=== PATIENT | female | born 1980 | race Caucasian/White ===

== ENCOUNTER 2019-05-26 21:59 | Emergency (ER) | payer MEDICAID, SELFPAY | END 2019-05-27 04:05 | disposition admitted as inpatient to this hospital (09) | LOC: ER 07-05 09:59 | PROVIDERS: Emergency Provider Family Medicine; Family Provider Nurse Practitioner Family; PCP Family Medicine | DX: F10.129 Alcohol abuse with intoxication, unspecified (principal); Y90.8 Blood alcohol level of 240 mg/100 ml or more; R11.2 Nausea with vomiting, unspecified; T68.XXXA Hypothermia, initial encounter; X31.XXXA Exposure to excessive natural cold, initial encounter | CPT/HCPCS: 71045; 80053; 80307; 81025; 84443; 85025; 93005; 96365; 96366; 96372; 96374; 96375; 99283; 99291; A4570; J2704; J3010; J3490; J7030 ==

== ENCOUNTER 2019-05-26 21:59 | Inpatient (IN) | payer MEDICAID, SELFPAY ==
[2019-05-26 22:13] VITALS: BMI 37.8
--- NOTE | 2019-05-26 22:18 | ED_ITS ---
Entered by Liza Eddy, acting as scribe for Documented by User: Matt Plasencia DO 05/26/19 22:50 HPI - Alcohol General: Chief Complaint: Alcohol Stated Complaint: ETOH Time Seen by Provider: 05/26/19 22:16 Source: patient Mode of arrival: EMS Limitations: altered mental status History of Present Illness: HPI narrative: 38 yo Female presents to ED with complaint of alcohol intoxication and altered mental status. Per EMS, patient was found in the back of a bean picker truck, intoxicated. Pt has altered mental status and has a rectal temperature of 89 degrees. MD complaint: alcohol intoxication Last drink: Unknown Associated symptoms: Reports nausea and vomiting Review of Systems General: Reports: ROS unobtainable due to medical condition and ROS unobtainable due to mental status GI: Reports: nausea and vomiting PFSH ED PFSH: Statuses (acute, chronic, etc) shown below reflect problem list status as previously entered and may not be historically accurate Social History Smoking and tobacco status: unknown if ever smoked Physical Exam Const: COMMON NORMALS: no apparent distress, average body habitus, oriented x3, no limitations, healthy appearing, alert and well nourished HENMT: COMMON NORMALS: normocephalic, head/scalp atraumatic, hearing grossly normal bilaterally, external ears normal, EAC's normal, TM's normal bilaterally, external nose normal, nasal mucous membranes and turbinates normal, moist oral mucous membranes, oropharynx normal, dentition normal and gingiva normal HEAD & SCALP: normocephalic and atraumatic NOSE: external nose normal and nasal mucous membranes and turbinates normal EXTERNAL EAR: Yes external ears normal EXTERNAL AUDITORY CANAL: EAC's normal TYMPANIC MEMBRANE: TM's normal radha aterally Eye: COMMON NORMALS: PERRL, EOMs intact bilaterally, conjunctivae normal, no scleral icterus, no papilledema, normal visual will by confrontation and fundi normal bilaterally CONJUNCTIVA: Yes conjunctivae normal PUPIL: Yes PERRL DIRECT OPHTHALMOSCOPY: Yes no papilledema and Yes fundi normal bilaterally Neck/C-Spine: COMMON NORMALS: full ROM, no lymphadenopathy, supple, no meningeal signs, no JVD, thyroid normal and no carotid bruits THYROID: thyroid normal Chest: COMMONS NORMALS: inspection of chest normal and palpation of chest normal Resp: COMMON NORMALS: normal respiratory effort, no retractions, no use of accessory muscles, clear to auscultation bilaterally and percussion normal AUSCULTATION: clear to auscultation bilaterally PERCUSSION: percussion normal Cardio: COMMON NORMALS: no JVD, regular rate, regular rhythm, S1 normal heart sound, S2 normal heart sound, no gallops, no clicks, no murmurs, no rub and peripheral pulses 2+ throughout RATE: regular rate RHYTHM: regular rhythm HEART SOUNDS: S1 normal and S2 normal PERIPHERAL PULSES: pulses 2+ throughout GI: COMMON NORMALS: normal to inspection, nondistended, normoactive bowel sounds, soft to palpation, non-tender, no hepatosplenomegaly, no masses and no bruits PALPATION: Yes soft and Yes no hepatosplenomegaly : COMMON NORMALS: Yes no CVA tenderness and Yes external appearance normal BLADDER/KIDNEY EXAM: Yes no CVA tenderness Back/Pelvis: COMMON NORMALS: no CVA tenderness, thoracic and lumbar spine normal to inspection, no thoracic nor lumbar tenderness, thoraco-lumbar ROM normal and straight leg raise negative bilaterally Extremity: COMMON NORMALS: normal to inspection, full ROM, normal capillary refill, no joint enlargement, no clubbing, cyanosis or edema, no calf tenderness and no pedal edema Neuro: COMMON NORMALS: oriented x3 SENSORIUM/ORIENTATION: Yes alert MENINGEAL SIGNS: Yes no meningeal signs Skin: COMMON NORMALS: no rashes or lesions noted, no wounds, skin turgor normal, no jaundice, no petechiae and no mottling GENERAL SKIN EXAM: no rashes or lesions noted and turgor normal Course Vital Signs: Vital signs: Vital Signs Temperature 93.8 F L 05/27/19 00:02 Pulse Rate 50 L 05/27/19 00:02 Respiratory Rate 16 05/27/19 00:02 Blood Pressure 112/61 05/27/19 00:02 Pulse Oximetry 98 05/27/19 00:02 MDM - Alcohol Lab Data: Labs: Lab Results 05/26/19 05/26/19 05/26/19 Range/Units 22:50 22:50 22:50 WBC (4.0-10.0) 10^3/ uL RBC (4.1-5.3) 10^6/u L Hgb (11.5-15.3) g/dL Hct (37.0-47.0) % MCV (81-99) fL MCH (28.0-34.0) pg MCHC (30.0-36.0) g/dL RDW (12.1-15.1) % Plt Count (130-400) 10^3/c mm MPV (7.4-10.4) fL Neut % (Auto) % Lymph % (Auto) % Kershaw % (Auto) % Eos % (Auto) % Baso % (Auto) % Neut # (Auto) (1.8-7.7) 10^3/u L Lymph # (Auto) (0.8-4.8) 10^3/u L Kershaw # (Auto) (0.2-0.9) 10^3/u L Eos # (Auto) (0.0-0.8) 10^3/u L Baso # (Auto) (0.0-0.1) 10^3/u L Nucleated RBC % (a uto) % Nucleated RBCs # /100WBC Sodium (136-145) mmol/L Potassium (3.5-5.1) mmol/L Chloride (98-107) mmol/L Carbon Dioxide (22-29) mmol/L Anion Gap (5-19) BUN (6-20) mg/dL Creatinine (0.5-0.9) mg/dL GFR Calculation (90-130) mL/min Glucose (74-109) mg/dL Calcium (8.6-10.0) mg/Dl Total Bilirubin (0.15-1.2) mg/dL AST (0-32) U/L ALT (0-33) U/L Alkaline Phosphata se (35-105) IU/L Total Protein (6.6-8.7) g/dL Albumin (3.5-5.2) g/dL Globulin (1.3-4.6) g/dL TSH (0.27-4.20) uIU/ mL HCG, Qual Negative (Negative) Urine Color Straw (Yellow) Urine Appearance Clear (CLEAR) Urine pH 6.5 (5-7) Ur Specific Gravit y 1.000 L (1.005-1.030) Urine Protein Neg (Negative) Urine Glucose (UA) Norm (Normal) Urine Ketones Negative (Negative) Urine Occult Blood Neg (Negative) Urine Nitrate Positive H (Negative) Urine Bilirubin Neg (NEGATIVE) Urine Urobilinogen Norm (Negative) mg/dL Ur Leukocyte Stephanie ase Negative (Negative) Urine RBC Rare (0-2) /hpf Urine WBC Rare (0-5) /hpf Ur Squamous Epith Cells Rare (0-5) Urine Bacteria 1+ H (NONE) Salicylates (3-10) mg/dL Urine Opiates Scre en Negative (Negative) ng/mL Acetaminophen (10-30) ug/mL Ur Barbiturates Sc reen Negative (Negative) ng/mL Ur Phencyclidine S crn Negative (Negative) ng/mL Ur Amphetamines Sc reen Negative (Negative) ng/mL U Benzodiazepines Scrn Negative (Negative) ng/mL Urine Cocaine Scre en Negative (Negative) ng/mL U Marijuana (THC) Screen Negative (Negative) ng/mL Ethyl Alcohol (0-10) mg/dL 05/26/19 05/26/19 Range/Units 22:58 22:58 WBC 16.4 H (4.0-10.0) 10^3/ uL RBC 5.24 (4.1-5.3) 10^6/u L Hgb 16.4 H (11.5-15.3) g/dL Hct 51.3 H (37.0-47.0) % MCV 97.9 (81-99) fL MCH 31.3 (28.0-34.0) pg MCHC 32.0 (30.0-36.0) g/dL RDW 13.6 (12.1-15.1) % Plt Count 334 (130-400) 10^3/c mm MPV 9.9 (7.4-10.4) fL Neut % (Auto) 43.6 % Lymph % (Auto) 48.2 % Kershaw % (Auto) 4.2 % Eos % (Auto) 3.1 % Baso % (Auto) 0.3 % Neut # (Auto) 7.1 (1.8-7.7) 10^3/u L Lymph # (Auto) 7.9 H (0.8-4.8) 10^3/u L Kershaw # (Auto) 0.7 (0.2-0.9) 10^3/u L Eos # (Auto) 0.5 (0.0-0.8) 10^3/u L Baso # (Auto) 0.1 (0.0-0.1) 10^3/u L Nucleated RBC % (a uto) 0 % Nucleated RBCs # 0.0 /100WBC Sodium 137 (136-145) mmol/L Potassium 4.6 (3.5-5.1) mmol/L Chloride 104 (98-107) mmol/L Carbon Dioxide 21 L (22-29) mmol/L Anion Gap 16.6 (5-19) BUN 10 (6-20) mg/dL Creatinine 1.0 H (0.5-0.9) mg/dL GFR Calculation 61.4 L (90-130) mL/min Glucose 104 (74-109) mg/dL Calcium 10.1 H (8.6-10.0) mg/Dl Total Bilirubin 0.2 (0.15-1.2) mg/dL AST 58 H (0-32) U/L ALT 52 H (0-33) U/L Alkaline Phosphata se 118 H (35-105) IU/L Total Protein 7.8 (6.6-8.7) g/dL Albumin 5.4 H (3.5-5.2) g/dL Globulin 2.4 (1.3-4.6) g/dL TSH 0.41 (0.27-4.20) uIU/ mL HCG, Qual (Negative) Urine Color (Yellow) Urine Appearance (CLEAR) Urine pH (5-7) Ur Specific Gravit y (1.005-1.030) Urine Protein (Negative) Urine Glucose (UA) (Normal) Urine Ketones (Negative) Urine Occult Blood (Negative) Urine Nitrate (Negative) Urine Bilirubin (NEGATIVE) Urine Urobilinogen (Negative) mg/dL Ur Leukocyte Stephanie ase (Negative) Urine RBC (0-2) /hpf Urine WBC (0-5) /hpf Ur Squamous Epith Cells (0-5) Urine Bacteria (NONE) Salicylates < 0.3 L (3-10) mg/dL Urine Opiates Scre en (Negative) ng/mL Acetaminophen < 5.0 L (10-30) ug/mL Ur Barbiturates Sc reen (Negative) ng/mL Ur Phencyclidine S crn (Negative) ng/mL Ur Amphetamines Sc reen (Negative) ng/mL U Benzodiazepines Scrn (Negative) ng/mL Urine Cocaine Scre en (Negative) ng/mL U Marijuana (THC) Screen (Negative) ng/mL Ethyl Alcohol 455 H* (0-10) mg/dL Coding Level of Care Code ED Material Handling Equipment Stevedore for Chg Fwd Exam Problem Focused Documented by User: Carl Mars DO 05/27/19 01:06 HPI - Alcohol General: Chief Complaint: Alcohol Stated Complaint: ETOH Time Seen by Provider: 05/26/19 22:16 PFS ED PFSH: Statuses (acute, chronic, etc) shown below reflect problem list status as previously entered and may not be historically accurate Social History Smoking and tobacco status: unknown if ever smoked Course ED course: 38-year-old female checked out to me by Dr. Landaverde. She presents intoxicated, had thrown up, and was quite hypothermic. Her rectal temp was 87.1. She was combative. She was unable to maintain her airway, and was intubated by Dr. Landaverde. This was done without complication. She was placed on propofol for sedation. Blood pressure currently 135/77, heart rate 55, oxygen saturations are 99%. CT of the head is been ordered for mental status change. Her alcohol level is 455 which is obviously critical. She does not, however, have a gap acidosis. She will be fluid resuscitated. She will be placed in the ICU. Consultations: Consultation #1: [place] Vital Signs: Vital signs: Vital Signs Temperature 93.8 F L 05/27/19 00:02 Pulse Rate 50 L 05/27/19 00:02 Respiratory Rate 16 05/27/19 00:02 Blood Pressure 112/61 05/27/19 00:02 Pulse Oximetry 98 05/27/19 00:02 MDM - Alcohol Lab Data: Labs: Lab Results 05/26/19 05/26/19 05/26/19 Range/Units 22:50 22:50 22:50 WBC (4.0-10.0) 10^3/ uL RBC (4.1-5.3) 10^6/u L Hgb (11.5-15.3) g/dL Hct (37.0-47.0) % MCV (81-99) fL MCH (28.0-34.0) pg MCHC (30.0-36.0) g/dL RDW (12.1-15.1) % Plt Count (130-400) 10^3/c mm MPV (7.4-10.4) fL Neut % (Auto) % Lymph % (Auto) % Kershaw % (Auto) % Eos % (Auto) % Baso % (Auto) % Neut # (Auto) (1.8-7.7) 10^3/u L Lymph # (Auto) (0.8-4.8) 10^3/u L Kershaw # (Auto) (0.2-0.9) 10^3/u L Eos # (Auto) (0.0-0.8) 10^3/u L Baso # (Auto) (0.0-0.1) 10^3/u L Nucleated RBC % (a uto) % Nucleated RBCs # /100WBC Sodium (136-145) mmol/L Potassium (3.5-5.1) mmol/L Chloride (98-107) mmol/L Carbon Dioxide (22-29) mmol/L Anion Gap (5-19) BUN (6-20) mg/dL Creatinine (0.5-0.9) mg/dL GFR Calculation (90-130) mL/min Glucose (74-109) mg/dL Calcium (8.6-10.0) mg/Dl Total Bilirubin (0.15-1.2) mg/dL AST (0-32) U/L ALT (0-33) U/L Alkaline Phosphata se (35-105) IU/L Total Protein (6.6-8.7) g/dL Albumin (3.5-5.2) g/dL Globulin (1.3-4.6) g/dL TSH (0.27-4.20) uIU/ mL HCG, Qual Negative (Negative) Urine Color Straw (Yellow) Urine Appearance Clear (CLEAR) Urine pH 6.5 (5-7) Ur Specific Gravit y 1.000 L (1.005-1.030) Urine Protein Neg (Negative) Urine Glucose (UA) Norm (Normal) Urine Ketones Negative (Negative) Urine Occult Blood Neg (Negative) Urine Nitrate Positive H (Negative) Urine Bilirubin Neg (NEGATIVE) Urine Urobilinogen Norm (Negative) mg/dL Ur Leukocyte Stephanie ase Negative (Negative) Urine RBC Rare (0-2) /hpf Urine WBC Rare (0-5) /hpf Ur Squamous Epith Cells Rare (0-5) Urine Bacteria 1+ H (NONE) Salicylates (3-10) mg/dL Urine Opiates Scre en Negative (Negative) ng/mL Acetaminophen (10-30) ug/mL Ur Barbiturates Sc reen Negative (Negative) ng/mL Ur Phencyclidine S crn Negative (Negative) ng/mL Ur Amphetamines Sc reen Negative (Negative) ng/mL U Benzodiazepines Scrn Negative (Negative) ng/mL Urine Cocaine Scre en Negative (Negative) ng/mL U Marijuana (THC) Screen Negative (Negative) ng/mL Ethyl Alcohol (0-10) mg/dL 05/26/19 05/26/19 Range/Units 22:58 22:58 WBC 16.4 H (4.0-10.0) 10^3/ uL RBC 5.24 (4.1-5.3) 10^6/u L Hgb 16.4 H (11.5-15.3) g/dL Hct 51.3 H (37.0-47.0) % MCV 97.9 (81-99) fL MCH 31.3 (28.0-34.0) pg MCHC 32.0 (30.0-36.0) g/dL RDW 13.6 (12.1-15.1) % Plt Count 334 (130-400) 10^3/c mm MPV 9.9 (7.4-10.4) fL Neut % (Auto) 43.6 % Lymph % (Auto) 48.2 % Kershaw % (Auto) 4.2 % Eos % (Auto) 3.1 % Baso % (Auto) 0.3 % Neut # (Auto) 7.1 (1.8-7.7) 10^3/u L Lymph # (Auto) 7.9 H (0.8-4.8) 10^3/u L Kershaw # (Auto) 0.7 (0.2-0.9) 10^3/u L Eos # (Auto) 0.5 (0.0-0.8) 10^3/u L Baso # (Auto) 0.1 (0.0-0.1) 10^3/u L Nucleated RBC % (a uto) 0 % Nucleated RBCs # 0.0 /100WBC Sodium 137 (136-145) mmol/L Potassium 4.6 (3.5-5.1) mmol/L Chloride 104 (98-107) mmol/L Carbon Dioxide 21 L (22-29) mmol/L Anion Gap 16.6 (5-19) BUN 10 (6-20) mg/dL Creatinine 1.0 H (0.5-0.9) mg/dL GFR Calculation 61.4 L (90-130) mL/min Glucose 104 (74-109) mg/dL Calcium 10.1 H (8.6-10.0) mg/Dl Total Bilirubin 0.2 (0.15-1.2) mg/dL AST 58 H (0-32) U/L ALT 52 H (0-33) U/L Alkaline Phosphata se 118 H (35-105) IU/L Total Protein 7.8 (6.6-8.7) g/dL Albumin 5.4 H (3.5-5.2) g/dL Globulin 2.4 (1.3-4.6) g/dL TSH 0.41 (0.27-4.20) uIU/ mL HCG, Qual (Negative) Urine Color (Yellow) Urine Appearance (CLEAR) Urine pH (5-7) Ur Specific Gravit y (1.005-1.030) Urine Protein (Negative) Urine Glucose (UA) (Normal) Urine Ketones (Negative) Urine Occult Blood (Negative) Urine Nitrate (Negative) Urine Bilirubin (NEGATIVE) Urine Urobilinogen (Negative) mg/dL Ur Leukocyte Stephanie ase (Negative) Urine RBC (0-2) /hpf Urine WBC (0-5) /hpf Ur Squamous Epith Cells (0-5) Urine Bacteria (NONE) Salicylates < 0.3 L (3-10) mg/dL Urine Opiates Scre en (Negative) ng/mL Acetaminophen < 5.0 L (10-30) ug/mL Ur Barbiturates Sc reen (Negative) ng/mL Ur Phencyclidine S crn (Negative) ng/mL Ur Amphetamines Sc reen (Negative) ng/mL U Benzodiazepines Scrn (Negative) ng/mL Urine Cocaine Scre en (Negative) ng/mL U Marijuana (THC) Screen (Negative) ng/mL Ethyl Alcohol 455 H* (0-10) mg/dL Coding Level of Care Code ED Material Handling Equipment Stevedore for Chg Fwd Exam Problem Focused The documentation recorded by the Nunu moreno Carmen, accurately reflects the service I personally performed and the decisions made by , Mtat Plasencia, DO May 26, 2019 21:59
[2019-05-26] MEDS: sodium chloride 0.9% 1,000 ML 999 ML IV (22:43)
--- NOTE | 2019-05-26 22:43 | XRR_ITS ---
PROCEDURE INFORMATION: Exam: XR Chest, 1 View Exam date and time: 05/27/2019 1:10 AM Age: 38 years old Clinical indication: Device placement; Other: Post intubation TECHNIQUE: Imaging protocol: XR of the chest Views: 1 view. COMPARISON: CR Chest 1 [place] [id number] 04/02/2015 7:21 PM FINDINGS: Tubes, catheters and devices: Endotracheal tube tip resides 3.8 CM above the alex. Enteric tube extends to the lateral left upper quadrant. Lungs: Unremarkable. No consolidation. Pleural space: Unremarkable. No pleural effusion. No pneumothorax. Heart/Mediastinum: Unremarkable. No cardiomegaly. Bones/joints: Unremarkable. XR/XR chest 1V portable [id number] IMPRESSION: 1. No acute cardiopulmonary process.
--- NOTE | 2019-05-26 22:43 | ECG_ITS ---
Measurements Intervals [place] Rate: 64 P: 68 MA: 155 QRS: 61 QRSD: 87 T: 62 QT: 459 QTc: 474 SINUS RHYTHM WITH SINUS ARRHYTHMIA PROLONGED QT INTERVAL Compared to ECG 02/17/2016 14:05:14 Prolonged QT interval now present Sinus bradycardia no longer present Electronically Signed On 05-27-2019 5:55:23 SALES OPERATIONS DIRECTOR by Ana Hickey M.D. [id number]
[2019-05-26 22:49] VITALS: RESP 14
[2019-05-26 23:03] LABS: Basophils # 0.1 10^3/uL (0.0-0.1); Basophils % 0.3 %; Eosinophils # 0.5 10^3/uL (0.0-0.8); Eosinophils % 3.1 %; Hematocrit 51.3 % (37.0-47.0); Hemoglobin 16.4 g/dL (11.5-15.3); Lymphocytes # 7.9 10^3/uL (0.8-4.8); Lymphocytes % 48.2 %; Mean Corpuscular Hemoglobin 31.3 pg (28.0-34.0); Mean Corpuscular Volume 97.9 fL (81-99); Mean Platelet Volume 9.9 fL (7.4-10.4); Monocytes # 0.7 10^3/uL (0.2-0.9); Monocytes % 4.2 %; Neutrophils # 7.1 10^3/uL (1.8-7.7); Neutrophils % 43.6 %; Nucleated Red Blood Cells % 0 %; Platelet Count 334 10^3/cmm (130-400); Red Blood Count 5.24 10^6/uL (4.1-5.3); Red Cell Distribution Width 13.6 % (12.1-15.1); White Blood Count 16.4 10^3/uL (4.0-10.0)
[2019-05-26 23:14] LABS: HCG Qualitative Urine. Negative (Negative)
[2019-05-26] MEDS: propofol 1,000 MG/100 ML INJ 3 MG IV (23:30)
[2019-05-26 23:31] LABS: Alanine Aminotransferase 52 U/L (0-33); Albumin Level 5.4 g/dL (3.5-5.2); Alkaline Phosphatase 118 IU/L (35-105); Anion Gap 16.6 (5-19); Blood Urea Nitrogen 10 mg/dL (6-20); Calcium 10.1 mg/Dl (8.6-10.0); Carbon Dioxide 21 mmol/L (22-29); Chloride 104 mmol/L (98-107); Globulin 2.4 g/dL (1.3-4.6); Glomerular Filtration Rate 61.4 mL/min (90-130); Glucose 104 mg/dL (74-109); Potassium 4.6 mmol/L (3.5-5.1); Sodium 137 mmol/L (136-145); Thyroid Stimulating Hormone 0.41 uIU/mL (0.27-4.20); Total Bilirubin 0.2 mg/dL (0.15-1.2); Total Protein 7.8 g/dL (6.6-8.7)
[2019-05-26 23:32] LABS: Salicylate < 0.3 mg/dL (3-10)
[2019-05-26 23:33] LABS: Acetaminophen < 5.0 ug/mL (10-30); Alcohol Level 455 mg/dL (0-10); Aspartate Amino Transferase 58 U/L (0-32)
[2019-05-27] VITALS (16 sets, daily range): BP systolic 112–153; BP diastolic 61–97; PULSE 50–82; RESP 14–19; TEMP 34.3–36.8; O2SAT 91–100
[2019-05-27] MEDS: fentaNYL 50 mcg/mL INJ 2mL 100 MCG (00:09)
--- NOTE | 2019-05-27 00:09 | CTR_ITS ---
PROCEDURE INFORMATION: Exam: CT Head Without Contrast Exam date and time: 05/27/2019 12:26 AM Age: 38 years old Clinical indication: Altered mental status/memory loss; Additional info: AMS TECHNIQUE: Imaging protocol: Computed tomography of the head without contrast. Total DLP: 1493.4 mGy-cm Radiation optimization: All CT scans at this facility use at least one of these dose optimization techniques: automated exposure control; mA and/or kV adjustment per patient size (includes targeted exams where dose is matched to clinical indication); or iterative reconstruction. COMPARISON: No relevant prior studies available. FINDINGS: Limitations: Motion artifact does moderately limit the sensitivity of this examination. Brain: Normal. No hemorrhage. Unremarkable white matter. No mass effect. Ventricles: Normal. No ventriculomegaly. Bones/joints: Unremarkable. No acute fracture. Sinuses: Visualized sinuses are unremarkable. No fluid levels. Mastoid air cells: Visualized mastoid air cells are well aerated. Soft tissues: Unremarkable. CT/CT head wo con* [id number] IMPRESSION: No acute intracranial abnormality. Radiation Dose CTDIVOL = (mGy): DLP = 1493.4 (mGy-cm)
[2019-05-27] MEDS: fentaNYL 50 mcg/mL INJ 2mL 200 MCG IVP (00:12)
[2019-05-27] MEDS: vecuronium 10 mg SDV IV (00:12)
[2019-05-27 00:44] LABS: Add Urine Culture? No; Bacteria Urine 1+; Bilirubin Urine Neg (NEGATIVE); Blood Urine Neg (Negative); Glucose Urine UA Norm (Normal); Ketones Urine Negative (Negative); Leukocyte Esterase Urine Negative (Negative); Nitrate Urine Positive (Negative); Protein Urine Neg (Negative); RBC Urine RARE /hpf (0-2); Squamous Epithelial Cell Urine RARE (0-5); Urine Appearance Clear (CLEAR); Urine Color Straw (Yellow); Urobilinogen Urine Norm (Negative); WBC Urine RARE /hpf (0-5); pH Urine 6.5 (5-7)
[2019-05-27 00:53] LABS: Amphetamines Screen Urine Negative (Negative); Barbiturates Screen Urine Negative (Negative); Benzodiazepines Screen Urine Negative (Negative); Cocaine Screen Urine Negative (Negative); Opiate Screen Urine Negative (Negative); PCP Screen Urine Negative (Negative); THC Screen Urine Negative (Negative)
--- NOTE | 2019-05-27 01:33 | PM.HP ---
Providers/Chief Complaint Admitting Physician: Khadar Haynes MD Primary Care Provider: Otto Gooden Chief Complaint: ETOH History of Present Illness August Moo is a 38 year old female who was brought in by EMS when she was found in the back of the truck exposed to cold intoxicated with alcohol. She was intubated in ER by Dr. Landaverde for inability to protect airways, she had very high alcohol level, her speech and mentation was very incoherent before intubation. Most of the information has been gleaned from previous records she has a history of suicidal ideation, psychiatric history. On previous visit she was positive for THC, benzodiazepine, had plan to kill herself. She was found in the back of the truck, her body temperature was 85 Fahrenheit, when she came in her heart rate was 50, blood pressure 112/60, By the time I evaluated her heart heart rate was fluctuating between 60-70, her body temperature was normal, she had normal hemodynamics, Review of Systems General: Reports: ROS unobtainable due to endotracheal tube Medications/Allergies Allergies Allergy/AdvReac Type Severity Reaction Status Date / Time No Known Allergies Allergy Verified 05/26/19 23:11 PFSH Acute PFSH: Statuses (acute, chronic, etc) shown below reflect problem list status as previously entered and may not be historically accurate Medical History (Updated 05/27/19 @ 01:43 by Khadar Haynes MD) Bipolar disorder (Acute) Polysubstance abuse (Acute) Suicidal ideation (Acute) Surgical History (Updated 05/27/19 @ 01:36 by Khadar Haynes MD) H/O shoulder surgery (Acute) Hx of neck surgery (Acute) Family History (Updated 05/27/19 @ 01:36 by Khadar Haynes MD) Denies family history of Psychiatric illness Social History (Updated 05/27/19 @ 01:37 by Khadar Haynes MD) Smoking and tobacco status: current some day smoker Alcohol intake: current Substance/Drug Use: current Vitals/I&O/Wt Last Vital Signs Temp 93.8 F L 05/27/19 00:02 Pulse 50 L 05/27/19 00:02 Resp 16 05/27/19 00:02 BP 112/61 05/27/19 00:02 Pulse Ox 98 05/27/19 00:02 05/26/19 05/26/19 05/27/19 14:59 22:59 06:59 Intake Total 1000 / 1000 Balance 1000 / 1000 Weight last 48 hrs Weight 90.718 kg Physical Exam Narrative: EXAM NARRATIVE: Patient is intubated and sedated Propofol at the bedside, CMV ventilator setting FiO2 45%, PEEP 5, tidal volume 450, She only has 1 left-sided IV access, She has unkept appearance, No skin bruises S1-S2 no murmur no JVD no signs of heart failure Abdomen has positive bowel sounds, it is not bloated or distended Neurological exam not able to assess Breath sounds are assisted bilaterally without any adventitious sounds Currently her body temperature is normal, heart rate is 65, blood pressure 120 Ewing catheter draining dilute slight yellow urine Good dorsalis pedis pulses 2+ bilateral A&P Assessment and plan (1) Alcohol intoxication: Status: Acute Code(s): F10.929 - Alcohol use, unspecified with intoxication, unspecified (2) Respiratory failure: Status: Acute Code(s): J96.90 - Respiratory failure, unspecified, unspecified whether with hypoxia or hypercapnia Additional A&P Information Additional A&P Information: Respiratory failure inability to protect her airways Intubated and sedated in the ER I am waiting on blood gas, chest x-ray to evaluate ET tube and NG Sedated with propofol CMV 45%, PEEP 5, tidal volume 450 Alcohol intoxication Very high alcohol level Would use thiamine and folic acid High risk for delirium tremens She has previous history of suicidal ideation Not sure at this point whether she had plan to harm herself with alcohol intoxication She might need psychiatric evaluation once she is extubated Full code DVT prophylaxis Lovenox GI prophylaxis Protonix Attestations Medical Necessity Statement*: Anticipating her stay to cross more than 2 midnights most likely she will need 96-hour hold and psychiatric evaluation, currently has alcohol intoxication, previously had suicidal ideation Time Spent in Patient Care: Greater than 35 minutes 45 Coding Level of Care Code Acute Senior Network Security Engineer for Ana Mariag Fwd Diagnoses Alcohol intoxication F10.929 Respiratory failure J96.90
[2019-05-27] MEDS: enoxaparin 40 mg/0.4 mL Syringe SUBCUT (04:32)
[2019-05-27] MEDS: sodium chloride 0.9% 1,000 ML 150 ML IV (04:32)
[2019-05-27 06:12] LABS: Free T4 Free Thyroxine 1.96 ng/dL (0.82-1.77); Lipase 57 U/L (13-60)
--- NOTE | 2019-05-27 08:53 | P.PN_ITS ---
Subjective Subjective: Interval history: Overnight H&P and labs reviewed. Patient admitted with acute alcohol intoxication overnight. Blood alcohol level greater than 455. Self extubated overnight.. This morning she is awake alert and oriented. Currently, Labs pending this morning. Medications: Reviewed: Yes Vitals/I&O/Wt Last Vital Signs Temp 96.7 F L 05/27/19 04:30 Pulse 81 05/27/19 06:00 Resp 16 05/27/19 06:00 BP 113/77 05/27/19 06:00 Pulse Ox 92 05/27/19 06:00 05/26/19 05/27/19 05/27/19 22:59 06:59 14:59 Intake Total 1257.5 / 1257.5 Output Total 575 / 575 Balance 682.5 / 682.5 Weight last 48 hrs Weight 95.39 kg Weight 90.718 kg Physical Exam Const: COMMON NORMALS: no apparent distress, average body habitus, oriented x3, no limitations, healthy appearing, alert and well nourished Neck/C-Spine: COMMON NORMALS: no JVD Resp: COMMON NORMALS: normal respiratory effort, no retractions, no use of accessory muscles and clear to auscultation bilaterally AUSCULTATION: clear to auscultation bilaterally Cardio: COMMON NORMALS: no JVD, regular rate, regular rhythm, S1 normal heart sound, S2 normal heart sound, no gallops, no clicks, no murmurs, no rub and peripheral pulses 2+ throughout RATE: regular rate RHYTHM: regular rhythm HEART SOUNDS: S1 normal and S2 normal PERIPHERAL PULSES: pulses 2+ throughout GI: COMMON NORMALS: normal to inspection, nondistended, normoactive bowel sounds, soft to palpation, non-tender, no hepatosplenomegaly, no masses and no bruits PALPATION: Yes soft and Yes no hepatosplenomegaly Neuro: COMMON NORMALS: oriented x3 SENSORIUM/ORIENTATION: Yes alert Psych: COMMON NORMALS: mental status grossly normal, thought process normal and cooperative THOUGHT PROCESS: normal thought process A&P Assessment and plan (1) Alcohol intoxication: Status: Acute Code(s): F10.929 - Alcohol use, unspecified with intoxication, unspecified (2) Respiratory failure: Status: Acute Code(s): J96.90 - Respiratory failure, unspecified, unspecified whether with hypoxia or hypercapnia Additional A&P Information Additional A&P Information: Respiratory failure inability to protect her airways Intubated and sedated in the ER subsequently self extubated. At the time of exam this morning she is alert awake and oriented. Alcohol intoxication Very high alcohol level Continue thiamine and folic acid High risk for delirium tremens Highly likely to going to withdrawal. Started on Librium and will use Precedex drip if agitation not able to be controlled with Librium and as needed Ativan. She has previous history of suicidal ideation Not sure at this point whether she had plan to harm herself with alcohol intoxication Full code DVT prophylaxis Lovenox GI prophylaxis Protonix Attestations Medical Necessity Statement*: Admitted for the management of acute alcohol intoxication now high risk of going into alcohol withdrawal. Coding Level of Care Code Acute Radiographer Technologist for Samreen Lubin Diagnoses Alcohol intoxication F10.929 Respiratory failure J96.90
[2019-05-27] MEDS: thiamine 100 mg Tablet PO (09:47)
[2019-05-27] MEDS: TRAMadol 50 mg Tablet PO ×2 (09:47→16:28)
[2019-05-27] MEDS: multivitamin therapeutic Tablet 1 TAB PO (09:47)
[2019-05-27] MEDS: folic acid 1 mg Tablet PO (09:47)
[2019-05-27 09:48] LABS: Basophils % 0.3 %; Eosinophils # 0.4 10^3/uL (0.0-0.8); Eosinophils % 3.1 %; Hematocrit 44.3 % (37.0-47.0); Hemoglobin 14.4 g/dL (11.5-15.3); Mean Corpuscular HGB Conc 32.5 g/dL (30.0-36.0); Mean Corpuscular Hemoglobin 31.5 pg (28.0-34.0); Mean Corpuscular Volume 96.9 fL (81-99); Mean Platelet Volume 9.9 fL (7.4-10.4); Monocytes # 0.5 10^3/uL (0.2-0.9); Monocytes % 4.5 %; Neutrophils # 5.7 10^3/uL (1.8-7.7); Neutrophils % 48.8 %; Nucleated Red Blood Cells % 0 %; Platelet Count 308 10^3/cmm (130-400); Red Blood Count 4.57 10^6/uL (4.1-5.3); White Blood Count 11.7 10^3/uL (4.0-10.0)
[2019-05-27 09:58] LABS: Alanine Aminotransferase 46 U/L (0-33); Albumin Level 3.7 g/dL (3.5-5.2); Alkaline Phosphatase 100 IU/L (35-105); Anion Gap 16.6 (5-19); Aspartate Amino Transferase 53 U/L (0-32); Blood Urea Nitrogen 12 mg/dL (6-20); Calcium 9.1 mg/Dl (8.6-10.0); Carbon Dioxide 23 mmol/L (22-29); Chloride 108 mmol/L (98-107); Globulin 3.3 g/dL (1.3-4.6); Glomerular Filtration Rate 69.3 mL/min (90-130); Glucose 115 mg/dL (74-109); Potassium 3.6 mmol/L (3.5-5.1); Sodium 144 mmol/L (136-145); Total Bilirubin 0.2 mg/dL (0.15-1.2)
[2019-05-27 11:08] LABS: Lactic Acid 3.1 mmol/L (0.5-2.2)
--- NOTE | 2019-05-27 15:40 | ECG_ITS ---
Measurements Intervals [place] Rate: 69 P: 59 AK: 143 QRS: 56 QRSD: 90 T: 53 QT: 392 QTc: 423 SINUS RHYTHM Compared to ECG 05/27/2019 01:42:01 Sinus arrhythmia no longer present Prolonged QT interval no longer present Electronically Signed On 05-27-2019 17:49:36 BARREL MAKER by Ana Hickey M.D. [id number]
[2019-05-27 16:16] LABS: Troponin T (5th) Once 11 ng/mL (0-10)
[2019-05-27 17:00] LABS: Troponin T (5th) Once 10 ng/mL (0-10)
[2019-05-27] MEDS: sodium chloride 0.9% 1,000 ML 75 ML IV (19:08)
[2019-05-27] MEDS: morphine 4 mg/mL SDV 1 mL 2 MG IVP (19:48)
[2019-05-28] VITALS (19 sets, daily range): BP systolic 109–145; BP diastolic 71–97; PULSE 53–91; RESP 13–24; TEMP 36.6–36.9; O2SAT 91–97
[2019-05-28] MEDS: morphine 4 mg/mL SDV 1 mL 2 MG IVP ×5 (00:52→23:29)
[2019-05-28] MEDS: enoxaparin 40 mg/0.4 mL Syringe SUBCUT (05:05)
--- NOTE | 2019-05-28 07:02 | PC.NURSE ---
SHIFT SUMMARY PT HAS BEEN ALERT AND ORIENTATED. PT HAS COMPLAINED OF CEHST PAIN, PASSED ON IN REPORT FROM DAYSHIFT THAT PT HAS COMPLAINED OF THAT, EKG WAS WNL, STATED TO GIVE MORPHINE WHEN CHEST HURTS. PT COUGHS FORCEFULLY PERIODICALLY. PT ABLE TO USE BEDSIDE COMMODE, PT URINE HAS A VERY FOUL SMELL. PT LUNGS ARE CLEAR, DIMINISHED AT TIMES. PRECEDEX RUNNING AT 0.3. NO AIVAN NEEDED PER CIWA.
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
[2019-05-28] MEDS: pantoprazole DR 40 mg Tablet PO (08:58)
[2019-05-28] MEDS: thiamine 100 mg Tablet PO (08:58)
[2019-05-28] MEDS: folic acid 1 mg Tablet PO (08:59)
[2019-05-28] MEDS: sodium chloride 0.9% 1,000 ML 75 ML IV ×2 (08:59→21:05)
[2019-05-28] MEDS: TRAMadol 50 mg Tablet PO (08:59)
[2019-05-28] MEDS: multivitamin therapeutic Tablet 1 TAB PO (08:59)
[2019-05-28] MEDS: chlordiazePOXIDE 25 mg Capsule PO ×3 (08:59→21:05)
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
--- NOTE | 2019-05-28 16:52 | PC.CHAP ---
Pastoral Care Encounter/Spiritual Assessment Type of Contact [] Declined wire weaver visit [x] Patient/Family/Request visit [] Outpatient visit [] Follow-up visit [] Physician referral [] Code/Alert [] Routine visit [] Staff referral [] Actively dying [x] Patient sleeping [] Family support [] [] Out of room [] Palliative care [] [] Receiving care in room [] Pre-surgical visit [] Trauma [] Long length of stay [x] ICU visit [] Other: Relational/Emotional Strength [] Patient feels connected with others/family/visitors/staff [] Distress [] Loneliness/isolation [] Abandonment Spirituality of Patient [] Person of Mikaela [] Attends Jain of their Mikaela [] Believes in Prayer [] Reads Bible or Yarsanism materials [] There are Spiritual issues to be addressed Mold Sheet Cleaner Interventions [x] Prayer [x] Active listening [x] Non-anxious presence [x] Spiritual/emotional support [] Crisis/trauma care [] Spiritual counseling [] Bereavement support [] Provided bereavement packet [] Provided Bible/devotional materials [] Provided toy/stuffed animal, coloring book to patient or family member [] Completed spiritual assessment [] Provided Communion [] Anointing/[place] [] Salvation [] Other: Impact on Illness or Injury [] Angry [] Fearful [] Anxious [] Often cries [] Exhaustion [] Unable to work [] Unable to attend judaism [] Unable to walk/stand [] Unable to read [] Unable to drive [] Unable to eat/drink [] Unable to sleep [] Unable to be with family [] Other: Summary Prayer for her and nurse Time spent with patient 2 min.
[2019-05-28] MEDS: LORazepam 2 mg/mL INJ 1 mL IVP ×2 (17:03→21:15)
--- NOTE | 2019-05-28 22:21 | PC.NURSE ---
PT IS BECOMING VERY CONFRONTATIONAL WHEN ASKING FOR HER PAIN MEDS. DEMANDING IT IS TIME AND SHE NEEDS THEM. PT WAS EDUCATED WHEN THEY ARE AVAILABLE AND ONLY WHEN SHE ASKS BECAUSE THEY ARE PRN AND NOT SCHEDULED. PT IS WANTING TO EAT AND EAT AND GETTING UPSET TALKING ABOUT HOW THE HOSPITAL ISNT GIVING HER ENOUGH FOOD. PT WAS GIVEN SANDWICH AND SNACKS. PT BECOMES EMOTIONAL AND AGITATED. PT WAS SCORED ON CIWA AND GIVEN ATIVAN TO HELP CALM HER DOWN.
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
[2019-05-29] VITALS (13 sets, daily range): BP systolic 127–166; BP diastolic 87–114; PULSE 79–96; RESP 15–23; TEMP 36.6–36.8; O2SAT 90–98
[2019-05-29] MEDS: LORazepam 2 mg/mL INJ 1 mL IVP ×3 (01:40→10:52)
[2019-05-29] MEDS: morphine 4 mg/mL SDV 1 mL 2 MG IVP ×3 (03:33→11:47)
[2019-05-29] MEDS: enoxaparin 40 mg/0.4 mL Syringe SUBCUT (03:33)
[2019-05-29] MEDS: chlordiazePOXIDE 25 mg Capsule PO ×2 (03:33→07:46)
--- NOTE | 2019-05-29 06:01 | PC.NURSE ---
SHIFT SUMMARY PT HAS BEEN ALERT AND ORIENTATED. PT HAS SCORED ON CIWA TWICE AND GIVEN MEDS. PT HAS BEEN RESTING WITH EYES CLOSED, EACH TIME SHE WAKES SHE INSISTS SHE NEEDS PAIN MEDS. SHE HAS GOTTEN PAIN MEDS THEY WERE AVAILABLE. PT REFUSES TO TAKE TRAMADOL. PT LUNGS REMAIN CLEAR. PT IS ABLE TO GET UP TO BEDSIDE COMMODE WITH MINIMAL ASSIST. PT BECOMES VERY ANXIOUS AT TIMES, STILL COMPLAINING ABOUT CHEST HURTING. PT IS BARKING COUGH, NO SPUTUM NOTED THIS FAR. PT HAS HAD ADEQUATE URINE OUTPUT.
--- NOTE | 2019-05-29 07:22 | PC.NURSE ---
Report received from nurse MILKA Haddad. Patient resting in bed wit eyes closed at this time.
--- NOTE | 2019-05-29 08:10 | PC.NURSE ---
Patient states pain is 12/10 . Refuses to give number between 0 and 10. PRN medication administered in response to pain. Patient requests additional breakfast tray. Call placed to dietary to request additional portions. Taking additional tray in now.
--- NOTE | 2019-05-29 08:43 | CT_ITS ---
WS: [id number] CTA OF THE CHEST WITH PULMONARY EMBOLISM PROTOCOL TECHNIQUE: High-resolution contrast enhanced CTA of the chest with coronal and sagittal reformatted i mages with pulmonary embolism protocol. MIP images are also reviewed. CLINICAL INFORMATION: r/o PE COMPARISON: None. DLP: 1907.[address] scans at [facility] use at least one of these dose optimization techniques: automat ed exposure control; mA and/or kV adjustment per patient size (includes targeted exams where dose is matched to clinical indication); or iterative reconstruction. FINDINGS: Proximal main pulmonary arteries are normal. Segmental and subsegmental pulmonary arteries appear nor mal. No evidence of pulmonary embolus. Mild chronic emphysematous changes. Tiny pleural effusions. Bi basilar atelectasis. Subsegmental atelectasis right lower lobe. Normal caliber thoracic aorta. No med iastinal or hilar lymphadenopathy. No axillary lymphadenopathy. Cholecystectomy clips. Adrenal glands are normal. Normal visualized thoracic spine. CT/CT angio chest PE protcl [id number] IMPRESSION: 1. No evidence of pulmonary embolus. 2. Bibasilar atelectasis. Subsegmental atelectasis right lower lobe. 3. Mild chronic emphysematous changes. 4. No mediastinal or hilar lymphadenopathy.
--- NOTE | 2019-05-29 08:55 | PC.NURSE ---
Instructions from Dr. Chu to d/c fluids at this time.
[2019-05-29] MEDS: multivitamin therapeutic Tablet 1 TAB PO (08:58)
[2019-05-29] MEDS: pantoprazole DR 40 mg Tablet PO (08:58)
[2019-05-29] MEDS: folic acid 1 mg Tablet PO (08:58)
[2019-05-29] MEDS: thiamine 100 mg Tablet PO (08:58)
--- NOTE | 2019-05-29 09:00 | PC.NURSE ---
Lab at bedside now to draw blood. Patient initially refuses but is now being somewhat cooperative. Lab is attempting blood draw now. Calling down for 3rd breakfast tray per patient's request.
[2019-05-29 09:27] LABS: Troponin(5th) Baseline 6 ng/mL (0-10)
[2019-05-29] MEDS: iohexol 350 mg/mL 100 mL Btl IV (11:32)
--- NOTE | 2019-05-29 11:50 | PC.NURSE ---
Patient taken to CT via wheelchair. Tolerated well. Back into ICU now and c/o 02/28 pain. PRN medication administered in response to this finding.
--- NOTE | 2019-05-29 12:19 | PC.SOCIAL ---
Patient needing transportation home from hospital. Per nursing staff, patient is ambulatory and does not require oxygen for trip. She is ready now. Called [facility], trip ID: [id number]. Arrival will be between now and 3:00 PM. Phone number to [facility]: [phone]
--- NOTE | 2019-05-29 13:43 | PC.NURSE ---
Patient refuses temp and BP measurement at this time.
--- NOTE | 2019-05-29 14:44 | ECG_ITS ---
Measurements Intervals [place] Rate: 95 P: 46 TX: 121 QRS: 46 QRSD: 86 T: 51 QT: 319 QTc: 403 SINUS RHYTHM WITH SINUS ARRHYTHMIA POSSIBLE LEFT ATRIAL ENLARGEMENT [-0.1mV P WAVE IN V1/V2] Compared to ECG 05/27/2019 16:17:51 No significant changes Electronically Signed On 05-29-2019 15:41:02 LINE FIXER by Jimbo Lynn M.D. [email or web address]
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
--- NOTE | 2019-05-29 15:42 | PC.NURSE ---
Patient belongings given to patient. Patient ambulated out of facility at 1405. Ready transport for ride.
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
== END 2019-05-29 14:05 | disposition home or self-care (01) | DRG 208 ==
LOC: ER 22:38 → ICU 05-27 01:23
PROVIDERS: Admitting Provider Internal Medicine; Emergency Provider Family Medicine; Family Provider Nurse Practitioner Family; PCP Family Medicine; Visit Provider Student in an Organized Health Care Education/Training Program
DX: J96.90 Respiratory failure, unspecified, unspecified whether with hypoxia or hypercapnia (principal); F10.929 Alcohol use, unspecified with intoxication, unspecified; Y90.8 Blood alcohol level of 240 mg/100 ml or more
CPT/HCPCS: 12345; 36415; 70450; 71045; 71250; 71275; 74176; 80053; 80307; 81001; 81025; 83605; 83690; 84439; 84443; 84484; 85025; 87070; 87205; 93005; 96372; 96374; 96375; 99283; A4570; J0330; J1650; J2060; J2270; J2704; J3010; J3411; J3490; J7030; Q9967

== ENCOUNTER 2019-09-18 16:53 | Inpatient (IN) | payer MEDICAID, SELFPAY ==
[2019-09-18 17:01] VITALS: BP 175/113; PULSE 106; RESP 17; TEMP 36.6; O2SAT 97; BMI 39.1
--- NOTE | 2019-09-18 17:08 | W.ED.GENADLT ---
Documented by User: Lamont Whitley DO 09/19/19 08:03 HPI - General Adult General: Chief complaint: General Medical Stated complaint: ETOH Time Seen by Provider: 09/18/19 17:07 History of Present Illness: HPI narrative: 38-year-old female acutely intoxicated and belligerent.in by EMS. Patient is obnoxiously intoxicated very vulgar. Including disrobing to display her self there was a nurse present in the room at the time. She denies suicidal or homicidal ideation. She cannot recall the last time she was sober she denies use of any other drugs. Review of Systems General: Reports: ROS unobtainable due to medical condition and ROS unobtainable due to mental status PFSH ED PFSH: Medical History Alcohol abuse Bipolar disorder delivery delivered Peptic ulcer disease Polysubstance abuse Prolapse of bladder Suicidal ideation Uterine prolapse Surgical History H/O shoulder surgery Hx laparoscopic cholecystectomy Hx of neck surgery Hx of tonsillectomy Family History Denies family history of Psychiatric illness Social History Smoking and tobacco status: current every day smoker cigarettes Packs smoked per day: 3 Years cigarettes smoked: 31 Quit status (tobacco): not considering quitting Smoking risk assessment/counseling performed?: Yes (Patient reports that she rolls 70-80 cigs a day to smoke) Alcohol intake: current Alcohol use comment: Drinks 1 gallon of vodka every day Physical Exam Const: EXAM LIMITATIONS: altered mental status (Intoxicated) GENERAL APPEARANCE: disheveled and odor of alcohol detected NUTRITIONAL APPEARANCE: obese ORIENTATION/CONSCIOUSNESS: Yes awake; not oriented to person, not oriented to place and not oriented to time HENMT: COMMON NORMALS: normocephalic, head/scalp atraumatic, hearing grossly normal bilaterally, external ears normal, nasal mucous membranes and turbinates normal, moist oral mucous membranes and oropharynx normal HEAD & SCALP: normocephalic and atraumatic NOSE: nasal mucous membranes and turbinates normal EXTERNAL EAR: Yes external ears normal Eye: COMMON NORMALS: PERRL, EOMs intact bilaterally, conjunctivae normal and no scleral icterus CONJUNCTIVA: Yes conjunctivae normal PUPIL: Yes PERRL Neck/C-Spine: COMMON NORMALS: full ROM, no lymphadenopathy, supple and no JVD Resp: COMMON NORMALS: normal respiratory effort, no retractions, no use of accessory muscles and clear to auscultation bilaterally AUSCULTATION: clear to auscultation bilaterally Cardio: COMMON NORMALS: no JVD, regular rate, regular rhythm and no murmurs RATE: regular rate RHYTHM: regular rhythm GI: COMMON NORMALS: soft to palpation and no hepatosplenomegaly AUSCULTATION: Yes normoactive bowel sounds PALPATION: Yes soft, No tender, No guarding and Yes no hepatosplenomegaly Extremity: COMMON NORMALS: normal to inspection, normal capillary refill, no clubbing, cyanosis or edema, no calf tenderness and no pedal edema Neuro: SENSORIUM/ORIENTATION: No oriented to person, No oriented to place and No oriented to time Skin: COMMON NORMALS: no rashes or lesions noted GENERAL SKIN EXAM: no rashes or lesions noted Course Vital Signs: Vital signs: Vital Signs Temperature 99.3 F 09/19/19 03:07 Pulse Rate 133 H 09/19/19 05:00 Respiratory Rate 20 H 09/19/19 05:00 Blood Pressure 139/97 09/19/19 05:00 Pulse Oximetry 92 09/19/19 05:00 MDM - General Adult MDM Narrative: Medical decision making narrative: Care turned over to Dr. Cook at change of shift. All labs are pending Lab Data: Labs: Lab Results 09/18/19 09/18/19 09/18/19 Range/Units 00:30 17:52 18:36 WBC 19.0 H (4.0-10.0) 10^3/ uL RBC 5.37 H (4.1-5.3) 10^6/u L Hgb 16.3 H (11.5-15.3) g/dL Hct 49.3 H (37.0-47.0) % MCV 91.8 (81-99) fL MCH 30.4 (28.0-34.0) pg MCHC 33.1 (30.0-36.0) g/dL RDW 14.6 (12.1-15.1) % Plt Count 393 (130-400) 10^3/c mm MPV 9.9 (7.4-10.4) fL Neut % (Auto) 69.5 % Lymph % (Auto) 21.5 % [place] % (Auto) 8.2 % Eos % (Auto) 0.1 % Baso % (Auto) 0.2 % Neut # (Auto) 13.2 H (1.8-7.7) 10^3/u L Lymph # (Auto) 4.1 (0.8-4.8) 10^3/u L [place] # (Auto) 1.6 H (0.2-0.9) 10^3/u L Eos # (Auto) 0.0 (0.0-0.8) 10^3/u L Baso # (Auto) 0.0 (0.0-0.1) 10^3/u L Nucleated RBC % (a uto) 0 % Nucleated RBCs # 0.0 /100WBC PT (10.5-13.3) SECO NDS INR (0.8-1.2) APTT (23.9-36.7) SECO NDS Specimen Type Sample Site ABG pH (7.35-7.45) ABG pCO2 (35-45) mmHg ABG pO2 (80.0-100.0) mmH g ABG HCO3 (22-26) mmol/L ABG Base Excess (-2.0-2.0) mmol/ L Evans Test Hematocrit (37-47) % O2 Delivery Device Loss Control Technician ID Sodium (136-145) mmol/L Potassium (3.5-5.1) mmol/L Chloride (98-107) mmol/L Carbon Dioxide (22-29) mmol/L Anion Gap (5-19) BUN (6-20) mg/dL Creatinine (0.5-0.9) mg/dL GFR Calculation (90-130) mL/min Glucose (65-115) mg/dL Calculated Osmolal ity (285-295) mOsm/k g Lactic Acid 6.0 H* (0.5-2.2) mmol/L Lactic Acid (Sepsi s) 6.0 H* (0.5-2.2) mmol/L Calcium (8.5-10.5) mg/dL Total Bilirubin (0.15-1.2) mg/dL AST (0-32) U/L ALT (0-33) U/L Alkaline Phosphata se (35-105) IU/L Ammonia (11-51) umol/L Total Protein (6.6-8.7) g/dL Albumin (3.5-5.2) g/dL Globulin (1.3-4.6) g/dL Urine Color (Yellow) Urine Appearance (CLEAR) Urine pH (5-7) Ur Specific Gravit y (1.005-1.030) Urine Protein (Negative) Urine Glucose (UA) (Normal) Urine Ketones (Negative) Urine Blood (Negative) Urine Nitrate (Negative) Urine Bilirubin (NEGATIVE) Urine Urobilinogen (Negative) mg/dL Ur Leukocyte Stephanie ase (Negative) Urine RBC (0-2) /hpf Urine WBC (0-5) /hpf Ur Squamous Epith Cells (0-5) Urine Bacteria (NONE) Gastric Occult Blo od Positive H (Negative) Salicylates (3-10) mg/dL Urine Opiates Scre en (Negative) ng/mL Acetaminophen (10-30) ug/mL Ur Barbiturates Sc reen (Negative) ng/mL Phenytoin (10-20) ug/mL Valproic Acid (50-100) mcg/mL Carbamazepine (4.0-12.0) ug/mL Ur Phencyclidine S crn (Negative) ng/mL Ur Amphetamines Sc reen (Negative) ng/mL U Benzodiazepines Scrn (Negative) ng/mL [place] (0.6-1.2) mmol/L Urine Cocaine Scre en (Negative) ng/mL U Marijuana (THC) Screen (Negative) ng/mL Ethyl Alcohol (0-10) mg/dL 09/18/19 09/18/19 09/18/19 Range/Units 18:36 18:36 18:36 WBC (4.0-10.0) 10^3/ uL RBC (4.1-5.3) 10^6/u L Hgb (11.5-15.3) g/dL Hct (37.0-47.0) % MCV (81-99) fL MCH (28.0-34.0) pg MCHC (30.0-36.0) g/dL RDW (12.1-15.1) % Plt Count (130-400) 10^3/c mm MPV (7.4-10.4) fL Neut % (Auto) % Lymph % (Auto) % [place] % (Auto) % Eos % (Auto) % Baso % (Auto) % Neut # (Auto) (1.8-7.7) 10^3/u L Lymph # (Auto) (0.8-4.8) 10^3/u L [place] # (Auto) (0.2-0.9) 10^3/u L Eos # (Auto) (0.0-0.8) 10^3/u L Baso # (Auto) (0.0-0.1) 10^3/u L Nucleated RBC % (a uto) % Nucleated RBCs # /100WBC PT 13.60 H (10.5-13.3) SECO NDS INR 1.01 (0.8-1.2) APTT 28.0 (23.9-36.7) SECO NDS Specimen Type Sample Site ABG pH (7.35-7.45) ABG pCO2 (35-45) mmHg ABG pO2 (80.0-100.0) mmH g ABG HCO3 (22-26) mmol/L ABG Base Excess (-2.0-2.0) mmol/ L Evans Test Hematocrit (37-47) % O2 Delivery Device Loss Control Technician ID Sodium 142 (136-145) mmol/L Potassium 4.3 (3.5-5.1) mmol/L Chloride 99 (98-107) mmol/L Carbon Dioxide 11 L (22-29) mmol/L Anion Gap 36.3 H (5-19) BUN 21 H (6-20) mg/dL Creatinine 0.9 (0.5-0.9) mg/dL GFR Calculation 69.3 L (90-130) mL/min Glucose 114 (65-115) mg/dL Calculated Osmolal ity 291 (285-295) mOsm/k g Lactic Acid (0.5-2.2) mmol/L Lactic Acid (Sepsi s) (0.5-2.2) mmol/L Calcium 9.0 (8.5-10.5) mg/dL Total Bilirubin 0.2 (0.15-1.2) mg/dL AST 117 H (0-32) U/L ALT 96 H (0-33) U/L Alkaline Phosphata se 106 H (35-105) IU/L Ammonia 41 (11-51) umol/L Total Protein 7.6 (6.6-8.7) g/dL Albumin 4.0 (3.5-5.2) g/dL Globulin 3.6 (1.3-4.6) g/dL Urine Color (Yellow) Urine Appearance (CLEAR) Urine pH (5-7) Ur Specific Gravit y (1.005-1.030) Urine Protein (Negative) Urine Glucose (UA) (Normal) Urine Ketones (Negative) Urine Blood (Negative) Urine Nitrate (Negative) Urine Bilirubin (NEGATIVE) Urine Urobilinogen (Negative) mg/dL Ur Leukocyte Stephanie ase (Negative) Urine RBC (0-2) /hpf Urine WBC (0-5) /hpf Ur Squamous Epith Cells (0-5) Urine Bacteria (NONE) Gastric Occult Blo od (Negative) Salicylates < 10.0 (3-10) mg/dL Urine Opiates Scre en (Negative) ng/mL Acetaminophen < 10.0 L (10-30) ug/mL Ur Barbiturates Sc reen (Negative) ng/mL Phenytoin (10-20) ug/mL Valproic Acid (50-100) mcg/mL Carbamazepine (4.0-12.0) ug/mL Ur Phencyclidine S crn (Negative) ng/mL Ur Amphetamines Sc reen (Negative) ng/mL U Benzodiazepines Scrn (Negative) ng/mL [place] (0.6-1.2) mmol/L Urine Cocaine Scre en (Negative) ng/mL U Marijuana (THC) Screen (Negative) ng/mL Ethyl Alcohol 362 H* (0-10) mg/dL 09/18/19 09/18/19 09/18/19 Range/Units 19:45 20:32 20:32 WBC (4.0-10.0) 10^3/ uL RBC (4.1-5.3) 10^6/u L Hgb (11.5-15.3) g/dL Hct (37.0-47.0) % MCV (81-99) fL MCH (28.0-34.0) pg MCHC (30.0-36.0) g/dL RDW (12.1-15.1) % Plt Count (130-400) 10^3/c mm MPV (7.4-10.4) fL Neut % (Auto) % Lymph % (Auto) % [place] % (Auto) % Eos % (Auto) % Baso % (Auto) % Neut # (Auto) (1.8-7.7) 10^3/u L Lymph # (Auto) (0.8-4.8) 10^3/u L [place] # (Auto) (0.2-0.9) 10^3/u L Eos # (Auto) (0.0-0.8) 10^3/u L Baso # (Auto) (0.0-0.1) 10^3/u L Nucleated RBC % (a uto) % Nucleated RBCs # /100WBC PT (10.5-13.3) SECO NDS INR (0.8-1.2) APTT (23.9-36.7) SECO NDS Specimen Type Arterial Sample Site Brachial, right ABG pH 7.39 (7.35-7.45) ABG pCO2 31.8 L (35-45) mmHg ABG pO2 81.1 (80.0-100.0) mmH g ABG HCO3 19.3 L (22-26) mmol/L ABG Base Excess -4.4 L (-2.0-2.0) mmol/ L Evans Test N/a Hematocrit 50.4 H (37-47) % O2 Delivery Device Room air Loss Control Technician ID [email or web address] Sodium (136-145) mmol/L Potassium (3.5-5.1) mmol/L Chloride (98-107) mmol/L Carbon Dioxide (22-29) mmol/L Anion Gap (5-19) BUN (6-20) mg/dL Creatinine (0.5-0.9) mg/dL GFR Calculation (90-130) mL/min Glucose (65-115) mg/dL Calculated Osmolal ity (285-295) mOsm/k g Lactic Acid (0.5-2.2) mmol/L Lactic Acid (Sepsi s) (0.5-2.2) mmol/L Calcium (8.5-10.5) mg/dL Total Bilirubin (0.15-1.2) mg/dL AST (0-32) U/L ALT (0-33) U/L Alkaline Phosphata se (35-105) IU/L Ammonia (11-51) umol/L Total Protein (6.6-8.7) g/dL Albumin (3.5-5.2) g/dL Globulin (1.3-4.6) g/dL Urine Color (Yellow) Urine Appearance (CLEAR) Urine pH (5-7) Ur Specific Gravit y (1.005-1.030) Urine Protein (Negative) Urine Glucose (UA) (Normal) Urine Ketones (Negative) Urine Blood (Negative) Urine Nitrate (Negative) Urine Bilirubin (NEGATIVE) Urine Urobilinogen (Negative) mg/dL Ur Leukocyte Stephanie ase (Negative) Urine RBC (0-2) /hpf Urine WBC (0-5) /hpf Ur Squamous Epith Cells (0-5) Urine Bacteria (NONE) Gastric Occult Blo od (Negative) Salicylates (3-10) mg/dL Urine Opiates Scre en (Negative) ng/mL Acetaminophen (10-30) ug/mL Ur Barbiturates Sc reen (Negative) ng/mL Phenytoin 0.8 L (10-20) ug/mL Valproic Acid 2.8 L (50-100) mcg/mL Carbamazepine 2.0 L (4.0-12.0) ug/mL Ur Phencyclidine S crn (Negative) ng/mL Ur Amphetamines Sc reen (Negative) ng/mL U Benzodiazepines Scrn (Negative) ng/mL [place] 0.1 L (0.6-1.2) mmol/L Urine Cocaine Scre en (Negative) ng/mL U Marijuana (THC) Screen (Negative) ng/mL Ethyl Alcohol (0-10) mg/dL 09/18/19 09/18/19 09/18/19 Range/Units 20:35 20:35 20:47 WBC (4.0-10.0) 10^3/ uL RBC (4.1-5.3) 10^6/u L Hgb (11.5-15.3) g/dL Hct (37.0-47.0) % MCV (81-99) fL MCH (28.0-34.0) pg MCHC (30.0-36.0) g/dL RDW (12.1-15.1) % Plt Count (130-400) 10^3/c mm MPV (7.4-10.4) fL Neut % (Auto) % Lymph % (Auto) % [place] % (Auto) % Eos % (Auto) % Baso % (Auto) % Neut # (Auto) (1.8-7.7) 10^3/u L Lymph # (Auto) (0.8-4.8) 10^3/u L [place] # (Auto) (0.2-0.9) 10^3/u L Eos # (Auto) (0.0-0.8) 10^3/u L Baso # (Auto) (0.0-0.1) 10^3/u L Nucleated RBC % (a uto) % Nucleated RBCs # /100WBC PT (10.5-13.3) SECO NDS INR (0.8-1.2) APTT (23.9-36.7) SECO NDS Specimen Type Sample Site ABG pH (7.35-7.45) ABG pCO2 (35-45) mmHg ABG pO2 (80.0-100.0) mmH g ABG HCO3 (22-26) mmol/L ABG Base Excess (-2.0-2.0) mmol/ L Evans Test Hematocrit (37-47) % O2 Delivery Device Loss Control Technician ID Sodium (136-145) mmol/L Potassium (3.5-5.1) mmol/L Chloride (98-107) mmol/L Carbon Dioxide (22-29) mmol/L Anion Gap (5-19) BUN (6-20) mg/dL Creatinine (0.5-0.9) mg/dL GFR Calculation (90-130) mL/min Glucose (65-115) mg/dL Calculated Osmolal ity (285-295) mOsm/k g Lactic Acid 6.0 H* (0.5-2.2) mmol/L Lactic Acid (Sepsi s) (0.5-2.2) mmol/L Calcium (8.5-10.5) mg/dL Total Bilirubin (0.15-1.2) mg/dL AST (0-32) U/L ALT (0-33) U/L Alkaline Phosphata se (35-105) IU/L Ammonia (11-51) umol/L Total Protein (6.6-8.7) g/dL Albumin (3.5-5.2) g/dL Globulin (1.3-4.6) g/dL Urine Color Yellow (Yellow) Urine Appearance Cloudy A (CLEAR) Urine pH 5 (5-7) Ur Specific Gravit y 1.030 (1.005-1.030) Urine Protein 3+ H (Negative) Urine Glucose (UA) Norm (Normal) Urine Ketones 1+ H (Negative) Urine Blood 3+ H (Negative) Urine Nitrate Negative (Negative) Urine Bilirubin Neg (NEGATIVE) Urine Urobilinogen Norm (Negative) mg/dL Ur Leukocyte Stephanie ase 1+ H (Negative) Urine RBC 15-25 H (0-2) /hpf Urine WBC 15-25 H (0-5) /hpf Ur Squamous Epith Cells 0-4 H (0-5) Urine Bacteria 4+ H (NONE) Gastric Occult Blo od (Negative) Salicylates (3-10) mg/dL Urine Opiates Scre en Negative (Negative) ng/mL Acetaminophen (10-30) ug/mL Ur Barbiturates Sc reen Negative (Negative) ng/mL Phenytoin (10-20) ug/mL Valproic Acid (50-100) mcg/mL Carbamazepine (4.0-12.0) ug/mL Ur Phencyclidine S crn Negative (Negative) ng/mL Ur Amphetamines Sc reen Negative (Negative) ng/mL U Benzodiazepines Scrn Negative (Negative) ng/mL [place] (0.6-1.2) mmol/L Urine Cocaine Scre en Negative (Negative) ng/mL U Marijuana (THC) Screen Positive H (Negative) ng/mL Ethyl Alcohol (0-10) mg/dL EKG Data^: EKG 1: Computer generated interpretation: Head CT 09/18/19 18:24 IMPRESSION: No acute intracranial abnormality. Radiation Dose CTDIVOL = (mGy): DLP = 1076.89 (mGy-cm) Abdomen/Pelvis CT 09/18/19 18:55 IMPRESSION: 1. Uterine prolapse. Correlation with clinical findings is suggested. 2. Cystocele 3. Severe bilateral hydronephrosis. 4. Severe fatty liver Radiation Dose CTDIVOL = (mGy): DLP = 1076.89 (mGy-cm) Discharge Plan Discharge Patient Disposition: Admitted As Inpatient Admit Provider: Khadar Haynes Clinical Impression: Acute GI bleeding Alcohol intoxication Qualifiers: Complication of substance-induced condition: with unspecified complication Qualified Code(s): F10.929 - Alcohol use, unspecified with intoxication, unspecified Condition: Stable Referrals: Tiffanie Salinas FNP-C [Family Provider] - Otto Gooden [Primary Care Provider] - Discharge Date/Time: 09/18/19 23:59 Coding Level of Care Code ED Fine Patcher for Chg Fwd Exam Comprehensive Documented by User: Charlee Tang 09/18/19 21:37 HPI - General Adult General: Chief complaint: General Medical Stated complaint: ETOH Time Seen by Provider: 09/18/19 17:07 PFSH ED PFSH: Medical History Alcohol abuse Bipolar disorder delivery delivered Peptic ulcer disease Polysubstance abuse Prolapse of bladder Suicidal ideation Uterine prolapse Surgical History H/O shoulder surgery Hx laparoscopic cholecystectomy Hx of neck surgery Hx of tonsillectomy Family History Denies family history of Psychiatric illness Social History Smoking and tobacco status: current every day smoker cigarettes Packs smoked per day: 3 Years cigarettes smoked: 31 Quit status (tobacco): not considering quitting Smoking risk assessment/counseling performed?: Yes (Patient reports that she rolls 70-80 cigs a day to smoke) Alcohol intake: current Alcohol use comment: Drinks 1 gallon of vodka every day Course Vital Signs: Vital signs: Vital Signs Temperature 99.3 F 09/19/19 03:07 Pulse Rate 133 H 09/19/19 05:00 Respiratory Rate 20 H 09/19/19 05:00 Blood Pressure 139/97 09/19/19 05:00 Pulse Oximetry 92 09/19/19 05:00 MDM - General Adult MDM Narrative: Medical decision making narrative: The case was reviewed with Dr. Haynes. 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 She does have a large anion gap on her chemistry but she is not acidotic. We are sending out a measured serum osmolality and trying to send out an ethylene glycol, methanol and isopropyl alcohol level. The case was reviewed with poison control and they do not recommend starting him empiric fomepizole. Dr. Haynes is aware that these labs will be sent out and they will likely come back later tonight. The patient has had to be medicated with Haldol twice that she is intoxicated and noncompliant at times. Further management of her agitation will be by Dr. Haynes in the ICU. Lab Data: Attestation: I reviewed the patient's lab results. Labs: Lab Results 09/18/19 09/18/19 09/18/19 Range/Units 00:30 17:52 18:36 WBC 19.0 H (4.0-10.0) 10^3/ uL RBC 5.37 H (4.1-5.3) 10^6/u L Hgb 16.3 H (11.5-15.3) g/dL Hct 49.3 H (37.0-47.0) % MCV 91.8 (81-99) fL MCH 30.4 (28.0-34.0) pg MCHC 33.1 (30.0-36.0) g/dL RDW 14.6 (12.1-15.1) % Plt Count 393 (130-400) 10^3/c mm MPV 9.9 (7.4-10.4) fL Neut % (Auto) 69.5 % Lymph % (Auto) 21.5 % [place] % (Auto) 8.2 % Eos % (Auto) 0.1 % Baso % (Auto) 0.2 % Neut # (Auto) 13.2 H (1.8-7.7) 10^3/u L Lymph # (Auto) 4.1 (0.8-4.8) 10^3/u L [place] # (Auto) 1.6 H (0.2-0.9) 10^3/u L Eos # (Auto) 0.0 (0.0-0.8) 10^3/u L Baso # (Auto) 0.0 (0.0-0.1) 10^3/u L Nucleated RBC % (a uto) 0 % Nucleated RBCs # 0.0 /100WBC PT (10.5-13.3) SECO NDS INR (0.8-1.2) APTT (23.9-36.7) SECO NDS Specimen Type Sample Site ABG pH (7.35-7.45) ABG pCO2 (35-45) mmHg ABG pO2 (80.0-100.0) mmH g ABG HCO3 (22-26) mmol/L ABG Base Excess (-2.0-2.0) mmol/ L Evans Test Hematocrit (37-47) % O2 Delivery Device Loss Control Technician ID Sodium (136-145) mmol/L Potassium (3.5-5.1) mmol/L Chloride (98-107) mmol/L Carbon Dioxide (22-29) mmol/L Anion Gap (5-19) BUN (6-20) mg/dL Creatinine (0.5-0.9) mg/dL GFR Calculation (90-130) mL/min Glucose (65-115) mg/dL Calculated Osmolal ity (285-295) mOsm/k g Lactic Acid 6.0 H* (0.5-2.2) mmol/L Lactic Acid (Sepsi s) 6.0 H* (0.5-2.2) mmol/L Calcium (8.5-10.5) mg/dL Total Bilirubin (0.15-1.2) mg/dL AST (0-32) U/L ALT (0-33) U/L Alkaline Phosphata se (35-105) IU/L Ammonia (11-51) umol/L Total Protein (6.6-8.7) g/dL Albumin (3.5-5.2) g/dL Globulin (1.3-4.6) g/dL Urine Color (Yellow) Urine Appearance (CLEAR) Urine pH (5-7) Ur Specific Gravit y (1.005-1.030) Urine Protein (Negative) Urine Glucose (UA) (Normal) Urine Ketones (Negative) Urine Blood (Negative) Urine Nitrate (Negative) Urine Bilirubin (NEGATIVE) Urine Urobilinogen (Negative) mg/dL Ur Leukocyte Stephanie ase (Negative) Urine RBC (0-2) /hpf Urine WBC (0-5) /hpf Ur Squamous Epith Cells (0-5) Urine Bacteria (NONE) Gastric Occult Blo od Positive H (Negative) Salicylates (3-10) mg/dL Urine Opiates Scre en (Negative) ng/mL Acetaminophen (10-30) ug/mL Ur Barbiturates Sc reen (Negative) ng/mL Phenytoin (10-20) ug/mL Valproic Acid (50-100) mcg/mL Carbamazepine (4.0-12.0) ug/mL Ur Phencyclidine S crn (Negative) ng/mL Ur Amphetamines Sc reen (Negative) ng/mL U Benzodiazepines Scrn (Negative) ng/mL [place] (0.6-1.2) mmol/L Urine Cocaine Scre en (Negative) ng/mL U Marijuana (THC) Screen (Negative) ng/mL Ethyl Alcohol (0-10) mg/dL 09/18/19 09/18/19 09/18/19 Range/Units 18:36 18:36 18:36 WBC (4.0-10.0) 10^3/ uL RBC (4.1-5.3) 10^6/u L Hgb (11.5-15.3) g/dL Hct (37.0-47.0) % MCV (81-99) fL MCH (28.0-34.0) pg MCHC (30.0-36.0) g/dL RDW (12.1-15.1) % Plt Count (130-400) 10^3/c mm MPV (7.4-10.4) fL Neut % (Auto) % Lymph % (Auto) % [place] % (Auto) % Eos % (Auto) % Baso % (Auto) % Neut # (Auto) (1.8-7.7) 10^3/u L Lymph # (Auto) (0.8-4.8) 10^3/u L [place] # (Auto) (0.2-0.9) 10^3/u L Eos # (Auto) (0.0-0.8) 10^3/u L Baso # (Auto) (0.0-0.1) 10^3/u L Nucleated RBC % (a uto) % Nucleated RBCs # /100WBC PT 13.60 H (10.5-13.3) SECO NDS INR 1.01 (0.8-1.2) APTT 28.0 (23.9-36.7) SECO NDS Specimen Type Sample Site ABG pH (7.35-7.45) ABG pCO2 (35-45) mmHg ABG pO2 (80.0-100.0) mmH g ABG HCO3 (22-26) mmol/L ABG Base Excess (-2.0-2.0) mmol/ L Evans Test Hematocrit (37-47) % O2 Delivery Device Loss Control Technician ID Sodium 142 (136-145) mmol/L Potassium 4.3 (3.5-5.1) mmol/L Chloride 99 (98-107) mmol/L Carbon Dioxide 11 L (22-29) mmol/L Anion Gap 36.3 H (5-19) BUN 21 H (6-20) mg/dL Creatinine 0.9 (0.5-0.9) mg/dL GFR Calculation 69.3 L (90-130) mL/min Glucose 114 (65-115) mg/dL Calculated Osmolal ity 291 (285-295) mOsm/k g Lactic Acid (0.5-2.2) mmol/L Lactic Acid (Sepsi s) (0.5-2.2) mmol/L Calcium 9.0 (8.5-10.5) mg/dL Total Bilirubin 0.2 (0.15-1.2) mg/dL AST 117 H (0-32) U/L ALT 96 H (0-33) U/L Alkaline Phosphata se 106 H (35-105) IU/L Ammonia 41 (11-51) umol/L Total Protein 7.6 (6.6-8.7) g/dL Albumin 4.0 (3.5-5.2) g/dL Globulin 3.6 (1.3-4.6) g/dL Urine Color (Yellow) Urine Appearance (CLEAR) Urine pH (5-7) Ur Specific Gravit y (1.005-1.030) Urine Protein (Negative) Urine Glucose (UA) (Normal) Urine Ketones (Negative) Urine Blood (Negative) Urine Nitrate (Negative) Urine Bilirubin (NEGATIVE) Urine Urobilinogen (Negative) mg/dL Ur Leukocyte Stephanie ase (Negative) Urine RBC (0-2) /hpf Urine WBC (0-5) /hpf Ur Squamous Epith Cells (0-5) Urine Bacteria (NONE) Gastric Occult Blo od (Negative) Salicylates < 10.0 (3-10) mg/dL Urine Opiates Scre en (Negative) ng/mL Acetaminophen < 10.0 L (10-30) ug/mL Ur Barbiturates Sc reen (Negative) ng/mL Phenytoin (10-20) ug/mL Valproic Acid (50-100) mcg/mL Carbamazepine (4.0-12.0) ug/mL Ur Phencyclidine S crn (Negative) ng/mL Ur Amphetamines Sc reen (Negative) ng/mL U Benzodiazepines Scrn (Negative) ng/mL [place] (0.6-1.2) mmol/L Urine Cocaine Scre en (Negative) ng/mL U Marijuana (THC) Screen (Negative) ng/mL Ethyl Alcohol 362 H* (0-10) mg/dL 09/18/19 09/18/19 09/18/19 Range/Units 19:45 20:32 20:32 WBC (4.0-10.0) 10^3/ uL RBC (4.1-5.3) 10^6/u L Hgb (11.5-15.3) g/dL Hct (37.0-47.0) % MCV (81-99) fL MCH (28.0-34.0) pg MCHC (30.0-36.0) g/dL RDW (12.1-15.1) % Plt Count (130-400) 10^3/c mm MPV (7.4-10.4) fL Neut % (Auto) % Lymph % (Auto) % [place] % (Auto) % Eos % (Auto) % Baso % (Auto) % Neut # (Auto) (1.8-7.7) 10^3/u L Lymph # (Auto) (0.8-4.8) 10^3/u L [place] # (Auto) (0.2-0.9) 10^3/u L Eos # (Auto) (0.0-0.8) 10^3/u L Baso # (Auto) (0.0-0.1) 10^3/u L Nucleated RBC % (a uto) % Nucleated RBCs # /100WBC PT (10.5-13.3) SECO NDS INR (0.8-1.2) APTT (23.9-36.7) SECO NDS Specimen Type Arterial Sample Site Brachial, right ABG pH 7.39 (7.35-7.45) ABG pCO2 31.8 L (35-45) mmHg ABG pO2 81.1 (80.0-100.0) mmH g ABG HCO3 19.3 L (22-26) mmol/L ABG Base Excess -4.4 L (-2.0-2.0) mmol/ L Evans Test N/a Hematocrit 50.4 H (37-47) % O2 Delivery Device Room air Loss Control Technician ID [email or web address] Sodium (136-145) mmol/L Potassium (3.5-5.1) mmol/L Chloride (98-107) mmol/L Carbon Dioxide (22-29) mmol/L Anion Gap (5-19) BUN (6-20) mg/dL Creatinine (0.5-0.9) mg/dL GFR Calculation (90-130) mL/min Glucose (65-115) mg/dL Calculated Osmolal ity (285-295) mOsm/k g Lactic Acid (0.5-2.2) mmol/L Lactic Acid (Sepsi s) (0.5-2.2) mmol/L Calcium (8.5-10.5) mg/dL Total Bilirubin (0.15-1.2) mg/dL AST (0-32) U/L ALT (0-33) U/L Alkaline Phosphata se (35-105) IU/L Ammonia (11-51) umol/L Total Protein (6.6-8.7) g/dL Albumin (3.5-5.2) g/dL Globulin (1.3-4.6) g/dL Urine Color (Yellow) Urine Appearance (CLEAR) Urine pH (5-7) Ur Specific Gravit y (1.005-1.030) Urine Protein (Negative) Urine Glucose (UA) (Normal) Urine Ketones (Negative) Urine Blood (Negative) Urine Nitrate (Negative) Urine Bilirubin (NEGATIVE) Urine Urobilinogen (Negative) mg/dL Ur Leukocyte Stephanie ase (Negative) Urine RBC (0-2) /hpf Urine WBC (0-5) /hpf Ur Squamous Epith Cells (0-5) Urine Bacteria (NONE) Gastric Occult Blo od (Negative) Salicylates (3-10) mg/dL Urine Opiates Scre en (Negative) ng/mL Acetaminophen (10-30) ug/mL Ur Barbiturates Sc reen (Negative) ng/mL Phenytoin 0.8 L (10-20) ug/mL Valproic Acid 2.8 L (50-100) mcg/mL Carbamazepine 2.0 L (4.0-12.0) ug/mL Ur Phencyclidine S crn (Negative) ng/mL Ur Amphetamines Sc reen (Negative) ng/mL U Benzodiazepines Scrn (Negative) ng/mL [place] 0.1 L (0.6-1.2) mmol/L Urine Cocaine Scre en (Negative) ng/mL U Marijuana (THC) Screen (Negative) ng/mL Ethyl Alcohol (0-10) mg/dL 09/18/19 09/18/19 09/18/19 Range/Units 20:35 20:35 20:47 WBC (4.0-10.0) 10^3/ uL RBC (4.1-5.3) 10^6/u L Hgb (11.5-15.3) g/dL Hct (37.0-47.0) % MCV (81-99) fL MCH (28.0-34.0) pg MCHC (30.0-36.0) g/dL RDW (12.1-15.1) % Plt Count (130-400) 10^3/c mm MPV (7.4-10.4) fL Neut % (Auto) % Lymph % (Auto) % [place] % (Auto) % Eos % (Auto) % Baso % (Auto) % Neut # (Auto) (1.8-7.7) 10^3/u L Lymph # (Auto) (0.8-4.8) 10^3/u L [place] # (Auto) (0.2-0.9) 10^3/u L Eos # (Auto) (0.0-0.8) 10^3/u L Baso # (Auto) (0.0-0.1) 10^3/u L Nucleated RBC % (a uto) % Nucleated RBCs # /100WBC PT (10.5-13.3) SECO NDS INR (0.8-1.2) APTT (23.9-36.7) SECO NDS Specimen Type Sample Site ABG pH (7.35-7.45) ABG pCO2 (35-45) mmHg ABG pO2 (80.0-100.0) mmH g ABG HCO3 (22-26) mmol/L ABG Base Excess (-2.0-2.0) mmol/ L Evans Test Hematocrit (37-47) % O2 Delivery Device Loss Control Technician ID Sodium (136-145) mmol/L Potassium (3.5-5.1) mmol/L Chloride (98-107) mmol/L Carbon Dioxide (22-29) mmol/L Anion Gap (5-19) BUN (6-20) mg/dL Creatinine (0.5-0.9) mg/dL GFR Calculation (90-130) mL/min Glucose (65-115) mg/dL Calculated Osmolal ity (285-295) mOsm/k g Lactic Acid 6.0 H* (0.5-2.2) mmol/L Lactic Acid (Sepsi s) (0.5-2.2) mmol/L Calcium (8.5-10.5) mg/dL Total Bilirubin (0.15-1.2) mg/dL AST (0-32) U/L ALT (0-33) U/L Alkaline Phosphata se (35-105) IU/L Ammonia (11-51) umol/L Total Protein (6.6-8.7) g/dL Albumin (3.5-5.2) g/dL Globulin (1.3-4.6) g/dL Urine Color Yellow (Yellow) Urine Appearance Cloudy A (CLEAR) Urine pH 5 (5-7) Ur Specific Gravit y 1.030 (1.005-1.030) Urine Protein 3+ H (Negative) Urine Glucose (UA) Norm (Normal) Urine Ketones 1+ H (Negative) Urine Blood 3+ H (Negative) Urine Nitrate Negative (Negative) Urine Bilirubin Neg (NEGATIVE) Urine Urobilinogen Norm (Negative) mg/dL Ur Leukocyte Stephanie ase 1+ H (Negative) Urine RBC 15-25 H (0-2) /hpf Urine WBC 15-25 H (0-5) /hpf Ur Squamous Epith Cells 0-4 H (0-5) Urine Bacteria 4+ H (NONE) Gastric Occult Blo od (Negative) Salicylates (3-10) mg/dL Urine Opiates Scre en Negative (Negative) ng/mL Acetaminophen (10-30) ug/mL Ur Barbiturates Sc reen Negative (Negative) ng/mL Phenytoin (10-20) ug/mL Valproic Acid (50-100) mcg/mL Carbamazepine (4.0-12.0) ug/mL Ur Phencyclidine S crn Negative (Negative) ng/mL Ur Amphetamines Sc reen Negative (Negative) ng/mL U Benzodiazepines Scrn Negative (Negative) ng/mL [place] (0.6-1.2) mmol/L Urine Cocaine Scre en Negative (Negative) ng/mL U Marijuana (THC) Screen Positive H (Negative) ng/mL Ethyl Alcohol (0-10) mg/dL Imaging Data^: CT Abd/Pel: Radiologist's impression: [place] [address] CT Scan Report Signed Patient: MooAugust Unit #: [id number] : 1980 Age/Sex: 38 / F ADM Date: 09/18/19 Loc: ER Room/Bed: Attending Dr: Ordering Provider/Ordering MD: Charlee Tang DO Date of Service: 09/18/19 Procedure(s): CT abdomen pelvis wo con [id number] Accession Number(s): [id number] Report Number: [id number] PROCEDURE INFORMATION: Exam: CT Abdomen And Pelvis Without Contrast Exam date and time: 09/18/2019 8:08 PM Age: 38 years old Clinical indication: Other: Gi bleed; Additional info: Abdominal pain TECHNIQUE: Imaging protocol: Computed tomography of the abdomen and pelvis without contrast. Radiation optimization: All CT scans at this facility use at least one of these dose optimization techniques: automated exposure control; mA and/or kV adjustment per patient size (includes targeted exams where dose is matched to clinical indication); or iterative reconstruction. COMPARISON: CT chest abd pel wo con 05/28/2019 10:51 AM RADIATION DOSE METRICS: Total DLP: 1076.89 mGy-cm FINDINGS: Liver: There is a diffuse decrease in hepatic parenchymal density, consistent with severe fatty infiltration. There is no focal abnormality within the liver. Gallbladder and bile ducts: There has been a cholecystectomy. Pancreas: The pancreas is normal. Spleen: The spleen is normal. Adrenals: The adrenal glands are normal. Kidneys and ureters: There is severe hydronephrosis of both kidneys. There is severe bilateral hydroureter. There are findings of cystocele. The ureterovesical junctions are located below the level of the pelvic floor. This is likely cause of the severe hydronephrosis. Stomach and bowel: There is no evidence of colitis/diverticulitis. Appendix: A normal appendix is identified. Intraperitoneal space: Unremarkable. No free air. No significant fluid collection. Vasculature: Unremarkable. No abdominal aortic aneurysm. Lymph nodes: Unremarkable. No enlarged lymph nodes. Bladder: Unremarkable as visualized. Reproductive: There are findings of prolapse of the uterus. Bones/joints: Unremarkable. No acute fracture. Soft tissues: Unremarkable. CT/CT abdomen pelvis wo con [id number] IMPRESSION: 1. Uterine prolapse. Correlation with clinical findings is suggested. 2. Cystocele 3. Severe bilateral hydronephrosis. 4. Severe fatty liver Radiation Dose CTDIVOL = (mGy): DLP = 1076.89 (mGy-cm) Dictated By: Rosalino Rosas Signed By: Rosalino Rosas Signed Date/Time: 09/18/192046 DD/ 44 CT Head: Radiologist's impression: [address] [place] [address] CT Scan Report Signed Patient: MooAugust Unit #: [id number] : 1980 Age/Sex: 38 / F ADM Date: 09/18/19 Loc: ER Room/Bed: Attending Dr: Ordering Provider/Ordering MD: Charlee Tang DO Date of Service: 09/18/19 Procedure(s): CT head wo con* [id number] Accession Number(s): [id number] Report Number: [id number] PROCEDURE INFORMATION: Exam: CT Head Without Contrast Exam date and time: 09/18/2019 6:34 PM Age: 38 years old Clinical indication: Altered mental status/memory loss; Other: ETOH; Additional info: [place]/ams TECHNIQUE: Imaging protocol: Computed tomography of the head without contrast. Radiation optimization: All CT scans at this facility use at least one of these dose optimization techniques: automated exposure control; mA and/or kV adjustment per patient size (includes targeted exams where dose is matched to clinical indication); or iterative reconstruction. COMPARISON: CT head wo con* [id number] 05/27/2019 1:24 AM RADIATION DOSE METRICS: Total DLP: 1076.89 mGy-cm FINDINGS: Brain: Normal. No hemorrhage. Unremarkable white matter. No mass effect. Ventricles: Normal. No ventriculomegaly. Bones/joints: Unremarkable. No acute fracture. Sinuses: Visualized sinuses are unremarkable. No fluid levels. Mastoid air cells: Visualized mastoid air cells are well aerated. Soft tissues: Unremarkable. CT/CT head wo con* [id number] IMPRESSION: No acute intracranial abnormality. Radiation Dose CTDIVOL = (mGy): DLP = 1076.89 (mGy-cm) Dictated By: Rosalino Rosas Signed By: Rosalino Rosas Signed Date/Time: 09/18/192017 DD/ 15 EKG Data^: EKG 1: Attestation: I personally reviewed and interpreted this EKG as follows: EKG interpretation date: 09/18/19 EKG interpretation time: 18:54 Interpretation: Sinus tachycardia with a ventricular rate of 108. Nonspecific ST and T wave changes. Computer generated interpretation: Head CT 09/18/19 18:24 IMPRESSION: No acute intracranial abnormality. Radiation Dose CTDIVOL = (mGy): DLP = 1076.89 (mGy-cm) Abdomen/Pelvis CT 09/18/19 18:55
--- NOTE | 2019-09-18 18:05 | ECG_ITS ---
Measurements Intervals [place] Rate: 108 P: 64 WY: 124 QRS: 62 QRSD: 82 T: 67 QT: 309 QTc: 415 SINUS TACHYCARDIA Compared to ECG 05/29/2019 09:24:57 Sinus rhythm no longer present Sinus arrhythmia no longer present Electronically Signed On 09-19-2019 7:11:19 CDT by Ana Hickey M.D. [email or web address]
--- NOTE | 2019-09-18 18:23 | XR_ITS ---
WS: [id number] PORTABLE CHEST HISTORY: cough COMPARISON: 05/27/2019 Marked pulmonary hyperexpansion. No pneumonia. No pulmonary nodules. Normal vasculature. No pleural e ffusion or pneumothorax. Cardiac size: Normal. Mediastinum/Aorta: Normal mediastinum. No osseous abnormality seen. XR/XR chest 1V portable [id number] IMPRESSION: Pulmonary hyperexpansion likely related to emphysema. No pneumonia.
--- NOTE | 2019-09-18 18:24 | CTR_ITS ---
PROCEDURE INFORMATION: Exam: CT Head Without Contrast Exam date and time: 09/18/2019 6:34 PM Age: 38 years old Clinical indication: Altered mental status/memory loss; Other: ETOH; Additional info: Leavitt/ams TECHNIQUE: Imaging protocol: Computed tomography of the head without contrast. Radiation optimization: All CT scans at this facility use at least one of these dose optimization techniques: automated exposure control; mA and/or kV adjustment per patient size (includes targeted exams where dose is matched to clinical indication); or iterative reconstruction. COMPARISON: CT head wo con* [id number] 05/27/2019 1:24 AM RADIATION DOSE METRICS: Total DLP: 1076.89 mGy-cm FINDINGS: Brain: Normal. No hemorrhage. Unremarkable white matter. No mass effect. Ventricles: Normal. No ventriculomegaly. Bones/joints: Unremarkable. No acute fracture. Sinuses: Visualized sinuses are unremarkable. No fluid levels. Mastoid air cells: Visualized mastoid air cells are well aerated. Soft tissues: Unremarkable. CT/CT head wo con* [id number] IMPRESSION: No acute intracranial abnormality. Radiation Dose CTDIVOL = (mGy): DLP = 1076.89 (mGy-cm)
--- NOTE | 2019-09-18 18:55 | CTR_ITS ---
PROCEDURE INFORMATION: Exam: CT Abdomen And Pelvis Without Contrast Exam date and time: 09/18/2019 8:08 PM Age: 38 years old Clinical indication: Other: Gi bleed; Additional info: Abdominal pain TECHNIQUE: Imaging protocol: Computed tomography of the abdomen and pelvis without contrast. Radiation optimization: All CT scans at this facility use at least one of these dose optimization techniques: automated exposure control; mA and/or kV adjustment per patient size (includes targeted exams where dose is matched to clinical indication); or iterative reconstruction. COMPARISON: CT chest abd pel wo con 05/28/2019 10:51 AM RADIATION DOSE METRICS: Total DLP: 1076.89 mGy-cm FINDINGS: Liver: There is a diffuse decrease in hepatic parenchymal density, consistent with severe fatty infiltration. There is no focal abnormality within the liver. Gallbladder and bile ducts: There has been a cholecystectomy. Pancreas: The pancreas is normal. Spleen: The spleen is normal. Adrenals: The adrenal glands are normal. Kidneys and ureters: There is severe hydronephrosis of both kidneys. There is severe bilateral hydroureter. There are findings of cystocele. The ureterovesical junctions are located below the level of the pelvic floor. This is likely cause of the severe hydronephrosis. Stomach and bowel: There is no evidence of colitis/diverticulitis. Appendix: A normal appendix is identified. Intraperitoneal space: Unremarkable. No free air. No significant fluid collection. Vasculature: Unremarkable. No abdominal aortic aneurysm. Lymph nodes: Unremarkable. No enlarged lymph nodes. Bladder: Unremarkable as visualized. Reproductive: There are findings of prolapse of the uterus. Bones/joints: Unremarkable. No acute fracture. Soft tissues: Unremarkable. CT/CT abdomen pelvis wo con [id number] IMPRESSION: 1. Uterine prolapse. Correlation with clinical findings is suggested. 2. Cystocele 3. Severe bilateral hydronephrosis. 4. Severe fatty liver Radiation Dose CTDIVOL = (mGy): DLP = 1076.89 (mGy-cm)
[2019-09-18 18:58] LABS: Basophils % 0.2 %; Eosinophils % 0.1 %; Hematocrit 49.3 % (37.0-47.0); Hemoglobin 16.3 g/dL (11.5-15.3); Lymphocytes # 4.1 10^3/uL (0.8-4.8); Lymphocytes % 21.5 %; Mean Corpuscular HGB Conc 33.1 g/dL (30.0-36.0); Mean Corpuscular Hemoglobin 30.4 pg (28.0-34.0); Mean Corpuscular Volume 91.8 fL (81-99); Mean Platelet Volume 9.9 fL (7.4-10.4); Monocytes # 1.6 10^3/uL (0.2-0.9); Monocytes % 8.2 %; Neutrophils # 13.2 10^3/uL (1.8-7.7); Neutrophils % 69.5 %; Nucleated Red Blood Cells % 0 %; Platelet Count 393 10^3/cmm (130-400); Red Blood Count 5.37 10^6/uL (4.1-5.3); Red Cell Distribution Width 14.6 % (12.1-15.1)
[2019-09-18 19:06] LABS: Gastricult Occult Blood Positive (Negative)
[2019-09-18 19:16] LABS: Alanine Aminotransferase 96 U/L (0-33); Alkaline Phosphatase 106 IU/L (35-105); Chloride 99 mmol/L (98-107); Potassium 4.3 mmol/L (3.5-5.1); Sodium 142 mmol/L (136-145)
[2019-09-18] MEDS: haloperidol inj 5 mg/mL INJ 1 mL IM ×3 (19:31→23:51)
[2019-09-18 19:55] LABS: Anion Gap 36.3 (5-19); Blood Urea Nitrogen 21 mg/dL (6-20); Carbon Dioxide 11 mmol/L (22-29); Globulin 3.6 g/dL (1.3-4.6); Glomerular Filtration Rate 69.3 mL/min (90-130); Glucose 114 mg/dL (65-115); Osmolality Calculated 291 mOsm/kg (285-295); Total Bilirubin 0.2 mg/dL (0.15-1.2); Total Protein 7.6 g/dL (6.6-8.7)
[2019-09-18 19:57] LABS: ABG PCO2 31.8 mmHg (35-45); ABG PH Result 7.39 (7.35-7.45); Arterial Blood Gas Hematocrit 50.4 % (37-47); Base Excess ABG -4.4 mmol/L (-2.0-2.0); Blood Gas Sample Site Brachial, right; Blood Gas Sample Type Arterial; HCO3 ABG 19.3 mmol/L (22-26); Oxygen Device ROOM AIR; PO2 ABG 81.1 mmHg (80.0-100.0)
[2019-09-18 19:57] LABS: Alcohol Level 362 mg/dL (0-10)
[2019-09-18 19:58] LABS: Acetaminophen < 10.0 ug/mL (10-30); Aspartate Amino Transferase 117 U/L (0-32); Salicylate < 10.0 mg/dL (3-10)
[2019-09-18 19:59] LABS: Ammonia 41 umol/L (11-51)
[2019-09-18] MEDS: folic acid 1 MG, multivitamin inj 10 ML, thiamine 100 MG in sodium chloride 0.9% 1,000 ML 252.8 MG IV (20:02)
[2019-09-18] MEDS: ondansetron 2 mg/ML SDV 2 mL 4 MG IM (20:05)
--- NOTE | 2019-09-18 20:54 | P.HP_ITS ---
Providers/Chief Complaint Primary Care Provider: Otto Gooden Chief Complaint: ETOH History of Present Illness August Moo is a 38 year old female who has history of alcohol abuse, depression, previous history of suicidal ideation presented to the ER after having one syncopal event in her bathroom. Review of previous records reveals that she has had these syncopal events secondary to alcohol intoxications and was intubated because of low GCS. Patient is stating that she was supposed to live with her grandmother, she was trying to sober up, recently she has moved out. She is non-giving me much detail but she is able to tell me that she lives in a room and she called ambulance because left side of her hip was hurting. S he is endorsing falling day before yesterday. Family told the ER that she was found unconscious in the toilet that is why EMS was called. She is not able to provide much detail, she is a poor historian. Diagnostics in ER revealed severe metabolic acidosis with high anion gap, lactic acid is pending, no active respiratory distress, she is afebrile, positive leukocytosis, positive FOBT CT abdomen reveals hydronephrosis with uterine prolapse When I was examining the patient she was very agitated, she just voided urine, she is complaining of dysuria and frequency She is intoxicated, alcohol level 262, she required 2 doses of Haldol, she was not really cooperative with the staff, we are not able to get IV access at this point, CT abdomen was done without contrast Review of Systems Const: Reports: chills, body aches and fatigue; Denies: fever Eyes: Denies: change in vision ENMT: Denies: throat pain Card: Denies: chest pain Resp: Denies: shortness of breath GI: Reports: abdominal pain and heartburn/indigestion; Denies: nausea, vomiting, vomiting blood, diarrhea or constipation : Reports: painful urination, urinary frequency and urinary urgency Musc: Denies: neck pain Skin/Breast: Reports: chronic lesion Neuro: Reports: headache, difficulty walking, dizziness and confusion Psych: Reports: anxiety and mood swings Endo: Denies: excessive urination Jaron/Lymph: Denies: easy bruising All/Imm: Denies: hives Medications/Allergies Home Medications Medication Instructions Recorded Confirmed Last Taken Type calcium carbonate 1,000 mg PO Q4H PRN #0 tab 05/29/19 09/18/19 Unknown Rx chlordiazepoxide HCl 25 mg PO DIRECTED #20 cap 05/29/19 09/18/19 Unknown Rx folic acid 1 mg PO DAILY #0 tab 05/29/19 09/18/19 Unknown Rx multivitamin with folic acid 1 tab PO DAILY #0 tab 05/29/19 09/18/19 Unknown Rx [Thera] amlodipine 10 mg PO DAILY 09/18/19 09/18/19 Unknown History benzonatate 100 mg PO TID 09/18/19 09/18/19 Unknown History duloxetine 30 mg PO DAILY 09/18/19 09/18/19 Unknown History hydrochlorothiazide 25 mg PO DAILY PRN 09/18/19 09/18/19 Unknown History hydroxyzine HCl 50 mg PO TID PRN 09/18/19 09/18/19 Unknown History metoprolol tartrate 25 mg PO BID 09/18/19 09/18/19 Unknown History pantoprazole 40 mg PO DAILY 09/18/19 09/18/19 Unknown History Allergies Allergy/AdvReac Type Severity Reaction Status Date / Time Penicillins Allergy ADR-Itching Verified 09/18/19 17:08 PFSH Acute PFSH: Medical History Alcohol abuse Bipolar disorder delivery delivered Peptic ulcer disease Polysubstance abuse Prolapse of bladder Suicidal ideation Uterine prolapse Surgical History H/O shoulder surgery Hx laparoscopic cholecystectomy Hx of neck surgery Hx of tonsillectomy Family History Denies family history of Psychiatric illness Social History Smoking and tobacco status: current every day smoker cigarettes Packs smoked per day: 3 Years cigarettes smoked: 31 Quit status (tobacco): not considering quitting Smoking risk assessment/counseling performed?: Yes (Patient reports that she rolls 70-80 cigs a day to smoke) Alcohol intake: current Alcohol use comment: Drinks 1 gallon of vodka every day Vitals/I&O/Wt Last Vital Signs Temp 97.8 F 04/29/20 17:01 Pulse 106 H 09/18/19 17:01 Resp 17 09/18/19 17:01 BP 175/113 09/18/19 17:01 Pulse Ox 97 09/18/19 17:01 Weight last 48 hrs Weight 113.398 kg Physical Exam Narrative: EXAM NARRATIVE: Morbidly obese female, intoxicated, unkempt appearance, experiencing rigors EOMI, PERRLA S1, S2 sinus tachycardia no signs of heart failure Hyperemic skin with macular rash No active cellulitis Lungs are clear to auscultation Abdomen soft, not able to elicit tenderness, no active signs of peritonitis, Her back exam: Multiple tattoos, no active sign of cellulitis or ulcer, mild swelling of left gluteal and thigh area no open wounds Patient is very agitated CIWA greater than 12 Data : 09/18/19 18:36 09/18/19 18:36 A&P Assessment and plan (1) Alcohol intoxication: Status: Acute Qualifiers: Complication of substance-induced condition: with unspecified complication Qualified Code(s): F10.929 - Alcohol use, unspecified with intoxication, unspecified (2) Acute GI bleeding: Status: Acute Additional A&P Information Acute alcohol intoxication Able to protect her airways, GCS 15, CIWA greater than 12 Admit to ICU as she is high risk for intubation Alcohol level 362, Thiamine, folic acid Denies suicidal or homicidal ideation Patient is very evasive regarding her alcohol abuse Poison control recommended managing conservatively however we do not have osmolar gap at this point, would hold on giving fomepizole, no urgent need of hemodialysis either High anion gap metabolic acidosis This is most likely secondary to lactic acidosis due to alcohol abuse Patient is also complaining of urinary frequency CT abdomen is revealing bilateral hydronephrosis but she is able to void urine, creatinine is normal I would go ahead and start sepsis bolus and ceftriaxone, she has already received cefepime in the ER Waiting on lactic acid Labs sent for calculated osmolar serum value to calculate osmolar gap, Sepsis due to UTI Criteria met with leukocytosis, tachycardia, tachypnea, Most likely source is urinary tract infection as she is complaining of dysuria and urinary frequency Dark-colored stool, lower GI bleed Hemoglobin stable I believe hemoglobin is concentrated at this point Would hold on DVT prophylaxis and use SCDs, Protonix p.o. 40 twice daily we do not have IV access at this point Hypertension and tachycardic This is most likely autonomic dysfunction due to alcohol abuse I would use metoprolol, continue IV fluids and monitor in ICU for now Full code DVT prophylaxis: SCDs Attestations Medical Necessity Statement*: Anticipating her stay to cross more than 2 midnights currently has severe metabolic acidosis due to alcohol intoxication and UTI Time Spent in Patient Care: 40 Coding Level of Care Code Acute Waiter/Waitress Cocktail Lounge for g Fwd Diagnoses Alcohol intoxication F10.929 Complication of substance-induced condition: with unspecified complication Acute GI bleeding K92.2
[2019-09-18 20:58] LABS: Phenytoin Dilantin 0.8 ug/mL (10-20); Valproic Acid Level 2.8 mcg/mL (50-100)
[2019-09-18 20:59] LABS: Lithium 0.1 mmol/L (0.6-1.2)
[2019-09-18 21:20] LABS: Amphetamines Screen Urine Negative (Negative); Barbiturates Screen Urine Negative (Negative); Benzodiazepines Screen Urine Negative (Negative); Cocaine Screen Urine Negative (Negative); Opiate Screen Urine Negative (Negative); PCP Screen Urine Negative (Negative); THC Screen Urine Positive (Negative)
[2019-09-18 21:32] LABS: Blood Urine 3+ (Negative); Glucose Urine UA Norm (Normal); Ketones Urine 1+ (Negative); Urine Appearance Cloudy (CLEAR); Urine Color Yellow (Yellow); pH Urine 5 (5-7)
[2019-09-18 21:33] LABS: Add Urine Microscopic? YES; Bilirubin Urine Neg (NEGATIVE); Leukocyte Esterase Urine 1+ (Negative); Nitrate Urine Negative (Negative); Protein Urine 3+ (Negative); Urobilinogen Urine Norm (Negative)
[2019-09-18 21:34] LABS: RBC Urine 15-25 /hpf (0-2)
[2019-09-18 21:35] LABS: Add Urine Culture? Yes; Bacteria Urine 4+; Squamous Epithelial Cell Urine 0-4 (0-5); WBC Urine 15-25 /hpf (0-5)
[2019-09-18 22:35] LABS: Reflex Lactate Order REFLEX LACTIC ORDERD
[2019-09-18 23:37] LABS: INR 1.01 (0.8-1.2)
--- NOTE | 2019-09-18 23:37 | PC.NURSE ---
PT'S IV NOTED INFILLTRATED IN CT. NEW IV SITE ATTEMPTED, UNSUCCESSFUL X,S MULTIPLE X'S. IV ACCESS ATTEMPTED USING ULTRASOUND UNSUCCESFUL. PT BECOMES AGITATED EASILY. IV ACCESS OBTAINED AFTER MUTIPLE ATTEMPTED.
--- NOTE | 2019-09-18 23:50 | XR_ITS ---
WS: [id number] LEFT HIP: 1 VIEW(S) TECHNIQUE: AP. HISTORY: Left hip pain COMPARISON: CT 09/18/2019 No acute fracture or dislocation of the hip. No joint space narrowing or bone destruction. No soft tissue abnormality. XR/XR hip LT 1V wo/w pel [id number] IMPRESSION: Normal AP LEFT hip.
[2019-09-18 23:56] VITALS: BP 128/90; PULSE 112; RESP 18; O2SAT 96
[2019-09-19] VITALS (26 sets, daily range): BP systolic 117–170; BP diastolic 71–107; PULSE 85–133; RESP 12–43; TEMP 36.5–37.4; O2SAT 87–96
[2019-09-19] MEDS: LORazepam 2 mg/mL INJ 1 mL IVP (00:59)
[2019-09-19 03:55] LABS: Basophils % 0.2 %; Eosinophils % 0.1 %; Hemoglobin 13.4 g/dL (11.5-15.3); Lymphocytes % 20.8 %; Mean Corpuscular HGB Conc 32.7 g/dL (30.0-36.0); Mean Corpuscular Hemoglobin 29.6 pg (28.0-34.0); Mean Corpuscular Volume 90.7 fL (81-99); Monocytes # 1.7 10^3/uL (0.2-0.9); Monocytes % 11.3 %; Neutrophils # 9.8 10^3/uL (1.8-7.7); Neutrophils % 67.3 %; Nucleated Red Blood Cells % 0 %; Platelet Count 308 10^3/cmm (130-400); Red Blood Count 4.52 10^6/uL (4.1-5.3); Red Cell Distribution Width 14.6 % (12.1-15.1); White Blood Count 14.5 10^3/uL (4.0-10.0)
[2019-09-19 04:03] LABS: Magnesium 1.2 mg/dL (1.7-2.3)
[2019-09-19 04:05] LABS: Alanine Aminotransferase 80 U/L (0-33); Albumin Level 3.5 g/dL (3.5-5.2); Alkaline Phosphatase 85 IU/L (35-105); Anion Gap 23.7 (5-19); Aspartate Amino Transferase 98 U/L (0-32); Blood Urea Nitrogen 16 mg/dL (6-20); Calcium 7.9 mg/dL (8.5-10.5); Carbon Dioxide 18 mmol/L (22-29); Chloride 94 mmol/L (98-107); Globulin 2.9 g/dL (1.3-4.6); Glomerular Filtration Rate 92.7 mL/min (90-130); Glucose 132 mg/dL (65-115); Lactic Acid level (Lactate) 5.2 mmol/L (0.5-2.2); Osmolality Calculated 272 mOsm/kg (285-295); Potassium 3.7 mmol/L (3.5-5.1); Sodium 132 mmol/L (136-145); Total Bilirubin 0.6 mg/dL (0.15-1.2); Total Protein 6.4 g/dL (6.6-8.7)
[2019-09-19] MEDS: multivitamin therapeutic Tablet 1 TAB PO (08:21)
[2019-09-19] MEDS: thiamine 100 mg Tablet PO (08:21)
[2019-09-19] MEDS: amlodipine 10 mg Tablet PO (08:21)
[2019-09-19] MEDS: metoprolol tartrate 25 mg Tablet PO ×2 (08:21→17:10)
[2019-09-19] MEDS: duloxetine 30 mg Capsule PO (08:21)
[2019-09-19] MEDS: folic acid 1 mg Tablet PO (08:21)
[2019-09-19] MEDS: pantoprazole DR 40 mg Tablet PO ×2 (08:21→17:10)
[2019-09-19 08:28] LABS: HCG Qualitative Urine. Negative (Negative)
--- NOTE | 2019-09-19 09:24 | P.PN_ITS ---
Subjective Subjective: Interval history: She is groggy this morning, reporting lower abdominal discomfort. Denies any hallucinations. Vitals/I&O/Wt Last Vital Signs Temp 99.3 F 09/19/19 03:07 Pulse 95 09/19/19 09:00 Resp 18 09/19/19 09:00 BP 150/98 09/19/19 09:00 Pulse Ox 92 09/19/19 08:00 09/18/19 09/19/19 09/19/19 22:59 06:59 14:59 Intake Total 1011.2 / 1011.2 Balance 1011.2 / 1011.2 Weight last 48 hrs Weight 113.398 kg Physical Exam Const: COMMON NORMALS: no apparent distress NUTRITIONAL APPEARANCE: obese OTHER: Someone, with somewhat slowed mentation, does wake up, answer questions, although takes a while to collect her thoughts. Cooperates with exam. HENMT: COMMON NORMALS: oropharynx normal Neck/C-Spine: COMMON NORMALS: no JVD Resp: COMMON NORMALS: normal respiratory effort and clear to auscultation bilaterally AUSCULTATION: clear to auscultation bilaterally Cardio: COMMON NORMALS: no JVD, regular rhythm, S1 normal heart sound, S2 normal heart sound and no murmurs RHYTHM: regular rhythm HEART SOUNDS: S1 normal and S2 normal GI: COMMON NORMALS: normal to inspection, nondistended, normoactive bowel sounds, soft to palpation and non-tender PALPATION: Yes soft Extremity: COMMON NORMALS: no joint enlargement GENERAL: Yes edema (trace) Neuro: COMMON NORMALS: moves all extremities Skin: COMMON NORMALS: no rashes or lesions noted GENERAL SKIN EXAM: no rashes or lesions noted Data : 09/19/19 03:30 09/19/19 03:30 Micro: Microbiology 09/18/19 03:30 Blood Culture - Preliminary Blood SPECIMEN COLLECTED 09/18/19 22:00 Blood Culture - Preliminary Blood SPECIMEN COLLECTED A&P Assessment and plan (1) Alcohol intoxication: On questioning she denies history of severe withdrawal in the past with seizure. Denies hallucination today. She is groggy this morning. CIWA score is 9. With urinary tract infection, suspected sepsis, it is difficult to tell degree of alcohol withdrawal at this time. She was intoxicated yesterday with positive EtOH in urine. Reportedly drinks very large amounts on regular basis, as much as 1 gallon of vodka per day. Continue monitoring, supportive care for alcohol withdrawal. ICU monitoring at this time due to high risk for severe withdrawal. Concomitant sepsis. Status: Acute Qualifiers: Complication of substance-induced condition: with unspecified complication Qualified Code(s): F10.929 - Alcohol use, unspecified with intoxication, unspecified (2) Acute GI bleeding: Noted BRBPR. This morning discussion with RN had a liquid stool, without any blood in there. Continue Protonix. We will recheck hemoglobin. I do not see any blood thinners are antiplatelets at home. Has not had any hematemesis. With heavy alcohol intake cannot exclude alcohol- related gastritis. Gastroccult is noted positive. Without very significant bleeding, variceal bleeding is not suspected at this time. Status: Acute Additional A&P Information High anion gap metabolic acidosis This is most likely secondary to lactic acidosis due to alcohol abuse Patient is also complaining of urinary frequency CT abdomen is revealing bilateral hydronephrosis but she is able to void urine, creatinine is normal I would go ahead and start sepsis bolus and ceftriaxone, she has already received cefepime in the ER Waiting on lactic acid Labs sent for calculated osmolar serum value to calculate osmolar gap, Complicated urinary tract infection with sepsis: Continue Rocephin at this time. Follow urine culture. Monitor hemodynamic condition in ICU. Severe hydronephrosis: bilateral hydronephrosis noted on CT. Ureterovesical junction noted below pelvic floor. Will request Ewing placement. Will discuss with urology. Tachycardic: Possibly secondary to sepsis, possibly secondary to alcohol withdrawal. Continue supportive care. Attestations Medical Necessity Statement*: Continue admission for assessment of management of alcohol withdrawal, complicated urinary tract infection with sepsis. Critical Care Time: In addition to noncritical issues 8 minutes critical care time spent on assessment and management of complicated urinary tract infection, sepsis, GI bleeding. Alcohol withdrawal. Coding Level of Care Code Acute Manager Of Broadcast Content for Samreen Lubin Diagnoses Alcohol intoxication F10.929 Complication of substance-induced condition: with unspecified complication Acute GI bleeding K92.2
--- NOTE | 2019-09-19 09:24 | PC.NURSE ---
blood There was a smear of blood on the blue laron and I checked her stool, there was no evidence of blood in her liquid stool. I asked pt if she was on her menses, she stated no and the blood is due to her prolapse.
[2019-09-19 09:41] LABS: ABG PCO2 34.4 mmHg (35-45); ABG PH Result 7.49 (7.35-7.45); Alveolar-Arterial Oxygen Gradi 71.3 mmHg (5-10); Base Excess ABG 3.2 mmol/L (-2.0-2.0); Blood Gas Allen Test Pos; Blood Gas Sample Site Radial, left; Blood Gas Sample Type Arterial; Carboxyhemoglobin 0.4 %THgb (0.4-20.1); HCO3 ABG 26.2 mmol/L (22-26); HGB O2 Sat 94.6 % (95-100); Ionized Calcium Level - ABG 1.1 mmol/L (1.1-1.4); Methemoglobin 0.8 % (0.4-1.5); Oxygen Device NC; Oxygen Saturation ABG 95.8; PO2 ABG 82.9 mmHg (80.0-100.0); Potassium Level - ABG 3.6 mmol/L (3.5-5.0)
[2019-09-19] MEDS: nicotine 21 mg Patch 1 PATCH TRANSDERMA (12:53)
[2019-09-19] MEDS: phenazopyridine 100 mg Tablet PO ×2 (13:13→21:44)
[2019-09-19] MEDS: LORazepam 2 mg Tablet PO (14:00)
--- NOTE | 2019-09-19 14:08 | PC.NURSE ---
Seo Pt c/o of seo cath hurting her and causing severe back pain. She said the pain was not there prior to the seo insertion. I notified the dr. said that to explain to the pt about her sepsis and hydronephosis and if she still wanted it out that we could take it out but she would have to be st.cath prn. I explained to pt about this and she still wanted cath out and she was ok with the st.cath prn.
--- NOTE | 2019-09-19 16:29 | PM.CONSULT ---
Providers/Reason For Consult Consulting Physican/Specialty*: urology/[place] Reason for Consult*: Bilateral ureteral obstruction with hydronephrosis and no evidence of urinary retention Attending Physician: Cory Card Primary Care Provider: Otto Gooden History of Present Illness History of Present Illness Mary Jo Cortés is a 38 year old female who I evaluated for the first time today at the request of Dr. Card for bilateral severe hydronephrosis hydroureter down to the bladder. Complicated by what appears to be urinary tract infection with possible sepsis. Presented with a white count of 19 and it has improved somewhat on antibiotics already. She is still tachycardic. Stable vital signs without fever. Good urine output. These findings were discovered on CT scan during work-up for sepsis and was somewhat unexpected. In comparison of this CT scan with one done in May 2019 there was no evidence of hydronephrosis or hydroureter at that time. The bladder did appear to be in reasonably good normal position on that study. I expect that that is a reflection of transient positional changes of the bladder depending upon activity. Creatinine was normal. Her reason for admission though was alcohol intoxication Regarding the CT findings it appears that the ureters are likely kinking at the UVJ secondary to pelvic floor prolapse. Patient reports that she has had a cystocele/bladder prolapse since 1995. She is not able to give any more information of any consequence. Apparently did have some scheduled procedure or least evaluation for this but that did not happen. A Ewing catheter was placed but the patient threatened to remove it if it was not removed by the staff. She said it was uncomfortable. Due to the kinking effect it was decided to try to tampons to see if that would offer some temporary support. She is tolerating them currently. Physical findings revealed significant pelvic floor relaxation anteriorly with some shifting proximally with the tampons but clearly not fully restorative pelvic support. Review of Systems Narrative: Patient is very sedated and sluggish. Not really providing much information when queried. Could not obtain full review of systems. Const: Denies: fever or chills Meds/Allergies Home Medications and Allergies Home Medications Medication Instructions Recorded Confirmed Last Taken Type calcium carbonate 1,000 mg PO Q4H PRN #0 tab 05/29/19 09/18/19 Unknown Rx chlordiazepoxide HCl 25 mg PO DIRECTED #20 cap 05/29/19 09/18/19 Unknown Rx folic acid 1 mg PO DAILY #0 tab 05/29/19 09/18/19 Unknown Rx multivitamin with folic acid 1 tab PO DAILY #0 tab 05/29/19 09/18/19 Unknown Rx [Thera] amlodipine 10 mg PO DAILY 09/18/19 09/18/19 Unknown History benzonatate 100 mg PO TID 09/18/19 09/18/19 Unknown History duloxetine 30 mg PO DAILY 09/18/19 09/18/19 Unknown History hydrochlorothiazide 25 mg PO DAILY PRN 09/18/19 09/18/19 Unknown History hydroxyzine HCl 50 mg PO TID PRN 09/18/19 09/18/19 Unknown History metoprolol tartrate 25 mg PO BID 09/18/19 09/18/19 Unknown History pantoprazole 40 mg PO DAILY 09/18/19 09/18/19 Unknown History Allergies Allergy/AdvReac Type Severity Reaction Status Date / Time Penicillins Allergy ADR-Itching Verified 09/19/19 00:24 Current Medications Current Medications Generic Name Dose Route Start Last Admin Trade Name Freq PRN Reason Stop Dose Admin Amlodipine Besylate 10 mg 09/19/19 09:00 09/19/19 08:21 Norvasc PO 10 mg DAILY KAT Administration Duloxetine HCl 30 mg 09/19/19 09:00 09/19/19 08:21 Cymbalta PO 30 mg DAILY KAT Administration Folic Acid 1 mg 09/19/19 09:00 09/19/19 08:21 Folic Acid PO 1 mg DAILY KAT Administration Lidocaine HCl 1 applic 09/19/19 12:42 09/19/19 12:52 Lidocaine 2% Jelly TOPICAL 1 applic PRN PRN Administration burning periarea Lorazepam 2 mg 09/18/19 23:50 09/19/19 00:59 Ativan IVP 2 mg PRN PRN Administration WITHDRAWAL Protocol Lorazepam 2 mg 09/18/19 23:50 09/19/19 14:00 Ativan PO 2 mg Q4H PRN Administration WITHDRAWAL Protocol Metoprolol Tartrate 25 mg 09/19/19 09:00 09/19/19 08:21 Lopressor PO 25 mg BID KAT Administration Multivitamins Therapeutic 1 tab 09/19/19 09:00 09/19/19 08:21 Multivitamin Tab PO 1 tab DAILY KAT Administration Nicotine 1 patch 09/19/19 12:38 09/19/19 12:53 Nicoderm 21 Mg Patch TRANSDERMA 1 patch DAILY KAT Administration Pantoprazole Sodium 40 mg 09/19/19 09:00 09/19/19 08:21 Protonix PO 40 mg BID KAT Administration Phenazopyridine HCl 100 mg 09/19/19 15:00 09/19/19 13:13 Pyridium PO 100 mg TID KAT Administration Thiamine Mononitrate 100 mg 09/19/19 09:00 09/19/19 08:21 Vitamin B-1 PO 100 mg DAILY KAT Administration PFSH Acute PFSH: Medical History Alcohol abuse Bipolar disorder Peptic ulcer disease Polysubstance abuse Prolapse of bladder Suicidal ideation Surgical History H/O shoulder surgery History of delivery Hx laparoscopic cholecystectomy Hx of neck surgery Hx of tonsillectomy Family History Denies family history of Psychiatric illness Social History Smoking and tobacco status: current every day smoker cigarettes Packs smoked per day: 3 Years cigarettes smoked: 31 Quit status (tobacco): not considering quitting Smoking risk assessment/counseling performed?: Yes (Patient reports that she rolls 70-80 cigs a day to smoke) Alcohol intake: current Alcohol use comment: Drinks 1 gallon of vodka every day Vitals/I&O/Wt Last Vital Signs Temp 98.6 F 09/19/19 15:43 Pulse 88 09/19/19 15:43 Resp 22 H 09/19/19 15:43 BP 117/90 09/19/19 15:43 Pulse Ox 92 09/19/19 15:43 09/19/19 09/19/19 09/19/19 06:59 14:59 22:59 Intake Total 1011.2 / 1011.2 360 / 360 Output Total 875 / 875 Balance 1011.2 / 1011.2 -515 / -515 Weight last 48 hrs Weight 250 lb Physical Exam Const: GENERAL APPEARANCE: not cooperative and not well kempt NUTRITIONAL APPEARANCE: obese Resp: COMMON NORMALS: normal respiratory effort EFFORT & INSPECTION: No respiratory distress : OTHER: Tampon in place. There is distinct pelvic floor relaxation anteriorly. This fits the clinical picture. Psych: APPEARANCE: No well kempt Urinary Catheter Management^: Ewing: Cath Placed During This Visit: yes Urinary Catheter Date of Insertion: 09/19/19 Urinary Catheter Time of Insertion: 10:22 Data Micro: Micro: Microbiology 09/18/19 03:30 Blood Culture - Pr eliminary Blood SPECIMEN [facility] 09/18/19 22:00 Blood Culture - Pr eliminary Blood SPE[facility]EN [facility] A&P Assessment and plan (1) Bilateral hydronephrosis: I expect that this is an anatomic abnormality due to anterior pelvic floor relaxation. Options to consider include: 1. Tampons as doing 2. Pessary 3. Ureteral stents although less likely to be effective because of the anatomic cause Status: Acute Consult Attestations Medical Necessity Statement: See attending Coding Level of Care Code Acute Sales Representative Printing for Samreen Lubin Diagnoses Bilateral hydronephrosis N13.30
--- NOTE | 2019-09-19 16:35 | PC.NURSE ---
Tampons Placed two tampons in pt vagina per dr order.
--- NOTE | 2019-09-19 17:41 | PC.NURSE ---
Tampons Tampons came out when pt went urinate. 2in chago cristina per Dr Card replaced them. Pt tolerated it well.
--- NOTE | 2019-09-19 17:57 | PC.NURSE ---
neyda Pt threw up her water.
--- NOTE | 2019-09-19 21:00 | PC.NURSE ---
Addendum entered by Naa Bejarano RN 09/20/19 02:38: and oxygen safety. No collar pointer observed. Pt verbalized understanding. 1:1 sitter remains at bedside. Original Note: 3 packs of cigarettes removed from patients belongings, locked them in unit pyxis. Pt educated on smoking policy;wong
--- NOTE | 2019-09-19 22:32 | PC.NURSE ---
Unable to draw labs, IV access to left hand puffy and tender. Unable to gain IV access, 2 attempts via ultrasound. Pt crying and refuses for nurses to do more attempts. Dr. Haynes notified via phone and received orders for IM rocephin at this time, physician aware of unable to obtain lab work.
--- NOTE | 2019-09-19 23:28 | PC.NURSE ---
vaginal packing Packing fell out while up to BSC. New 2inch kerlex inserted into vagina with lubicrant at this time. Pt tolerated well.
[2019-09-20] VITALS (12 sets, daily range): BP systolic 135–180; BP diastolic 90–117; PULSE 74–99; RESP 15–22; TEMP 36.6–37.1; O2SAT 89–98
--- NOTE | 2019-09-20 04:34 | PC.NURSE ---
Patient refused AM labs. Dr. Haynes notified at this time.
[2019-09-20] MEDS: nicotine 2 mg Gum BUCCAL (04:39)
--- NOTE | 2019-09-20 07:27 | PM.PN ---
Subjective Subjective: Interval history: No fever last night. Hemodynamically stable. White count has decreased to 8.8 Decreasing tachycardia Vitals/I&O/Wt Last Vital Signs Temp 98.0 F 09/19/19 23:05 Pulse 95 09/20/19 06:00 Resp 20 H 09/20/19 06:00 BP 149/98 09/20/19 06:00 Pulse Ox 89 L 09/20/19 06:00 09/19/19 09/20/19 09/20/19 22:59 06:59 14:59 Intake Total 240 / 600 Output Total 975 / 1850 575 / 2425 Balance -735 / -1250 -575 / -1825 Weight last 48 hrs Weight 250 lb Physical Exam Const: COMMON NORMALS: no apparent distress, alert and well nourished GENERAL APPEARANCE: well kempt and well developed ORIENTATION/CONSCIOUSNESS: not confused HENMT: COMMON NORMALS: normocephalic and head/scalp atraumatic HEAD & SCALP: normocephalic and atraumatic Resp: COMMON NORMALS: normal respiratory effort EFFORT & INSPECTION: No labored and No actively coughing Extremity: COMMON NORMALS: no clubbing, cyanosis or edema Neuro: SENSORIUM/ORIENTATION: Yes alert Psych: COMMON NORMALS: mental status grossly normal APPEARANCE: Yes grossly normal and Yes well kempt ATTITUDE: Yes engaged Urinary Catheter Management^: Ewing: Cath Placed During This Visit: yes Urinary Catheter Date of Insertion: 09/19/19 Urinary Catheter Time of Insertion: 10:22 Data : 09/21/19 04:55 09/21/19 04:55 Micro: Microbiology 09/18/19 03:30 Blood Culture - Preliminary Blood NEGATIVE TO DATE 09/18/19 22:00 Blood Culture - Preliminary Blood NEGATIVE TO DATE A&P Assessment and plan (1) Bilateral hydronephrosis: Appears to be anatomic etiology with prolapse of her anterior vaginal floor with ureteral kinking. I believe this is probably a chronically intermittent process. Her renal function is spared. The primary issue now related to this is long-term planning for repair of pelvic floor prolapse and recovery of UTI whether or not it would require instrumentation via stenting etc. to facilitate drainage while infection treated. Given the improvement or UTI I do not think drainage of upper urinary tracts will be required. Status: Acute (2) UTI (urinary tract infection): Continues to improve from an infectious perspective with normalization of her white count, resolution of tachycardia, recovery of mental status etc. Status: Acute Attestations Medical Necessity Statement*: See attending Coding Level of Care Code Acute Distribution Engineering Technologist for [facility] Fwd Diagnoses Bilateral hydronephrosis N13.30 UTI (urinary tract infection) N39.0
--- NOTE | 2019-09-20 08:15 | PC.NURSE ---
Pt still refuses IV access and lab draw at this time. Dr Card, on unit, notified.
--- NOTE | 2019-09-20 09:50 | PC.NURSE ---
Addendum entered by Shira Pimentel RN 09/20/19 16:02: This note should have been timed after 1030 Original Note: Pt stated she did not have a place to stay, not with her Grandmother that is why she was at a motel. Dr Card notified to notify case management. Case Management, MILKA Blevins, notified. This nurse then went back to room for further discussion with pt. Pt then states she has Fifteen hundred dollars, so she will be able to find a place. My mother said to take the medicare transport to my grandmother's house where my dog is, and she will help me from there Pt denied the need to have assistance for finishing assisted after discharge. Amount of money pt claims to have remains unverified. MILKA Blevins; Case management, notified of pt's decision. just to have Medicare transport called at discharge.
[2019-09-20] MEDS: nicotine 21 mg Patch 1 PATCH TRANSDERMA (09:55)
[2019-09-20] MEDS: thiamine 100 mg Tablet PO (09:56)
[2019-09-20] MEDS: phenazopyridine 100 mg Tablet PO ×3 (09:56→20:58)
[2019-09-20] MEDS: amlodipine 10 mg Tablet PO (09:57)
[2019-09-20] MEDS: multivitamin therapeutic Tablet 1 TAB PO (09:57)
[2019-09-20] MEDS: duloxetine 30 mg Capsule PO (09:57)
[2019-09-20] MEDS: folic acid 1 mg Tablet PO (09:57)
[2019-09-20] MEDS: pantoprazole DR 40 mg Tablet PO ×2 (09:57→17:58)
[2019-09-20] MEDS: metoprolol tartrate 25 mg Tablet PO ×2 (09:57→17:58)
--- NOTE | 2019-09-20 10:00 | PC.NURSE ---
Pt asked this nurse to called the motel in [place] that she was at when EMS brought her in., to ask about her glasses, money and phone factory hand. Called [employer] and inquired about personal items left in room 5 when ambulance came. floral clerk stated everything was bagged up. The police picked up a bunch of stuff and put it in her purse. Went to inform pt. We decided to dig through her purse again for the glasses. Glasses were located. Pt had money throughout purse, purse handed to pt for her to retrieve her money.
--- NOTE | 2019-09-20 10:29 | P.PN_ITS ---
Subjective Subjective: Interval history: She does not feel that she is gotten any better. May be even worse. Complains of persistent pain in her back around where her kidneys are. This morning due to difficulty with access blood draw for lab testing could not be obtained after multiple attempts, and she subsequently refused any additional at time. Discussed with her, she is agreeable to a temporary draw later today. Vitals/I&O/Wt Last Vital Signs Temp 98.0 F 09/19/19 23:05 Pulse 95 09/20/19 06:00 Resp 20 H 09/20/19 06:00 BP 149/98 09/20/19 06:00 Pulse Ox 89 L 09/20/19 06:00 09/19/19 09/20/19 09/20/19 22:59 06:59 14:59 Intake Total 240 / 600 Output Total 975 / 1850 575 / 2425 Balance -735 / -1250 -575 / -1825 Weight last 48 hrs Weight 113.398 kg Physical Exam Const: COMMON NORMALS: no apparent distress NUTRITIONAL APPEARANCE: obese OTHER: She is less lethargic today. HENMT: COMMON NORMALS: oropharynx normal Neck/C-Spine: COMMON NORMALS: no JVD Resp: COMMON NORMALS: normal respiratory effort and clear to auscultation bilaterally AUSCULTATION: clear to auscultation bilaterally Cardio: COMMON NORMALS: no JVD, regular rhythm, S1 normal heart sound, S2 normal heart sound and no murmurs RHYTHM: regular rhythm HEART SOUNDS: S1 normal and S2 normal GI: COMMON NORMALS: normal to inspection, nondistended, normoactive bowel sounds, soft to palpation and non-tender PALPATION: Yes soft Extremity: COMMON NORMALS: no joint enlargement GENERAL: Yes edema (trace) Neuro: COMMON NORMALS: moves all extremities Skin: COMMON NORMALS: no rashes or lesions noted GENERAL SKIN EXAM: no rashes or lesions noted Urinary Catheter Management^: Ewing: Cath Placed During This Visit: yes Urinary Catheter Date of Insertion: 09/19/19 Urinary Catheter Time of Insertion: 10:22 Data : 09/19/19 03:30 09/19/19 03:30 Micro: Microbiology 09/18/19 20:35 Urine Culture - Preliminary Urine,Clean Catch Gram Negative Rods 09/18/19 03:30 Blood Culture - Preliminary Blood NEGATIVE TO DATE 09/18/19 22:00 Blood Culture - Preliminary Blood NEGATIVE TO DATE A&P Assessment and plan (1) UTI (urinary tract infection): Complicated UTI with sepsis on presentation. Bilateral hydronephrosis. Lab work not available from today, but heart rate appears to have improved. Afebrile. She is agreeable to reattempt blood draw little bit later today. Uterine prolapse noted on imaging with concern for ureteral compression leading to hydronephrosis. On urology recommendation attempted placement of tampons, however, these did not stay in long. Subsequently roll of gauze placed as well, however, this came out also. Discussed with gynecology. Appreciate additional recommendations regarding possible temporary support who will touch base with urology regarding possible temporary support perhaps with pessary while she is recovering from current condition if hydronephrosis is indeed thought to be secondary to compression from uterine prolapse. Gram-negative rods growing in urine. Pending ID and sensitivity. Continue antibiotic at this time. Status: Acute (2) Alcohol intoxication: Initially with some signs of withdrawal, but currently appears better. EtOH noted in urine on presentation. Is not clear whether she actually had wi thdrawal or still intoxication at that time. Continue to monitor for withdrawal. Supportive care. Given high risk for withdrawal with the amount of alcohol she drinks, as well as sepsis, continue mo nitoring in ICU for now. Reportedly drinks very large amounts on regular basis, as much as 1 gallon of vodka per day. Status: Acute Qualifiers: Complication of substance-induced condition: with unspecified complication Qualified Code(s): F10.929 - Alcohol use, unspecified with intoxication, unspecified (3) Acute GI bleeding: Noted BRBPR. This morning discussion with RN had a liquid stool, without any blood in there. Hemoglobin today is unknown. No further bowel movements reported. Continue Protonix. With heavy alcohol intake cannot exclude alcohol-related gastritis. Gastroccult is noted positive. Without very significant bleeding, variceal bleeding is not suspected at this time. May need subsequent endoscopic evaluation given smoking history. Status: Acute Additional A&P Information High anion gap metabolic acidosis This is most likely secondary to lactic acidosis due to alcohol abuse Patient is also complaining of urinary frequency Request discharge planning to assess her as well, as she states he is not able to return to stay with her grandmother, as well as for rehabilitation options. Attestations Medical Necessity Statement*: Continue admission for assessment of management of complicated urinary tract infection, hydronephrosis, alcohol intoxication, monitoring for withdrawal, and GI bleeding. Coding Level of Care Code Acute Logistics Associate for [facility] Fwd Diagnoses UTI (urinary tract infection) N39.0 Alcohol intoxication F10.929 Complication of substance-induced condition: with unspecified complication Acute GI bleeding K92.2
--- NOTE | 2019-09-20 10:54 | PC.NURSE ---
into room pt related has around 300 dollars in barth and debit card as well as other valuables , phones ect states that she is going to be responsible her own belongings
--- NOTE | 2019-09-20 10:55 | PC.NURSE ---
Pt stated she did not want her valuables in the safe. She would assumed responsibility. Amount of barth remains unverified by staff. Pt did stated that most of it was on her debit care (which remains at bedside) and she only actually had about 300 dollar in barth. this remains unverified. Witnessed by REAGAN Nelson RN.
--- NOTE | 2019-09-20 11:30 | PC.NURSE ---
Pt up to C. Gauze roll fell out of vagina. Pt refuses to have fresh roll reinserted to help her prolapsed bladee/uterus. Pt stated she understood the reasoning for the gauze. I felt down there and it is not necessary at this time. I am ok
[2019-09-20 14:28] LABS: Basophils % 0.2 %; Eosinophils # 0.2 10^3/uL (0.0-0.8); Eosinophils % 2.1 %; Hematocrit 43.4 % (37.0-47.0); Hemoglobin 14.4 g/dL (11.5-15.3); Lymphocytes # 2.9 10^3/uL (0.8-4.8); Lymphocytes % 32.6 %; Mean Corpuscular HGB Conc 33.2 g/dL (30.0-36.0); Mean Corpuscular Hemoglobin 29.8 pg (28.0-34.0); Mean Corpuscular Volume 89.7 fL (81-99); Mean Platelet Volume 10.4 fL (7.4-10.4); Monocytes # 0.7 10^3/uL (0.2-0.9); Monocytes % 7.5 %; Nucleated Red Blood Cells % 0 %; Platelet Count 273 10^3/cmm (130-400); Red Blood Count 4.84 10^6/uL (4.1-5.3); White Blood Count 8.8 10^3/uL (4.0-10.0)
--- NOTE | 2019-09-20 14:30 | PC.NURSE ---
Pt up to BSC. pad underneath her bottom on the bed noted to have blood. Pt continues to refuse to have gauze reinsertion into her vagina as ordered by the Dr. She stated I understand what it is for but What's the use it just falls out every time I cough and I have to push it back in there.
[2019-09-20 15:01] LABS: Osmolality Serum 286 mOsm/kg (278-305)
[2019-09-20 15:08] LABS: Albumin Level 3.3 g/dL (3.5-5.2); Alkaline Phosphatase 86 IU/L (35-105); Blood Urea Nitrogen 11 mg/dL (6-20); Calcium 8.9 mg/dL (8.5-10.5); Carbon Dioxide 21 mmol/L (22-29); Chloride 99 mmol/L (98-107); Globulin 2.9 g/dL (1.3-4.6); Glomerular Filtration Rate 69.3 mL/min (90-130); Glucose 164 mg/dL (65-115); Osmolality Calculated 284 mOsm/kg (285-295); Sodium 137 mmol/L (136-145); Total Bilirubin 0.5 mg/dL (0.15-1.2); Total Protein 6.2 g/dL (6.6-8.7)
[2019-09-20 15:44] LABS: Alanine Aminotransferase 61 U/L (0-33); Anion Gap 21.6 (5-19); Aspartate Amino Transferase 76 U/L (0-32); Potassium 4.6 mmol/L (3.5-5.1)
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
--- NOTE | 2019-09-20 19:15 | PC.NURSE ---
Addendum entered by Shira Pimentel RN 09/20/19 19:28: Pt continued to refuse gauze roll vaginal insertion today. Dr Leija did come by, examined and discussed plan of care with pt. At this time Pessiary not best option. She will need to be further evaluated as out patient after infection completely cleared. Original Note: Awaiting response from Dr Card about elevated BP. Report given to MILKA Jacome
--- NOTE | 2019-09-20 19:19 | PC.NURSE ---
discussed pt transfer c dr. jensen. ok to transfer pt to med surg. aware of bp will place orders if needed. notified house supervior Froy melendez.
--- NOTE | 2019-09-20 19:45 | PC.NURSE ---
Dr. Card notified of continued hypertension. Current bp 153/107 with no IV access, patient continues to refuse. Received orders for hydralizine 10mg po QID.
--- NOTE | 2019-09-20 20:08 | PC.NURSE ---
Report called to ROMEO Robertson at this time. Pt transported via w/c with belongings to room 277-2.
[2019-09-20] MEDS: hyDRALAzine 10 mg Tablet PO (20:58)
[2019-09-21] VITALS (8 sets, daily range): BP systolic 134–151; BP diastolic 83–101; PULSE 66–93; RESP 18–20; TEMP 36.4–36.8; O2SAT 92–95
[2019-09-21] MEDS: morphine 4 mg/mL SDV 1 mL 2 MG IVP (04:32)
[2019-09-21 06:00] LABS: Basophils % 0.3 %; Eosinophils # 0.2 10^3/uL (0.0-0.8); Hematocrit 43.8 % (37.0-47.0); Hemoglobin 14.1 g/dL (11.5-15.3); Lymphocytes # 2.4 10^3/uL (0.8-4.8); Lymphocytes % 30.6 %; Mean Corpuscular HGB Conc 32.2 g/dL (30.0-36.0); Mean Corpuscular Hemoglobin 30.3 pg (28.0-34.0); Mean Platelet Volume 10.4 fL (7.4-10.4); Monocytes # 0.5 10^3/uL (0.2-0.9); Monocytes % 6.5 %; Neutrophils # 4.7 10^3/uL (1.8-7.7); Neutrophils % 59.3 %; Nucleated Red Blood Cells % 0 %; Platelet Count 234 10^3/cmm (130-400); Red Blood Count 4.66 10^6/uL (4.1-5.3); Red Cell Distribution Width 14.1 % (12.1-15.1); White Blood Count 7.9 10^3/uL (4.0-10.0)
[2019-09-21 06:27] LABS: Albumin Level 3.2 g/dL (3.5-5.2); Alkaline Phosphatase 86 IU/L (35-105); Anion Gap 16.6 (5-19); Blood Urea Nitrogen 11 mg/dL (6-20); Calcium 8.6 mg/dL (8.5-10.5); Carbon Dioxide 23 mmol/L (22-29); Chloride 102 mmol/L (98-107); Creatinine Clr Calc Pharmacy 97.1824; Globulin 3.3 g/dL (1.3-4.6); Glomerular Filtration Rate 61.4 mL/min (90-130); Glucose 133 mg/dL (65-115); Osmolality Calculated 284 mOsm/kg (285-295); Potassium 3.6 mmol/L (3.5-5.1); Sodium 138 mmol/L (136-145); Total Bilirubin 0.4 mg/dL (0.15-1.2); Total Protein 6.5 g/dL (6.6-8.7)
[2019-09-21 06:28] LABS: Alanine Aminotransferase 51 U/L (0-33); Aspartate Amino Transferase 56 U/L (0-32)
[2019-09-21 06:30] LABS: HCG, Serum Qual Negative (Negative)
[2019-09-21 06:49] LABS: Estradiol. 169.7 pg/mL
[2019-09-21 07:52] LABS: Follicle Stimulating Hormone 6.3 mIU/mL; Prolactin 15.49 ng/mL (4.8-23.3)
[2019-09-21 07:53] LABS: Thyroid Stimulating Hormone 3.09 uIU/mL (0.27-4.20)
[2019-09-21] MEDS: metoprolol tartrate 25 mg Tablet PO ×2 (08:28→17:27)
[2019-09-21] MEDS: duloxetine 30 mg Capsule PO (08:28)
[2019-09-21] MEDS: multivitamin therapeutic Tablet 1 TAB PO (08:28)
[2019-09-21] MEDS: amlodipine 10 mg Tablet PO (08:28)
[2019-09-21] MEDS: hyDRALAzine 10 mg Tablet PO ×4 (08:28→23:10)
[2019-09-21] MEDS: pantoprazole DR 40 mg Tablet PO ×2 (08:28→17:27)
[2019-09-21] MEDS: folic acid 1 mg Tablet PO (08:29)
[2019-09-21] MEDS: nicotine 21 mg Patch 1 PATCH TRANSDERMA (08:29)
[2019-09-21] MEDS: phenazopyridine 100 mg Tablet PO ×3 (08:29→23:10)
[2019-09-21] MEDS: thiamine 100 mg Tablet PO (08:29)
--- NOTE | 2019-09-21 10:10 | PM.PN ---
Subjective Subjective: Interval history: She is rather anxious. Much more alert and oriented. Various complaints including lower abdominal pain. No renal colicky symptoms. No fever or chills. Reviewed Dr. Martinez's note and agree with his tentative plan for consideration of anatomic repair of pelvic floor prolapse/utero vaginal prolapse which I think will solve the problems with ureteral kinking. I think it is reasonable to consider postponing that until her infection has resolved. Clinically her infection appears to be improving every day. At this point as long as her renal function is maintaining and there is no progression/recurrence of infectious concerns I would hold on any further urologic intervention. I will be available though there is any increasing concerns. Vitals/I&O/Wt Last Vital Signs Temp 97.9 F 09/21/19 07:29 Pulse 89 09/21/19 07:29 Resp 18 09/21/19 07:29 BP 147/95 09/21/19 07:29 Pulse Ox 93 09/21/19 07:29 09/20/19 09/21/19 09/21/19 22:59 06:59 14:59 Intake Total 500 / 800 Output Total 1150 / 1350 600 / 1950 Balance -650 / -550 -600 / -1150 Physical Exam Const: COMMON NORMALS: no apparent distress, alert and well nourished GENERAL APPEARANCE: well kempt and well developed ORIENTATION/CONSCIOUSNESS: not confused HENMT: COMMON NORMALS: normocephalic and head/scalp atraumatic HEAD & SCALP: normocephalic and atraumatic Resp: COMMON NORMALS: normal respiratory effort EFFORT & INSPECTION: No labored and No actively coughing Neuro: SENSORIUM/ORIENTATION: Yes alert Psych: COMMON NORMALS: mental status grossly normal APPEARANCE: Yes grossly normal and Yes well kempt ATTITUDE: Yes engaged MOOD & AFFECT: Yes anxious and Yes labile affect Urinary Catheter Management^: Ewing: Cath Placed During This Visit: yes Urinary Catheter Date of Insertion: 09/19/19 Urinary Catheter Time of Insertion: 10:22 Data : 09/21/19 04:55 09/21/19 04:55 Micro: Microbiology 09/20/19 17:10 Blood Culture - Preliminary Blood SPECIMEN COLLECTED 09/20/19 17:15 Blood Culture - Preliminary Blood SPECIMEN COLLECTED 09/18/19 22:00 Blood Culture - Preliminary Blood Gram positive cocci 09/18/19 03:30 Blood Culture - Preliminary Blood Gram Negative Rods 09/18/19 20:35 Urine Culture - Preliminary Urine,Clean Catch Gram Negative Rods A&P Assessment and plan (1) Bilateral hydronephrosis: Secondary to distal ureteral intermittent obstruction from pelvic floor prolapse. Has not taken a toll on upper urinary tract function at this point. Does not appear to be complicating her UTI recovery. Ultimately the answer will be to repair her pelvic floor prolapse. Patient's compliance historically may make that more difficult. I do not think she is a good candidate at this point for temporizing measures like stents or pessaries due to that lack of compliance. Status: Acute (2) Uterovaginal prolapse: Status: Acute (3) UTI (urinary tract infection): Continues to improve. No evidence of residual sepsis symptoms. 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
[2019-09-21] MEDS: HYDROcodone-acetaminophen 5-325 mg Tablet 1 TAB PO ×2 (11:27→17:24)
--- NOTE | 2019-09-21 11:52 | USR_ITS ---
PROCEDURE INFORMATION: Exam: US Pelvis Complete, Transabdominal and US Pelvis, Transvaginal Exam date and time: 09/21/2019 1:46 PM Age: 38 years old Clinical indication: Pelvic pain; Patient HX: H/o twins/; Additional info: Rlq pain TECHNIQUE: Imaging protocol: Real-time transabdominal and transvaginal pelvic ultrasound (complete) with image documentation. Transvaginal imaging was used for better evaluation of the endometrium and adnexa. COMPARISON: CT abdomen pelvis con [id number] 09/18/2019 8:08 PM FINDINGS: Uterus/cervix: The uterus appears normal measuring 8.9 x 5.7 x 6.2 cm. The endometrium measures 1.1 cm in thickness. Right adnexa: The right ovary appears normal measuring 1.6 x 2 x 1.8 cm. Normal blood flow. Left adnexa: The left ovary appears normal measuring 3.8 x 2.4 x 3.4 cm. Small follicles are observed in the left ovary. Normal blood flow is detected. Free fluid: None. Bladder: Normal. US/US pelvic with transvaginal IMPRESSION: Normal study.
--- NOTE | 2019-09-21 18:38 | P.PN_ITS ---
Subjective Subjective: Interval history: This morning around 4 AM complains of developing severe pain in the right lower quadrant, pulsatile, radiating to her back which has been persistently bothering her. With urination noted some blood in the toilet bowl, although did not see it when wiping with tissue paper. Vitals/I&O/Wt Last Vital Signs Temp 97.6 F 09/21/19 15:19 Pulse 76 09/21/19 15:19 Resp 18 09/21/19 15:19 BP 151/101 09/21/19 15:19 Pulse Ox 93 09/21/19 15:19 09/21/19 09/21/19 09/21/19 06:59 14:59 22:59 Intake Total 600 / 600 Output Total 600 / 1950 Balance -600 / -1150 600 / 600 Physical Exam Const: COMMON NORMALS: no apparent distress NUTRITIONAL APPEARANCE: obese OTHER: She is fully awake and alert. Somewhat anxious about returning home and all the tasks she has to perform. HENMT: COMMON NORMALS: oropharynx normal Neck/C-Spine: COMMON NORMALS: no JVD Resp: COMMON NORMALS: normal respiratory effort and clear to auscultation bilaterally AUSCULTATION: clear to auscultation bilaterally Cardio: COMMON NORMALS: no JVD, regular rhythm, S1 normal heart sound, S2 normal heart sound and no murmurs RHYTHM: regular rhythm HEART SOUNDS: S1 normal and S2 normal GI: COMMON NORMALS: normal to inspection, nondistended, normoactive bowel sounds and soft to palpation PALPATION: Yes soft and Yes other (Complains of tenderness in right lower quadrant, although difficult to elicit due to body habitus.) Extremity: COMMON NORMALS: no joint enlargement GENERAL: Yes edema (trace) Neuro: COMMON NORMALS: moves all extremities Skin: COMMON NORMALS: no rashes or lesions noted GENERAL SKIN EXAM: no rashes or lesions noted Urinary Catheter Management^: Ewing: Cath Placed During This Visit: yes Urinary Catheter Date of Insertion: 09/19/19 Urinary Catheter Time of Insertion: 10:22 Data : 09/21/19 04:55 09/21/19 04:55 Micro: Microbiology 09/20/19 17:10 Blood Culture - Preliminary Blood NEGATIVE TO DATE 09/20/19 17:15 Blood Culture - Preliminary Blood NEGATIVE TO DATE 09/18/19 20:35 Urine Culture - Preliminary Urine,Clean Catch Citrobacter Freundii Complex A&P Assessment and plan (1) Abdominal pain: There is no obvious cause for this. I am not sure whether this may be related to placement of tampons previously. Pelvic ultrasound was obtained, and is unremarkable. Right lower quadrant/hypogastric pain, pulsatile in nature. Normal appendix was visualized on CT scan 09/17. Her renal function has been normal. Sepsis, UTI have been improving. Mental status is much better. Discussed with urology, and not thought to be related to a urological issue. For now will observe, hold off repeating additional CT scan, although if persistent/severe may need to consider doing so. Status: Acute (2) UTI (urinary tract infection): Improving. Sepsis resolved. Complicated urinary tract infection with gram-negative stephon bacteremia. Repeat blood culture with gram-positive cocci contamination. Citrobacter freundii growing in urine. Sensitive to Zosyn. Due to gram-negative stephon bacteremia may actually require 3 more days of IV antibiotics given her quick improvement. Complicated UTI with sepsis on presentation. Bilateral hydronephrosis. Lab work not available from today, but heart rate appears to have improved. Afebrile. She is agreeable to reattempt blood draw little bit later today. Uterine prolapse noted on imaging with concern for ureteral compression leading to hydronephrosis. Not a good candidate for pessary. Long-term will require repair of prolapsed uterus. For this discussed with her needs to follow-up with gynecology as recommended, and she verbalized understanding and agreement. Status: Acute Qualifiers: Urinary tract infection type: acute pyelonephritis Qualified Code(s): N10 - Acute pyelonephritis (3) Alcohol intoxication: Initially with some signs of withdrawal, but currently appears better. EtOH noted in urine on presentation. Is not clear whether she actually had withdrawal or still intoxication at that time. Currently is anxious, but otherwise is doing well without significant withdrawal. Reportedly drinks very large amounts on regular basis, as much as 1 gallon of v odka per day. Status: Acute Qualifiers: Complication of substance-induced condition: with unspecified complication Qualified Code(s): F10.929 - Alcohol use, unspecified with intoxication, unspecified (4) Acute GI bleeding: Noted BRBPR. This morning discussion with RN had a liquid stool, without any blood in there. Hemoglobin stable. Some bleeding noted on pelvic examination. She will require additional gynecological evaluation. It may be the source of the blood in the stool. No further bowel movements reported. Continue Protonix. With heavy alcohol intake cannot exclude alcohol-related gastritis. Gastroccult is noted positive. Without very significant bleeding, variceal bleeding is not suspected at this time. Would benefit from subsequent endoscopic evaluation given smoking history, alcoholism. Status: Acute Additional A&P Information High anion gap metabolic acidosis This is most likely secondary to lactic acidosis due to alcohol abuse Patient is also complaining of urinary frequency Condition she will be returning to her grandmother's place to be picked up by her mother with whom she will stay. Attestations Medical Necessity Statement*: Continue admission for assessment management of complicated urinary tract infection with gram-negative stephon bacteremia. 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
[2019-09-22] MEDS: cefTRIAXone 1,000 MG in sodium chloride 0.9% (plus) 50 ML 100 MG IV ×2 (00:37→22:58)
[2019-09-22] MEDS: HYDROcodone-acetaminophen 5-325 mg Tablet 1 TAB PO ×2 (00:40→07:18)
[2019-09-22 04:00] VITALS: BP 151/86; PULSE 66; RESP 18; TEMP 36.8; O2SAT 90
[2019-09-22 05:40] LABS: Basophils % 0.2 %; Eosinophils # 0.4 10^3/uL (0.0-0.8); Eosinophils % 4.5 %; Hematocrit 43.2 % (37.0-47.0); Hemoglobin 13.8 g/dL (11.5-15.3); Lymphocytes # 3.6 10^3/uL (0.8-4.8); Lymphocytes % 37.3 %; Mean Corpuscular HGB Conc 31.9 g/dL (30.0-36.0); Mean Corpuscular Hemoglobin 30.5 pg (28.0-34.0); Mean Corpuscular Volume 95.4 fL (81-99); Mean Platelet Volume 10.5 fL (7.4-10.4); Monocytes # 0.7 10^3/uL (0.2-0.9); Monocytes % 6.8 %; Neutrophils % 50.9 %; Nucleated Red Blood Cells % 0 %; Platelet Count 266 10^3/cmm (130-400); Red Blood Count 4.53 10^6/uL (4.1-5.3); Red Cell Distribution Width 14.3 % (12.1-15.1); White Blood Count 9.7 10^3/uL (4.0-10.0)
[2019-09-22 06:03] LABS: Alanine Aminotransferase 43 U/L (0-33); Albumin Level 3.2 g/dL (3.5-5.2); Alkaline Phosphatase 87 IU/L (35-105); Anion Gap 15.8 (5-19); Blood Urea Nitrogen 17 mg/dL (6-20); Calcium 8.8 mg/dL (8.5-10.5); Carbon Dioxide 22 mmol/L (22-29); Chloride 104 mmol/L (98-107); Globulin 3.3 g/dL (1.3-4.6); Glomerular Filtration Rate 92.7 mL/min (90-130); Glucose 86 mg/dL (65-115); Osmolality Calculated 282 mOsm/kg (285-295); Potassium 3.8 mmol/L (3.5-5.1); Sodium 138 mmol/L (136-145); Total Bilirubin 0.3 mg/dL (0.15-1.2); Total Protein 6.5 g/dL (6.6-8.7)
[2019-09-22 06:34] LABS: Aspartate Amino Transferase 41 U/L (0-32)
[2019-09-22 07:31] VITALS: BP 165/88; PULSE 72; RESP 18; TEMP 36.6; O2SAT 93
[2019-09-22] MEDS: metoprolol tartrate 25 mg Tablet PO ×2 (08:10→18:05)
[2019-09-22] MEDS: folic acid 1 mg Tablet PO (08:10)
[2019-09-22] MEDS: nicotine 21 mg Patch 1 PATCH TRANSDERMA (08:10)
[2019-09-22] MEDS: multivitamin therapeutic Tablet 1 TAB PO (08:12)
[2019-09-22] MEDS: duloxetine 30 mg Capsule PO (08:12)
[2019-09-22] MEDS: thiamine 100 mg Tablet PO (08:12)
[2019-09-22] MEDS: phenazopyridine 100 mg Tablet PO ×2 (08:12→15:45)
[2019-09-22] MEDS: pantoprazole DR 40 mg Tablet PO ×2 (08:12→18:05)
[2019-09-22] MEDS: amlodipine 10 mg Tablet PO (08:12)
[2019-09-22] MEDS: hyDRALAzine 10 mg Tablet PO ×4 (08:18→21:18)
[2019-09-22 11:43] VITALS: BP 138/90; PULSE 68; RESP 18; TEMP 36.7; O2SAT 95
--- NOTE | 2019-09-22 13:06 | PC.NURSE ---
patient stated pain was not controlled, notified dr. Card, gave verbal order for two 5-325 hydrocodone Q4 prn
--- NOTE | 2019-09-22 13:09 | PC.NURSE ---
This nurse and SENIOR DIRECTOR MARKETING Kailyn done the vaginal packing with 2 inch kerlex and ky jelly like ordered. approximately 1 foot of kerlex was used, pt tolerated well.
[2019-09-22] MEDS: HYDROcodone-acetaminophen 5-325 mg Tablet 2 TAB PO ×3 (13:13→22:57)
--- NOTE | 2019-09-22 14:28 | CTR_ITS ---
PROCEDURE INFORMATION: Exam: CT Abdomen And Pelvis With Contrast Exam date and time: 09/22/2019 3:33 PM Age: 38 years old Clinical indication: Abdominal pain; Localized; Lower; Prior surgery; Surgery date: 6+ months; Surgery type: Gb; Additional info: Rlq abdominal pain, gnr bacteremia TECHNIQUE: Imaging protocol: Computed tomography of the abdomen and pelvis with intravenous contrast. Radiation optimization: All CT scans at this facility use at least one of these dose optimization techniques: automated exposure control; mA and/or kV adjustment per patient size (includes targeted exams where dose is matched to clinical indication); or iterative reconstruction. Contrast material: Omnipaque 300; Contrast volume: 95 ml; Contrast route: IV; COMPARISON: CT abdomen pelvis wo con [id number] 09/18/2019 8:08 PM RADIATION DOSE METRICS: Total DLP: 1939.94 mGy-cm FINDINGS: Liver: Normal. No mass. Gallbladder and bile ducts: The gallbladder is surgically absent, with metallic clips in the gallbladder fossa. Pancreas: Normal. No ductal dilation. Spleen: A small inferior splenule is present. Adrenals: Normal. No mass. Kidneys and ureters: Bilateral hydronephrosis and hydroureter similar to preceding study. Left renal lower pole 12.6 mm benign simple cyst, upper pole 6.5 mm benign simple cyst. Mild bilateral renal cortical scarring. Stomach and bowel: Unremarkable. No obstruction. No mucosal thickening. Appendix: The vermiform appendix is normal. Intraperitoneal space: Unremarkable. No free air. No significant fluid collection. Vasculature: Unremarkable. No abdominal aortic aneurysm. Lymph nodes: No enlarged lymph nodes. Bladder: Previous cystocele less conspicuous than on the prior study. Reproductive: Left ovarian physiologic follicles, largest 19 mm. Uterine prolapse less conspicuous than on the prior study. Bones/joints: Unremarkable. No acute fracture. Soft tissues: A 3.9 x 2.4 x 2.6 cm paraumbilical hernia containing only abdominal fat is noted. CT/CT abdomen pelvis w con* [id number] IMPRESSION: 1. Bilateral hydronephrosis and hydroureter similar to preceding study. 2. Left renal benign simple cysts. 3. Mild bilateral renal cortical scarring. 4. Prior cholecystectomy. 5. Paraumbilical hernia. 6. Please see additional findings as above. COMMENTS: Consistent with the [employer]'s Incidental Findings Committee white paper (J Am Marcia Radiol 2018): Any incidental renal lesion less than 1.0 cm or classified as too small to characterize, or any incidental cystic renal lesion characterized as simple-appearing, is likely benign. No follow-up imaging is recommended for these lesions per consensus recommendations based on imaging criteria. Radiation Dose CTDIVOL = (mGy): DLP = 1939.94 (mGy-cm)
--- NOTE | 2019-09-22 15:10 | USR_ITS ---
PROCEDURE INFORMATION: Exam: US Abdomen Limited Exam date and time: 09/22/2019 3:56 PM Age: 38 years old Clinical indication: Patient status: Conscious; Pain: Luq lump with pain and numbness. No trauma or fever. ; Patient HX: Patient states she noticed lump in shower today. ; Additional info: L post axillary line mid chest swelling/tender area-abscess? TECHNIQUE: Imaging protocol: Real-time ultrasound of the abdomen with image documentation. Examination is focused on the region of clinical interest (left upper quadrant abdominal wall). COMPARISON: No relevant prior studies available. FINDINGS: Soft tissues: Imaging of the left upper quadrant abdominal wall at the site of clinical interest demonstrates no fluid collection or mass or hernia in the region of palpable abnormality. US/US soft tissue/extremity [id number] IMPRESSION: No fluid collection, mass, or hernia in the region of palpable abnormality.
[2019-09-22 15:16] VITALS: BP 142/87; PULSE 73; RESP 18; TEMP 36.7; O2SAT 94
[2019-09-22] MEDS: iohexol 300 mg/mL 100 mL Btl IV (16:33)
[2019-09-22] MEDS: nicotine 2 mg Gum BUCCAL ×2 (18:37→23:04)
[2019-09-22 20:00] VITALS: BP 135/78; PULSE 77; RESP 20; TEMP 36.8; O2SAT 93
--- NOTE | 2019-09-22 20:35 | PM.PN ---
Subjective Subjective: Interval history: Pain in right lower quadrant is a hair better , over, still bothersome. Radiating to her lower back. Right chest area of subcutaneous tissue swelling, numbness and pain, without erythema or any outward lesion. Vitals/I&O/Wt Last Vital Signs Temp 98.0 F 09/22/19 15:16 Pulse 73 09/22/19 15:16 Resp 18 09/22/19 15:16 BP 142/87 09/22/19 15:16 Pulse Ox 94 09/22/19 15:16 09/22/19 09/22/19 09/22/19 06:59 14:59 22:59 Intake Total 50 / 750 480 / 480 240 / 720 Output Total 600 / 1200 300 / 300 650 / 950 Balance -550 / -450 180 / 180 -410 / -230 Physical Exam Const: COMMON NORMALS: no apparent distress NUTRITIONAL APPEARANCE: obese OTHER: She is fully awake and alert. Walking in her room. HENMT: COMMON NORMALS: oropharynx normal Neck/C-Spine: COMMON NORMALS: no JVD Resp: COMMON NORMALS: normal respiratory effort and clear to auscultation bilaterally AUSCULTATION: clear to auscultation bilaterally Cardio: COMMON NORMALS: no JVD, regular rhythm, S1 normal heart sound, S2 normal heart sound and no murmurs RHYTHM: regular rhythm HEART SOUNDS: S1 normal and S2 normal GI: COMMON NORMALS: normal to inspection, nondistended, normoactive bowel sounds and soft to palpation PALPATION: Yes soft and Yes other (Complains of tenderness in right lower quadrant, although difficult to elicit due to body habitus.) Back/Pelvis: OTHER: Left side subcutaneous tissue superimposed over latissimus dorsi in posterior axillary line left side chest soft tissue area of tenderness, perceived swelling at a role of subcutaneous fatty tissue, without outward erythema or lesion. Extremity: COMMON NORMALS: no joint enlargement GENERAL: Yes edema (trace) Neuro: COMMON NORMALS: moves all extremities Skin: COMMON NORMALS: no rashes or lesions noted GENERAL SKIN EXAM: no rashes or lesions noted Urinary Catheter Management^: Ewing: Cath Placed During This Visit: yes Urinary Catheter Date of Insertion: 09/19/19 Urinary Catheter Time of Insertion: 10:22 Data : 09/22/19 05:15 09/22/19 05:15 Micro: Microbiology 09/20/19 17:10 Blood Culture - Preliminary Blood NEGATIVE TO DATE 09/20/19 17:15 Blood Culture - Preliminary Blood NEGATIVE TO DATE A&P Assessment and plan (1) Abdominal pain: Persistent this morning. Obtain CT abdomen pelvis to follow-up. Does have some persistence of unchanged hydronephrosis, decreased degree of uterine prolapse, and otherwise without acute abnormality. Pelvic ultrasound yesterday was unremarkable as well. For now we will continue to monitor. There is no obvious cause for this. I am not sure whether this may be related to placement of tampons previously. Her renal function has been normal. Sepsis, UTI have been improving. Mental status is much better. Discussed with urology, and not thought to be related to a urological issue. For now will observe. Status: Acute (2) UTI (urinary tract infection): Continue IV antibiotic for 2 more days due to gram-negative stephon bacteremia complicated urinary tract infection. Repeat blood culture with gram-positive cocci contamination. Citrobacter freundii growing in urine. Sensitive to Zosyn. Complicated UTI with sepsis on presentation. Bilateral hydronephrosis. Uterine prolapse noted on imaging with concern for ureteral compression leading to hydronephrosis. Not a good candidate for pessary. Long-term will require repair of prolapsed uterus. For this discussed with her needs to follow-up with gynecology as recommended, and she verbalized understanding and agreement. Status: Acute Qualifiers: Urinary tract infection type: acute pyelonephritis Qualified Code(s): N10 - Acute pyelonephritis (3) Alcohol intoxication: Initially with some signs of withdrawal, but currently appears better. EtOH noted in urine on presentation. Reportedly drinks very large amounts on regular basis, as much as 1 gallon of vodka per day. Status: Acute Qualifiers: Complication of substance-induced condition: with unspecified complication Qualified Code(s): F10.929 - Alcohol use, unspecified with intoxication, unspecified (4) Acute GI bleeding: Noted BRBPR. Bowel movement clear of any blood today. Does have orange urine due to Pyridium which she pointed out today thinking it was hematuria, perhaps previously thought it was blood in her stool as well. UA on presentation did have some microscopic hematuria. Will DC Pyridium. Hemoglobin stable. Some bleeding noted on pelvic examination. She will require additional gynecological evaluation. It may be the source of the blood in the stool and microscopic hematuria on presentation. No further bowel movements reported. Continue Protonix. With heavy alcohol intake cannot exclude alcohol-related gastritis. Gastroccult is noted positive. Without very significant bleeding, variceal bleeding is not suspected at this time. Would benefit from subsequent endoscopic evaluation given smoking history, alcoholism. Status: Acute Additional A&P Information High anion gap metabolic acidosis This is most likely secondary to lactic acidosis due to alcohol abuse Patient is also complaining of urinary frequency Area of pain/swelling at the left chest posterior axillary line over latissimus imaged with ultrasound, without any fluid collection or other abnormality. Condition she will be returning to her grandmother's place to be picked up by her mother with whom she will stay. Attestations Medical Necessity Statement*: Continue admission for assessment and management of complicated UTI with bacteremia. 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
[2019-09-23] VITALS: BP 157/99; PULSE 117; RESP 20; TEMP 36.6; O2SAT 93
[2019-09-23] MEDS: HYDROcodone-acetaminophen 5-325 mg Tablet 2 TAB PO ×5 (03:03→23:17)
[2019-09-23 04:00] VITALS: BP 148/64; PULSE 103; RESP 20; TEMP 36.7; O2SAT 94
[2019-09-23 07:30] VITALS: BP 134/87; PULSE 126; RESP 22; TEMP 36.5; O2SAT 99
[2019-09-23] MEDS: duloxetine 30 mg Capsule PO (08:29)
[2019-09-23] MEDS: multivitamin therapeutic Tablet 1 TAB PO (08:29)
[2019-09-23] MEDS: metoprolol tartrate 25 mg Tablet PO ×2 (08:29→17:57)
[2019-09-23] MEDS: amlodipine 10 mg Tablet PO (08:30)
[2019-09-23] MEDS: folic acid 1 mg Tablet PO (08:30)
[2019-09-23] MEDS: hyDRALAzine 10 mg Tablet PO ×4 (08:30→21:36)
[2019-09-23] MEDS: thiamine 100 mg Tablet PO (08:30)
[2019-09-23] MEDS: pantoprazole DR 40 mg Tablet PO ×2 (08:30→17:56)
[2019-09-23] MEDS: nicotine 21 mg Patch 1 PATCH TRANSDERMA (08:31)
[2019-09-23 08:39] LABS: Basophils % 0.2 %; Eosinophils # 0.4 10^3/uL (0.0-0.8); Eosinophils % 4.6 %; Hematocrit 43.7 % (37.0-47.0); Hemoglobin 13.9 g/dL (11.5-15.3); Lymphocytes # 3.4 10^3/uL (0.8-4.8); Lymphocytes % 36.3 %; Mean Corpuscular HGB Conc 31.8 g/dL (30.0-36.0); Mean Corpuscular Hemoglobin 29.5 pg (28.0-34.0); Mean Corpuscular Volume 92.8 fL (81-99); Mean Platelet Volume 10.4 fL (7.4-10.4); Monocytes # 0.5 10^3/uL (0.2-0.9); Monocytes % 5.3 %; Neutrophils % 53.5 %; Nucleated Red Blood Cells % 0 %; Platelet Count 281 10^3/cmm (130-400); Red Blood Count 4.71 10^6/uL (4.1-5.3); White Blood Count 9.3 10^3/uL (4.0-10.0)
[2019-09-23 08:52] LABS: Alanine Aminotransferase 41 U/L (0-33); Albumin Level 3.3 g/dL (3.5-5.2); Alkaline Phosphatase 94 IU/L (35-105); Anion Gap 11.9 (5-19); Blood Urea Nitrogen 20 mg/dL (6-20); Calcium 9.2 mg/dL (8.5-10.5); Carbon Dioxide 24 mmol/L (22-29); Chloride 105 mmol/L (98-107); Globulin 3.4 g/dL (1.3-4.6); Glomerular Filtration Rate 79.4 mL/min (90-130); Glucose 135 mg/dL (65-115); Osmolality Calculated 283 mOsm/kg (285-295); Potassium 3.9 mmol/L (3.5-5.1); Sodium 137 mmol/L (136-145); Total Bilirubin 0.3 mg/dL (0.15-1.2); Total Protein 6.7 g/dL (6.6-8.7)
[2019-09-23 09:51] LABS: Aspartate Amino Transferase 36 U/L (0-32)
[2019-09-23 10:52] VITALS: BP 135/88; PULSE 67; RESP 18; TEMP 36.4; O2SAT 92
[2019-09-23] MEDS: nicotine 2 mg Gum BUCCAL ×2 (11:07→17:56)
[2019-09-23] MEDS: lanolin oint 7 gm 1 APPLIC TOPICAL (11:07)
[2019-09-23 15:23] VITALS: BP 138/76; PULSE 82; RESP 20; TEMP 36.9; O2SAT 95
[2019-09-23 20:00] VITALS: BP 134/84; PULSE 72; RESP 20; TEMP 36.6; O2SAT 98
--- NOTE | 2019-09-23 21:10 | P.PN_ITS ---
Subjective Subjective: Interval history: Improvement in right lower quadrant pain, although still present. Still numbness, some sharp pain in the left side the chest like yesterday. Says could not sleep at night last night. Says hydrocodone is not harming her, but he is not enough. States that she received something in the IV , a few days ago which helped her relax a lot, and helped her fall asleep. Asking if she could get the same thing. Discussed with her that I do not feel safe using that medication repeatedly to which she verbalized understanding. Vitals/I&O/Wt Last Vital Signs Temp 98.4 F 09/23/19 15:23 Pulse 82 09/23/19 15:23 Resp 20 H 09/23/19 15:23 BP 138/76 09/23/19 15:23 Pulse Ox 95 09/23/19 15:23 09/23/19 09/23/19 09/23/19 06:59 14:59 22:59 Intake Total 590 / 1310 716 / 716 480 / 1196 Output Total 500 / 2125 800 / 800 Balance 90 / -815 -84 / -84 480 / 396 Physical Exam Const: COMMON NORMALS: no apparent distress NUTRITIONAL APPEARANCE: obese OTHER: She is awake and alert. HENMT: COMMON NORMALS: oropharynx normal Neck/C-Spine: COMMON NORMALS: no JVD Resp: COMMON NORMALS: normal respiratory effort and clear to auscultation bilaterally AUSCULTATION: clear to auscultation bilaterally Cardio: COMMON NORMALS: no JVD, regular rhythm, S1 normal heart sound, S2 normal heart sound and no murmurs RHYTHM: regular rhythm HEART SOUNDS: S1 normal and S2 normal GI: COMMON NORMALS: normal to inspection, nondistended, normoactive bowel sounds and soft to palpation PALPATION: Yes soft and Yes other (Complains of tenderness in right lower quadrant, although difficult to elicit due to body habitus.) Back/Pelvis: OTHER: Left side subcutaneous tissue superimposed over latissimus dorsi in posterior axillary line left side chest soft tissue area of tenderness, perceived swelling at a role of subcutaneous fatty tissue, without outward erythema or lesion. No fluctuance. Extremity: COMMON NORMALS: no joint enlargement GENERAL: Yes edema (trace) Neuro: COMMON NORMALS: moves all extremities Skin: COMMON NORMALS: no rashes or lesions noted GENERAL SKIN EXAM: no rashes or lesions noted Urinary Catheter Management^: Ewing: Cath Placed During This Visit: yes Urinary Catheter Date of Insertion: 09/19/19 Urinary Catheter Time of Insertion: 10:22 Data : 09/23/19 08:24 09/23/19 08:24 Micro: Microbiology 09/18/19 20:35 Urine Culture - Final Urine,Clean Catch Citrobacter Freundii Complex 09/18/19 03:30 Blood Culture - Preliminary Blood Citrobacter Freundii Complex A&P Assessment and plan (1) Abdominal pain: With improvement, but persistent symptoms. CT abdomen pelvis with some persistence of hydronephrosis, but without other significant abnormalities apart from uterine prolapse which now appears somewhat better. This pain is unilateral. She does not have signs of developing sepsis. Discussed with her that I suspect pain may be related to movement of the uterus as the position does appear changed on CT. She did note pain to get worse with pelvic ultrasound. For now we will continue to monitor. Add heating pad, lidocaine patch, continue hydrocodone. Discussed with her I am not comfortable reordering again IV medications for treatment. Discussed with her to also continue monitoring at home, and if persistent or worsening pain she should seek medical attention again. She verbalized understanding. Status: Acute (2) UTI (urinary tract infection): Continue IV antibiotic for 1 more day due to Citrobacter bacteremia co mplicated urinary tract infection. Repeat blood culture with gram-positive cocci contamination. Citrobacter freundii growing in urine. Sensitive to Zosyn. Complicated UTI with sepsis on presentation. Bilateral hydronephrosis. Uterine prolapse noted on imaging with concern for ureteral compression leading to hydronephrosis. Not a good candidate for pessary. Long-term will require repair of prolapsed uterus. For this discussed with her needs to follow-up with gynecology as recommended, and she verbalized understanding and agreement. Status: Acute Qualifiers: Urinary tract infection type: acute pyelonephritis Qualified Code(s): N10 - Acute pyelonephritis (3) Alcohol intoxication: Initially with some signs of withdrawal, but currently appears better. EtOH noted in urine on presentation. Reportedly drinks very large amounts on regular basis, as much as 1 gallon of vodka per day. Status: Acute Qualifiers: Complication of substance-induced condition: with unspecified complication Qualified Code(s): F10.929 - Alcohol use, unspecified with intoxication, unspecified (4) Acute GI bleeding: Noted BRBPR. Bowel movement clear of any blood today. Does have orange urine due to Pyridium which she pointed out today thinking it was hematuria, perhaps previously thought it was blood in her stool as well. UA on presentation did have some microscopic hematuria. Will DC Pyridium. Hemoglobin stable. Some bleeding noted on pelvic examination. She will require additional gynecological evaluation. It may be the source of the blood in the stool and microscopic hematuria on presentation. No further bowel movements reported. Continue Protonix. With heavy alcohol intake cannot exclude alcohol-related gastritis. Gastroccult is noted positive. Without very significant bleeding, variceal bleeding is not suspected at this time. Would benefit from subsequent endoscopic evaluation given smoking history, alcoholism. Status: Acute Additional A&P Information High anion gap metabolic acidosis This is most likely secondary to lactic acidosis due to alcohol abuse Patient is also complaining of urinary frequency Area of pain/swelling at the left chest posterior axillary line over latissimus imaged with ultrasound, without any fluid collection or other abnormality. On discharge she will be returning to her grandmother's place to be picked up by her mother with whom she will stay. Attestations Medical Necessity Statement*: Continue admission for management of complicated urinary tract infection and gram-negative stephon bacteremia. 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
[2019-09-23] MEDS: cefTRIAXone 1,000 MG in sodium chloride 0.9% (plus) 50 ML 100 MG IV (23:18)
[2019-09-24] VITALS: BP 136/85; PULSE 72; RESP 20; TEMP 36.6; O2SAT 95
[2019-09-24 04:00] VITALS: BP 141/89; PULSE 74; RESP 20; TEMP 36.4; O2SAT 91
[2019-09-24] MEDS: HYDROcodone-acetaminophen 5-325 mg Tablet 2 TAB PO ×6 (04:17→23:51)
[2019-09-24 05:20] LABS: Basophils % 0.2 %; Eosinophils # 0.3 10^3/uL (0.0-0.8); Eosinophils % 3.5 %; Hematocrit 43.3 % (37.0-47.0); Hemoglobin 13.9 g/dL (11.5-15.3); Lymphocytes # 3.3 10^3/uL (0.8-4.8); Lymphocytes % 33.8 %; Mean Corpuscular HGB Conc 32.1 g/dL (30.0-36.0); Mean Corpuscular Hemoglobin 29.4 pg (28.0-34.0); Mean Corpuscular Volume 91.7 fL (81-99); Mean Platelet Volume 10.4 fL (7.4-10.4); Monocytes # 0.6 10^3/uL (0.2-0.9); Monocytes % 6.5 %; Neutrophils # 5.4 10^3/uL (1.8-7.7); Neutrophils % 55.6 %; Nucleated Red Blood Cells % 0 %; Platelet Count 261 10^3/cmm (130-400); Red Blood Count 4.72 10^6/uL (4.1-5.3); Red Cell Distribution Width 14.1 % (12.1-15.1); White Blood Count 9.7 10^3/uL (4.0-10.0)
[2019-09-24 05:46] LABS: Alanine Aminotransferase 39 U/L (0-33); Albumin Level 3.4 g/dL (3.5-5.2); Alkaline Phosphatase 93 IU/L (35-105); Anion Gap 12.8 (5-19); Blood Urea Nitrogen 19 mg/dL (6-20); Calcium 9.3 mg/dL (8.5-10.5); Carbon Dioxide 26 mmol/L (22-29); Chloride 101 mmol/L (98-107); Glomerular Filtration Rate 92.7 mL/min (90-130); Glucose 96 mg/dL (65-115); Osmolality Calculated 278 mOsm/kg (285-295); Potassium 3.8 mmol/L (3.5-5.1); Sodium 136 mmol/L (136-145); Total Bilirubin 0.3 mg/dL (0.15-1.2); Total Protein 6.4 g/dL (6.6-8.7)
[2019-09-24 06:02] LABS: Aspartate Amino Transferase 33 U/L (0-32)
[2019-09-24 07:50] VITALS: BP 145/96; PULSE 74; RESP 18; TEMP 36.9; O2SAT 93
[2019-09-24] MEDS: metoprolol tartrate 25 mg Tablet PO ×2 (08:06→17:10)
[2019-09-24] MEDS: folic acid 1 mg Tablet PO (08:06)
[2019-09-24] MEDS: amlodipine 10 mg Tablet PO (08:06)
[2019-09-24] MEDS: lidocaine 5% Patch 1 PATCH TOPICAL (08:06)
[2019-09-24] MEDS: hyDRALAzine 10 mg Tablet PO ×4 (08:06→20:00)
[2019-09-24] MEDS: duloxetine 30 mg Capsule PO (08:06)
[2019-09-24] MEDS: multivitamin therapeutic Tablet 1 TAB PO (08:06)
[2019-09-24] MEDS: pantoprazole DR 40 mg Tablet PO ×2 (08:06→17:10)
[2019-09-24] MEDS: thiamine 100 mg Tablet PO (08:06)
[2019-09-24] MEDS: nicotine 21 mg Patch 1 PATCH TRANSDERMA (08:08)
[2019-09-24] MEDS: nicotine 2 mg Gum BUCCAL ×2 (08:21→20:00)
[2019-09-24 11:06] VITALS: BP 128/83; PULSE 70; RESP 20; TEMP 36.5; O2SAT 92
--- NOTE | 2019-09-24 12:37 | PM.CONSULT ---
Providers/Reason For Consult Consulting Physican/Specialty*: Skyler Jimenez MD Reason for Consult*: Abdominal pain Attending Physician: Cory Card Primary Care Provider: Otto Gooden History of Present Illness History of Present Illness Chief Complaint: Abdominal pain History of present illness: Ms. Mary Jo Cortés is a 38 year old female with complicated medical history,presents with a broad spectrum of complaints including difficulty in swallowing/left sided torso pain in addition to bilateral lower abdominal pain and suprapubic pain, patient recalls her lower abdominal pain has been there for the past 5 years without being referred and there is no associated change in bowel habits, currently she denies any fever chills nausea or vomiting she has been thoroughly and in-depth worked up and investigated per medical,urological and gynecological services as patient has bilateral hydronephrosis in addition to uterine prolapse. Patient never had endoscopies before per her description and general surgery was consulted for further evaluation of patient's persistent lower abdominal pain particularly on the right side. CT scan of the abdomen and pelvis: Liver: Normal. No mass. Gallbladder and bile ducts: The gallbladder is surgically absent, with metallic clips in the gallbladder fossa. Pancreas: Normal. No ductal dilation. Spleen: A small inferior splenule is present. Adrenals: Normal. No mass. Kidneys and ureters: Bilateral hydronephrosis and hydroureter similar to preceding study. Left renal lower pole 12.6 mm benign simple cyst, upper pole 6.5 mm benign simple cyst. Mild bilateral renal cortical scarring. Stomach and bowel: Unremarkable. No obstruction. No mucosal thickening. Appendix: The vermiform appendix is normal. Intraperitoneal space: Unremarkable. No free air. No significant fluid collection. Vasculature: Unremarkable. No abdominal aortic aneurysm. Lymph nodes: No enlarged lymph nodes. Bladder: Previous cystocele less conspicuous than on the prior study. Reproductive: Left ovarian physiologic follicles, largest 19 mm. Uterine prolapse less conspicuous than on the prior study. Bones/joints: Unremarkable. No acute fracture. Soft tissues: A 3.9 x 2.4 x 2.6 cm paraumbilical hernia containing only abdominal fat is noted. CT/CT abdomen pelvis w con* [id number] IMPRESSION: 1. Bilateral hydronephrosis and hydroureter similar to preceding study. 2. Left renal benign simple cysts. 3. Mild bilateral renal cortical scarring. 4. Prior cholecystectomy. 5. Paraumbilical hernia. 6. Please see additional findings as above. Review of Systems General: Reports: 10 or more systems reviewed and unremarkable except in HPI and below Meds/Allergies Home Medications and Allergies Home Medications Medication Instructions Recorded Confirmed Last Taken Type calcium carbonate 1,000 mg PO Q4H PRN #0 tab 05/29/19 09/18/19 Unknown Rx chlordiazepoxide HCl 25 mg PO DIRECTED #20 cap 05/29/19 09/18/19 Unknown Rx folic acid 1 mg PO DAILY #0 tab 05/29/19 09/18/19 Unknown Rx multivitamin with folic acid 1 tab PO DAILY #0 tab 05/29/19 09/18/19 Unknown Rx [Thera] amlodipine 10 mg PO DAILY 09/18/19 09/18/19 Unknown History benzonatate 100 mg PO TID 09/18/19 09/18/19 Unknown History duloxetine 30 mg PO DAILY 09/18/19 09/18/19 Unknown History hydrochlorothiazide 25 mg PO DAILY PRN 09/18/19 09/18/19 Unknown History hydroxyzine HCl 50 mg PO TID PRN 09/18/19 09/18/19 Unknown History metoprolol tartrate 25 mg PO BID 09/18/19 09/18/19 Unknown History pantoprazole 40 mg PO DAILY 09/18/19 09/18/19 Unknown History Allergies Allergy/AdvReac Type Severity Reaction Status Date / Time Penicillins Allergy ADR-Itching Verified 09/24/19 12:49 Current Medications Current Medications Generic Name Dose Route Start Last Admin Trade Name Freq PRN Reason Stop Dose Admin Hydrocodone Bitart/Acetaminophen 2 tab 09/22/19 13:05 09/24/19 11:53 [place] 5-325 Mg PO 2 tab Q4H PRN Administration MODERATE TO SEVERE PAIN Amlodipine Besylate 10 mg 09/19/19 09:00 09/24/19 08:06 Norvasc PO 10 mg DAILY KAT Administration Duloxetine HCl 30 mg 09/19/19 09:00 09/24/19 08:06 Cymbalta PO 30 mg DAILY KAT Administration Folic Acid 1 mg 09/19/19 09:00 09/24/19 08:06 Folic Acid PO 1 mg DAILY KAT Administration Hydralazine HCl 10 mg 09/20/19 21:00 09/24/19 08:06 Apresoline PO 10 mg QID KAT Administration Ceftriaxone Sodium 1,000 mg/ 50 mls @ 100 mls/hr 09/21/19 23:45 09/23/19 23:18 Sodium Chloride IV 100 mls/hr Q24H KAT Administration Protocol Lanolin 1 applic 09/23/19 10:18 09/23/19 11:07 Lanolin Oint TOPICAL 1 applic PRN PRN Administration DRYNESS Lidocaine 1 patch 09/24/19 09:00 09/24/19 08:06 Lidoderm 5% Patch TOPICAL 1 patch [id number] KAT Administration Lidocaine HCl 1 applic 09/19/19 12:42 09/19/19 12:52 Lidocaine 2% Jelly TOPICAL 1 applic PRN PRN Administration burning periarea Metoprolol Tartrate 25 mg 09/19/19 09:00 09/24/19 08:06 Lopressor PO 25 mg BID KAT Administration Multivitamins Therapeutic 1 tab 09/19/19 09:00 09/24/19 08:06 Multivitamin Tab PO 1 tab DAILY KAT Administration Nicotine 1 patch 09/19/19 12:38 09/24/19 08:08 Nicoderm 21 Mg Patch TRANSDERMA 1 patch DAILY KAT Administration Nicotine Polacrilex 2 mg 09/19/19 14:26 09/24/19 08:21 Nicorette BUCCAL 2 mg Q3H PRN Administration NICOTINE CRAVINGS Pantoprazole Sodium 40 mg 09/19/19 09:00 09/24/19 08:06 Protonix PO 40 mg BID KAT Administration Thiamine Mononitrate 100 mg 09/19/19 09:00 09/24/19 08:06 Vitamin B-1 PO 100 mg DAILY KAT Administration PFSH Acute PFSH: Family History Denies family history of Psychiatric illness Social History Smoking and tobacco status: current every day smoker cigarettes Packs smoked per day: 3 Years cigarettes smoked: 31 Quit status (tobacco): not considering quitting Smoking risk assessment/counseling performed?: Yes (Patient reports that she rolls 70-80 cigs a day to smoke) Alcohol intake: current Alcohol use comment: Drinks 1 gallon of vodka every day Vitals/I&O/Wt Last Vital Signs Temp 97.7 F 09/24/19 11:06 Pulse 70 09/24/19 11:06 Resp 20 H 09/24/19 11:06 BP 128/83 09/24/19 11:06 Pulse Ox 92 09/24/19 11:06 09/23/19 09/24/19 09/24/19 22:59 06:59 14:59 Intake Total 480 / 1196 600 / 1796 480 / 480 Output Total 1350 / 2150 Balance -870 / -954 600 / -354 480 / 480 Physical Exam Narrative: EXAM NARRATIVE: Physical examination was done in the presence of female 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 patient is conscious alert oriented X3 BMI 39 Head and neck examination PERRLA no masses no cervical lymphadenopathy no jaundice Cardiac examination audible S1-S2 no murmurs no gallops no arrhythmias Chest is clear bilateral,abscence of Rhonchi or wheezes,no surgical emphysema Abdomen lower abdominal tenderness nondistended soft no organomegaly guarding or rigidity/no signs of peritonitis/Chronically incarcerated periumbilical hernia Extremities no cyanosis no clubbing no edema Urinary Catheter Management^: Ewing: Cath Placed During This Visit: yes Urinary Catheter Date of Insertion: 09/19/19 Urinary Catheter Time of Insertion: 10:22 Data Micro: Micro: Microbiology 09/18/19 20:35 Urine Culture - Fi nal Urine,Clean Catch Citrobacter Tristan undii Complex 09/18/19 03:30 Blood Culture - Pr eliminary Blood Citrobacter Tristan undii Complex A&P Assessment and plan (1) Abdominal pain: After thorough history physical examination and reviewing the chart and images with my personal interpretation,from surgical standpoint of view there is no acute surgical intervention At this point.I do believe that the patient would benefit from a colonoscopy as an outpatient procedure Stool studies Food journal Status: Acute (2) Difficulty in swallowing: I would recommend that the patient would obtain an upper GI study as a roadmap and consequentlyshe should get the benefit of diagnostic EGD. Status: Acute Consult Attestations Medical Necessity Statement: Medical necessity care is expected to cross 2 midnights Time Spent in Patient Care: 16 - 35 minutes (>than 50% of time spent in counselling and/or direct pt care on unit). 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
--- NOTE | 2019-09-24 13:00 | PC.NURSE ---
Patient complaining of right hand discomfort. She states it started after her blood draw this morning. 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 Patient given rolled towel to retail custodial associate, she states it helped with the discomfort.
[2019-09-24 15:25] VITALS: BP 133/79; PULSE 77; RESP 18; TEMP 36.7; O2SAT 95
[2019-09-24 20:00] VITALS: BP 121/78; PULSE 80; RESP 20; TEMP 36.2; O2SAT 94
[2019-09-24] MEDS: trazodone 50 mg Tablet PO (21:26)
--- NOTE | 2019-09-24 21:55 | P.PN_ITS ---
Subjective Subjective: Interval history: Pain is somewhat better, although still present in right lower quadrant. Complains of sharp pain/numbness especially with cough in left lateral chest. This morning also having discomfort in her right forearm, radiating down through the anterior wrist, to the wrist, into the palm, and had sensation that her hand needed to curl up. 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 Vitals/I&O/Wt Last Vital Signs Temp 97.2 F L 09/24/19 20:00 Pulse 80 09/24/19 20:00 Resp 20 H 09/24/19 20:00 BP 121/78 09/24/19 20:00 Pulse Ox 94 09/24/19 20:00 09/24/19 09/24/19 09/24/19 06:59 14:59 22:59 Intake Total 600 / 1796 1080 / 1080 720 / 1800 Output Total 1000 / 1000 400 / 1400 Balance 600 / -354 80 / 80 320 / 400 Physical Exam Const: COMMON NORMALS: no apparent distress NUTRITIONAL APPEARANCE: obese OTHER: She is awake and alert. HENMT: COMMON NORMALS: oropharynx normal Neck/C-Spine: COMMON NORMALS: no JVD Resp: COMMON NORMALS: normal respiratory effort and clear to auscultation bilaterally AUSCULTATION: clear to auscultation bilaterally Cardio: COMMON NORMALS: no JVD, regular rhythm, S1 normal heart sound, S2 normal heart sound and no murmurs RHYTHM: regular rhythm HEART SOUNDS: S1 normal and S2 normal GI: COMMON NORMALS: normal to inspection, nondistended, normoactive bowel sounds and soft to palpation PALPATION: Yes soft and Yes other (Complains of tenderness in right lower quadrant, although difficult to elicit due to body habitus.) Back/Pelvis: OTHER: Left side subcutaneous tissue superimposed over latissimus dorsi in posterior axillary line left side chest soft tissue area of tenderness, perceived swelling at a role of subcutaneous fatty tissue, without outward erythema or lesion. No fluctuance. Extremity: COMMON NORMALS: no joint enlargement GENERAL: Yes edema (trace) Neuro: COMMON NORMALS: moves all extremities Skin: COMMON NORMALS: no rashes or lesions noted GENERAL SKIN EXAM: no rashes or lesions noted Urinary Catheter Management^: Ewing: Cath Placed During This Visit: yes Urinary Catheter Date of Insertion: 09/19/19 Urinary Catheter Time of Insertion: 10:22 Data : 09/24/19 04:53 09/24/19 04:53 Micro: Microbiology 09/18/19 20:35 Urine Culture - Final Urine,Clean Catch Citrobacter Freundii Complex A&P Assessment and plan (1) Abdominal pain: Improved somewhat, but persistent. Discussed today with general surgery, appreciate consultation, gynecology, urology. She will follow-up with gynecology in office. Will also be set up with follow-up with surgery regarding symptoms, as well as endoscopic evaluation of GI bleeding. CT abdomen pelvis with some persistence of hydronephrosis, but without other significant abnormalities apart from uterine prolapse which now appears somewhat better. Follow-up with urology as needed by referral from primary care provider with monitoring of renal function. This pain is unilateral. She does not have signs of developing sepsis. Discussed with her that I suspect pain may be related to movement of the uterus as the position does appear changed on CT. She did note pain to get worse with pelvic ultrasound, which was normal. For now we will continue to monitor. Status: Acute (2) UTI (urinary tract infection): Last dose of IV antibiotic today. Discussed with urology who recommends antibiotic suppression post discharge due to persistent hydronephrosis and risk of recurrence of UTI until uterine prolapse is repaired. Continue IV antibiotic for 1 more day due to Citrobacter bacteremia complicated urinary tract infection. Repeat blood culture with gram-positive cocci contamination. Citrobacter freundii growing in urine. Sensitive to Zosyn. Complicated UTI with sepsis on presentation. Sepsis resolved. Bilateral hydronephrosis. Uterine prolapse noted on imaging with concern for ureteral compression leading to hydronephrosis. Not a good candidate for pessary. Long-term will require repair of prolapsed uterus. For this discussed with her needs to follow-up with gynecology as recommended, and she verbalized understanding and agreement. Status: Acute Qualifiers: Urinary tract infection type: acute pyelonephritis Qualified Code(s): N10 - Acute pyelonephritis (3) Alcohol intoxication: Resolved. Reportedly drinks very large amounts on regular basis, as much as 1 gallon of vodka per day. Status: Acute Qualifiers: Complication of substance-induced condition: with unspecified complication Qualified Code(s): F10.929 - Alcohol use, unspecified with intoxication, unspecified (4) Acute GI bleeding: Follow-up with surgery in office. Hemoglobin stable. Some bleeding noted on pelvic examination. She will require additional gynecological evaluation. It may be the source of the blood in the stool and microscopic hematuria on presentation. No further bowel movements reported. Continue Protonix. With heavy alcohol intake cannot exclude alcohol-related gastritis. Gastroccult is noted positive. Without very significant bleeding, variceal bleeding is not suspected at this time. Status: Acute Additional A&P Information High anion gap metabolic acidosis This is most likely secondary to lactic acidosis due to alcohol abuse Patient is also complaining of urinary frequency Area of pain/swelling at the left chest posterior axillary line over latissimus imaged with ultrasound, without any fluid collection or other abnormality. On discharge she will be returning to her grandmother's place to be picked up by her mother with whom she will stay. Right wrist/hand discomfort. 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 Reports started feeling that after a blood draw which she felt had hit a nerve. Cussed with her that possible injury should heal up with time, and appears she has been getting some relief with makeshift brace made of rolled up towel and tape. Recommended she follow-up with her primary care provider as symptoms do sound like she may be having carpal tunnel syndrome in case they are not improving. Attestations Medical Necessity Statement*: Continue admission for assessment of management of complicated UTI, with gram-negative stephon bacteremia, preparation for discharge. Coding Level of Care Code Acute [facility] for [facility] Diagnoses Abdominal pain R10.9 UTI (urinary tract infection) N10 Urinary tract infection type: acute pyelonephritis Alcohol intoxication F10.929 Complication of substance-induced condition: with unspecified complication Acute GI bleeding K92.2
[2019-09-24] MEDS: cefTRIAXone 1,000 MG in sodium chloride 0.9% (plus) 50 ML 100 MG IV (23:51)
[2019-09-25] VITALS: BP 128/82; PULSE 74; RESP 20; TEMP 36.4; O2SAT 93
[2019-09-25 03:45] VITALS: BP 140/82; PULSE 76; RESP 17; TEMP 36.4; O2SAT 95
[2019-09-25] MEDS: HYDROcodone-acetaminophen 5-325 mg Tablet 2 TAB PO ×4 (04:20→17:06)
[2019-09-25 07:47] VITALS: BP 122/78; PULSE 81; RESP 20; TEMP 36.5; O2SAT 94
[2019-09-25] MEDS: nicotine 21 mg Patch 1 PATCH TRANSDERMA (08:33)
[2019-09-25] MEDS: metoprolol tartrate 25 mg Tablet PO ×2 (08:34→17:40)
[2019-09-25] MEDS: pantoprazole DR 40 mg Tablet PO ×2 (08:34→17:40)
[2019-09-25] MEDS: amlodipine 10 mg Tablet PO (08:34)
[2019-09-25] MEDS: duloxetine 30 mg Capsule PO (08:34)
[2019-09-25] MEDS: folic acid 1 mg Tablet PO (08:34)
[2019-09-25] MEDS: multivitamin therapeutic Tablet 1 TAB PO (08:34)
[2019-09-25] MEDS: thiamine 100 mg Tablet PO (08:34)
[2019-09-25] MEDS: hyDRALAzine 10 mg Tablet PO ×3 (08:35→17:40)
[2019-09-25 11:31] VITALS: BP 137/84; PULSE 82; RESP 18; TEMP 36.7; O2SAT 93
[2019-09-25 15:28] VITALS: BP 145/94; PULSE 85; RESP 20; TEMP 36.4; O2SAT 96
[2019-09-25 16:38] VITALS: BP 145/94; PULSE 85; RESP 20; TEMP 36.4; O2SAT 96
--- NOTE | 2019-09-25 20:41 | P.DS_ITS ---
Discharge Providers Date of Admission: 09/18/19 21:30 Date of Discharge: September 25, 2019 Attending Provider at Admission: Khadar Haynes MD Attending Provider at Discharge: Cory Card Primary Care Provider: Otto Gooden Diagnoses at Discharge Discharge Diagnosis (1) Abdominal pain: Status: Acute Problem details: RLQ, without obvious cause on work up. Possibly related changes in uterus positioning. Re-evaluate depending on symptoms. Would avoid steroids for other conditions unless absolutely necessary. (2) UTI (urinary tract infection): Status: Acute Problem details: Complicated UTI with bilateral hydronephrosis due to kinked ureters with severe uterine prolapse. Qualifiers: Urinary tract infection type: acute pyelonephritis Qualified Code(s): N10 - Acute pyelonephritis (3) Alcohol intoxication: Status: Acute Problem details: Resolved. Continue to encourage cessation, rehabilitation. Per discussion with her she is not motivated to quit at this time. She understands the risks involved. She states that if she were to develop cirrhosis it may be an easier way to go in the future. Discussed with her possible severe complications of chronic alcoholism, and risk mortality, which she understands. She denies any suicidal ideation. Qualifiers: Complication of substance-induced condition: with unspecified complication Qualified Code(s): F10.929 - Alcohol use, unspecified with intoxication, unspecified (4) Acute GI bleeding: Status: Acute Problem details: Follow-up with surgery. (5) Abnormal uterine bleeding: Status: Acute (6) Uterovaginal prolapse: Status: Acute (7) Bilateral hydronephrosis: Status: Acute (8) Difficulty in swallowing: Status: Acute Reason for Visit Reason for Visit: Reason For Visit: ETOH Hospital Course Hospital Course: Is an 38-year-old lady with alcoholism, bipolar disorder, severe uterine prolapse, who was admitted after a syncopal event in her bathroom, with alcohol intoxication after recently relapsing to drinking, with positive FOBT, as well as finding of UTI and sepsis, with noted bilateral hydronephrosis on CT, was admitted for management, initially to ICU. She was maintained on CIWA protocol, with IV antibiotic for complicated urinary tract infection with sepsis. Urology was consulted due to hydronephrosis. On imaging the ureters appear to be kinked due to severe prolapse of the uterus. Initially on urology recommendation attempts were made to prop up the ureters with tampons with some very temporary relief, although those could not be retained for very long. Pessary was considered, and gynecology was consulted. At that time her sepsis was resolving. She was also recovered from her alcohol intoxication/withdrawal. As her condition was improving, and other features of her prolapse considered, she was not deemed a good candidate for pessary. Long- term she needs a repair of the prolapsed uterus, and due to this will follow-up with gynecology in office. Risk of persistent hydronephrosis due to recurrent prolapse with recurrent UTI/sepsis, as well as eventual possible renal failure were explained to her and she verbalized understanding, and agreement with plan. While in the hospital she has developed a variety of different complaints, including right lower quadrant pulsatile pain, initially severe, left posterior axillary chest area of numbness/severe sharp pain, especially with inspiration cough, as well as pain in the right forearm which felt like electric shock to her nerve after a blood draw, radiating through the palmar wrist into the hand, causing her hands to curl . She was assessed by pelvic ultrasound which was normal, subsequently due to persistence of right lower quadrant pain also assessed by CT abdomen pelvis with contrast which showed some persistent hydronephrosis, although this was not deemed the source of her pain by urology, and otherwise normal appendix, and no other suggestion for the cause. Uterus was closer to normal position, and without clear cause of this pain, perhaps repositioning of the uterus may have caused some local pain. There is no evidence of ovarian torsion, any large cyst rupture. On gynecologic examination she was noted to have uterine bleeding, and will need additional evaluation for that in office. Per discussion with gynecology the source of the pain is not clear, and she is recommended to follow-up in office unless there is worsening/changes. Left posterior axillary sharp pain/numbness also of unclear etiology, with normal ultrasound without any sign of abscess/collection. Right wrist pain appears to be either perhaps due to trauma from blood draw, radiating from antecubital fossa, or actually symptomatically appears to be like possible carpal tunnel syndrome. She did request for IV medications to treat these various bothersome pains. Please follow-up, and if not resolving, would treat as such. Her stay was prolonged by the fact that complicated urinary tract infection was accompanied by bacteremia with both cultures growing Citrobacter. She remained here to complete the course of IV antibiotics as it was not safe to discharge her with PICC line. She completed 7 days in the hospital. On discharge per urology recommendation given persistent hydronephrosis she will be sent out with antibiotic for suppression with nitrofurantoin, which would be continued until her severe uterine prolapse can be repaired and persistent hydronephrosis resolves. Her renal function has remained good, and she has not required urologic intervention. Please monitor renal function, and for recurrent infection, and refer to urology for reassessment assessment if needed. She was also assessed by surgery for the right lower quadrant pain, as well as for blood in stool, difficulty swallowing. Additional evaluation by endoscopy was recommended with outpatient follow-up to which she is agreeable. Please continue to follow regarding the above conditions, and help counseling case manager her on alcohol addiction and harm, and help with cessation. While she is completely recovered from her intoxication and withdrawal, she states she is not ready to quit drinking at this time. She realizes the risks and potential life- threatening outcomes, as well as significant morbidity associated with chronic conditions due to alcoholism. Continue to reassess her psychological condition, as she is in a difficult social situation. At this time she denies any suicidal ideation. She was encouraged to follow-up. Physical Exam Const: COMMON NORMALS: no apparent distress NUTRITIONAL APPEARANCE: obese OTHER: She is awake and alert. HENMT: COMMON NORMALS: oropharynx normal Neck/C-Spine: COMMON NORMALS: no JVD Resp: COMMON NORMALS: normal respiratory effort and clear to auscultation bilaterally AUSCULTATION: clear to auscultation bilaterally Cardio: COMMON NORMALS: no JVD, regular rhythm, S1 normal heart sound, S2 normal heart sound and no murmurs RHYTHM: regular rhythm HEART SOUNDS: S1 normal and S2 normal GI: COMMON NORMALS: normal to inspection, nondistended, normoactive bowel sounds and soft to palpation PALPATION: Yes soft and Yes other (Complains of tenderness in right lower quadrant, although difficult to elicit due to body habitus.) Back/Pelvis: OTHER: Left side subcutaneous tissue superimposed over latissimus dorsi in posterior axillary line left side chest soft tissue area of tenderness, perceived swelling at a role of subcutaneous fatty tissue, without outward erythema or lesion. No fluctuance. Extremity: COMMON NORMALS: no joint enlargement GENERAL: Yes edema (trace) Neuro: COMMON NORMALS: moves all extremities Skin: COMMON NORMALS: no rashes or lesions noted GENERAL SKIN EXAM: no rashes or lesions noted Urinary Catheter Management^: Ewing: Cath Placed During This Visit: yes Urinary Catheter Date of Insertion: 09/19/19 Urinary Catheter Time of Insertion: 10:22 Discharge Data Data Completed and Pending: Completed Studies During Hospitalization Category Date Time Status CT abdomen pelvis w con* [id number] Rout ine Cat Scan 09/22/19 14:[address] abdomen pelvis wo con [id number] Urge nt Cat Scan 09/18/19 18:[address] head wo con* [id number] Urgent Cat Scan 09/18/19 18:24 Completed XR chest 1V kajal ble [id number] Stat Exams 09/18/19 18:23 Completed XR hip LT 1V wo/w pel [id number] Routine Exams 09/18/19 23:50 Completed US pelvic with tr ansvaginal Routine Ultrasound 09/21/19 11:52 Completed US soft tissue/ex tremity [id number] Rout ine Ultrasound 09/22/19 15:10 Completed Pending at discharge Category Date Time Status Blood Culture Sta t Lab 09/18/19 03:30 Results Methyl Alcohol, Q uant Routine Lab 09/19/19 03:30 Received Miscellaneous [place] t Routine Lab 09/19/19 03:30 Received Miscellaneous [place] t Routine Lab 09/19/19 03:30 Received Vitals: Last Vital Signs Temp 97.6 F 09/25/19 16:38 Pulse 85 09/25/19 16:38 Resp 20 H 09/25/19 16:38 BP 145/94 09/25/19 16:38 Pulse Ox 96 09/25/19 16:38 Discharge Plan Discharge Patient Disposition: Home, Self-Care Condition: Stable Prescriptions: New hydrocodone-acetaminophen 5-325 mg Tablet 2 tab PO Q4H PRN (Reason: Moderate To Severe Pain) Qty: 9 RF: 0 Lidoderm 5 % Adhesive Patch,Medicated 1 patch topical O12O12 Qty: 7 RF: 0 nicotine 21 mg/24 hr Patch 24 Hour 1 patch transdermal DAILY Qty: 30 RF: 0 Vitamin B-1 (mononitrate) 100 mg Tablet 100 mg PO DAILY Qty: 30 RF: 0 nitrofurantoin macrocrystal 50 mg capsule 50 mg PO Q24H Qty: 30 RF: 0 Continued calcium carbonate 200 mg calcium (500 mg) Tablet,Chewable 1,000 mg PO Q4H PRN (Reason: Indigestion) Qty: 0 RF: 0 folic acid 1 mg Tablet 1 mg PO DAILY Qty: 0 RF: 0 Thera 400 mcg Tablet 1 tab PO DAILY Qty: 0 RF: 0 hydroxyzine HCl 50 mg tablet 50 mg PO TID PRN (Reason: unknown) RF: 0 amlodipine 10 mg tablet 10 mg PO DAILY RF: 0 benzonatate 100 mg capsule 100 mg PO TID RF: 0 hydrochlorothiazide 25 mg tablet 25 mg PO DAILY PRN (Reason: unknown) RF: 0 metoprolol tartrate 25 mg tablet 25 mg PO BID RF: 0 duloxetine 30 mg capsule,delayed release(DR/EC) 30 mg PO DAILY RF: 0 pantoprazole 40 mg tablet,delayed release (DR/EC) 40 mg PO DAILY Qty: 30 RF: 0 Discontinued chlordiazepoxide HCl 25 mg capsule 25 mg PO DIRECTED Qty: 20 RF: 0 Discharge Orders: Discharge Order (Routine); Ordered 09/25/19 Ordered By: Cory Card Referrals: Dawson Murguia [Referring] - 4-7 days (You have an follow-up appointment with Dr. Murguia on October 01 at 1:40p.m. If you have any questions, please call ) Skyler Jimenez MD [Physician] - 2 weeks (You have an follow-up appointment with Dr. Jimenez on October 08 at 2:30p.m. if you have any questions, please call ) Mode Martinez MD [Physician] - 1 week (You have an follow-up with Dr. Martinez on October 02 at 11:00a.m. If you need to reschedule, please call [phone]) Discharge Diet: Cardiac Discharge Activity: Increase activity as tolerated and Limit activity as instructed Patient Instructions: Nitrofurantoin (By mouth), Thiamine (Vitamin B-1) (By mouth), Nicotine (Absorbed through the skin), Lidocaine Patch (On the skin), Hydrocodone (By mouth) Activity Restrictions/Additional Instructions: Please abstain from any alcohol, as this may increase your risk of gastritis, bleeding among other complications. Please stop smoking. If you experience persistent/non-resolving or worsening pain in the right lower quadrant, please seek medical attention without delay, similarly if you experience recurrent fevers, changes in ability to urinate or blood in urine, changes in mental status, or other abnormal symptoms. Please make sure to follow-up with gynecology regarding uterine prolapse, as well as surgery regarding blood in stool and difficulty swallowing for endoscopic evaluation. Please have your primary care doctor monitor your renal function due to persistent hydroureters on both sides and risk of development of acute kidney injury or chronic kidney disease, as well as recurrent urinary tract infections. Please discuss with your primary care doctor regarding chronic suppression with antibiotic until uterine prolapse and hydroureter are taking care of. Please avoid use of steroids unless absolutely necessary due to risk of recurrent infection, as well as worsening bleeding from GI tract, among other complications. Avoid also any nonsteroidal anti-inflammatory medications like ibuprofen, Aleve, etc. Discharge Date/Time: 09/25/19 17:50 Discharge Attestations Time Spent in Discharge Care*: greater than 30 min Quality Metrics Clinical Quality Measures During this hospital stay, did patient experience: None Coding Level of Care Code Acute Instructional Facilitator for [facility] Diagnoses Abdominal pain R10.9 UTI (urinary tract infection) N10 Urinary tract infection type: acute pyelonephritis Alcohol intoxication F10.929 Complication of substance-induced condition: with unspecified complication Acute GI bleeding K92.2 Abnormal uterine bleeding N93.9 Uterovaginal prolapse N81.4 Bilateral hydronephrosis N13.30 Difficulty in swallowing R13.10
== END 2019-09-25 17:50 | disposition home or self-care (01) | DRG 872 ==
LOC: ER 21:37 → ICU 21:42 → MEDSURG 09-20 20:06
PROVIDERS: Family Medicine; Obstetrics & Gynecology; Admitting Provider Internal Medicine; Emergency Provider Emergency Medicine; Family Provider Nurse Practitioner Family; PCP Family Medicine; Visit Provider Internal Medicine
DX: A41.9 Sepsis, unspecified organism (principal); F10.239 Alcohol dependence with withdrawal, unspecified; E87.2 Acidosis; N13.30 Unspecified hydronephrosis; N10 Acute pyelonephritis; N39.0 Urinary tract infection, site not specified; F10.229 Alcohol dependence with intoxication, unspecified; Y90.8 Blood alcohol level of 240 mg/100 ml or more; N81.4 Uterovaginal prolapse, unspecified; K29.20 Alcoholic gastritis without bleeding; K76.0 Fatty (change of) liver, not elsewhere classified; K70.9 Alcoholic liver disease, unspecified; F32.9 Major depressive disorder, single episode, unspecified; Z87.11 Personal history of peptic ulcer disease; I10 Essential (primary) hypertension; M25.552 Pain in left hip; F17.210 Nicotine dependence, cigarettes, uncomplicated; N93.9 Abnormal uterine and vaginal bleeding, unspecified; R13.10 Dysphagia, unspecified
CPT/HCPCS: 12345; 36415; 36600; 51702; 70450; 71045; 73501; 74176; 74177; 76830; 76856; 76882; 80051; 80053; 80156; 80164; 80178; 80185; 80306; 80307; 81001; 81025; 82140; 82271; 82670; 82693; 82803; 82810; 83001; 83605; 83735; 83930; 83986; 84146; 84443; 84703; 85025; 85610; 85730; 87040; 87077; 87086; 87186; 87205; 93005; 96372; 96375; 99283; A6446; G6040; J0696; J1630; J2001; J2060; J2270; J2405; J3411; J3490; J7030; Q9967

== ENCOUNTER 2019-09-18 16:53 | Emergency (ER) | payer MEDICAID, SELFPAY | END 2019-09-18 23:59 | disposition admitted as inpatient to this hospital (09) | LOC: ER 10-01 13:44 | PROVIDERS: Emergency Provider Emergency Medicine; PCP Family Medicine | DX: F10.929 Alcohol use, unspecified with intoxication, unspecified (principal); K92.2 Gastrointestinal hemorrhage, unspecified; Y90.9 Presence of alcohol in blood, level not specified; F17.210 Nicotine dependence, cigarettes, uncomplicated | CPT/HCPCS: 12345; 36415; 36600; 70450; 71045; 74176; 80053; 80156; 80164; 80178; 80185; 80306; 80307; 81001; 81025; 82140; 82271; 82803; 83605; 83930; 85025; 85610; 85730; 87040; 87077; 87086; 87186; 87205; 93005; 96365; 96372; 96375; 99283; 99285; J1630; J2405; J3411; J3490; J7030 ==

== ENCOUNTER 2019-10-07 16:14 | Inpatient (IN) | payer MEDICAID, SELFPAY ==
[2019-10-07 16:16] VITALS: BP 184/118; PULSE 97; RESP 20; TEMP 36.9; O2SAT 98; BMI 39.1
[2019-10-07 17:15] LABS: Basophils % 0.3 %; Eosinophils % 0.3 %; Hematocrit 44.5 % (37.0-47.0); Lymphocytes % 35.3 %; Mean Corpuscular HGB Conc 31.5 g/dL (30.0-36.0); Mean Corpuscular Hemoglobin 29.8 pg (28.0-34.0); Mean Corpuscular Volume 94.7 fL (81-99); Mean Platelet Volume 11.4 fL (7.4-10.4); Monocytes # 0.5 10^3/uL (0.2-0.9); Monocytes % 5.7 %; Neutrophils % 58.2 %; Nucleated Red Blood Cells % 0 %; Platelet Count 183 10^3/cmm (130-400); Red Cell Distribution Width 15.9 % (12.1-15.1); White Blood Count 8.6 10^3/uL (4.0-10.0)
--- NOTE | 2019-10-07 17:17 | CTR_ITS ---
PROCEDURE INFORMATION: Exam: CT Abdomen And Pelvis With Contrast Exam date and time: 10/07/2019 5:17 PM Age: 38 years old Clinical indication: Abdominal pain and other: Vaginal and rectal bleeding; Prior surgery; Surgery type: , gb; Additional info: Abd pain TECHNIQUE: Imaging protocol: Computed tomography of the abdomen and pelvis with intravenous contrast. Radiation optimization: All CT scans at this facility use at least one of these dose optimization techniques: automated exposure control; mA and/or kV adjustment per patient size (includes targeted exams where dose is matched to clinical indication); or iterative reconstruction. Contrast material: OMNI 300; Contrast volume: 95 ml; Contrast route: IV; COMPARISON: CT abdomen pelvis w con* [id number] 09/22/2019 4:20 PM RADIATION DOSE METRICS: Total DLP: 1822.86 mGy-cm FINDINGS: Liver: There is a diffuse decrease in hepatic parenchymal density, consistent with fatty infiltration. Gallbladder and bile ducts: There has been a cholecystectomy. There is no common bile duct dilation. Pancreas: Normal. No ductal dilation. Spleen: The spleen is normal. An accessory splenule is present. Adrenals: Normal. No mass. Kidneys and ureters: The bilateral hydronephrosis has improved. There is just a trace amount of fluid in the renal pelves bilaterally. There are multiple renal hypodensities that cannot be further characterized on the current examination. There is no evidence of renal calcifications. There is an unchanged 1.3 cm benign cyst lower pole left kidney. Stomach and bowel: No small bowel thickening or inflammatory changes. No ileus or obstruction. The wall of the distal descending and sigmoid colon appears mildly thickened. This appearance may reflect lack of distention or mild colitis. The remaining loops of colon are unremarkable. Appendix: The appendix is not definitively identified. However, there is no CT evidence of a right lower quadrant inflammatory process. Intraperitoneal space: Unremarkable. No free air. No significant fluid collection. Vasculature: The aorta is normal. Lymph nodes: Unremarkable.No enlarged lymph nodes. Bladder: There is marked thickening of the urinary bladder wall. The bladder is almost completely collapsed but this thickening is very prominent and concerning for cystitis. There is also induration of the Elizabeth vesicle fat which is new. Reproductive: There is an unchanged 2 cm left ovarian simple cyst. Uterus and right ovary are unremarkable. Bones/joints: Unremarkable. No acute fracture. Soft tissues: There is a fat-containing umbilical hernia. CT/CT abdomen pelvis w con* [id number] IMPRESSION: 1. Abnormal wall thickening of the urinary bladder with induration of the adjacent fat concerning for cystitis. Improved hydronephrosis. 2. No small bowel thickening or inflammatory changes. No ileus or obstruction. The wall of the distal descending and sigmoid colon appears mildly thickened. This appearance may reflect lack of distention or mild colitis. 3. 2 cm simple appearing left ovarian cyst unchanged compared to the prior exam. 4. Unchanged 1.3 cm benign cyst lower pole left kidney and subcentimeter hypodensities in the kidneys statistically consistent with cysts. No follow-up is necessary. Radiation Dose CTDIVOL = (mGy): DLP = 1822.86 (mGy-cm)
--- NOTE | 2019-10-07 17:18 | W.ED.GENADLT ---
Documented by User: Lamont Whitley DO 10/09/19 14:59 HPI - General Adult General: Chief complaint: General Medical Stated complaint: gen sickness; vag/rectal bleeding Time Seen by Provider: 10/07/19 16:19 History of Present Illness: HPI narrative: 38-year-old female comes in with multiple complaints she was seen a couple days ago largely for the same issues. She is complaining of hematochezia hematemesis hematuria. She states she has flank pain she denies fever she has had some dysuria urgency and frequency. She complains of a cough as well cough has had minimal sputum production which she describes as mostly is white. She has a history of heavy alcohol use but denies drinking at all in the last 4 days she does have the odor of alcohol on her breath today. She denies any chest pain. She also complaining about some swelling in her legs. She reports both vomiting and diarrhea along with nausea. Onset (ago): day(s) (3) Associated symptoms: Reports cough, decreased appetite, dyspnea, malaise, nausea, vomiting and weakness; Deny chest pain, fevers/chills, headache(s), rash or syncope Treatments prior to arrival: none Review of Systems Const: Reports: malaise ENMT: Denies: throat pain, ear or mastoid pain, nasal discharge or nasal congestion Card: Reports: swelling of feet/ankles and dyspnea on exertion; Denies: chest pain or syncope Resp: Reports: dyspnea GI: Reports: nausea and vomiting : Reports: flank pain, dysuria, urinary frequency and urinary urgency; Denies: difficulty voiding Skin/Breast: Denies: rash or pruritus Neuro: Denies: headache(s) PFSH ED PFSH: Medical History (Updated 10/08/19 @ 09:44 by Cain Barlow) Alcohol abuse Bipolar disorder Peptic ulcer disease Polysubstance abuse Prolapse of bladder Suicidal ideation Surgical History H/O shoulder surgery History of delivery Hx laparoscopic cholecystectomy Hx of neck surgery Hx of tonsillectomy Family History Denies family history of Psychiatric illness Social History Smoking and tobacco status: current every day smoker cigarettes Packs smoked per day: 3 Years cigarettes smoked: 31 Quit status (tobacco): not considering quitting Smoking risk assessment/counseling performed?: Yes (Patient reports that she rolls 70-80 cigs a day to smoke) Alcohol intake: current Physical Exam Const: COMMON NORMALS: no acute distress GENERAL APPEARANCE: cooperative and comfortable ORIENTATION/CONSCIOUSNESS: Yes awake, Yes oriented to person, Yes oriented to place and Yes oriented to time HENMT: COMMON NORMALS: normocephalic, atraumatic, hearing grossly normal bilaterally, external ears normal, EAC's normal, TM's normal bilaterally, Normal nasal mucous membranes and turbinates present, moist oral mucous membranes and oropharynx normal HEAD & SCALP: normocephalic and atraumatic NOSE: Normal nasal mucous membranes and turbinates present EXTERNAL EAR: Yes external ears normal EXTERNAL AUDITORY CANAL: EAC's normal TYMPANIC MEMBRANE: TM's normal bilaterally Eye: COMMON NORMALS: Equal, round and reactive pupils present, EOMs intact bilaterally, conjunctivae normal and no scleral icterus CONJUNCTIVA: Yes conjunctivae normal PUPIL: Yes Equal, round and reactive pupils present Neck/C-Spine: COMMON NORMALS: full ROM, no lymphadenopathy, supple and no JVD Lymph: LYMPHATIC: no lymphadenopathy noted and no lymphedema noted Resp: COMMON NORMALS: normal respiratory effort, No retractions, No use of accessory muscles and clear to auscultation bilaterally AUSCULTATION: clear to auscultation bilaterally Cardio: COMMON NORMALS: no JVD, regular rate, regular rhythm and No murmurs present (Cardio) RATE: regular rate RHYTHM: regular rhythm GI: COMMON NORMALS: Soft to palpation and No hepatosplenomegaly present AUSCULTATION: Yes normoactive bowel sounds PALPATION: Yes Soft to palpation, No Tenderness to palpation present (GI), No Guarding due to palpation present (GI) and Yes No hepatosplenomegaly present Extremity: COMMON NORMALS: normal to inspection, capillary refill normal, no clubbing, cyanosis or edema, no calf tenderness and no pedal edema Neuro: SENSORIUM/ORIENTATION: Yes oriented to person, Yes oriented to place and Yes oriented to time Skin: COMMON NORMALS: no rashes or lesions noted GENERAL SKIN EXAM: no rashes or lesions noted Course Vital Signs: Vital signs: Vital Signs Temperature 97.8 F 05/20/20 06:00 Pulse Rate 102 H 10/09/19 12:48 Respiratory Rate 16 10/09/19 12:48 Blood Pressure 153/98 10/09/19 06:00 Pulse Oximetry 97 10/09/19 12:48 MDM - General Adult MDM Narrative: Medical decision making narrative: Care transferred to change of shift to Dr. Cook. We are about to discharge the patient and then she stated that she was now suicidal and would kill herself if she was discharged home Lab Data: Labs: Lab Results 10/07/19 10/07/19 10/07/19 Range/Units 17:10 17:10 17:10 WBC 8.6 (4.0-10.0) 10^3/ uL RBC 4.70 (4.1-5.3) 10^6/u L Hgb 14.0 (11.5-15.3) g/dL Hct 44.5 (37.0-47.0) % MCV 94.7 (81-99) fL MCH 29.8 (28.0-34.0) pg MCHC 31.5 (30.0-36.0) g/dL RDW 15.9 H (12.1-15.1) % Plt Count 183 (130-400) 10^3/c mm MPV 11.4 H (7.4-10.4) fL Neut % (Auto) 58.2 % Lymph % (Auto) 35.3 % [place] % (Auto) 5.7 % Eos % (Auto) 0.3 % Baso % (Auto) 0.3 % Neut # (Auto) 5.0 (1.8-7.7) 10^3/u L Lymph # (Auto) 3.0 (0.8-4.8) 10^3/u L [place] # (Auto) 0.5 (0.2-0.9) 10^3/u L Eos # (Auto) 0.0 (0.0-0.8) 10^3/u L Baso # (Auto) 0.0 (0.0-0.1) 10^3/u L Nucleated RBC % (a uto) 0 % Nucleated RBCs # 0.0 /100WBC Sodium 141 (136-145) mmol/L Potassium 3.9 (3.5-5.1) mmol/L Chloride 103 (98-107) mmol/L Carbon Dioxide 20 L (22-29) mmol/L Anion Gap 21.9 H (5-19) BUN 6 (6-20) mg/dL Creatinine 0.6 (0.5-0.9) mg/dL GFR Calculation 110.7 (90-130) mL/min Glucose 83 (65-115) mg/dL Calculated Osmolal ity 287 (285-295) mOsm/k g Lactate (0.5-2.2) mmol/L Calcium 8.2 L (8.5-10.5) mg/dL Total Bilirubin 0.5 (0.15-1.2) mg/dL AST 49 H (0-32) U/L ALT 43 H (0-33) U/L Alkaline Phosphata se 113 H (35-105) IU/L Total Protein 6.5 L (6.6-8.7) g/dL Albumin 3.8 (3.5-5.2) g/dL Globulin 2.7 (1.3-4.6) g/dL Lipase 12 L (13-60) U/L Urine Color (Yellow) Urine Appearance (CLEAR) Urine pH (5-7) Ur Specific Gravit y (1.005-1.030) Urine Protein (Negative) Urine Glucose (UA) (Normal) Urine Ketones (Negative) Urine Blood (Negative) Urine Nitrate (Negative) Urine Bilirubin (NEGATIVE) Urine Urobilinogen (Negative) mg/dL Ur Leukocyte Stephanie ase (Negative) Urine RBC (0-2) /hpf Urine WBC (0-5) /hpf Ur Squamous Epith Cells (0-5) Urine Bacteria (NONE) Salicylates (3-10) mg/dL Urine Opiates Scre en (Negative) ng/mL Acetaminophen (10-30) ug/mL Ur Barbiturates Sc reen (Negative) ng/mL Ur Phencyclidine S crn (Negative) ng/mL Ur Amphetamines Sc reen (Negative) ng/mL U Benzodiazepines Scrn (Negative) ng/mL Urine Cocaine Scre en (Negative) ng/mL U Marijuana (THC) Screen (Negative) ng/mL Ethyl Alcohol 128 H (0-10) mg/dL 10/07/19 10/07/19 10/07/19 Range/Units 17:10 17:10 17:25 WBC (4.0-10.0) 10^3/ uL RBC (4.1-5.3) 10^6/u L Hgb (11.5-15.3) g/dL Hct (37.0-47.0) % MCV (81-99) fL MCH (28.0-34.0) pg MCHC (30.0-36.0) g/dL RDW (12.1-15.1) % Plt Count (130-400) 10^3/c mm MPV (7.4-10.4) fL Neut % (Auto) % Lymph % (Auto) % [place] % (Auto) % Eos % (Auto) % Baso % (Auto) % Neut # (Auto) (1.8-7.7) 10^3/u L Lymph # (Auto) (0.8-4.8) 10^3/u L [place] # (Auto) (0.2-0.9) 10^3/u L Eos # (Auto) (0.0-0.8) 10^3/u L Baso # (Auto) (0.0-0.1) 10^3/u L Nucleated RBC % (a uto) % Nucleated RBCs # /100WBC Sodium (136-145) mmol/L Potassium (3.5-5.1) mmol/L Chloride (98-107) mmol/L Carbon Dioxide (22-29) mmol/L Anion Gap (5-19) BUN (6-20) mg/dL Creatinine (0.5-0.9) mg/dL GFR Calculation (90-130) mL/min Glucose (65-115) mg/dL Calculated Osmolal ity (285-295) mOsm/k g Lactate 3.5 H (0.5-2.2) mmol/L Calcium (8.5-10.5) mg/dL Total Bilirubin (0.15-1.2) mg/dL AST (0-32) U/L ALT (0-33) U/L Alkaline Phosphata se (35-105) IU/L Total Protein (6.6-8.7) g/dL Albumin (3.5-5.2) g/dL Globulin (1.3-4.6) g/dL Lipase (13-60) U/L Urine Color Yellow (Yellow) Urine Appearance Cloudy (CLEAR) Urine pH 7 (5-7) Ur Specific Gravit y 1.005 (1.005-1.030) Urine Protein 1+ H (Negative) Urine Glucose (UA) Norm (Normal) Urine Ketones Negative (Negative) Urine Blood 3+ H (Negative) Urine Nitrate Negative (Negative) Urine Bilirubin Neg (NEGATIVE) Urine Urobilinogen Norm (Negative) mg/dL Ur Leukocyte Stephanie ase 2+ H (Negative) Urine RBC 0-4 H (0-2) /hpf Urine WBC 25-40 H (0-5) /hpf Ur Squamous Epith Cells 0-4 H (0-5) Urine Bacteria 2+ H (NONE) Salicylates < 0.3 L (3-10) mg/dL Urine Opiates Scre en (Negative) ng/mL Acetaminophen < 5.0 L (10-30) ug/mL Ur Barbiturates Sc reen (Negative) ng/mL Ur Phencyclidine S crn (Negative) ng/mL Ur Amphetamines Sc reen (Negative) ng/mL U Benzodiazepines Scrn (Negative) ng/mL Urine Cocaine Scre en (Negative) ng/mL U Marijuana (THC) Screen (Negative) ng/mL Ethyl Alcohol (0-10) mg/dL /18/20 Range/Units 17:25 WBC (4.0-10.0) 10^3/ uL RBC (4.1-5.3) 10^6/u L Hgb (11.5-15.3) g/dL Hct (37.0-47.0) % MCV (81-99) fL MCH (28.0-34.0) pg MCHC (30.0-36.0) g/dL RDW (12.1-15.1) % Plt Count (130-400) 10^3/c mm MPV (7.4-10.4) fL Neut % (Auto) % Lymph % (Auto) % [place] % (Auto) % Eos % (Auto) % Baso % (Auto) % Neut # (Auto) (1.8-7.7) 10^3/u L Lymph # (Auto) (0.8-4.8) 10^3/u L [place] # (Auto) (0.2-0.9) 10^3/u L Eos # (Auto) (0.0-0.8) 10^3/u L Baso # (Auto) (0.0-0.1) 10^3/u L Nucleated RBC % (a uto) % Nucleated RBCs # /100WBC Sodium (136-145) mmol/L Potassium (3.5-5.1) mmol/L Chloride (98-107) mmol/L Carbon Dioxide (22-29) mmol/L Anion Gap (5-19) BUN (6-20) mg/dL Creatinine (0.5-0.9) mg/dL GFR Calculation (90-130) mL/min Glucose (65-115) mg/dL Calculated Osmolal ity (285-295) mOsm/k g Lactate (0.5-2.2) mmol/L Calcium (8.5-10.5) mg/dL Total Bilirubin (0.15-1.2) mg/dL AST (0-32) U/L ALT (0-33) U/L Alkaline Phosphata se (35-105) IU/L Total Protein (6.6-8.7) g/dL Albumin (3.5-5.2) g/dL Globulin (1.3-4.6) g/dL Lipase (13-60) U/L Urine Color (Yellow) Urine Appearance (CLEAR) Urine pH (5-7) Ur Specific Gravit y (1.005-1.030) Urine Protein (Negative) Urine Glucose (UA) (Normal) Urine Ketones (Negative) Urine Blood (Negative) Urine Nitrate (Negative) Urine Bilirubin (NEGATIVE) Urine Urobilinogen (Negative) mg/dL Ur Leukocyte Stephanie ase (Negative) Urine RBC (0-2) /hpf Urine WBC (0-5) /hpf Ur Squamous Epith Cells (0-5) Urine Bacteria (NONE) Salicylates (3-10) mg/dL Urine Opiates Scre en Negative (Negative) ng/mL Acetaminophen (10-30) ug/mL Ur Barbiturates Sc reen Negative (Negative) ng/mL Ur Phencyclidine S crn Negative (Negative) ng/mL Ur Amphetamines Sc reen Negative (Negative) ng/mL U Benzodiazepines Scrn Negative (Negative) ng/mL Urine Cocaine Scre en Negative (Negative) ng/mL U Marijuana (THC) Screen Negative (Negative) ng/mL Ethyl Alcohol (0-10) mg/dL Discharge Plan Discharge Patient Disposition: Admitted As Inpatient Admit Provider: Cain Barlow Clinical Impression: Cystitis, Alcohol intoxication, Suicidal ideation Condition: Stable Discharge Diet: Advance as tolerated Discharge Activity: Increase activity as tolerated Additional Instructions: Follow-up primary care within the next 4 to 5 days. Medicaid Transport ([employer]): For transportation to appointments call at least 5 days in advance of the appointment. When using Medicaid Transport/[employer] you will need the following information when requesting a ride: - name, date of , address, phone number, and Medicaid number -address, and phone number of where you are going; -date and time of the appointment; -any special needs, such as wheelchair van If for some reason the ride does not show up you may call the Where's My Ride number at Discharge Date/Time: 10/07/19 20:51 Sign Out Sign Out Data: Patient Sign Out occurred on 10/07/19 at 19:03. Patient's care was discussed, and care was transferred from Lamont Whitley DO to Charlee Tang. Sign Out Comment: Labs pending. Patient changed chief complaint and is now claiming suicidal ideation Last updated by Lamont Whitley DO at 10/07/19 18:35 Coding Level of Care Code ED Cloth Examiner for Chg Fwd Exam Comprehensive Documented by User: Charlee Tang 10/07/19 19:02 HPI - General Adult General: Chief complaint: General Medical Stated complaint: gen sickness; vag/rectal bleeding Time Seen by Provider: 10/07/19 16:19 PFSH ED PFSH: Medical History (Updated 10/08/19 @ 09:44 by Cain Barlow) Alcohol abuse Bipolar disorder Peptic ulcer disease Polysubstance abuse Prolapse of bladder Suicidal ideation Surgical History H/O shoulder surgery History of delivery Hx laparoscopic cholecystectomy Hx of neck surgery Hx of tonsillectomy Family History Denies family history of Psychiatric illness Social History Smoking and tobacco status: current every day smoker cigarettes Packs smoked per day: 3 Years cigarettes smoked: 31 Quit status (tobacco): not considering quitting Smoking risk assessment/counseling performed?: Yes (Patient reports that she rolls 70-80 cigs a day to smoke) Alcohol intake: current Course Vital Signs: Vital signs: Vital Signs Temperature 97.8 F 10/09/19 06:00 Pulse Rate 102 H 10/09/19 12:48 Respiratory Rate 16 10/09/19 12:48 Blood Pressure 153/98 10/09/19 06:00 Pulse Oximetry 97 10/09/19 12:48 MDM - General Adult MDM Narrative: Medical decision making narrative: 1899 -the patient was to be discharged by Dr. Whitley but upon hearing she was going home the patient stated she was suicidal. I talked to her myself and she states that she has been this way for a long time and wants to get help. I reviewed the case with Dr. Barlow and he agrees to accept the patient. He would like a 96-hour hold placed on her. Lab Data: Labs: Lab Results 10/07/19 10/07/19 10/07/19 Range/Units 17:10 17:10 17:10 WBC 8.6 (4.0-10.0) 10^3/ uL RBC 4.70 (4.1-5.3) 10^6/u L Hgb 14.0 (11.5-15.3) g/dL Hct 44.5 (37.0-47.0) % MCV 94.7 (81-99) fL MCH 29.8 (28.0-34.0) pg MCHC 31.5 (30.0-36.0) g/dL RDW 15.9 H (12.1-15.1) % Plt Count 183 (130-400) 10^3/c mm MPV 11.4 H (7.4-10.4) fL Neut % (Auto) 58.2 % Lymph % (Auto) 35.3 % [place] % (Auto) 5.7 % Eos % (Auto) 0.3 % Baso % (Auto) 0.3 % Neut # (Auto) 5.0 (1.8-7.7) 10^3/u L Lymph # (Auto) 3.0 (0.8-4.8) 10^3/u L [place] # (Auto) 0.5 (0.2-0.9) 10^3/u L Eos # (Auto) 0.0 (0.0-0.8) 10^3/u L Baso # (Auto) 0.0 (0.0-0.1) 10^3/u L Nucleated RBC % (a uto) 0 % Nucleated RBCs # 0.0 /100WBC Sodium 141 (136-145) mmol/L Potassium 3.9 (3.5-5.1) mmol/L Chloride 103 (98-107) mmol/L Carbon Dioxide 20 L (22-29) mmol/L Anion Gap 21.9 H (5-19) BUN 6 (6-20) mg/dL Creatinine 0.6 (0.5-0.9) mg/dL GFR Calculation 110.7 (90-130) mL/min Glucose 83 (65-115) mg/dL Calculated Osmolal ity 287 (285-295) mOsm/k g Lactate (0.5-2.2) mmol/L Calcium 8.2 L (8.5-10.5) mg/dL Total Bilirubin 0.5 (0.15-1.2) mg/dL AST 49 H (0-32) U/L ALT 43 H (0-33) U/L Alkaline Phosphata se 113 H (35-105) IU/L Total Protein 6.5 L (6.6-8.7) g/dL Albumin 3.8 (3.5-5.2) g/dL Globulin 2.7 (1.3-4.6) g/dL Lipase 12 L (13-60) U/L Urine Color (Yellow) Urine Appearance (CLEAR) Urine pH (5-7) Ur Specific Gravit y (1.005-1.030) Urine Protein (Negative) Urine Glucose (UA) (Normal) Urine Ketones (Negative) Urine Blood (Negative) Urine Nitrate (Negative) Urine Bilirubin (NEGATIVE) Urine Urobilinogen (Negative) mg/dL Ur Leukocyte Stephanie ase (Negative) Urine RBC (0-2) /hpf Urine WBC (0-5) /hpf Ur Squamous Epith Cells (0-5) Urine Bacteria (NONE) Salicylates (3-10) mg/dL Urine Opiates Scre en (Negative) ng/mL Acetaminophen (10-30) ug/mL Ur Barbiturates Sc reen (Negative) ng/mL Ur Phencyclidine S crn (Negative) ng/mL Ur Amphetamines Sc reen (Negative) ng/mL U Benzodiazepines Scrn (Negative) ng/mL Urine Cocaine Scre en (Negative) ng/mL U Marijuana (THC) Screen (Negative) ng/mL Ethyl Alcohol 128 H (0-10) mg/dL 10/07/19 10/07/19 10/07/19 Range/Units 17:10 17:10 17:25 WBC (4.0-10.0) 10^3/ uL RBC (4.1-5.3) 10^6/u L Hgb (11.5-15.3) g/dL Hct (37.0-47.0) % MCV (81-99) fL MCH (28.0-34.0) pg MCHC (30.0-36.0) g/dL RDW (12.1-15.1) % Plt Count (130-400) 10^3/c mm MPV (7.4-10.4) fL Neut % (Auto) % Lymph % (Auto) % [place] % (Auto) % Eos % (Auto) % Baso % (Auto) % Neut # (Auto) (1.8-7.7) 10^3/u L Lymph # (Auto) (0.8-4.8) 10^3/u L [place] # (Auto) (0.2-0.9) 10^3/u L Eos # (Auto) (0.0-0.8) 10^3/u L Baso # (Auto) (0.0-0.1) 10^3/u L Nucleated RBC % (a uto) % Nucleated RBCs # /100WBC Sodium (136-145) mmol/L Potassium (3.5-5.1) mmol/L Chloride (98-107) mmol/L Carbon Dioxide (22-29) mmol/L Anion Gap (5-19) BUN (6-20) mg/dL Creatinine (0.5-0.9) mg/dL GFR Calculation (90-130) mL/min Glucose (65-115) mg/dL Calculated Osmolal ity (285-295) mOsm/k g Lactate 3.5 H (0.5-2.2) mmol/L Calcium (8.5-10.5) mg/dL Total Bilirubin (0.15-1.2) mg/dL AST (0-32) U/L ALT (0-33) U/L Alkaline Phosphata se (35-105) IU/L Total Protein (6.6-8.7) g/dL Albumin (3.5-5.2) g/dL Globulin (1.3-4.6) g/dL Lipase (13-60) U/L Urine Color Yellow (Yellow) Urine Appearance Cloudy (CLEAR) Urine pH 7 (5-7) Ur Specific Gravit y 1.005 (1.005-1.030) Urine Protein 1+ H (Negative) Urine Glucose (UA) Norm (Normal) Urine Ketones Negative (Negative) Urine Blood 3+ H (Negative) Urine Nitrate Negative (Negative) Urine Bilirubin Neg (NEGATIVE) Urine Urobilinogen Norm (Negative) mg/dL Ur Leukocyte Stephanie ase 2+ H (Negative) Urine RBC 0-4 H (0-2) /hpf Urine WBC 25-40 H (0-5) /hpf Ur Squamous Epith Cells 0-4 H (0-5) Urine Bacteria 2+ H (NONE) Salicylates < 0.3 L (3-10) mg/dL Urine Opiates Scre en (Negative) ng/mL Acetaminophen < 5.0 L (10-30) ug/mL Ur Barbiturates Sc reen (Negative) ng/mL Ur Phencyclidine S crn (Negative) ng/mL Ur Amphetamines Sc reen (Negative) ng/mL U Benzodiazepines Scrn (Negative) ng/mL Urine Cocaine Scre en (Negative) ng/mL U Marijuana (THC) Screen (Negative) ng/mL Ethyl Alcohol (0-10) mg/dL 05/18/20 Range/Units 17:25 WBC (4.0-10.0) 10^3/ uL RBC (4.1-5.3) 10^6/u L Hgb (11.5-15.3) g/dL Hct (37.0-47.0) % MCV (81-99) fL MCH (28.0-34.0) pg MCHC (30.0-36.0) g/dL RDW (12.1-15.1) % Plt Count (130-400) 10^3/c mm MPV (7.4-10.4) fL Neut % (Auto) % Lymph % (Auto) % [place] % (Auto) % Eos % (Auto) % Baso % (Auto) % Neut # (Auto) (1.8-7.7) 10^3/u L Lymph # (Auto) (0.8-4.8) 10^3/u L [place] # (Auto) (0.2-0.9) 10^3/u L Eos # (Auto) (0.0-0.8) 10^3/u L Baso # (Auto) (0.0-0.1) 10^3/u L Nucleated RBC % (a uto) % Nucleated RBCs # /100WBC Sodium (136-145) mmol/L Potassium (3.5-5.1) mmol/L Chloride (98-107) mmol/L Carbon Dioxide (22-29) mmol/L Anion Gap (5-19) BUN (6-20) mg/dL Creatinine (0.5-0.9) mg/dL GFR Calculation (90-130) mL/min Glucose (65-115) mg/dL Calculated Osmolal ity (285-295) mOsm/k g Lactate (0.5-2.2) mmol/L Calcium (8.5-10.5) mg/dL Total Bilirubin (0.15-1.2) mg/dL AST (0-32) U/L ALT (0-33) U/L Alkaline Phosphata se (35-105) IU/L Total Protein (6.6-8.7) g/dL Albumin (3.5-5.2) g/dL Globulin (1.3-4.6) g/dL Lipase (13-60) U/L Urine Color (Yellow) Urine Appearance (CLEAR) Urine pH (5-7) Ur Specific Gravit y (1.005-1.030) Urine Protein (Negative) Urine Glucose (UA) (Normal) Urine Ketones (Negative) Urine Blood (Negative) Urine Nitrate (Negative) Urine Bilirubin (NEGATIVE) Urine Urobilinogen (Negative) mg/dL Ur Leukocyte Stephanie ase (Negative) Urine RBC (0-2) /hpf Urine WBC (0-5) /hpf Ur Squamous Epith Cells (0-5) Urine Bacteria (NONE) Salicylates (3-10) mg/dL Urine Opiates Scre en Negative (Negative) ng/mL Acetaminophen (10-30) ug/mL Ur Barbiturates Sc reen Negative (Negative) ng/mL Ur Phencyclidine S crn Negative (Negative) ng/mL Ur Amphetamines Sc reen Negative (Negative) ng/mL U Benzodiazepines Scrn Negative (Negative) ng/mL Urine Cocaine Scre en Negative (Negative) ng/mL U Marijuana (THC) Screen Negative (Negative) ng/mL Ethyl Alcohol (0-10) mg/dL Discharge Plan Discharge Patient Disposition: Admitted As Inpatient Admit Provider: Cain Barlow Clinical Impression: Cystitis, Alcohol intoxication, Suicidal ideation Condition: Stable Discharge Diet: Advance as tolerated Discharge Activity: Increase activity as tolerated Additional Instructions: Follow-up primary care within the next 4 to 5 days. Medicaid Transport ([employer]): For transportation to appointments call at least 5 days in advance of the appointment. When using Medicaid Transport/[employer] you will need the following information when requesting a ride: - name, date of , address, phone number, and Medicaid number -address, and phone number of where you are going; -date and time of the appointment; -any special needs, such as wheelchair van If for some reason the ride does not show up you may call the Where's My Ride number at Discharge Date/Time: 10/07/19 20:51 Sign Out Sign Out Data: Patient Sign Out occurred on 10/07/19 at 19:03. Patient's care was discussed, and care was transferred from Lamont Whitley DO to Charlee Tang. Sign Out Comment: Labs pending. Patient changed chief complaint and is now claiming suicidal ideation Last updated by Lamont Whitley DO at 10/07/19 18:35 Coding Level of Care Code ED Cloth Examiner for Chg Fwd Exam Comprehensive
[2019-10-07 17:36] LABS: Alanine Aminotransferase 43 U/L (0-33); Albumin Level 3.8 g/dL (3.5-5.2); Alcohol Level 128 mg/dL (0-10); Alkaline Phosphatase 113 IU/L (35-105); Anion Gap 21.9 (5-19); Aspartate Amino Transferase 49 U/L (0-32); Blood Urea Nitrogen 6 mg/dL (6-20); Calcium 8.2 mg/dL (8.5-10.5); Carbon Dioxide 20 mmol/L (22-29); Chloride 103 mmol/L (98-107); Globulin 2.7 g/dL (1.3-4.6); Glomerular Filtration Rate 110.7 mL/min (90-130); Glucose 83 mg/dL (65-115); Lipase 12 U/L (13-60); Osmolality Calculated 287 mOsm/kg (285-295); Potassium 3.9 mmol/L (3.5-5.1); Sodium 141 mmol/L (136-145); Total Bilirubin 0.5 mg/dL (0.15-1.2); Total Protein 6.5 g/dL (6.6-8.7)
[2019-10-07 17:46] LABS: Add Urine Microscopic? YES; Bilirubin Urine Neg (NEGATIVE); Blood Urine 3+ (Negative); Glucose Urine UA Norm (Normal); Ketones Urine Negative (Negative); Leukocyte Esterase Urine 2+ (Negative); Nitrate Urine Negative (Negative); Protein Urine 1+ (Negative); Specific Gravity, Urine 1.005 (1.005-1.030); Urine Appearance Cloudy (CLEAR); Urine Color Yellow (Yellow); Urobilinogen Urine Norm (Negative); pH Urine 7 (5-7)
[2019-10-07 17:51] LABS: RBC Urine 0-4 /hpf (0-2)
[2019-10-07 17:52] LABS: Add Urine Culture? Yes; Bacteria Urine 2+; Squamous Epithelial Cell Urine 0-4 (0-5); WBC Urine 25-40 /hpf (0-5)
[2019-10-07 18:13] LABS: Lactate (Lactic Acid level) 3.5 mmol/L (0.5-2.2)
[2019-10-07] MEDS: ketorolac 30 mg/mL INJ IVP (18:15)
--- NOTE | 2019-10-07 18:20 | PC.NURSE ---
While going to discharge patient. Patient then reports that she wants to harm herself. Dr. Whitley notified of the comment.
[2019-10-07 18:37] VITALS: BP 178/113; PULSE 84; RESP 16; O2SAT 98
[2019-10-07 19:06] LABS: Amphetamines Screen Urine Negative (Negative); Barbiturates Screen Urine Negative (Negative); Benzodiazepines Screen Urine Negative (Negative); Cocaine Screen Urine Negative (Negative); Opiate Screen Urine Negative (Negative); PCP Screen Urine Negative (Negative); THC Screen Urine Negative (Negative)
[2019-10-07 19:19] LABS: Acetaminophen < 5.0 ug/mL (10-30); Salicylate < 0.3 mg/dL (3-10)
[2019-10-07] MEDS: nitrofurantoin SR (BID) 100 mg Capsule PO (19:29)
[2019-10-07] MEDS: LORazepam 2 mg/mL INJ 1 mL IM (19:37)
[2019-10-07 19:49] VITALS: BP 168/110; PULSE 82; RESP 18; O2SAT 97
--- NOTE | 2019-10-07 20:56 | PC.NURSE ---
Pt arrived to floor via wheel chair.
[2019-10-07 21:16] VITALS: BP 153/121; PULSE 103; RESP 19; TEMP 37.1; O2SAT 96
[2019-10-07] MEDS: trazodone 50 mg Tablet PO (21:22)
--- NOTE | 2019-10-07 23:21 | PC.NURSE ---
Pt given Trazodone per request for sleep.
[2019-10-08] VITALS (8 sets, daily range): BP systolic 128–177; BP diastolic 76–130; PULSE 83–106; RESP 18–20; TEMP 36.6–36.9; O2SAT 83–97
[2019-10-08] MEDS: OLANZapine 5 mg ODT PO ×2 (03:36→22:32)
--- NOTE | 2019-10-08 03:39 | PC.NURSE ---
Pt voicing that she was woke up hearing people yelling help . Pt vital signs WNL. Pt also complaining of seeing little bugs and ants everywhere , pt given zyprexa at this time.
--- NOTE | 2019-10-08 06:13 | PC.NURSE ---
Patient request pull up d/t spotting blood from cystocele. Reports it is large enough to fill the palm of her hand. reports feels ' raw States she has had surgery scheduled, but was unable to keep the schedule. Informed pt to let staff kknow if needs arise. Will pass on to oncoming shift for follow-up with MD.
[2019-10-08] MEDS: amlodipine 10 mg Tablet PO (08:40)
[2019-10-08] MEDS: nitrofurantoin SR (BID) 100 mg Capsule PO ×2 (08:40→17:11)
[2019-10-08] MEDS: thiamine 100 mg Tablet PO (08:40)
[2019-10-08] MEDS: metoprolol tartrate 25 mg Tablet PO ×2 (08:40→17:11)
[2019-10-08] MEDS: multivitamin therapeutic Tablet 1 TAB PO (08:41)
[2019-10-08] MEDS: duloxetine 30 mg Capsule PO (08:41)
[2019-10-08] MEDS: benzonatate 100 mg Capsule PO ×3 (08:41→20:05)
[2019-10-08] MEDS: pantoprazole DR 40 mg Tablet PO (08:41)
[2019-10-08] MEDS: folic acid 1 mg Tablet PO (08:41)
[2019-10-08] MEDS: nicotine 21 mg Patch 1 PATCH TRANSDERMA (08:41)
[2019-10-08] MEDS: lidocaine 5% Patch 1 PATCH TOPICAL (08:42)
--- NOTE | 2019-10-08 08:50 | PC.NURSE ---
UPON ASSESSMENT, PATIENT C/O ABDOMINAL TENDERNESS TO LOWER AREA, BACK PAIN AND SLIGHT BURNING UPON URINATION. WEARING A DEPENDS, REPORTS SHE HAS CONSTANT DRIBBLING, AND BLOOD IN HER URINE. HAS MADE SEVERAL APPTS, BUT REPORTS SHE ALWAYS MISSES THEM. PHYSICIAN MADE AWARE
--- NOTE | 2019-10-08 09:14 | PM.NHP ---
Providers/Chief Complaint Admitting Physician: Cain Barlow Primary Care Provider: unknown Chief Complaint: gen sickness; vag/rectal bleeding; severe depression HPI NPU History of Present Illness August Moo is a 38 year old female who came with complaints of bleeding. A CT scan of the fifth preceding was interpreted by Dr. Jimenez showing various urologic in gynecological findings, including left renal lower pole 12.6 mm benign simple cyst, upper pole 6.5 mm benign simple cyst, cystocele less conspicuous than in a previous study, Uterine prolapse less conspicuous than on the prior study , all of which is now complicated by a pronounced bladder infection, currently treated with Nitrofurantoin SR 100 mg twice daily for 7 days. The patient also complains of auditory hallucinations and profound dysphoria she has difficulty controlling the voices which are punitive and blame her for her troubles. She thinks about suicide as a solution. She is admitted for stabilization of her profound depression with suicidal ideation. Attention will also be given to her renal and gynecological issues. Her BAL and the ED was 128 (H). A safe detox is indicated. Review of Systems Narrative: Const Reports: malaise ENMT Denies: throat pain, ear or mastoid pain, nasal discharge or nasal congestion Card Reports: swelling of feet/ankles and dyspnea on exertion; Denies: chest pain or syncope Resp Reports: dyspnea GI Reports: nausea and vomiting Reports: flank pain, dysuria, urinary frequency and urinary urgency; Denies: difficulty voiding Skin/Breast Denies: rash or pruritus Neuro Denies: headache(s) Meds NPU Home Medications Medication Instructions Recorded Confirmed Last Taken Type Thera 1 tab PO DAILY #0 tab 05/29/19 10/07/19 Unknown Rx folic acid 1 mg PO DAILY #0 tab 05/29/19 10/07/19 Unknown Rx amlodipine 10 mg PO DAILY 09/18/19 10/07/19 Unknown History benzonatate 100 mg PO TID 09/18/19 10/07/19 Unknown History duloxetine 30 mg PO DAILY 09/18/19 10/07/19 Unknown History hydrochlorothiazide 25 mg PO DAILY PRN 09/18/19 10/07/19 Unknown History hydroxyzine HCl 50 mg PO TID PRN 09/18/19 10/07/19 Unknown History metoprolol tartrate 25 mg PO BID 04/29/20 05/18/20 Unknown History hydrocodone-acetaminophen 2 tab PO Q4H PRN #9 tab 09/25/19 10/07/19 Unknown Rx lidocaine [Lidoderm] 1 patch TOPICAL O12O12 #7 ea 09/25/19 10/07/19 Unknown Rx nicotine 1 patch TRANSDERMAL DAILY #30 ea 09/25/19 10/07/19 Unknown Rx nitrofurantoin macrocrystal 50 mg PO Q24H #30 cap 09/25/19 10/07/19 Unknown Rx pantoprazole 40 mg PO DAILY #30 tab 09/25/19 10/07/19 Unknown Rx thiamine mononitrate (vit B1) 100 mg PO DAILY #30 tab 09/25/19 10/07/19 Unknown Rx [Vitamin B-1 (mononitrate)] albuterol sulfate [ProAir HFA] 1 puff INHALATION QID PRN 10/07/19 10/07/19 10/07/19 History nitrofurantoin monohyd/m-cryst 100 mg PO BID 7 Days #14 cap 10/07/19 Unknown Rx [Macrobid] Allergies Allergy/AdvReac Type Severity Reaction Status Date / Time Penicillins Allergy ADR-Itching Verified 09/24/19 12:49 PFSH NPU PFSH: Medical History (Updated 10/08/19 @ 09:44 by Cain Barlow) Alcohol abuse Bipolar disorder Peptic ulcer disease Polysubstance abuse Prolapse of bladder Suicidal ideation Surgical History H/O shoulder surgery History of delivery Hx laparoscopic cholecystectomy Hx of neck surgery Hx of tonsillectomy Family History Denies family history of Psychiatric illness Social History Smoking and tobacco status: current every day smoker cigarettes Packs smoked per day: 3 Years cigarettes smoked: 31 Quit status (tobacco): not considering quitting Smoking risk assessment/counseling performed?: Yes (Patient reports that she rolls 70-80 cigs a day to smoke) Alcohol intake: current Vitals/I&O/Wt Last Vital Signs Temp 98.4 F 10/08/19 06:00 Pulse 89 10/08/19 06:00 Resp 20 H 10/08/19 06:00 BP 144/82 10/08/19 06:00 Pulse Ox 97 10/08/19 06:00 Weight last 48 hrs Weight 250 lb Data NPU : 10/07/19 17:10 10/07/19 17:10 A&P Assessment and plan (1) UTI (urinary tract infection): We should request urology consult as well as gynecological consultation for these problems. I have placed a urology consult request with Dr. Lora's office for when he gets back on . Status: Acute Qualifiers: Urinary tract infection type: acute pyelonephritis Qualified Code(s): N10 - Acute pyelonephritis (2) Bilateral hydronephrosis: Status: Acute (3) Respiratory failure: Hospitalist consultation is in order. Status: Acute (4) Alcohol intoxication: CIWA protocol. Status: Acute (5) Uterovaginal prolapse: I have put in a call to Dr. Martinez's office. I was informed that Dr. Garcia is on-call today. She called me back and we discussed the case. Dr. Morgan recommends outpatient intervention with an appointment at her office. She has review the EMR data and it is apparent that she is hematologically holding her own. The office will call NPU and set up an appointment post discharge. Status: Acute (6) Abnormal uterine bleeding: See above. Status: Acute (7) Suicidal ideation: Close monitoring, CIWA, millieu, pharmacotherapy and psychosocial intervention. Status: Acute (8) Cystitis: Antibacterial drugs and urology consult Status: Acute Involuntary Hold Information 96 Hour Hold: 96 Hour Involuntary Admission: Yes 96 Hour Hold Ending Date: 10/11/19 96 Hour Hold Ending Time: 18:52 Attestations NPU Medical Necessity Statement*: This is a profoundly complex case. I anticipate 5 to 7 nights if not longer. Time Spent in Patient Care: Greater than 35 minutes (>than 50% of time spent in counselling and/or direct pt care on unit). 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
[2019-10-08] MEDS: hyDROXYzine 25 mg Capsule 50 MG PO (12:16)
--- NOTE | 2019-10-08 12:16 | PC.NURSE ---
Addendum entered by Niya Garcia LPN 10/08/19 13:38: PRN MED EFFECTIVE PT ASLEEP IN BED IN ROOM CURRENTLY, SNORING SOFTLY Original Note: PRN VISTARIL 50 MG GIVEN PO PER PT C/O STATED ANXIETY. NO OUTWARD S/S OF ANXIETY NOTED CURRENTLY.
[2019-10-08] MEDS: acetaminophen 325 mg Tablet 650 MG PO (14:57)
[2019-10-08] MEDS: cloNIDine 0.1 mg Tablet PO ×2 (14:57→18:36)
[2019-10-08] MEDS: albuterol 8 gm MDI 1 PUFF INHALATION (17:33)
[2019-10-08] MEDS: trazodone 50 mg Tablet PO (20:06)
--- NOTE | 2019-10-08 23:49 | PC.NURSE ---
Pt given scheduled Tessolon Lillian and Lidocaine patch removed. Pt later complained of visual and auditory hallucinations, Zyprexa given at that time. Pt is now resting quietly with both eyes closed, with even spontaneous respirations noted.
[2019-10-09] VITALS (8 sets, daily range): BP systolic 153–164; BP diastolic 98–120; PULSE 73–102; RESP 15–22; TEMP 36.6–37.1; O2SAT 95–97
[2019-10-09] MEDS: hyDROXYzine 25 mg Capsule 50 MG PO ×3 (00:17→20:26)
[2019-10-09] MEDS: acetaminophen 325 mg Tablet 650 MG PO ×2 (05:07→11:56)
--- NOTE | 2019-10-09 05:09 | PC.NURSE ---
pt given tylenol for complaint of lower back pain rated 8/10.
[2019-10-09] MEDS: multivitamin therapeutic Tablet 1 TAB PO (09:40)
[2019-10-09] MEDS: amlodipine 10 mg Tablet PO (09:40)
[2019-10-09] MEDS: metoprolol tartrate 25 mg Tablet PO ×2 (09:40→17:17)
[2019-10-09] MEDS: pantoprazole DR 40 mg Tablet PO (09:40)
[2019-10-09] MEDS: duloxetine 30 mg Capsule PO (09:40)
[2019-10-09] MEDS: benzonatate 100 mg Capsule PO ×3 (09:40→19:44)
[2019-10-09] MEDS: thiamine 100 mg Tablet PO (09:40)
[2019-10-09] MEDS: folic acid 1 mg Tablet PO (09:40)
[2019-10-09] MEDS: nitrofurantoin SR (BID) 100 mg Capsule PO ×2 (09:40→17:17)
[2019-10-09] MEDS: nicotine 21 mg Patch 1 PATCH TRANSDERMA (09:40)
--- NOTE | 2019-10-09 09:40 | PC.NURSE ---
PRN VISTARIL VISTARIL 50MG PO PER PATIENT C/O ANXIETY. WILL CONTINUE TO MONITOR FOR MEDICATION EFFECTIVENESS.
[2019-10-09] MEDS: lidocaine 5% Patch 1 PATCH TOPICAL (09:41)
--- NOTE | 2019-10-09 10:42 | PC.NURSE ---
PRN VISTARIL FOLLOW UP MEDICATION EFFECTIVE. NO FURTHER C/O.
[2019-10-09] MEDS: OLANZapine 5 mg ODT PO ×2 (11:56→20:26)
--- NOTE | 2019-10-09 11:56 | PC.NURSE ---
PRN ZYPREXA ZYDIS ZYPREXA ZYDIS 5MG PO PER PATIENT C/O HALLUCINATIONS. WILL CONTINUE TO MONITOR FOR MEDICATION EFFECTIVENESS.
[2019-10-09] MEDS: albuterol 8 gm MDI 1 PUFF INHALATION (12:48)
--- NOTE | 2019-10-09 13:00 | PC.NURSE ---
PRN ZYPREXA ZYDIS FOLLOW UP MEDICATION EFFECTIVE. NO FURTHER C/O.
--- NOTE | 2019-10-09 14:59 | P.PN_ITS ---
Subjective NPU Subjective: Interval history: The patient is having a very bad day. She is quite sad and tearful. She says, I just want the voices to go away. She is also profoundly depressed. Medications: Reviewed: Yes Medication Review Details: Current Medications Acetaminophen (Tylenol) 650 mg PO Q4H PRN PRN Reason: MILD PAIN Last Admin: 10/09/19 11:56 Dose: 650 mg Documented by: Albuterol Sulfate (Ventolin) 1 puff INHALATION QID.RESPIRATORY PRN PRN Reason: Shortness Of Breath Last Admin: 10/09/19 12:48 Dose: 1 puff Documented by: Amlodipine Besylate (Norvasc) 10 mg PO DAILY [facility] Last Admin: 10/09/19 09:40 Dose: 10 mg Documented by: Aripiprazole (Abilify) 20 mg PO DAILY KAT Benzonatate (Tessalon Pearls) 100 mg PO TID [facility] Last Admin: 10/09/19 14:06 Dose: 100 mg Documented by: Benztropine Mesylate (Cogentin) 1 mg PO BID PRN PRN Reason: Mild Extrapyramidal symptoms Camphor/Menthol/Phenol (Blistex) 1 applic TOPICAL Q1H PRN PRN Reason: DRYNESS Clonidine HCl (Catapres) 0.1 mg PO QID PRN PRN Reason: elevated blood pressure Last Admin: 10/08/19 18:36 Dose: 0.1 mg Documented by: Diphenhydramine HCl (Benadryl) 50 mg IM ONCE PRN PRN Reason: Severe Extrapyramidal Symptoms Diphenhydramine HCl (Benadryl) 50 mg IM Q4H PRN PRN Reason: Severe Aggression Duloxetine HCl (Cymbalta) 60 mg PO DAILY [facility] Folic Acid (Folic Acid) 1 mg PO DAILY [facility] Last Admin: 10/09/19 09:40 Dose: 1 mg Documented by: Haloperidol (Haldol) 5 mg PO Q4H PRN PRN Reason: AGITATION Haloperidol Lactate (Haldol Inj) 5 mg IM Q4H PRN PRN Reason: Severe Aggression Hydrochlorothiazide (Hctz) 25 mg PO DAILY PRN PRN Reason: unknown Hydroxyzine Pamoate (Vistaril) 50 mg PO Q6H PRN PRN Reason: ANXIETY Last Admin: 10/09/19 09:40 Dose: 50 mg Documented by: Hydroxyzine Pamoate (Vistaril) 50 mg PO TID PRN PRN Reason: unknown Lidocaine (Lidoderm 5% Patch) 1 patch TOPICAL O12O12 [facility] Last Admin: 10/09/19 09:41 Dose: 1 patch Documented by: Loperamide HCl (Imodium Capsule) 2 mg PO Q6H PRN PRN Reason: DIARRHEA Lorazepam (Ativan) 2 mg IM Q4H PRN PRN Reason: Severe Aggression Metoprolol Tartrate (Lopressor) 25 mg PO BID [facility] Last Admin: 10/09/19 09:40 Dose: 25 mg Documented by: Multivitamins Therapeutic (Multivitamin Tab) 1 tab PO DAILY [facility] Last Admin: 10/09/19 09:40 Dose: 1 tab Documented by: Nicotine (Nicoderm 21 Mg Patch) 1 patch TRANSDERMA DAILY PRN PRN Reason: NICOTINE WITHDRAWAL Nicotine (Nicoderm 21 Mg Patch) 1 patch TRANSDERMA DAILY [facility] Last Admin: 10/09/19 09:40 Dose: 1 patch Documented by: Nicotine Polacrilex (Nicorette) 2 mg BUCCAL Q2H PRN PRN Reason: NICOTINE WITHDRAWAL Nitrofurantoin Macrocrystals (Macrobid) 100 mg PO BID [facility] Last Admin: 10/09/19 09:40 Dose: 100 mg Documented by: Olanzapine (Zyprexa Zydis) 5 mg PO Q4H PRN PRN Reason: Agitation/Psychosis Last Admin: 10/09/19 11:56 Dose: 5 mg Documented by: Ondansetron HCl (Zofran) 4 mg PO Q6H PRN PRN Reason: NAUSEA AND VOMITING Pantoprazole Sodium (Protonix) 40 mg PO DAILY [facility] Last Admin: 10/09/19 09:40 Dose: 40 mg Documented by: Thiamine Mononitrate (Vitamin B-1) 100 mg PO DAILY [facility] Last Admin: 10/09/19 09:40 Dose: 100 mg Documented by: Mental Status Exam MSE Comments: This is a 38-year-old female who presents somewhat old er. She is quite obese but hygiene and habitus are good. Mood is profoundly despondent and affect is quite tearful. Thought processes are integrated and free of any racing, blocking or looseness of association. Speech is somewhat garbled as she is frequently crying but is not dysarthric or pressured. Cognitive functions are adequate. The patient is ambivalent about survival but however is no ill will towards anyone else. Vitals/I&O/Wt Last Vital Signs Temp 97.8 F 10/09/19 06:00 Pulse 102 H 10/09/19 12:48 Resp 16 10/09/19 12:48 BP 153/98 10/09/19 06:00 Pulse Ox 97 10/09/19 12:48 Weight last 48 hrs Weight 250 lb Data NPU : 10/07/19 17:10 10/07/19 17:10 Involuntary Hold Information 96 Hour Hold: 96 Hour Involuntary Admission: Yes 96 Hour Hold Ending Date: 10/11/19 96 Hour Hold Ending Time: 18:52 Attestations NPU Medical Necessity Statement*: This patient is quite fragile. I anticipate 5 to 7 nights more hospitalization. Time Spent in Patient Care: Greater than 35 minutes (>than 50% of time spent in counselling and/or direct pt care on unit) . 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
[2019-10-09] MEDS: cloNIDine 0.1 mg Tablet PO ×2 (16:39→20:26)
[2019-10-09] MEDS: hydroCHLOROthiazide 25 mg Tablet PO (19:44)
--- NOTE | 2019-10-09 19:51 | PC.NURSE ---
Pt's BP per auto cuff of 164/108. Manual retake, 162/120. Dr Barlow notified of BP and that PRN HCTZ was given. Inquire of any additional orders. Order received to give additional one time Clonidine 0.1mg now.
[2019-10-09] MEDS: trazodone 50 mg Tablet PO (21:19)
[2019-10-10 06:00] VITALS: BP 141/84; PULSE 87; RESP 22; TEMP 36.6; O2SAT 96
[2019-10-10] MEDS: folic acid 1 mg Tablet PO (09:01)
[2019-10-10] MEDS: thiamine 100 mg Tablet PO (09:01)
[2019-10-10] MEDS: multivitamin therapeutic Tablet 1 TAB PO (09:01)
[2019-10-10] MEDS: duloxetine 30 mg Capsule 60 MG PO (09:01)
[2019-10-10] MEDS: benzonatate 100 mg Capsule PO ×3 (09:01→20:29)
[2019-10-10] MEDS: nitrofurantoin SR (BID) 100 mg Capsule PO ×2 (09:01→17:28)
[2019-10-10] MEDS: pantoprazole DR 40 mg Tablet PO (09:02)
[2019-10-10] MEDS: nicotine 21 mg Patch 1 PATCH TRANSDERMA (09:02)
[2019-10-10] MEDS: metoprolol tartrate 25 mg Tablet PO ×2 (09:02→17:28)
[2019-10-10] MEDS: amlodipine 10 mg Tablet PO (09:02)
[2019-10-10] MEDS: ARIPiprazole 10 mg Tablet 20 MG PO (09:02)
[2019-10-10] MEDS: OLANZapine 5 mg ODT PO (12:17)
--- NOTE | 2019-10-10 12:17 | PC.NURSE ---
PRN ZYPREXA ZYDIS ZYPREXA ZYDIS 5MG PO PER PATIENT C/O HALLUCINATIONS. WILL CONTINUE TO MONITOR FOR MEDICATION EFFECTIVENESS.
--- NOTE | 2019-10-10 12:56 | P.PN_ITS ---
Subjective NPU Subjective: Interval history: August presents today reporting that she is struggling with psychosis and seeing things with no explanation for why they are there. We discussed the fact that this morning she received her Abilify for the first time and so we will help that her symptoms with start to improve. She was very frantic in her discussion of those issues reporting that she was seen people in the corner as I was in the room however there were no clear signs of her attending to internal stimuli. We discussed giving her medication some time to work. Mental Status Exam MSE Comments: This is an obese white female with adequate dress grooming and eye contact. No abnormal movements except for psychomotor retardation. Cooperative with exam in mild distress. Speech was decreased rate and volume. Mood described as nervous, affect congruent. Thought process organized thought content: Patient denied homicidal ideation but did endorse some thoughts to kill her self. There were no delusions noted but she did endorse paranoia. She endorsed auditory and visual hallucinations. Attention and concentration were intact and memory seemed unreliable but none were formally tested. She is alert and oriented x3. Insight and judgment are impaired. Vitals/I&O/Wt Last Vital Signs Temp 98.1 F 10/10/19 21:59 Pulse 80 10/10/19 21:59 Resp 22 H 10/10/19 21:59 BP 139/106 10/10/19 21:59 Pulse Ox 94 10/10/19 21:59 Data NPU : 10/07/19 17:10 10/07/19 17:10 A&P Assessment and plan (1) Suicidal ideation: Status: Acute (2) Alcohol use disorder: Status: Acute (3) Psychosis: Status: Acute (4) Cluster B personality disorder: Status: Acute Additional A&P Information This is a 38-year-old white female who presented to the emergency room with alcohol addiction active and reports of psychosis with clear cluster B pathology present. 1. Continue current medication. 2. Continue to 15-minute checks for safety. 3. Encourage individual, group and milieu therapy. 4. Encourage sober living treatment after discharge at the highest level of care to which she is willing to commit. Involuntary Hold Information 96 Hour Hold: 96 Hour Involuntary Admission: Yes 96 Hour Hold Ending Date: 10/11/19 96 Hour Hold Ending Time: 18:52 Attestations NPU Medical Necessity Statement*: Inpatient hospitalization is medically necessary and the clinically appropriate intervention at this time. We will monitor medications and adjust as indicated. Likely length of stay 3 to 5 days. 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
--- NOTE | 2019-10-10 13:20 | PC.NURSE ---
PRN ZYPREXA ZYDIS FOLLOW UP MEDICATION EFFECTIVE. NO FURTHER C/O HALLUCINATIONS.
[2019-10-10 13:28] VITALS: BP 149/111; PULSE 102; RESP 20; TEMP 36.5; O2SAT 97
[2019-10-10 13:40] VITALS: BP 149/111
[2019-10-10] MEDS: cloNIDine 0.1 mg Tablet PO (13:40)
[2019-10-10] MEDS: acetaminophen 325 mg Tablet 650 MG PO (13:43)
--- NOTE | 2019-10-10 17:14 | PM.CONSULT ---
Providers/Reason For Consult Consulting Physican/Specialty*: Lora/urology Reason for Consult*: History of bilateral hydronephrosis secondary to pelvic floor prolapse/cystocele/uterine Attending Physician: Cain Barlow History of Present Illness History of Present Illness August Moo is a 38 year old female well-known to me after recent evaluation on inpatient basis when she was admitted to the ICU for severely elevated blood alcohol levels and extreme lethargy. She was also found to have a urinary tract infection with an elevated white count and CT scan of the abdomen revealed bilateral hydronephrosis with a severely prolapsed bladder. No evidence of intraureteral obstruction and it was felt that her pelvic floor relaxation dating back to 1995 was probably the source of ureteral kinking. She improved clinically from an infectious perspective without evidence of obstructive pyelonephritis. Due to the anatomic relaxation of the pelvic floor being the source apparently of her ureteral obstruction bilaterally it was felt that ureteral stents were not clearly indicated. The patient was seen by Dr. Martinez in consultation. He had been scheduled to see her previously but she did not keep her appointments which apparently was a common thing with her. Tentative plans were made for consideration of pelvic floor reconstruction or pessary. Attempts at maintenance of bladder elevation were unsuccessful with packing while in the hospital. From a urologic perspective, after improvement of her infection with aggressive treatment she was placed on a suppressive dose of Macrobid and discharged with further care to be directed by NAIL CUTTER. I made myself available if there was any further indication from a urologic perspective but did recommend that maintenance antibiotics would be continued. She was readmitted recently with severe depression. From a urologic perspective things do look stable. Her creatinine is about the same, her white count has maintained normal status. Her urine does show white cells and I believe a culture is pending. Medicine list included Macrobid at home as previously recommended. Given the objective data above regarding her toleration of the chronic pelvic floor relaxation and intermittent ureteral kinking I would hold at this point on any further urologic evaluation but certainly can try ureteral stenting if there is evidence of oliguria, obstructive pyelonephritis etc. Meds/Allergies Home Medications and Allergies Home Medications Medication Instructions Recorded Confirmed Last Taken Type Thera 1 tab PO DAILY #0 tab 05/29/19 10/07/19 Unknown Rx folic acid 1 mg PO DAILY #0 tab 05/29/19 10/07/19 Unknown Rx amlodipine 10 mg PO DAILY 09/18/19 10/07/19 Unknown History benzonatate 100 mg PO TID 09/18/19 10/07/19 Unknown History duloxetine 30 mg PO DAILY 09/18/19 10/07/19 Unknown History hydrochlorothiazide 25 mg PO DAILY PRN 09/18/19 10/07/19 Unknown History hydroxyzine HCl 50 mg PO TID PRN 09/18/19 10/07/19 Unknown History metoprolol tartrate 25 mg PO BID 09/18/19 10/07/19 Unknown History hydrocodone-acetaminophen 2 tab PO Q4H PRN #9 tab 09/25/19 10/07/19 Unknown Rx lidocaine [Lidoderm] 1 patch TOPICAL O12O12 #7 ea 09/25/19 10/07/19 Unknown Rx nicotine 1 patch TRANSDERMAL DAILY #30 ea 09/25/19 10/07/19 Unknown Rx nitrofurantoin macrocrystal 50 mg PO Q24H #30 cap 09/25/19 10/07/19 Unknown Rx pantoprazole 40 mg PO DAILY #30 tab 09/25/19 10/07/19 Unknown Rx thiamine mononitrate (vit B1) 100 mg PO DAILY #30 tab 09/25/19 10/07/19 Unknown Rx [Vitamin B-1 (mononitrate)] albuterol sulfate [ProAir HFA] 1 puff INHALATION QID PRN 10/07/19 10/07/19 10/07/19 History nitrofurantoin monohyd/m-cryst 100 mg PO BID 7 Days #14 cap 10/07/19 Unknown Rx [Macrobid] Allergies Allergy/AdvReac Type Severity Reaction Status Date / Time Penicillins Allergy ADR-Itching Verified 09/24/19 12:49 Current Medications Current Medications Generic Name Dose Route Start Last Admin Trade Name Freq PRN Reason Stop Dose Admin Acetaminophen 650 mg 10/07/19 18:47 10/10/19 13:43 Tylenol PO 650 mg Q4H PRN Administration MILD PAIN Albuterol Sulfate 1 puff 10/07/19 23:29 10/09/19 12:48 Ventolin INHALATION 1 puff QID.RESPIRATORY PRN Administration Shortness Of Breath Amlodipine Besylate 10 mg 10/08/19 09:00 10/10/19 09:02 Norvasc PO 10 mg DAILY KAT Administration Aripiprazole 20 mg 10/10/19 09:00 10/10/19 09:02 Abilify PO 20 mg DAILY KAT Administration Benzonatate 100 mg 10/08/19 09:00 10/10/19 13:40 Tessalon Pearls PO 100 mg TID KAT Administration Clonidine HCl 0.1 mg 10/08/19 18:21 10/10/19 13:40 Catapres PO 0.1 mg QID PRN Administration elevated blood pressure Duloxetine HCl 60 mg 10/10/19 09:00 10/10/19 09:01 Cymbalta PO 60 mg DAILY KAT Administration Folic Acid 1 mg 10/08/19 09:00 10/10/19 09:01 Folic Acid PO 1 mg DAILY KAT Administration Hydrochlorothiazide 25 mg 10/07/19 23:29 10/09/19 19:44 Hctz PO 25 mg DAILY PRN Administration unknown Hydroxyzine Pamoate 50 mg 10/07/19 18:47 10/09/19 20:26 Vistaril PO 50 mg Q6H PRN Administration ANXIETY Lidocaine 1 patch 10/08/19 09:00 10/10/19 09:06 Lidoderm 5% Patch TOPICAL Not Given O12O12 [facility] Metoprolol Tartrate 25 mg 10/08/19 09:00 10/10/19 09:02 Lopressor PO 25 mg BID KAT Administration Multivitamins Therapeutic 1 tab 10/08/19 09:00 10/10/19 09:01 Multivitamin Tab PO 1 tab DAILY KAT Administration Nicotine 1 patch 10/08/19 09:00 10/10/19 09:02 Nicoderm 21 Mg Patch TRANSDERMA 1 patch DAILY KAT Administration Nitrofurantoin Macrocrystals 100 mg 10/08/19 09:00 10/10/19 09:01 Macrobid PO 100 mg BID KAT Administration Olanzapine 5 mg 10/07/19 18:47 10/10/19 12:17 Zyprexa Zydis PO 5 mg Q4H PRN Administration Agitation/Psychosis Pantoprazole Sodium 40 mg 10/08/19 09:00 10/10/19 09:02 Protonix PO 40 mg DAILY KAT Administration Thiamine Mononitrate 100 mg 10/08/19 09:00 10/10/19 09:01 Vitamin B-1 PO 100 mg DAILY KAT Administration Trazodone HCl 50 mg 10/09/19 19:48 10/09/19 21:19 Desyrel PO 50 mg BEDTIME PRN Administration INSOMNIA PFSH Acute PFSH: Medical History (Updated 10/08/19 @ 09:44 by Cain Barlow) Alcohol abuse Bipolar disorder Peptic ulcer disease Polysubstance abuse Prolapse of bladder Suicidal ideation Surgical History H/O shoulder surgery History of delivery Hx laparoscopic cholecystectomy Hx of neck surgery Hx of tonsillectomy Family History Denies family history of Psychiatric illness Social History Smoking and tobacco status: current every day smoker cigarettes Packs smoked per day: 3 Years cigarettes smoked: 31 Quit status (tobacco): not considering quitting Smoking risk assessment/counseling performed?: Yes (Patient reports that she rolls 70-80 cigs a day to smoke) Alcohol intake: current Vitals/I&O/Wt Last Vital Signs Temp 97.7 F 10/10/19 13:28 Pulse 102 H 10/10/19 13:28 Resp 20 H 10/10/19 13:28 BP 149/111 10/10/19 13:40 Pulse Ox 97 10/10/19 13:28 Data Micro: Micro: Microbiology 10/07/19 17:25 Urine Culture - Fi nal Urine,Clean Catch Strep agalactia e - (group b) Coding Level of Care Code Acute Ag Equipment Field Service Technician for Samreen Lubin
[2019-10-10 19:45] LABS: Glucose Point of Care 149 mg/dL (70-110)
[2019-10-10] MEDS: trazodone 50 mg Tablet PO (20:29)
[2019-10-10] MEDS: hyDROXYzine 25 mg Capsule 50 MG PO (20:33)
[2019-10-10] MEDS: albuterol 8 gm MDI 1 PUFF INHALATION (21:11)
[2019-10-10 21:13] VITALS: PULSE 92; RESP 22; O2SAT 97
[2019-10-10 21:59] VITALS: BP 139/106; PULSE 80; RESP 22; TEMP 36.7; O2SAT 94
[2019-10-11] MEDS: acetaminophen 325 mg Tablet 650 MG PO ×4 (04:10→20:42)
[2019-10-11 06:00] VITALS: BP 128/85; PULSE 76; RESP 20; TEMP 36.9; O2SAT 95
[2019-10-11 07:32] LABS: Glucose Point of Care 118 mg/dL (70-110)
[2019-10-11] MEDS: folic acid 1 mg Tablet PO (09:15)
[2019-10-11] MEDS: duloxetine 30 mg Capsule 60 MG PO (09:15)
[2019-10-11] MEDS: multivitamin therapeutic Tablet 1 TAB PO (09:16)
[2019-10-11] MEDS: nicotine 21 mg Patch 1 PATCH TRANSDERMA (09:16)
[2019-10-11] MEDS: amlodipine 10 mg Tablet PO (09:16)
[2019-10-11] MEDS: nitrofurantoin SR (BID) 100 mg Capsule PO ×2 (09:16→17:16)
[2019-10-11] MEDS: metoprolol tartrate 25 mg Tablet PO ×2 (09:16→17:16)
[2019-10-11] MEDS: pantoprazole DR 40 mg Tablet PO (09:16)
[2019-10-11] MEDS: ARIPiprazole 10 mg Tablet 20 MG PO (09:16)
[2019-10-11] MEDS: benzonatate 100 mg Capsule PO ×3 (09:16→20:39)
[2019-10-11] MEDS: thiamine 100 mg Tablet PO (09:16)
--- NOTE | 2019-10-11 12:17 | PC.NURSE ---
PRN ZYPREXA ZYDIS ZYPREXA ZYDIS 5MG PO PER PATIENT C/O HALLUCINATIONS. WILL CONTINUE TO MONITOR FOR MEDICATION EFFECTIVENESS.
--- NOTE | 2019-10-11 13:20 | PC.NURSE ---
PRN ZYPREXA ZYDIS FOLLOW UP MEDICATION EFFECTIVE. NO FURTHER C/O HALLUCINATIONS.
[2019-10-11 13:41] VITALS: BP 166/114; PULSE 78; RESP 20; TEMP 36.8; O2SAT 94
[2019-10-11 13:54] VITALS: BP 166/114
[2019-10-11] MEDS: cloNIDine 0.1 mg Tablet PO (13:54)
--- NOTE | 2019-10-11 13:56 | PM.NPN ---
Subjective NPU Subjective: Interval history: Mary Jo presented today reporting that he is feeling a little better. She is still endorsing auditory and visual hallucinations but does not appear to truly be attending to internal stimuli. We discussed the fact that these apparitions that she is experiencing could be related to her drinking, the cluster B pathology or victoriano psychosis. We agreed however to see how she does with the medication 1 more day and consider if maybe we need to add something or change from her Abilify.We discussed the fact that her 96-hour hold was running up and that she would need to sign into the hospital if she wanted to continue treatment. Mental Status Exam MSE Comments: This is an obese white female with adequate dress grooming and eye contact. No abnormal movements except for psychomotor retardation. Cooperative with exam in mild distress. Speech was decreased rate and volume but improving. Mood described as a little better, affect congruent. Thought process organized thought content: Patient denied homicidal ideation but did endorse some fleeting thoughts to kill her self. There were no delusions noted but she did endorse paranoia. She endorsed auditory and visual hallucinations. Attention and concentration were intact and memory seemed unreliable but none were formally tested. She is alert and oriented x3. Insight and judgment are impaired. Vitals/I&O/Wt Last Vital Signs Temp 97.9 F 10/11/19 21:58 Pulse 87 10/11/19 21:58 Resp 21 H 10/11/19 21:58 BP 143/102 10/11/19 21:58 Pulse Ox 96 10/11/19 21:58 Data NPU : 10/07/19 17:10 10/07/19 17:10 A&P Additional A&P Information (1) Suicidal ideation: (2) Alcohol use disorder: (3) Psychosis: (4) Cluster B personality disorder: This is a 38-year-old white female who presented to the emergency room with alcohol addiction active and reports of psychosis with clear cluster B pathology present. 1. Continue current medication.We will wait to see if she continues to improve on the Abilify and if not consider changing, increasing or augmenting tomorrow. 2. Continue to 15-minute checks for safety. 3. Encourage individual, group and milieu therapy. 4. Encourage sober living treatment after discharge at the highest level of care to which she is willing to commit. Involuntary Hold Information 96 Hour Hold: 96 Hour Involuntary Admission: Yes 96 Hour Hold Ending Date: 10/11/19 96 Hour Hold Ending Time: 18:52 Attestations NPU Medical Necessity Statement*: Inpatient hospitalization is medically necessary and the clinically appropriate intervention at this time. We will monitor medications and adjust as indicated. Likely length of stay 2-4 days. Coding Level of Care Code Acute Senior Property Accountant for Samreen Lubin
[2019-10-11] MEDS: OLANZapine 5 mg ODT PO (17:19)
--- NOTE | 2019-10-11 17:19 | PC.NURSE ---
PRN ZYPREXA ZYDIS ZYPREXA ZYDIS 5MG PO PER PATIENT C/O HALLUCINATIONS. WILL CONTINUE TO MONITOR FOR MEDICATION EFFECTIVENESS.
[2019-10-11] MEDS: trazodone 50 mg Tablet PO (20:39)
[2019-10-11] MEDS: hyDROXYzine 25 mg Capsule 50 MG PO (20:39)
[2019-10-11] MEDS: nicotine 2 mg Gum BUCCAL (20:42)
--- NOTE | 2019-10-11 21:24 | PC.NURSE ---
TRAZODONE & VISTARIL PT REQUESTING SLEEP AID AND ANXIETY MEDICATION. ADMINISTERED TRAZODONE 50 MG PO FOR SLEEP AND VISTARIL 50 MG PO FOR ANXIETY. WILL MONITOR FOR MEDICATION EFFECTIVENESS.
[2019-10-11 21:58] VITALS: BP 143/102; PULSE 87; RESP 21; TEMP 36.6; O2SAT 96
[2019-10-12] MEDS: acetaminophen 325 mg Tablet 650 MG PO ×4 (04:31→21:17)
[2019-10-12 06:00] VITALS: BP 135/92; PULSE 83; RESP 20; TEMP 36.5; O2SAT 95
[2019-10-12] MEDS: ARIPiprazole 10 mg Tablet 20 MG PO (09:09)
[2019-10-12] MEDS: benzonatate 100 mg Capsule PO ×3 (09:10→20:54)
[2019-10-12] MEDS: duloxetine 30 mg Capsule 60 MG PO (09:10)
[2019-10-12] MEDS: folic acid 1 mg Tablet PO (09:10)
[2019-10-12] MEDS: amlodipine 10 mg Tablet PO (09:10)
[2019-10-12] MEDS: nitrofurantoin SR (BID) 100 mg Capsule PO ×2 (09:10→17:29)
[2019-10-12] MEDS: multivitamin therapeutic Tablet 1 TAB PO (09:10)
[2019-10-12] MEDS: metoprolol tartrate 25 mg Tablet PO ×2 (09:10→17:28)
[2019-10-12] MEDS: pantoprazole DR 40 mg Tablet PO (09:10)
[2019-10-12] MEDS: thiamine 100 mg Tablet PO (09:13)
[2019-10-12] MEDS: nicotine 21 mg Patch 1 PATCH TRANSDERMA (09:13)
--- NOTE | 2019-10-12 12:52 | PM.NPN ---
Subjective NPU Subjective: Interval history: August presents today reporting that the voices and visual disturbance remains but she at least seems less overwhelmed by it. Further investigation and questioning does show that this behavior and these episodes are primarily at night. She initially denied snoring but does endorse apneic events. She endorses sleep paralysis or something laron to it along with the likely hypnagogic and hypnopompic hallucinations. We discussed concerns for sleep apnea and the need for a sleep study. We also discussed based on the new information changing her antipsychotic medication is not likely going to improve the outcome. Mental Status Exam MSE Comments: This is an obese white female with adequate dress grooming and eye contact. No abnormal movements except for psychomotor retardation. Cooperative with exam in mild distress. Speech was decreased rate and volume but improving. Mood described as anxious, affect congruent. Thought process organized thought content: Patient denied suicidal and homicidal ideation. There were no delusions noted but she did endorse paranoia. She endorsed auditory and visual hallucinations. Attention and concentration were intact and memory seemed unreliable but none were formally tested. She is alert and oriented x3. Insight and judgment are impaired. Vitals/I&O/Wt Last Vital Signs Temp 97.7 F 10/12/19 06:00 Pulse 83 10/12/19 06:00 Resp 20 H 10/12/19 06:00 BP 135/92 10/12/19 06:00 Pulse Ox 95 10/12/19 06:00 Weight last 48 hrs Weight 116.573 kg Data NPU : 10/07/19 17:10 10/07/19 17:10 A&P Additional A&P Information (1) Suicidal ideation: (2) Alcohol use disorder: (3) Psychosis: (4) Cluster B personality disorder: This is a 38-year-old white female who presented to the emergency room with alcohol addiction active and reports of psychosis with clear cluster B pathology present. 1. Continue current medication. 2. Continue to 15-minute checks for safety. 3. Encourage individual, group and milieu therapy. 4. Encourage sober living treatment after discharge at the highest level of care to which she is willing to commit. 5. We will contact respiratory and explore the possibilities of a sleep study anytime soon as well as their thoughts about possibly doing a pulse ox study if not to see if she is having decreased oxygenation at night. Involuntary Hold Information 96 Hour Hold: 96 Hour Involuntary Admission: Yes 96 Hour Hold Ending Date: 10/11/19 96 Hour Hold Ending Time: 18:52 Attestations NPU Medical Necessity Statement*: Inpatient hospitalization is medically necessary and the clinically appropriate intervention at this time. We will monitor medications and adjust as indicated. Likely length of stay 1-3 days. Coding Level of Care Code Acute Parcel Post Officer for Samreen Lubin
[2019-10-12 14:00] VITALS: BP 141/81; PULSE 86; RESP 17; TEMP 36.7
[2019-10-12] MEDS: OLANZapine 5 mg ODT PO ×2 (15:01→21:17)
[2019-10-12] MEDS: hyDROXYzine 25 mg Capsule 50 MG PO (20:54)
[2019-10-12] MEDS: trazodone 50 mg Tablet PO (20:54)
[2019-10-12] MEDS: nicotine 2 mg Gum BUCCAL (21:17)
[2019-10-12 22:00] VITALS: BP 158/102; PULSE 84; RESP 17; TEMP 36.6; O2SAT 95
[2019-10-13 06:00] VITALS: BP 165/87; PULSE 83; RESP 17; TEMP 36.5; O2SAT 96
[2019-10-13] MEDS: acetaminophen 325 mg Tablet 650 MG PO ×4 (06:38→21:18)
[2019-10-13] MEDS: thiamine 100 mg Tablet PO (09:31)
[2019-10-13] MEDS: metoprolol tartrate 25 mg Tablet PO ×2 (09:31→17:53)
[2019-10-13] MEDS: ARIPiprazole 10 mg Tablet 20 MG PO (09:31)
[2019-10-13] MEDS: pantoprazole DR 40 mg Tablet PO (09:31)
[2019-10-13] MEDS: amlodipine 10 mg Tablet PO (09:31)
[2019-10-13] MEDS: folic acid 1 mg Tablet PO (09:32)
[2019-10-13] MEDS: nicotine 21 mg Patch 1 PATCH TRANSDERMA (09:32)
[2019-10-13] MEDS: duloxetine 30 mg Capsule 60 MG PO (09:32)
[2019-10-13] MEDS: multivitamin therapeutic Tablet 1 TAB PO (09:32)
[2019-10-13] MEDS: nitrofurantoin SR (BID) 100 mg Capsule PO ×2 (09:32→17:53)
[2019-10-13] MEDS: benzonatate 100 mg Capsule PO ×3 (09:32→21:21)
[2019-10-13] MEDS: OLANZapine 5 mg ODT PO ×2 (13:15→21:21)
--- NOTE | 2019-10-13 13:15 | PC.NURSE ---
PRN ZYPREXA ZYDIS ZYPREXA ZYDIS 5MG PO PER PATIENT C/O HALLUCINATIONS. WILL CONTINUE TO MONITOR FOR MEDICATION EFFECTIVENESS.
--- NOTE | 2019-10-13 13:47 | P.PN_ITS ---
Subjective NPU Subjective: Interval history: August presented today reporting that she continues to have the strange experiences mostly at night. Some of her cluster B personality disorder revealed itself in the difficulty she had and acknowledging that she was clearly doing better today than yesterday. It was notable in her behavior and demeanor. She began discussing how the night before to people who are friends of hers of father and son had an interaction and the father killed the son. She also gave some other reasons why her appearance of being better could not be taken at face value. We discussed the possibility of getting a overnight pulse ox study in lieu of a sleep study to get some sense if there is some kind of night issue going on and she understood and agreed to proceed as is documented in this note. Mental Status Exam MSE Comments: This is an obese white female with adequate dress grooming and eye contact. No abnormal movements except for improving psychomotor retardati on. Cooperative with exam in no acute distress. Speech was decreased rate and volume but improving. Mood described as better, affect congruent. Thought process organized thought content: Patient denied suicidal and homicidal ideation. There were no delusions noted but she did endorse paranoia. She endorsed auditory and visual hallucinations. Attention and concentration were intact and memory seemed unreliable but none were formally tested. She is alert and oriented x3. Insight and judgment are impaired. Vitals/I&O/Wt Last Vital Signs Temp 98.3 F 10/13/19 21:12 Pulse 68 10/13/19 21:29 Resp 16 10/13/19 21:12 BP 142/84 10/13/19 21:12 Pulse Ox 95 10/13/19 21:29 Weight last 48 hrs Weight 116.573 kg Data NPU : 10/07/19 17:10 10/07/19 17:10 A&P Additional A&P Information (1) Suicidal ideation: (2) Alcohol use disorder: (3) Psychosis: (4) Cluster B personality disorder: This is a 38-year-old white female who presented to the emergency room with alcohol addiction active and reports of psychosis with clear cluster B pathology present. 1. Continue current medication. 2. Continue to 15-minute checks for safety. 3. Encourage individual, group and milieu therapy. 4. Encourage sober living treatment after discharge at the highest level of care to which she is willing to commit. 5. We will contact respiratory and explore the possibilities of a sleep study anytime soon as well as their thoughts about possibly doing a pulse ox study if not to see if she is having decreased oxygenation at night. Involuntary Hold Information 96 Hour Hold: 96 Hour Involuntary Admission: Yes 96 Hour Hold Ending Date: 10/11/19 96 Hour Hold Ending Time: 18:52 Attestations NPU Medical Necessity Statement*: Inpatient hospitalization is medically necessary and the clinically appropriate intervention at this time. We will monitor medications and adjust as indicated. Likely length of stay 1-2 days. Coding Level of Care Code Acute Motor Vehicle Parts Interpreter for Samreen Lubin
[2019-10-13 14:00] VITALS: BP 120/66; PULSE 79; RESP 18; TEMP 36.8
--- NOTE | 2019-10-13 14:00 | PC.NURSE ---
PRN ZYPREXA ZYDIS FOLLOW UP MEDICATION EFFECTIVE. NO FURTHER C/O HALLUCINATIONS.
[2019-10-13 21:12] VITALS: BP 142/84; PULSE 84; RESP 16; TEMP 36.8; O2SAT 96
[2019-10-13] MEDS: hyDROXYzine 25 mg Capsule 50 MG PO (21:21)
[2019-10-13] MEDS: nicotine 2 mg Gum BUCCAL (21:21)
[2019-10-13] MEDS: trazodone 150 mg Tablet PO (21:21)
[2019-10-13 21:29] VITALS: PULSE 68; O2SAT 95
--- NOTE | 2019-10-14 03:48 | PC.NURSE ---
TYLENOL 650 MG PO GIVEN FOR BACK PAIN.
[2019-10-14 06:00] VITALS: BP 149/102; PULSE 94; RESP 15; TEMP 36.4; O2SAT 95
[2019-10-14] MEDS: nicotine 2 mg Gum BUCCAL ×3 (09:24→20:50)
[2019-10-14] MEDS: thiamine 100 mg Tablet PO (09:24)
[2019-10-14] MEDS: multivitamin therapeutic Tablet 1 TAB PO (09:24)
[2019-10-14] MEDS: duloxetine 30 mg Capsule 60 MG PO (09:24)
[2019-10-14] MEDS: nitrofurantoin SR (BID) 100 mg Capsule PO ×2 (09:25→17:16)
[2019-10-14] MEDS: benzonatate 100 mg Capsule PO ×3 (09:25→20:50)
[2019-10-14] MEDS: nicotine 21 mg Patch 1 PATCH TRANSDERMA (09:25)
[2019-10-14] MEDS: amlodipine 10 mg Tablet PO (09:25)
[2019-10-14] MEDS: metoprolol tartrate 25 mg Tablet PO ×2 (09:25→17:16)
[2019-10-14] MEDS: folic acid 1 mg Tablet PO (09:25)
[2019-10-14] MEDS: pantoprazole DR 40 mg Tablet PO (09:25)
[2019-10-14] MEDS: acetaminophen 325 mg Tablet 650 MG PO ×3 (09:25→20:50)
[2019-10-14] MEDS: ARIPiprazole 10 mg Tablet 20 MG PO (09:25)
--- NOTE | 2019-10-14 12:43 | P.PN_ITS ---
Subjective NPU Subjective: Interval history: August presents today having had her 02- saturation evaluation last night without any significant sign of desaturation. She continues to appear better but continues to somewhat downplay feeling better. In conversation with another staff member, she seemed to feel like by signing into the hospital that she was going to stay as long as she wanted to. We explained the voluntary versus involuntary aspect in the decision making. We discussed her options overall and a plan for likely discharge tomorrow, which she seemed to have spoken with her mother and has some kind of plan moving forward, and has filled out paperwork that will give her some options once inpatient services become readily available/available. Mental Status Exam MSE Comments: This is an obese, versus morbidly obese, white female, with adequate dress, grooming, and eye contact. No abnormal movements except for improving but mild psychomotor retardation. She has significant hirsutism. Cooperative with exam in no acute distress. Speech was more normal rate and volume. Mood described as okay; affect less subdued. Thought process, organized. Thought content: patient denied any suicidal or homicidal ideation, there were no delusions reported or noted, patient denied any auditory or visual hallucinations. Attention, concentration, and memory appeared intact but were not formally tested. Alert and oriented times three. Insight and judgment are limited but improving. Vitals/I&O/Wt Last Vital Signs Temp 97.9 F 10/14/19 20:41 Pulse 77 10/14/19 20:41 Resp 18 10/14/19 20:41 BP 138/89 10/14/19 20:41 Pulse Ox 94 10/14/19 20:41 Weight last 48 hrs Weight 116.573 kg Data NPU : 10/07/19 17:10 10/07/19 17:10 A&P Additional A&P Information (1) Suicidal ideation: (2) Alcohol use disorder: (3) Psychosis: (4) Cluster B personality disorder: This is a 38-year-old white female who presented to the emergency room with alcohol addiction active and reports of psychosis with clear cluster B pathology present. 1. Continue current medication. 2. Continue to 15-minute checks for safety. 3. Encourage individual, group and milieu therapy. 4. Encourage sober living treatment after discharge at the highest level of care to which she is willing to commit. Involuntary Hold Information 96 Hour Hold: 96 Hour Involuntary Admission: Yes 96 Hour Hold Ending Date: 10/11/19 96 Hour Hold Ending Time: 18:52 Attestations NPU Medical Necessity Statement*: Inpatient hospitalization is medically necessary and the clinically appropriate intervention at this time. We will monitor medications and adjust as indicated. Plan for discharge tomorrow! Coding Level of Care Code Acute Truck Hopper for Samreen Lubin
[2019-10-14 13:28] VITALS: BP 144/87; PULSE 84; RESP 20; TEMP 36.9; O2SAT 94
[2019-10-14] MEDS: OLANZapine 5 mg ODT PO (15:17)
--- NOTE | 2019-10-14 15:19 | PC.NURSE ---
PRN ZYPREXA ZYDIS ZYPREXA ZYDIS 5MG PO PER PATIENT C/O SHADOWS NO S/S OF HALLUCINATING. WILL CONTINUE TO MONITOR.
--- NOTE | 2019-10-14 16:20 | PC.NURSE ---
HOWIE WU FOLLOW UP NO FURTHER C/O HALLUCINATIONS.
[2019-10-14 20:41] VITALS: BP 138/89; PULSE 77; RESP 18; TEMP 36.6; O2SAT 94
[2019-10-14] MEDS: trazodone 150 mg Tablet PO (20:50)
[2019-10-14] MEDS: hyDROXYzine 25 mg Capsule 50 MG PO (20:50)
[2019-10-15] MEDS: acetaminophen 325 mg Tablet 650 MG PO ×2 (02:18→08:01)
[2019-10-15 06:00] VITALS: BP 144/76; PULSE 68; RESP 17; TEMP 36.5; O2SAT 92
[2019-10-15] MEDS: multivitamin therapeutic Tablet 1 TAB PO (09:04)
[2019-10-15] MEDS: duloxetine 30 mg Capsule 60 MG PO (09:04)
[2019-10-15] MEDS: thiamine 100 mg Tablet PO (09:04)
[2019-10-15] MEDS: benzonatate 100 mg Capsule PO ×2 (09:04→15:07)
[2019-10-15] MEDS: amlodipine 10 mg Tablet PO (09:04)
[2019-10-15] MEDS: folic acid 1 mg Tablet PO (09:04)
[2019-10-15] MEDS: nitrofurantoin SR (BID) 100 mg Capsule PO (09:04)
[2019-10-15] MEDS: metoprolol tartrate 25 mg Tablet PO (09:04)
[2019-10-15] MEDS: ARIPiprazole 10 mg Tablet 20 MG PO (09:05)
[2019-10-15] MEDS: nicotine 21 mg Patch 1 PATCH TRANSDERMA (09:05)
[2019-10-15] MEDS: pantoprazole DR 40 mg Tablet PO (09:05)
[2019-10-15 09:41] VITALS: PULSE 68; RESP 16; O2SAT 93
--- NOTE | 2019-10-15 13:34 | PM.NDC ---
Diagnoses at Discharge Discharge Diagnosis (1) Suicidal ideation: Status: Resolved (2) Alcohol use disorder: Status: Acute (3) Psychosis: Status: Resolved (4) Cluster B personality disorder: Status: Acute (5) Bipolar disorder: Status: Acute (6) Abnormal uterine bleeding: Status: Acute (7) Uterovaginal prolapse: Status: Acute (8) Bilateral hydronephrosis: Status: Acute Reason for Visit Reason for Visit: Reason For Visit: gen sickness; vag/rectal bleeding; severe depression Brief History: History of Present Illness August Moo is a 38 year old female who came with complaints of bleeding. A CT scan of the fifth preceding was interpreted by Dr. Jimenez showing various urologic in gynecological findings, including left renal lower pole 12.6 mm benign simple cyst, upper pole 6.5 mm benign simple cyst, cystocele less conspicuous than in a previous study, Uterine prolapse less conspicuous than on the prior study , all of which is now complicated by a pronounced bladder infection, currently treated with Nitrofurantoin SR 100 mg twice daily for 7 days. The patient also complains of auditory hallucinations and profound dysphoria she has difficulty controlling the voices which are punitive and blame her for her troubles. She thinks about suicide as a solution. She is admitted for stabilization of her profound depression with suicidal ideation. Attention will also be given to her renal and gynecological issues. Her BAL and the ED was 128 (H). A safe detox is indicated. Review of Systems Narrative: Const Reports: malaise ENMT Denies: throat pain, ear or mastoid pain, nasal discharge or nasal congestion Card Reports: swelling of feet/ankles and dyspnea on exertion; Denies: chest pain or syncope Resp Reports: dyspnea GI Reports: nausea and vomiting Reports: flank pain, dysuria, urinary frequency and urinary urgency; Denies: difficulty voiding Skin/Breast Denies: rash or pruritus Neuro Denies: headache(s) Meds NPU Home Medications Medication Instructions Recorded Confirmed Last Taken Type Thera 1 tab PO DAILY #0 tab 05/29/19 10/07/19 Unknown Rx folic acid 1 mg PO DAILY #0 tab 05/29/19 10/07/19 Unknown Rx amlodipine 10 mg PO DAILY 09/18/19 10/07/19 Unknown History benzonatate 100 mg PO TID 09/18/19 10/07/19 Unknown History duloxetine 30 mg PO DAILY 09/18/19 10/07/19 Unknown History hydrochlorothiazide 25 mg PO DAILY PRN 09/18/19 10/07/19 Unknown History hydroxyzine HCl 50 mg PO TID PRN 09/18/19 10/07/19 Unknown History metoprolol tartrate 25 mg PO BID 09/18/19 10/07/19 Unknown History hydrocodone-acetaminophen 2 tab PO Q4H PRN #9 tab 09/25/19 10/07/19 Unknown Rx lidocaine [Lidoderm] 1 patch TOPICAL O12O12 #7 ea 09/25/19 10/07/19 Unknown Rx nicotine 1 patch TRANSDERMAL DAILY #30 ea 09/25/19 10/07/19 Unknown Rx nitrofurantoin macrocrystal 50 mg PO Q24H #30 cap 09/25/19 10/07/19 Unknown Rx pantoprazole 40 mg PO DAILY #30 tab 09/25/19 10/07/19 Unknown Rx thiamine mononitrate (vit B1) 100 mg PO DAILY #30 tab 09/25/19 10/07/19 Unknown Rx [Vitamin B-1 (mononitrate)] albuterol sulfate [ProAir HFA] 1 puff INHALATION QID PRN 10/07/19 10/07/19 10/07/19 History nitrofurantoin monohyd/m-cryst 100 mg PO BID 7 Days #14 cap 10/07/19 Unknown Rx [Macrobid] Allergies Allergy/AdvReac Type Severity Reaction Status Date / Time Penicillins Allergy ADR-Itching Verified 09/24/19 12:49 PFSH NPU PFSH: Medical History (Updated 10/08/19 @ 09:44 by Cain Barlow) Alcohol abuse Bipolar disorder Peptic ulcer disease Polysubstance abuse Prolapse of bladder Suicidal ideation Surgical History H/O shoulder surgery History of delivery Hx laparoscopic cholecystectomy Hx of neck surgery Hx of tonsillectomy Family History Denies family history of Psychiatric illness Social History Smoking and tobacco status: current every day smoker cigarettes Packs smoked per day: 3 Years cigarettes smoked: 31 Quit status (tobacco): not considering quitting Smoking risk assessment/counseling performed?: Yes (Patient reports that she rolls 70-80 cigs a day to smoke) Alcohol intake: current Hospital Course Hospital Course The patient presented to the emergency room with the same complaints she had a couple of days prior. She reported she had not been drinking but with the smell of alcohol on her breath. She reported multiple complaints, including swelling in her legs, vomiting, and diarrhea. Ultimately, she began to report suicidal thoughts, tired of it all, depression, and she was admitted to the neuropsychiatric unit for definitive treatment of those issues. On the unit she slowly acclimated to the individual, group, and milieu therapies provided. She was maintained on her medications. Initially, she was exploring the idea of an inpatient drug rehabilitation placement, however, due to the COVID-19 pandemic, there were some limitations that made it so that was not going to be ready for several days. She was growing impatient and ultimately said that she would look at outpatient services. During the hospitalization, the patient had routine laboratory studies which were within normal limits, except for a few outliers. Additionally, she had a general medical evaluation which was within normal limits and revealed no new acute processes. Discharge Summary At the time of discharge the patient denied all lethality, was absent psychosis, and mood and anxiety were well managed. The patient endorsed a plan to avoid all drugs of abuse and to follow-up with outpatient services, as recommended. She was evaluated and deemed to be absent credible lethality, and had achieved the maximum benefit from an inpatient hospitalization, and so she was discharged. Involuntary Hold Information 96 Hour Hold: 96 Hour Involuntary Admission: Yes 96 Hour Hold Ending Date: 10/11/19 96 Hour Hold Ending Time: 18:52 Mental Status Exam MSE Comments: This is an obese, white female, with adequate dress, grooming, and eye contact, with mild hirsutism. Cooperative with exam in no acute distress. Speech was normal rate and volume. Mood described as much better; affect congruent. Thought process, organized. Thought content: patient denied any suicidal or homicidal ideation, there were no delusions reported or noted, patient denied any auditory or visual hallucinations. Attention, concentration, and memory appeared intact but none were formally tested. She is alert and oriented times three. Insight and judgment are limited but improving. Impulse control is limited. Discharge Data Data Completed and Pending: Completed Studies During Hospitalization Category Date Time Status CT abdomen pelvis w con* [id number] Stat Cat Scan 10/07/19 17:17 Completed Vitals: Last Vital Signs Temp 97.7 F 10/15/19 06:00 Pulse 68 10/15/19 09:41 Resp 16 10/15/19 09:41 BP 144/76 10/15/19 06:00 Pulse Ox 93 10/15/19 09:41 Discharge Plan Discharge Patient Disposition: Home, Self-Care Condition: Stable Prescriptions: New aripiprazole 20 mg tablet 20 mg PO DAILY 30 Days Qty: 30 RF: 1 trazodone 150 mg Tablet 150 mg PO BEDTIME PRN (Reason: Insomnia) 30 Days Qty: 30 RF: 1 nitrofurantoin monohyd/m-cryst 100 mg Capsule 100 mg PO BID 30 Days Qty: 60 RF: 1 Continued folic acid 1 mg Tablet 1 mg PO DAILY Qty: 0 RF: 0 Thera 400 mcg Tablet 1 tab PO DAILY Qty: 0 RF: 0 hydroxyzine HCl 50 mg tablet 50 mg PO TID PRN (Reason: unknown) RF: 0 amlodipine 10 mg tablet 10 mg PO DAILY RF: 0 benzonatate 100 mg capsule 100 mg PO TID RF: 0 hydrochlorothiazide 25 mg tablet 25 mg PO DAILY PRN (Reason: unknown) RF: 0 metoprolol tartrate 25 mg tablet 25 mg PO BID RF: 0 hydrocodone-acetaminophen 5-325 mg Tablet 2 tab PO Q4H PRN (Reason: Moderate To Severe Pain) Qty: 9 RF: 0 lidocaine [Lidoderm] 5 % Adhesive Patch,Medicated 1 patch topical O12O12 Qty: 7 RF: 0 nicotine 21 mg/24 hr Patch 24 Hour 1 patch transdermal DAILY Qty: 30 RF: 0 thiamine mononitrate (vit B1) [Vitamin B-1 (mononitrate)] 100 mg Tablet 100 mg PO DAILY Qty: 30 RF: 0 nitrofurantoin macrocrystal 50 mg capsule 50 mg PO Q24H Qty: 30 RF: 0 pantoprazole 40 mg tablet,delayed release (DR/EC) 40 mg PO DAILY Qty: 30 RF: 0 ProAir HFA 90 mcg/actuation Hfa Aerosol Inhaler 1 puff INHALATION QID PRN (Reason: Shortness Of Breath) RF: 0 Changed duloxetine 30 mg capsule,delayed release(DR/EC) 60 mg PO DAILY 30 Days Qty: 60 RF: 1 Discharge Orders: Discharge Order (Routine); Ordered 10/15/19 Ordered By: Anjum Dasilva Referrals: [facility] [Outside] (Has classes in [place]. ) Mode Martinez MD [Physician] - 10/25/19 10:30 am Discharge Diet: Advance as tolerated Discharge Activity: Increase activity as tolerated Patient Instructions: Trazodone (By mouth), Aripiprazole (By mouth), Nitrofurantoin Combination (By mouth), Brief Psychotic Disorder (DC) Activity Restrictions/Additional Instructions: Follow-up primary care within the next 4 to 5 days. [facility]: [place] [address] Contact: Nicolette Manzanares Meeting Time: Fridays at 6:00PM [facility] anticipated to open on 10/21/19. Paperwork was given during hospitalization. For information contact Mellisa Blake, the field trainer at [phone] Medicaid Transport ([employer]): For transportation to appointments call at least 5 days in advance of the appointment. When using Medicaid Transport/[employer] you will need the following information when requesting a ride: - name, date of , address, phone number, and Medicaid number -address, and phone number of where you are going; -date and time of the appointment; -any special needs, such as wheelchair van If for some reason the ride does not show up you may call the Where's My Ride number at Discharge Date/Time: 10/15/19 16:08 Discharge Attestations NPU Time Spent in Discharge Care*: less than 30 min Specific Discharge Activities: Specific discharge activities: educating patient, discussing with spring encaser/social workers/dc planners, documenting/other paperwork and evaluating patient/reviewing data Coding Level of Care Code Acute Screen Printing Stencil Preparer for Chg Fwd Diagnoses Suicidal ideation R45.851 Alcohol use disorder Psychosis F29 Cluster B personality disorder F60.89 Bipolar disorder F31.9 Abnormal uterine bleeding N93.9 Uterovaginal prolapse N81.4 Bilateral hydronephrosis N13.30
[2019-10-15 14:32] VITALS: PULSE 68; RESP 16; O2SAT 93
== END 2019-10-15 16:08 | disposition home or self-care (01) | DRG 885 ==
LOC: ER 19:03 → NP 19:44
PROVIDERS: Family Medicine
DX: F23 Brief psychotic disorder (principal); R45.851 Suicidal ideations; Z68.41 Body mass index [BMI] 40.0-44.9, adult; F32.9 Major depressive disorder, single episode, unspecified; N28.1 Cyst of kidney, acquired; F10.129 Alcohol abuse with intoxication, unspecified; Y90.6 Blood alcohol level of 120-199 mg/100 ml; E66.9 Obesity, unspecified; F60.89 Other specific personality disorders; F17.210 Nicotine dependence, cigarettes, uncomplicated; Z87.11 Personal history of peptic ulcer disease
CPT/HCPCS: 12345; 36415; 36416; 74177; 80053; 80306; 80307; 81001; 82962; 83605; 83690; 85025; 87086; 94640; 96372; 96375; 99283; J1885; J2060

== ENCOUNTER 2019-10-07 16:14 | Emergency (ER) | payer MEDICAID, SELFPAY | END 2019-10-07 20:51 | disposition admitted as inpatient to this hospital (09) | LOC: ER 10-17 18:57 | PROVIDERS: Emergency Provider Emergency Medicine | DX: N30.90 Cystitis, unspecified without hematuria (principal); F10.129 Alcohol abuse with intoxication, unspecified; R45.851 Suicidal ideations; F17.210 Nicotine dependence, cigarettes, uncomplicated | CPT/HCPCS: 12345; 36415; 74177; 80053; 80306; 80307; 81001; 83605; 83690; 85025; 87086; 96372; 96375; 99283; 99285; J1885 ==

== ENCOUNTER 2019-10-21 02:09 | Emergency (ER) | payer MEDICAID, SELFPAY | END 2019-10-21 06:48 | disposition admitted as inpatient to this hospital (09) | LOC: ER 11-04 15:00 | PROVIDERS: Emergency Provider Emergency Medicine | DX: R45.851 Suicidal ideations (principal); F17.210 Nicotine dependence, cigarettes, uncomplicated | CPT/HCPCS: 12345; 36415; 80053; 80306; 80307; 81001; 84484; 85025; 85610; 87086; 93005; 96372; 99283; 99285; J3486 ==

== ENCOUNTER 2019-10-21 02:09 | Inpatient (IN) | payer MEDICAID, SELFPAY ==
[2019-10-21] VITALS (7 sets, daily range): BP systolic 143–175; BP diastolic 95–128; PULSE 82–99; RESP 18–22; TEMP 36.4–36.9; O2SAT 94–98; BMI 40.9
--- NOTE | 2019-10-21 02:27 | ECG_ITS ---
Measurements Intervals [place] Rate: 87 P: 60 MN: 146 QRS: 66 QRSD: 81 T: 40 QT: 349 QTc: 422 SINUS RHYTHM POSSIBLE RIGHT VENTRICULAR CONDUCTION DELAY [RSR (QR) IN V1/V2] Compared to ECG 09/18/2019 18:54:22 Sinus tachycardia no longer present Electronically Signed On 10-21-2019 17:03:43 CDT by Jimbo Lynn M.D. [email or web address]
--- NOTE | 2019-10-21 02:30 | PC.NURSE ---
patient's belongings placed in drawer 3 in ER locker
--- NOTE | 2019-10-21 02:32 | W.ED.GENADLT ---
HPI - General Adult General: Chief complaint: General Medical Stated complaint: SI, N/V, Rectal Bleeding Time Seen by Provider: 10/21/19 02:14 History of Present Illness: HPI narrative: 38-year-old female discharged from our neuropsychiatric facility 5 days ago. She presents intoxicated. She complains of continued suicidal thoughts. She also has multiple complaints including a history of GI bleeding, including rectal bleeding and vomiting blood, although on presentation she states that the last time she had any of the symptoms was a few days prior. She admits to drinking heavily. She laughs inappropriately in the room. Associated symptoms: Reports chest pain, nausea, palpitations and vomiting; Deny confusion, headache(s) or rash Review of Systems Const: Denies: fever(s) or chills Eyes: Denies: change in vision ENMT: Denies: epistaxis, post nasal drip or sinus pain Card: Reports: chest pain, palpitations and swelling of feet/ankles; Denies: irregular heart rhythm Resp: Reports: non-productive cough; Denies: productive cough or wheezing GI: Reports: abdominal pain, nausea, vomiting, hematochezia and melena; Denies: rectal pain : Denies: dysuria or hematuria Skin/Breast: Denies: rash or erythema Neuro: Denies: headache(s), dizziness, vertigo or confusion Psych: Reports: auditory hallucinations; Denies: anxiety or visual hallucinations PFSH ED PFSH: Medical History (Updated 10/16/19 @ 00:00 by ) Alcohol abuse Bipolar disorder Peptic ulcer disease Polysubstance abuse Prolapse of bladder Suicidal ideation Surgical History H/O shoulder surgery History of delivery Hx laparoscopic cholecystectomy Hx of neck surgery Hx of tonsillectomy Family History Denies family history of Psychiatric illness Social History Smoking and tobacco status: current every day smoker cigarettes Packs smoked per day: 3 Years cigarettes smoked: 31 Quit status (tobacco): not considering quitting Smoking risk assessment/counseling performed?: Yes (Patient reports that she rolls 70-80 cigs a day to smoke) Alcohol intake: current Physical Exam Const: GENERAL APPEARANCE: comfortable, disheveled and odor of alcohol detected ORIENTATION/CONSCIOUSNESS: Yes oriented to person and Yes oriented to place; not oriented to time HENMT: COMMON NORMALS: normocephalic, external ears normal and Normal external nose present HEAD & SCALP: normocephalic FACE & SINUS: normal facial exam NOSE: Normal external nose present and No nasal discharge present EXTERNAL EAR: Yes external ears normal MOUTH: tongue normal THROAT: posterior oropharynx normal; no peritonsillar mass Eye: COMMON NORMALS: Equal, round and reactive pupils present, EOMs intact bilaterally and conjunctivae normal EYELID: eyelids normal CONJUNCTIVA: Yes conjunctivae normal PUPIL: Yes Equal, round and reactive pupils present Neck/C-Spine: GENERAL: No tracheal deviation Chest: COMMONS NORMALS: normal inspection of the chest CHEST: No tenderness Resp: COMMON NORMALS: clear to auscultation bilaterally EFFORT & INSPECTION: No tachypneic, No respiratory distress, No retractions, No uses accessory muscles and No tracheal deviation AUSCULTATION: clear to auscultation bilaterally, no rhonchi, no wheezes and lung sounds not diminished Cardio: COMMON NORMALS: regular rate and regular rhythm RATE: regular rate RHYTHM: regular rhythm HEART SOUNDS: no murmurs PERIPHERAL PULSES: radial pulses present GI: INSPECTION: No abdominal distension AUSCULTATION: No Hyperactive bowel sounds present and No Hypoactive bowel sounds present PALPATION: No Guarding due to palpation present (GI) and No Rigid due to palpation PERCUSSION: no dullness to percussion and no tympanic to percussion Neuro: SENSORIUM/ORIENTATION: Yes oriented to person, Yes oriented to place and No oriented to time Psych: APPEARANCE: Yes unkempt ATTITUDE: Yes Belligerent attititude/behavior present ACTIVITY/MOTOR BEHAVIOR: Yes fidgeting and Yes restless SPEECH: Yes slurred MOOD & AFFECT: Yes expansive affect THOUGHT PROCESS: disorganized and Loose association thought process present THOUGHT CONTENT: Yes Suicidality present ATTENTION/CONCENTRATION: Yes attention grossly impaired MEMORY/COGNITION: Yes memory grossly intact INSIGHT: Limited insight present (Psych) JUDGEMENT: Limited judgement present (Psych) Skin: COMMON NORMALS: no rashes or lesions noted GENERAL SKIN EXAM: no rashes or lesions noted Course Vital Signs: Vital signs: Vital Signs Temperature 97.6 F 10/21/19 02:13 Pulse Rate 88 10/21/19 02:13 Respiratory Rate 22 H 10/21/19 02:13 Blood Pressure 143/102 10/21/19 02:13 Pulse Oximetry 97 10/21/19 02:13 MDM - General Adult MDM Narrative: Medical decision making narrative: 38-year-old female well-known to the urgency department. She presents after drinking heavily, complaining of multiple complaints, although her main complaint is suicidality. She is inappropriate in the room, and clearly intoxicated. Her vital signs have been completely stable. Her hemoglobin is 14.4. Her white blood cell count is 9. Her bicarbonate is mildly low. Her liver enzymes are elevated. Her ethanol level is 345. She showed some signs of agitation in the room and was belligerent with staff, and so she was given an injection of Geodon. She is resting comfortably now. We will repeat her alcohol at 0500. Lab Data: Labs: Lab Results 10/21/19 10/21/19 10/21/19 Range/Units 02:31 02:31 02:36 WBC 9.0 (4.0-10.0) 10^3/ uL RBC 4.63 (4.1-5.3) 10^6/u L Hgb 14.4 (11.5-15.3) g/dL Hct 42.5 (37.0-47.0) % MCV 91.8 (81-99) fL MCH 31.1 (28.0-34.0) pg MCHC 33.9 (30.0-36.0) g/dL RDW 15.6 H (12.1-15.1) % Plt Count 388 (130-400) 10^3/c mm MPV 9.4 (7.4-10.4) fL Neut % (Auto) 30.7 % Lymph % (Auto) 58.6 % [place] % (Auto) 8.7 % Eos % (Auto) 1.2 % Baso % (Auto) 0.7 % Neut # (Auto) 2.8 (1.8-7.7) 10^3/u L Lymph # (Auto) 5.3 H (0.8-4.8) 10^3/u L [place] # (Auto) 0.8 (0.2-0.9) 10^3/u L Eos # (Auto) 0.1 (0.0-0.8) 10^3/u L Baso # (Auto) 0.1 (0.0-0.1) 10^3/u L Nucleated RBC % (a uto) 0 % Nucleated RBCs # 0.0 /100WBC PT (10.5-13.3) SECO NDS INR (0.8-1.2) Sodium (136-145) mmol/L Potassium (3.5-5.1) mmol/L Chloride (98-107) mmol/L Carbon Dioxide (22-29) mmol/L Anion Gap (5-19) BUN (6-20) mg/dL Creatinine (0.5-0.9) mg/dL GFR Calculation (90-130) mL/min Glucose (65-115) mg/dL Calculated Osmolal ity (285-295) mOsm/k g Calcium (8.5-10.5) mg/dL Total Bilirubin (0.15-1.2) mg/dL AST (0-32) U/L ALT (0-33) U/L Alkaline Phosphata se (35-105) IU/L Troponin T Gen 5 n g/L (0-10) ng/mL Total Protein (6.6-8.7) g/dL Albumin (3.5-5.2) g/dL Globulin (1.3-4.6) g/dL Urine Color Yellow (Yellow) Urine Appearance Hazy A (CLEAR) Urine pH 7 (5-7) Ur Specific Gravit y 1.005 (1.005-1.030) Urine Protein Neg (Negative) Urine Glucose (UA) Norm (Normal) Urine Ketones Negative (Negative) Urine Blood Neg (Negative) Urine Nitrate Positive H (Negative) Urine Bilirubin Neg (NEGATIVE) Urine Urobilinogen Norm (Negative) mg/dL Ur Leukocyte Stephanie ase Negative (Negative) Urine RBC 0-4 H (0-2) /hpf Urine WBC 10-15 H (0-5) /hpf Ur Squamous Epith Cells 5-10 H (0-5) Amorphous Sediment 1+ Urine Bacteria 2+ H (NONE) Urine Mucus Trace Salicylates (3-10) mg/dL Urine Opiates Scre en Negative (Negative) ng/mL Acetaminophen (10-30) ug/mL Ur Barbiturates Sc reen Negative (Negative) ng/mL Ur Phencyclidine S crn Negative (Negative) ng/mL Ur Amphetamines Sc reen Negative (Negative) ng/mL U Benzodiazepines Scrn Negative (Negative) ng/mL Urine Cocaine Scre en Negative (Negative) ng/mL U Marijuana (THC) Screen Positive H (Negative) ng/mL Ethyl Alcohol (0-10) mg/dL 10/21/19 10/21/19 10/21/19 Range/Units 02:36 02:36 02:36 WBC (4.0-10.0) 10^3/ uL RBC (4.1-5.3) 10^6/u L Hgb (11.5-15.3) g/dL Hct (37.0-47.0) % MCV (81-99) fL MCH (28.0-34.0) pg MCHC (30.0-36.0) g/dL RDW (12.1-15.1) % Plt Count (130-400) 10^3/c mm MPV (7.4-10.4) fL Neut % (Auto) % Lymph % (Auto) % [place] % (Auto) % Eos % (Auto) % Baso % (Auto) % Neut # (Auto) (1.8-7.7) 10^3/u L Lymph # (Auto) (0.8-4.8) 10^3/u L [place] # (Auto) (0.2-0.9) 10^3/u L Eos # (Auto) (0.0-0.8) 10^3/u L Baso # (Auto) (0.0-0.1) 10^3/u L Nucleated RBC % (a uto) % Nucleated RBCs # /100WBC PT 14.50 H (10.5-13.3) SECO NDS INR 1.09 (0.8-1.2) Sodium 141 (136-145) mmol/L Potassium 3.4 L (3.5-5.1) mmol/L Chloride 108 H (98-107) mmol/L Carbon Dioxide 21 L (22-29) mmol/L Anion Gap 15.4 (5-19) BUN 16 (6-20) mg/dL Creatinine 1.0 H (0.5-0.9) mg/dL GFR Calculation 61.4 L (90-130) mL/min Glucose 114 (65-115) mg/dL Calculated Osmolal ity 289 (285-295) mOsm/k g Calcium 8.0 L (8.5-10.5) mg/dL Total Bilirubin 0.4 (0.15-1.2) mg/dL AST 460 H (0-32) U/L ALT 467 H (0-33) U/L Alkaline Phosphata se 97 (35-105) IU/L Troponin T Gen 5 n g/L 16 H (0-10) ng/mL Total Protein 6.5 L (6.6-8.7) g/dL Albumin 3.7 (3.5-5.2) g/dL Globulin 2.8 (1.3-4.6) g/dL Urine Color (Yellow) Urine Appearance (CLEAR) Urine pH (5-7) Ur Specific Gravit y (1.005-1.030) Urine Protein (Negative) Urine Glucose (UA) (Normal) Urine Ketones (Negative) Urine Blood (Negative) Urine Nitrate (Negative) Urine Bilirubin (NEGATIVE) Urine Urobilinogen (Negative) mg/dL Ur Leukocyte Stephanie ase (Negative) Urine RBC (0-2) /hpf Urine WBC (0-5) /hpf Ur Squamous Epith Cells (0-5) Amorphous Sediment Urine Bacteria (NONE) Urine Mucus Salicylates 0.6 L (3-10) mg/dL Urine Opiates Scre en (Negative) ng/mL Acetaminophen < 5.0 L (10-30) ug/mL Ur Barbiturates Sc reen (Negative) ng/mL Ur Phencyclidine S crn (Negative) ng/mL Ur Amphetamines Sc reen (Negative) ng/mL U Benzodiazepines Scrn (Negative) ng/mL Urine Cocaine Scre en (Negative) ng/mL U Marijuana (THC) Screen (Negative) ng/mL Ethyl Alcohol 345 H* (0-10) mg/dL 10/21/19 Range/Units 05:15 WBC (4.0-10.0) 10^3/ uL RBC (4.1-5.3) 10^6/u L Hgb (11.5-15.3) g/dL Hct (37.0-47.0) % MCV (81-99) fL MCH (28.0-34.0) pg MCHC (30.0-36.0) g/dL RDW (12.1-15.1) % Plt Count (130-400) 10^3/c mm MPV (7.4-10.4) fL Neut % (Auto) % Lymph % (Auto) % [place] % (Auto) % Eos % (Auto) % Baso % (Auto) % Neut # (Auto) (1.8-7.7) 10^3/u L Lymph # (Auto) (0.8-4.8) 10^3/u L [place] # (Auto) (0.2-0.9) 10^3/u L Eos # (Auto) (0.0-0.8) 10^3/u L Baso # (Auto) (0.0-0.1) 10^3/u L Nucleated RBC % (a uto) % Nucleated RBCs # /100WBC PT (10.5-13.3) SECO NDS INR (0.8-1.2) Sodium (136-145) mmol/L Potassium (3.5-5.1) mmol/L Chloride (98-107) mmol/L Carbon Dioxide (22-29) mmol/L Anion Gap (5-19) BUN (6-20) mg/dL Creatinine (0.5-0.9) mg/dL GFR Calculation (90-130) mL/min Glucose (65-115) mg/dL Calculated Osmolal ity (285-295) mOsm/k g Calcium (8.5-10.5) mg/dL Total Bilirubin (0.15-1.2) mg/dL AST (0-32) U/L ALT (0-33) U/L Alkaline Phosphata se (35-105) IU/L Troponin T Gen 5 n g/L (0-10) ng/mL Total Protein (6.6-8.7) g/dL Albumin (3.5-5.2) g/dL Globulin (1.3-4.6) g/dL Urine Color (Yellow) Urine Appearance (CLEAR) Urine pH (5-7) Ur Specific Gravit y (1.005-1.030) Urine Protein (Negative) Urine Glucose (UA) (Normal) Urine Ketones (Negative) Urine Blood (Negative) Urine Nitrate (Negative) Urine Bilirubin (NEGATIVE) Urine Urobilinogen (Negative) mg/dL Ur Leukocyte Stephanie ase (Negative) Urine RBC (0-2) /hpf Urine WBC (0-5) /hpf Ur Squamous Epith Cells (0-5) Amorphous Sediment Urine Bacteria (NONE) Urine Mucus Salicylates (3-10) mg/dL Urine Opiates Scre en (Negative) ng/mL Acetaminophen (10-30) ug/mL Ur Barbiturates Sc reen (Negative) ng/mL Ur Phencyclidine S crn (Negative) ng/mL Ur Amphetamines Sc reen (Negative) ng/mL U Benzodiazepines Scrn (Negative) ng/mL Urine Cocaine Scre en (Negative) ng/mL U Marijuana (THC) Screen (Negative) ng/mL Ethyl Alcohol 288 H (0-10) mg/dL Discharge Plan Discharge Prescriptions: No Action folic acid 1 mg Tablet 1 mg PO DAILY Qty: 0 RF: 0 Thera 400 mcg Tablet 1 tab PO DAILY Qty: 0 RF: 0 hydroxyzine HCl 50 mg tablet 50 mg PO TID PRN (Reason: unknown) RF: 0 amlodipine 10 mg tablet 10 mg PO DAILY RF: 0 benzonatate 100 mg capsule 100 mg PO TID RF: 0 hydrochlorothiazide 25 mg tablet 25 mg PO DAILY PRN (Reason: unknown) RF: 0 metoprolol tartrate 25 mg tablet 25 mg PO BID RF: 0 hydrocodone-acetaminophen 5-325 mg Tablet 2 tab PO Q4H PRN (Reason: Moderate To Severe Pain) Qty: 9 RF: 0 lidocaine [Lidoderm] 5 % Adhesive Patch,Medicated 1 patch topical O12O12 Qty: 7 RF: 0 nicotine 21 mg/24 hr Patch 24 Hour 1 patch transdermal DAILY Qty: 30 RF: 0 thiamine mononitrate (vit B1) [Vitamin B-1 (mononitrate)] 100 mg Tablet 100 mg PO DAILY Qty: 30 RF: 0 nitrofurantoin macrocrystal 50 mg capsule 50 mg PO Q24H Qty: 30 RF: 0 pantoprazole 40 mg tablet,delayed release (DR/EC) 40 mg PO DAILY Qty: 30 RF: 0 ProAir HFA 90 mcg/actuation Hfa Aerosol Inhaler 1 puff INHALATION QID PRN (Reason: Shortness Of Breath) RF: 0 aripiprazole 20 mg tablet 20 mg PO DAILY 30 Days Qty: 30 RF: 1 trazodone 150 mg Tablet 150 mg PO BEDTIME PRN (Reason: Insomnia) 30 Days Qty: 30 RF: 1 nitrofurantoin monohyd/m-cryst 100 mg Capsule 100 mg PO BID 30 Days Qty: 60 RF: 1 duloxetine 30 mg capsule,delayed release(DR/EC) 60 mg PO DAILY 30 Days Qty: 60 RF: 1 Coding Level of Care Code ED Cager Operator for Ana Mariag Fwd Exam Comprehensive
[2019-10-21 02:42] LABS: Basophils # 0.1 10^3/uL (0.0-0.1); Basophils % 0.7 %; Eosinophils # 0.1 10^3/uL (0.0-0.8); Eosinophils % 1.2 %; Hematocrit 42.5 % (37.0-47.0); Hemoglobin 14.4 g/dL (11.5-15.3); Lymphocytes # 5.3 10^3/uL (0.8-4.8); Lymphocytes % 58.6 %; Mean Corpuscular HGB Conc 33.9 g/dL (30.0-36.0); Mean Corpuscular Hemoglobin 31.1 pg (28.0-34.0); Mean Corpuscular Volume 91.8 fL (81-99); Mean Platelet Volume 9.4 fL (7.4-10.4); Monocytes # 0.8 10^3/uL (0.2-0.9); Monocytes % 8.7 %; Neutrophils # 2.8 10^3/uL (1.8-7.7); Neutrophils % 30.7 %; Nucleated Red Blood Cells % 0 %; Platelet Count 388 10^3/cmm (130-400); Red Blood Count 4.63 10^6/uL (4.1-5.3); Red Cell Distribution Width 15.6 % (12.1-15.1)
[2019-10-21] MEDS: ziprasidone 20 mg/mL SDV IM (02:47)
[2019-10-21 02:53] LABS: Amphetamines Screen Urine Negative (Negative); Barbiturates Screen Urine Negative (Negative); Benzodiazepines Screen Urine Negative (Negative); Cocaine Screen Urine Negative (Negative); Opiate Screen Urine Negative (Negative); PCP Screen Urine Negative (Negative); THC Screen Urine Positive (Negative)
[2019-10-21 02:56] LABS: INR 1.09 (0.8-1.2)
[2019-10-21 02:57] LABS: Add Urine Microscopic? YES; Bilirubin Urine Neg (NEGATIVE); Blood Urine Neg (Negative); Glucose Urine UA Norm (Normal); Ketones Urine Negative (Negative); Leukocyte Esterase Urine Negative (Negative); Nitrate Urine Positive (Negative); Protein Urine Neg (Negative); Specific Gravity, Urine 1.005 (1.005-1.030); Urine Appearance Hazy (CLEAR); Urine Color Yellow (Yellow); Urobilinogen Urine Norm (Negative); pH Urine 7 (5-7)
[2019-10-21 02:59] LABS: Add Urine Culture? Yes; Amorphous Sediment Urine 1+; Bacteria Urine 2+; Mucus Urine TRACE; RBC Urine 0-4 /hpf (0-2)
[2019-10-21 03:02] LABS: Alanine Aminotransferase 467 U/L (0-33); Albumin Level 3.7 g/dL (3.5-5.2); Alkaline Phosphatase 97 IU/L (35-105); Anion Gap 15.4 (5-19); Aspartate Amino Transferase 460 U/L (0-32); Blood Urea Nitrogen 16 mg/dL (6-20); Carbon Dioxide 21 mmol/L (22-29); Chloride 108 mmol/L (98-107); Globulin 2.8 g/dL (1.3-4.6); Glomerular Filtration Rate 61.4 mL/min (90-130); Glucose 114 mg/dL (65-115); Osmolality Calculated 289 mOsm/kg (285-295); Potassium 3.4 mmol/L (3.5-5.1); Salicylate 0.6 mg/dL (3-10); Sodium 141 mmol/L (136-145); Total Bilirubin 0.4 mg/dL (0.15-1.2); Total Protein 6.5 g/dL (6.6-8.7); Troponin T (5th) Once 16 ng/mL (0-10)
[2019-10-21 03:04] LABS: Acetaminophen < 5.0 ug/mL (10-30)
[2019-10-21 03:05] LABS: Alcohol Level 345 mg/dL (0-10)
[2019-10-21 05:39] LABS: Alcohol Level 288 mg/dL (0-10)
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
[2019-10-21] MEDS: nicotine 2 mg Gum BUCCAL ×2 (12:11→15:08)
--- NOTE | 2019-10-21 13:19 | PC.NURSE ---
Addendum entered by Niya Garcia LPN 10/21/19 14:24: CIWA SCORE NOW 4, MOOD IS MORE CALM Original Note: CIWA SCORE 11 ATIVAN 2 MG GIVEN PO PER PROTOCOL. PT C/O HEADACHE, & STATED SHE WAS FEELING DIZZY. AMBULATED SAFELY TO ROOM.
[2019-10-21] MEDS: LORazepam 2 mg Tablet PO (13:30)
[2019-10-21] MEDS: acetaminophen 325 mg Tablet 650 MG PO (13:30)
[2019-10-21] MEDS: LORazepam 2 mg/mL INJ 1 mL IM (20:28)
[2019-10-21] MEDS: trazodone 50 mg Tablet PO (21:14)
[2019-10-21] MEDS: cloNIDine 0.1 mg Tablet PO (21:14)
--- NOTE | 2019-10-21 21:15 | PC.NURSE ---
DR MCCANN NOTIFIED OF PT'S INCREASED BP. #1) 175/125 AUTO CUFF, 175/122 MANUAL. ORDERS RECEIVED TO RECHECK PT'S BP, IF STILL ELEVATED, GIVEN CLONIDINE 0.1MG Q4H PRN SBP GREATER THAT 160 OR DBP GREATER THAN 100. CLONIDINE GIVEN. WILL RECHECK IN AN HOUR.
--- NOTE | 2019-10-21 22:12 | PC.NURSE ---
PT SCORES 15 ON CIWA AT THIS TIME, SOB NOTED BY VEHICLE COST ENGINEER, PT NOTED WITH VISABLE TREMORS. ATIVAN 2MG IM GIVEN PER CIWA PROTOCOL.
--- NOTE | 2019-10-21 22:19 | PC.NURSE ---
RECHECK OF BP: 156/95, WILL CONTINUE TO MONITOR PT CLOSELY.
[2019-10-22] VITALS (7 sets, daily range): BP systolic 146–162; BP diastolic 98–119; PULSE 83–88; RESP 17–20; TEMP 36.6–37.1; O2SAT 94–96
[2019-10-22] MEDS: cloNIDine 0.1 mg Tablet PO ×3 (04:07→20:46)
[2019-10-22] MEDS: acetaminophen 325 mg Tablet 650 MG PO ×2 (04:11→20:48)
[2019-10-22] MEDS: nicotine 2 mg Gum BUCCAL (04:11)
--- NOTE | 2019-10-22 05:46 | PC.NURSE ---
at just after 0400, pt was given clonidine 0.1mg for BP of 162/119. recheck of bp at this time of 146/98.
[2019-10-22] MEDS: thiamine 100 mg Tablet PO (09:17)
[2019-10-22] MEDS: folic acid 1 mg Tablet PO (09:17)
[2019-10-22] MEDS: multivitamin therapeutic Tablet 1 TAB PO (09:17)
[2019-10-22] MEDS: cetylpyridinium Lozenge 1 EACH MUCOUS MEM ×4 (09:21→20:49)
--- NOTE | 2019-10-22 11:31 | PM.NPN ---
Subjective NPU Subjective: Interval history: August presents today reporting that she feels a little better than yesterday and being a little more open to the plan of getting her to a rehabilitation sooner rather than later. She reports that she is sleeping okay and denied any major withdrawal syndromes. We discussed the risks benefits and alternatives connected to an inpatient bed at turning daily for another facility and she understood and agreed to proceed as is documented in his note. She reports that she is eating well and sleeping okay. Mental Status Exam MSE Comments: This is a well-nourished, well-developed, older appearing, white female, with adequate dress, grooming, and eye contact. No abnormal movements. Cooperative with exam in no acute distress. Speech was decreased rate and volume. Mood described as I don't know; affect irritable. Thought process, organized. Thought content: patient denied any suicidal or homicidal ideation, there were no delusions reported or noted, patient denied any auditory or visual hallucinations. Attention, concentration, and memory appear intact but were not formally tested. She is alert and oriented times three. Insight and judgment are limited. Impulse control limited. Vitals/I&O/Wt Last Vital Signs Temp 98.1 F 10/22/19 05:46 Pulse 88 10/22/19 05:46 Resp 16 10/22/19 05:46 BP 146/98 10/22/19 05:46 Pulse Ox 96 10/22/19 05:46 Data NPU : 10/21/19 02:36 10/21/19 02:36 Micro: Microbiology 10/21/19 02:31 Urine Culture - Preliminary Urine,Clean Catch Microbiology 10/21/19 02:31 Urine,Clean Catch Urine Culture - Preliminary A&P Assessment and plan (1) Cluster B personality disorder: (1) Suicidal ideation: (2) Alcohol use disorder: (3) Psychosis: (4) Cluster B personality disorder: This is a 38-year-old white female who presented to the emergency room with alcohol addiction active and reports of psychosis with clear cluster B pathology present. 1. Continue current medication. 2. Continue to 15-minute checks for safety. 3. Encourage individual, group and milieu therapy. 4. Encourage sober living treatment after discharge at the highest level of care to which she is willing to commit. Status: Acute (2) Alcohol use disorder: Status: Acute (3) Cystitis: Status: Resolved (4) Abnormal uterine bleeding: Status: Acute (5) Uterovaginal prolapse: Status: Acute Involuntary Hold Information 96 Hour Hold: 96 Hour Involuntary Admission: No 96 Hour Hold Ending Date: 10/11/19 96 Hour Hold Ending Time: 18:52 Attestations NPU Medical Necessity Statement*: Inpatient hospitalization is medically necessary and the clinically appropriate intervention at this time. We will monitor medications and adjust as indicated. Likely length of stay 1-3 days. Hopefully she will discharge to a rehabilitation bed as soon as one becomes available. Coding Level of Care Code Acute Operations Analyst for [facility] Fwd Diagnoses Cluster B personality disorder F60.89 Alcohol use disorder Cystitis N30.90 Abnormal uterine bleeding N93.9 Uterovaginal prolapse N81.4
--- NOTE | 2019-10-22 12:04 | PC.RESP ---
SMOKING CESSATION INFORMATION SENT TO PATIENT.
[2019-10-22] MEDS: OLANZapine 5 mg ODT PO (13:00)
[2019-10-22] MEDS: nicotine 21 mg Patch 1 PATCH TRANSDERMA (17:30)
[2019-10-22] MEDS: LORazepam 2 mg Tablet PO (20:47)
[2019-10-22] MEDS: trazodone 50 mg Tablet PO (20:49)
[2019-10-23] MEDS: cetylpyridinium Lozenge 1 EACH MUCOUS MEM ×4 (00:39→10:35)
[2019-10-23] MEDS: acetaminophen 325 mg Tablet 650 MG PO (03:24)
[2019-10-23] MEDS: nicotine 2 mg Gum BUCCAL ×3 (03:25→10:35)
[2019-10-23 03:33] VITALS: BP 153/122; PULSE 87; RESP 19; TEMP 36.6; O2SAT 97
[2019-10-23 03:43] VITALS: BP 153/122
[2019-10-23] MEDS: cloNIDine 0.1 mg Tablet PO (03:43)
[2019-10-23] MEDS: hyDROXYzine 25 mg Capsule 50 MG PO (03:44)
[2019-10-23 06:00] VITALS: BP 131/86; PULSE 68; RESP 16; TEMP 36.5; O2SAT 98
[2019-10-23] MEDS: thiamine 100 mg Tablet PO (08:32)
[2019-10-23] MEDS: folic acid 1 mg Tablet PO (08:32)
[2019-10-23] MEDS: multivitamin therapeutic Tablet 1 TAB PO (08:32)
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
--- NOTE | 2019-10-23 10:54 | PC.RESP ---
SMOKING CESSATION INFORMATION SENT TO PATIENT.
[2019-10-23 11:03] VITALS: BP 131/86; PULSE 68; RESP 16; TEMP 36.5; O2SAT 98
== END 2019-10-23 11:08 | disposition home or self-care (01) | DRG 885 ==
LOC: ER 02:39 → NP 06:22
PROVIDERS: Emergency Medicine; Admitting Provider Psychiatry & Neurology Psychiatry; Visit Provider Psychiatry & Neurology Psychiatry
DX: F29 Unspecified psychosis not due to a substance or known physiological condition (principal); R45.851 Suicidal ideations; F10.20 Alcohol dependence, uncomplicated; F32.9 Major depressive disorder, single episode, unspecified; F19.10 Other psychoactive substance abuse, uncomplicated; F17.210 Nicotine dependence, cigarettes, uncomplicated; Z87.11 Personal history of peptic ulcer disease; F60.89 Other specific personality disorders; Z79.891 Long term (current) use of opiate analgesic
CPT/HCPCS: 12345; 36415; 80053; 80306; 80307; 81001; 84484; 85025; 85610; 87086; 93005; 94640; 96372; 99283; J2060; J3486

== ENCOUNTER → 2019-10-25 11:30 | Outpatient (BNVA) | payer MEDICAID, SELFPAY | PROVIDERS: Visit Provider Obstetrics & Gynecology | DX: N81.4 Uterovaginal prolapse, unspecified (principal); R32 Unspecified urinary incontinence; N93.9 Abnormal uterine and vaginal bleeding, unspecified; Z12.4 Encounter for screening for malignant neoplasm of cervix | CPT/HCPCS: 80053; 88175 ==

== ENCOUNTER → 2019-10-28 12:05 | Outpatient (BNVA) | payer MEDICAID, SELFPAY | PROVIDERS: Visit Provider Obstetrics & Gynecology | DX: N81.4 Uterovaginal prolapse, unspecified (principal); R32 Unspecified urinary incontinence; N93.9 Abnormal uterine and vaginal bleeding, unspecified; Z12.4 Encounter for screening for malignant neoplasm of cervix | CPT/HCPCS: 88305 ==

== ENCOUNTER 2019-11-08 14:18 | Emergency (ER) | payer MEDICAID, SELFPAY ==
[2019-11-08 14:26] VITALS: BP 115/88; PULSE 81; RESP 18; TEMP 36.4; O2SAT 95; BMI 43.7
--- NOTE | 2019-11-08 15:48 | ECG_ITS ---
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 Measurements Intervals [place] Rate: 71 P: 39 MS: 149 QRS: 40 QRSD: 88 T: 48 QT: 398 QTc: 433 Interpretive Statements SINUS RHYTHM Compared to ECG 10/21/2019 02:31:00 No significant changes Electronically Signed On 11-09-2019 22:52:14 CDT by Ana Hickey M.D. [id number]
[2019-11-08 16:26] LABS: Basophils # 0.1 10^3/uL (0.0-0.1); Basophils % 0.6 %; Eosinophils # 0.5 10^3/uL (0.0-0.8); Eosinophils % 4.1 %; Hematocrit 43.4 % (37.0-47.0); Hemoglobin 13.9 g/dL (11.5-15.3); Mean Corpuscular Hemoglobin 30.8 pg (28.0-34.0); Mean Platelet Volume 9.9 fL (7.4-10.4); Monocytes # 0.8 10^3/uL (0.2-0.9); Monocytes % 7.1 %; Neutrophils # 7.1 10^3/uL (1.8-7.7); Neutrophils % 61.6 %; Nucleated Red Blood Cells % 0 %; Platelet Count 325 10^3/cmm (130-400); Red Blood Count 4.52 10^6/uL (4.1-5.3); Red Cell Distribution Width 15.4 % (12.1-15.1); White Blood Count 11.6 10^3/uL (4.0-10.0)
--- NOTE | 2019-11-08 16:26 | ED_ITS ---
HPI - General Adult General: Chief complaint: General Medical Stated complaint: swollen legs/feet Time Seen by Provider: 11/08/19 15:42 Source: patient Mode of arrival: ambulatory History of Present Illness: HPI narrative: Patient presents to the emergency department with complaints of bilateral leg swelling for the last 15 days. She states this is despite being on hydrochlorothiazide. She is supposed to be wearing compression socks as prescribed by her primary care provider but she has been unable to afford it. She denies any cough, shortness of breath, orthopnea or paroxysmal nocturnal dyspnea. No prior history of congestive heart failure. Onset (ago): day(s) (15) Associated symptoms: Deny dyspnea, headache(s), nausea, rash, palpitations or vomiting Review of Systems General: Reports: 10 or more systems reviewed and unremarkable except in HPI and below Const: Denies: fever(s), chills or body aches Eyes: Denies: change in vision or blurry vision ENMT: Denies: throat pain, enlarged tonsils, odynophagia, hoarseness, mouth pain or swelling of lips/tongue Card: Reports: swelling of feet/ankles; Denies: palpitations, irregular heart rhythm or edema Resp: Denies: dyspnea, productive cough or non-productive cough GI: Denies: abdominal pain, nausea or vomiting : Denies: flank pain, difficulty voiding, dysuria, urinary frequency, urinary urgency or urinary hesitancy Musc: Reports: extremity swelling; Denies: neck pain or back pain Skin/Breast: Denies: rash, pruritus or erythema Neuro: Denies: headache(s), numbness in extremities or weakness in extremities Endo: Denies: polyuria, polydipsia or tired all the time PFSH ED PFSH: Medical History Alcohol abuse Bipolar disorder Peptic ulcer disease Polysubstance abuse Prolapse of bladder Suicidal ideation Surgical History H/O shoulder surgery History of delivery History of tubal ligation Hx laparoscopic cholecystectomy Hx of neck surgery Hx of tonsillectomy Family History Grandfather Cancer Paternal grandfather Diabetes Maternal grandfather Father Diabetes Grandmother Diabetes Paternal grandmother Brother Hepatitis C Sister Alcohol abuse Denies family history of Psychiatric illness Social History Smoking and tobacco status: current every day smoker cigarettes Packs smoked per day: 3 Years cigarettes smoked: 31 Quit status (tobacco): not considering quitting Smoking risk assessment/counseling performed?: Yes (Patient reports that she rolls 70-80 cigs a day to smoke) Alcohol intake: current Other details last alcohol use: Reports is in alcohol treatment program. [place] been drinking 1 gallon of vodka daily. Female Reproductive History: Date of last menstrual period: 11/06/19 Physical Exam Const: COMMON NORMALS: no acute distress, average body habitus, patient oriented x3, no limitations, healthy appearing, alert and well nourished HENMT: COMMON NORMALS: normocephalic, atraumatic and moist oral mucous membranes HEAD & SCALP: normocephalic and atraumatic Neck/C-Spine: COMMON NORMALS: no meningeal signs and no JVD Resp: COMMON NORMALS: normal respiratory effort, No retractions, No use of accessory muscles, clear to auscultation bilaterally and percussion normal AUSCULTATION: clear to auscultation bilaterally PERCUSSION: percussion normal Cardio: COMMON NORMALS: no JVD, regular rate, regular rhythm, S1 normal heart sound present, S2 normal heart sound present, No gallops present (Cardio), No clicks present (Cardio), No murmurs present (Cardio), No rub (Cardio) and Peripheral pulses 2+ throughout RATE: regular rate RHYTHM: regular rhythm HEART SOUNDS: S1 normal heart sound present and S2 normal heart sound present PERIPHERAL PULSES: Peripheral pulses 2+ throughout GI: COMMON NORMALS: Normal to inspection, nondistended, normoactive bowel sounds present, Soft to palpation, non-tender, No hepatosplenomegaly present, no masses and no bruits PALPATION: Yes Soft to palpation and Yes No hepatosplenomegaly present : COMMON NORMALS: Yes no CVA tenderness BLADDER/KIDNEY EXAM: Yes no CVA tenderness Back/Pelvis: COMMON NORMALS: no CVA tenderness Extremity: COMMON NORMALS: normal to inspection, full ROM, capillary refill normal and no calf tenderness GENERAL: Yes edema (3+ pitting pedal edema up to the knees) Neuro: COMMON NORMALS: patient oriented x3 SENSORIUM/ORIENTATION: Yes alert MENINGEAL SIGNS: Yes no meningeal signs Skin: COMMON NORMALS: no rashes or lesions noted, no wounds, turgor normal, no jaundice, no petechiae and no mottling GENERAL SKIN EXAM: no rashes or lesions noted and turgor normal Course Reevaluation(s): Reevaluation #1: Discussed her lab findings with her. proBNP not suggestive of congestive heart failure. She does have elevated liver enzymes that are mild. Time: 18:30 Vital Signs: Vital signs: Vital Signs Temperature 97.5 F L 11/08/19 14:26 Pulse Rate 81 11/08/19 19:33 Respiratory Rate 16 11/08/19 19:33 Blood Pressure 115/77 11/08/19 19:33 Pulse Oximetry 95 11/08/19 19:33 MDM - General Adult MDM Narrative: Medical decision making narrative: 38-year-old female patient who presents with bilateral pedal edema. Ongoing thing and her primary care provider had ordered compression stockings for her, however the patient has been unable to afford them. Evaluation in the ED was negative for features of congestive heart failure. She has mildly elevated liver enzymes. She is discharged home with a prescription for furosemide and she is to follow- up with her primary care provider Medical Records: Attestation: I reviewed the patient's medical records. Lab Data: Attestation: I reviewed the patient's lab results. Labs: Lab Results 11/08/19 11/08/19 11/08/19 Range/Units 16:14 16:14 16:50 WBC 11.6 H (4.0-10.0) 10^3/ uL RBC 4.52 (4.1-5.3) 10^6/u L Hgb 13.9 (11.5-15.3) g/dL Hct 43.4 (37.0-47.0) % MCV 96.0 (81-99) fL MCH 30.8 (28.0-34.0) pg MCHC 32.0 (30.0-36.0) g/dL RDW 15.4 H (12.1-15.1) % Plt Count 325 (130-400) 10^3/c mm MPV 9.9 (7.4-10.4) fL Neut % (Auto) 61.6 % Lymph % (Auto) 26.0 % Grainger % (Auto) 7.1 % Eos % (Auto) 4.1 % Baso % (Auto) 0.6 % Neut # (Auto) 7.1 (1.8-7.7) 10^3/u L Lymph # (Auto) 3.0 (0.8-4.8) 10^3/u L Grainger # (Auto) 0.8 (0.2-0.9) 10^3/u L Eos # (Auto) 0.5 (0.0-0.8) 10^3/u L Baso # (Auto) 0.1 (0.0-0.1) 10^3/u L Nucleated RBC % (a uto) 0 % Nucleated RBCs # 0.0 /100WBC Sodium 135 L (136-145) mmol/L Potassium 3.9 (3.5-5.1) mmol/L Chloride 97 L (98-107) mmol/L Carbon Dioxide 28 (22-29) mmol/L Anion Gap 13.9 (5-19) BUN 22 H (6-20) mg/dL Creatinine 1.3 H (0.5-0.9) mg/dL GFR Calculation 45.4 L (90-130) mL/min Glucose 197 H (65-115) mg/dL Calculated Osmolal ity 282 L (285-295) mOsm/k g Calcium 9.1 (8.5-10.5) mg/dL Total Bilirubin 0.2 (0.15-1.2) mg/dL AST 33 H (0-32) U/L ALT 48 H (0-33) U/L Alkaline Phosphata se 124 H (35-105) IU/L NT-Pro-B Natriuret Pep 25 (0-125) pg/mL Total Protein 6.5 L (6.6-8.7) g/dL Albumin 3.7 (3.5-5.2) g/dL Globulin 2.8 (1.3-4.6) g/dL Urine Color Yellow (Yellow) Urine Appearance Clear (CLEAR) Urine pH 6.5 (5-7) Ur Specific Gravit y 1.015 (1.005-1.030) Urine Protein Neg (Negative) Urine Glucose (UA) 4+ H (Normal) Urine Ketones Negative (Negative) Urine Blood Neg (Negative) Urine Nitrate Negative (Negative) Urine Bilirubin Neg (NEGATIVE) Urine Urobilinogen Norm (Negative) mg/dL Ur Leukocyte Stephanie ase Negative (Negative) EKG Data^: EKG 1: EKG interpretation date: 11/08/19 Prior EKG tracings: not available for review Computer generated interpretation: [address] [address] Electrocardiograph Report Draft Patient: Mary Jo Cortés #: [id number] : 1980Acct#:[id number] Age/Sex: 38 / FADM Date: 11/08/19 Loc: ERRoom/Bed: Attending Dr: Ordering Provider/Ordering MD: Tiffani Tate MD, [facility] of Service: 11/08/19 Procedure(s): ECG 12 lead EKG Accession Number(s): [id number] Report Number: [id number] [facility] ED Test Date: 2019-11-08 Pat Name: Mary Jo Cortés Department: Room: 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 Dictated By:INTERFACE,USER Signed By:Signed Date/Time: DD/ 1557 Discharge Plan Discharge Patient Disposition: Home, Self-Care Clinical Impression: Pedal edema Condition: Stable Prescriptions: New Lasix 20 mg tablet 20 mg PO DAILY Qty: 3 RF: 0 Continued folic acid 1 mg Tablet 1 mg PO DAILY Qty: 0 RF: 0 Thera 400 mcg Tablet 1 tab PO DAILY Qty: 0 RF: 0 hydroxyzine HCl 50 mg tablet 50 mg PO TID PRN (Reason: unknown) RF: 0 amlodipine 10 mg tablet 10 mg PO DAILY RF: 0 benzonatate 100 mg capsule 100 mg PO TID RF: 0 hydrochlorothiazide 25 mg tablet 25 mg PO DAILY PRN (Reason: unknown) RF: 0 metoprolol tartrate 25 mg tablet 25 mg PO BID RF: 0 hydrocodone-acetaminophen 5-325 mg Tablet 2 tab PO Q4H PRN (Reason: Moderate To Severe Pain) Qty: 9 RF: 0 lidocaine [Lidoderm] 5 % Adhesive Patch,Medicated 1 patch topical O12O12 Qty: 7 RF: 0 nicotine 21 mg/24 hr Patch 24 Hour 1 patch transdermal DAILY Qty: 30 RF: 0 thiamine mononitrate (vit B1) [Vitamin B-1 (mononitrate)] 100 mg Tablet 100 mg PO DAILY Qty: 30 RF: 0 nitrofurantoin macrocrystal 50 mg capsule 50 mg PO Q24H Qty: 30 RF: 0 pantoprazole 40 mg tablet,delayed release (DR/EC) 40 mg PO DAILY Qty: 30 RF: 0 ProAir HFA 90 mcg/actuation Hfa Aerosol Inhaler 1 puff INHALATION QID PRN (Reason: Shortness Of Breath) RF: 0 aripiprazole 20 mg tablet 20 mg PO DAILY 30 Days Qty: 30 RF: 1 trazodone 150 mg Tablet 150 mg PO BEDTIME PRN (Reason: Insomnia) 30 Days Qty: 30 RF: 1 nitrofurantoin monohyd/m-cryst 100 mg Capsule 100 mg PO BID 30 Days Qty: 60 RF: 1 duloxetine 30 mg capsule,delayed release(DR/EC) 60 mg PO DAILY 30 Days Qty: 60 RF: 1 Discharge Orders: Discharge Order (Routine); Ordered 11/08/19 Ordered By: Tiffani Tate Referrals: Dawson Murguia [Primary Care Provider] - 4-7 days Patient Instructions: Leg Edema (ED) Activity Restrictions/Additional Instructions: Return for any new or worsening symptoms. Follow-up with your primary care provider within 1 week. Take the medication as prescribed. You will also benefit from compression socks as your doctor had recommended. Discharge Date/Time: 11/08/19 19:33 Coding Level of Care Code ED Rug Cutter Helper for Chg Fwd Exam Comprehensive
[2019-11-08 16:54] LABS: Alanine Aminotransferase 48 U/L (0-33); Albumin Level 3.7 g/dL (3.5-5.2); Alkaline Phosphatase 124 IU/L (35-105); Anion Gap 13.9 (5-19); Aspartate Amino Transferase 33 U/L (0-32); Blood Urea Nitrogen 22 mg/dL (6-20); Calcium 9.1 mg/dL (8.5-10.5); Carbon Dioxide 28 mmol/L (22-29); Chloride 97 mmol/L (98-107); Globulin 2.8 g/dL (1.3-4.6); Glomerular Filtration Rate 45.4 mL/min (90-130); Glucose 197 mg/dL (65-115); NT Pro B Type Natriuretic Pept 25 pg/mL (0-125); Osmolality Calculated 282 mOsm/kg (285-295); Potassium 3.9 mmol/L (3.5-5.1); Sodium 135 mmol/L (136-145); Total Bilirubin 0.2 mg/dL (0.15-1.2); Total Protein 6.5 g/dL (6.6-8.7)
[2019-11-08 17:33] LABS: Add Urine Microscopic? NO
[2019-11-08 17:43] LABS: Glucose Urine UA 4+ (Normal); Protein Urine Neg (Negative); Specific Gravity, Urine 1.015 (1.005-1.030); Urine Appearance Clear (CLEAR); Urine Color Yellow (Yellow); pH Urine 6.5 (5-7)
[2019-11-08 17:44] LABS: Bilirubin Urine Neg (NEGATIVE); Blood Urine Neg (Negative); Ketones Urine Negative (Negative); Leukocyte Esterase Urine Negative (Negative); Nitrate Urine Negative (Negative); Urobilinogen Urine Norm (Negative)
--- NOTE | 2019-11-08 19:04 | PC.NURSE ---
report received from MILKA Meek and care transferred to MILKA Ham
[2019-11-08 19:12] VITALS: BP 135/82; PULSE 80; RESP 17; O2SAT 96
[2019-11-08] MEDS: FUROsemide 40 mg Tablet 20 MG PO (19:30)
[2019-11-08 19:33] VITALS: BP 115/77; PULSE 81; RESP 16; O2SAT 95
== END 2019-11-08 19:33 | disposition home or self-care (01) ==
PROVIDERS: Emergency Provider Family Medicine; PCP Physician Assistant Medical
DX: R60.0 Localized edema (principal); F17.210 Nicotine dependence, cigarettes, uncomplicated
CPT/HCPCS: 12345; 36415; 80053; 81003; 83880; 85025; 93005; 99282; 99283

== ENCOUNTER 2019-12-27 15:51 | Inpatient (IN) | payer MEDICAID, SELFPAY ==
[2019-12-27] VITALS (11 sets, daily range): BP systolic 105–172; BP diastolic 89–115; PULSE 81–111; RESP 15–22; TEMP 36.8–37.2; O2SAT 92–97; BMI 44.5
--- NOTE | 2019-12-27 15:52 | XRR_ITS ---
PROCEDURE INFORMATION: Exam: XR Chest, 1 View Exam date and time: 12/27/2019 4:20 PM Age: 39 years old Clinical indication: Dyspnea; Patient HX: Covid precautions; Additional info: Dyspnea/covid TECHNIQUE: Imaging protocol: XR of the chest Views: 1 view. COMPARISON: CR XR chest 1V portable [id number] 09/18/2019 7:58 PM FINDINGS: Lungs: Unremarkable. No consolidation. Low lung volumes are present Pleural space: Unremarkable. No pleural effusion. No pneumothorax. Heart/Mediastinum: Unremarkable. No cardiomegaly. Bones/joints: Unremarkable. There has been no interval change compared to prior examination. XR/XR chest 1V portable [id number] IMPRESSION: No acute findings.
--- NOTE | 2019-12-27 16:11 | W.ED.SOB ---
HPI - SOB/Dyspnea General: Chief Complaint: Shortness of Breath/Dyspnea Stated Complaint: Respiratory distress Time Seen by Provider: 12/27/19 15:56 Source: patient and EMS Mode of arrival: EMS Limitations: no limitations History of Present Illness: HPI Narrative: 39-year-old female who states she has had bilateral flank pain and abdominal pain over the last 2 to 3 days. States pain is sharp in nature and rates an 8 out of 10. States she is also had subjective fevers and some shortness of breath. She denies any cough. She is afebrile here. She has no known sick contacts. Denies any chest pain. Associated symptoms: Reports abdominal pain and nausea; Deny chest pain Review of Systems Const: Reports: chills Eyes: Denies: blurry vision or eye discomfort ENMT: Denies: throat pain or dental pain Card: Denies: chest pain Resp: Reports: dyspnea GI: Reports: abdominal pain and nausea : Reports: flank pain Musc: Denies: neck pain or back pain Skin/Breast: Denies: rash Neuro: Denies: headache(s) Psych: Denies: depression Jaron/Lymph: Denies: easy bruising All/Imm: Denies: urticaria PFSH ED PFSH: Medical History (Updated 12/27/19 @ 21:18 by Jim Judd MD) Alcohol abuse Bipolar disorder History of hydronephrosis Peptic ulcer disease Polysubstance abuse Prolapse of bladder Suicidal ideation Surgical History H/O shoulder surgery History of delivery History of tubal ligation Hx laparoscopic cholecystectomy Hx of neck surgery Hx of tonsillectomy Family History Grandfather Cancer Paternal grandfather Diabetes Maternal grandfather Father Diabetes Grandmother Diabetes Paternal grandmother Brother Hepatitis C Sister Alcohol abuse Denies family history of Psychiatric illness Social History Smoking and tobacco status: current every day smoker cigarettes Packs smoked per day: 3 Years cigarettes smoked: 31 Quit status (tobacco): not considering quitting Smoking risk assessment/counseling performed?: Yes (Patient reports that she rolls 70-80 cigs a day to smoke) Alcohol intake: current Other details last alcohol use: Reports is in alcohol treatment program. [place] been drinking 1 gallon of vodka daily. Current gender identity: Female Female Reproductive History: Date of last menstrual period: 11/06/19 Physical Exam Const: COMMON NORMALS: no acute distress, patient oriented x3 and healthy appearing HENMT: COMMON NORMALS: normocephalic and atraumatic HEAD & SCALP: normocephalic and atraumatic Eye: COMMON NORMALS: Equal, round and reactive pupils present and EOMs intact bilaterally PUPIL: Yes Equal, round and reactive pupils present Neck/C-Spine: COMMON NORMALS: full ROM and supple Chest: COMMONS NORMALS: normal inspection of the chest and normal palpation of entire chest wall Resp: COMMON NORMALS: normal respiratory effort, No retractions, No use of accessory muscles and clear to auscultation bilaterally AUSCULTATION: clear to auscultation bilaterally Cardio: COMMON NORMALS: regular rate, regular rhythm and No murmurs present (Cardio) RATE: regular rate RHYTHM: regular rhythm GI: COMMON NORMALS: Normal to inspection, nondistended, normoactive bowel sounds present, Soft to palpation, non-tender and no masses PALPATION: Yes Soft to palpation Extremity: COMMON NORMALS: normal to inspection and full ROM Neuro: COMMON NORMALS: patient oriented x3, moves all extremities and no focal motor deficits Psych: COMMON NORMALS: mental status grossly normal, Normal thought process present and cooperative THOUGHT PROCESS: Normal thought process present Skin: COMMON NORMALS: no rashes or lesions noted and no wounds GENERAL SKIN EXAM: no rashes or lesions noted Course Vital Signs: Vital signs: Vital Signs Temperature 98.9 F 12/27/19 15:52 Pulse Rate 88 12/27/19 20:22 Respiratory Rate 18 12/27/19 18:32 Blood Pressure 159/102 12/27/19 20:22 Pulse Oximetry 93 12/27/19 20:22 MDM - SOB/Dyspnea MDM Narrative: Medical decision making narrative: Patient presents with pyelonephritis likely causing her bilateral flank pain. Patient does have an elevated white count and lactate states she does not feel well. Patient has no signs of pneumonia her blood pressures been normal. Patient's COVID test is negative. Spoke to hospitalist and will admit for IV hydration and antibiotics for her [place]. Lab Data: Labs: Lab Results 12/27/19 12/27/1912/26/20 Range/Units 16:00 16:42 16:42 WBC 14.0 H (4.0-10.0) 10^3/ uL RBC 5.06 (4.1-5.3) 10^6/u L Hgb 15.1 (11.5-15.3) g/dL Hct 45.9 (37.0-47.0) % MCV 90.7 (81-99) fL MCH 29.8 (28.0-34.0) pg MCHC 32.9 (30.0-36.0) g/dL RDW 14.4 (12.1-15.1) % Plt Count 377 (130-400) 10^3/c mm MPV 9.4 (7.4-10.4) fL Neut % (Auto) 77.8 % Lymph % (Auto) 16.7 % Burnett % (Auto) 4.7 % Eos % (Auto) 0.2 % Baso % (Auto) 0.2 % Neut # (Auto) 10.90 H (1.8-7.7) 10^3/u L Lymph # (Auto) 2.3 (0.8-4.8) 10^3/u L Burnett # (Auto) 0.7 (0.2-0.9) 10^3/u L Eos # (Auto) 0.0 (0.0-0.8) 10^3/u L Baso # (Auto) 0.0 (0.0-0.1) 10^3/u L Nucleated RBC % (a uto) 0 % Nucleated RBCs # 0.0 /100WBC Fibrinogen 370 (174-498) mg/dL D-Dimer 0.78 H (0-0.59) ug/mIFE U Specimen Type Arterial Sample Site Brachial, right ABG pH 7.39 (7.35-7.45) ABG pCO2 34.1 L (35-45) mmHg ABG pO2 70.6 L (80.0-100.0) mmH g ABG HCO3 20.8 L (22-26) mmol/L ABG Base Excess -3.2 L (-2.0-2.0) mmol/ L Evans Test N/a Hematocrit 48.4 H (37-47) % O2 Delivery Device Room air O2 Liters/Min 2.0 % FiO2 21.0 % Security And Compliance Project Manager ID Amh Sodium (136-145) mmol/L Potassium (3.5-5.1) mmol/L Chloride (98-107) mmol/L Carbon Dioxide (22-29) mmol/L Anion Gap (5-19) BUN (6-20) mg/dL Creatinine (0.5-0.9) mg/dL GFR Calculation (90-130) mL/min Glucose (65-115) mg/dL Calculated Osmolal ity (285-295) mOsm/k g Lactic Acid (0.5-2.2) mmol/L Calcium (8.5-10.5) mg/dL Magnesium (1.7-2.3) mg/dL Ferritin (15-150) ng/mL Total Bilirubin (0.15-1.2) mg/dL AST (0-32) U/L ALT (0-33) U/L Alkaline Phosphata se (35-105) IU/L Lactate Dehydrogen ase (135-214) U/L C-Reactive Protein (0.0-4.9) mg/L Total Protein (6.6-8.7) g/dL Albumin (3.5-5.2) g/dL Globulin (1.3-4.6) g/dL Procalcitonin (0-0.5) ng/mL Urine Color (Yellow) Urine Appearance (CLEAR) Urine pH (5-7) Ur Specific Gravit y (1.005-1.030) Urine Protein (Negative) Urine Glucose (UA) (Normal) Urine Ketones (Negative) Urine Blood (Negative) Urine Nitrate (Negative) Urine Bilirubin (NEGATIVE) Urine Urobilinogen (Negative) mg/dL Ur Leukocyte Stephanie ase (Negative) Urine RBC (0-2) /hpf Urine WBC (0-5) /hpf Ur Squamous Epith Cells (0-5) Amorphous Sediment Urine Bacteria (NONE) Urine Mucus Ethyl Alcohol (0-10) mg/dL SARS-CoV-2 Ag (Rap id) (Negative) 12/27/19 12/27/19 12/27/19 Range/Units 16:42 16:42 17:15 WBC (4.0-10.0) 10^3/ uL RBC (4.1-5.3) 10^6/u L Hgb (11.5-15.3) g/dL Hct (37.0-47.0) % MCV (81-99) fL MCH (28.0-34.0) pg MCHC (30.0-36.0) g/dL RDW (12.1-15.1) % Plt Count (130-400) 10^3/c mm MPV (7.4-10.4) fL Neut % (Auto) % Lymph % (Auto) % Burnett % (Auto) % Eos % (Auto) % Baso % (Auto) % Neut # (Auto) (1.8-7.7) 10^3/u L Lymph # (Auto) (0.8-4.8) 10^3/u L Burnett # (Auto) (0.2-0.9) 10^3/u L Eos # (Auto) (0.0-0.8) 10^3/u L Baso # (Auto) (0.0-0.1) 10^3/u L Nucleated RBC % (a uto) % Nucleated RBCs # /100WBC Fibrinogen (174-498) mg/dL D-Dimer (0-0.59) ug/mIFE U Specimen Type Sample Site ABG pH (7.35-7.45) ABG pCO2 (35-45) mmHg ABG pO2 (80.0-100.0) mmH g ABG HCO3 (22-26) mmol/L ABG Base Excess (-2.0-2.0) mmol/ L Evans Test Hematocrit (37-47) % O2 Delivery Device O2 Liters/Min % FiO2 % Security And Compliance Project Manager ID Sodium 138 (136-145) mmol/L Potassium 3.8 (3.5-5.1) mmol/L Chloride 104 (98-107) mmol/L Carbon Dioxide 19 L (22-29) mmol/L Anion Gap 18.8 (5-19) BUN 9 (6-20) mg/dL Creatinine 0.7 (0.5-0.9) mg/dL GFR Calculation 92.2 (90-130) mL/min Glucose 132 H (65-115) mg/dL Calculated Osmolal ity 284 L (285-295) mOsm/k g Lactic Acid 3.7 H (0.5-2.2) mmol/L Calcium 7.8 L (8.5-10.5) mg/dL Magnesium 1.8 (1.7-2.3) mg/dL Ferritin 215 H (15-150) ng/mL Total Bilirubin 0.4 (0.15-1.2) mg/dL AST 78 H (0-32) U/L ALT 78 H (0-33) U/L Alkaline Phosphata se 109 H (35-105) IU/L Lactate Dehydrogen ase 230 H (135-214) U/L C-Reactive Protein 23.1 H (0.0-4.9) mg/L Total Protein 6.9 (6.6-8.7) g/dL Albumin 3.4 L (3.5-5.2) g/dL Globulin 3.5 (1.3-4.6) g/dL Procalcitonin 0.09 (0-0.5) ng/mL Urine Color (Yellow) Urine Appearance (CLEAR) Urine pH (5-7) Ur Specific Gravit y (1.005-1.030) Urine Protein (Negative) Urine Glucose (UA) (Normal) Urine Ketones (Negative) Urine Blood (Negative) Urine Nitrate (Negative) Urine Bilirubin (NEGATIVE) Urine Urobilinogen (Negative) mg/dL Ur Leukocyte Stephanie ase (Negative) Urine RBC (0-2) /hpf Urine WBC (0-5) /hpf Ur Squamous Epith Cells (0-5) Amorphous Sediment Urine Bacteria (NONE) Urine Mucus Ethyl Alcohol 21 H (0-10) mg/dL SARS-CoV-2 Ag (Rap id) Negative (Negative) 12/27/19 Range/Units 20:15 WBC (4.0-10.0) 10^3/ uL RBC (4.1-5.3) 10^6/u L Hgb (11.5-15.3) g/dL Hct (37.0-47.0) % MCV (81-99) fL MCH (28.0-34.0) pg MCHC (30.0-36.0) g/dL RDW (12.1-15.1) % Plt Count (130-400) 10^3/c mm MPV (7.4-10.4) fL Neut % (Auto) % Lymph % (Auto) % Burnett % (Auto) % Eos % (Auto) % Baso % (Auto) % Neut # (Auto) (1.8-7.7) 10^3/u L Lymph # (Auto) (0.8-4.8) 10^3/u L Burnett # (Auto) (0.2-0.9) 10^3/u L Eos # (Auto) (0.0-0.8) 10^3/u L Baso # (Auto) (0.0-0.1) 10^3/u L Nucleated RBC % (a uto) % Nucleated RBCs # /100WBC Fibrinogen (174-498) mg/dL D-Dimer (0-0.59) ug/mIFE U Specimen Type Sample Site ABG pH (7.35-7.45) ABG pCO2 (35-45) mmHg ABG pO2 (80.0-100.0) mmH g ABG HCO3 (22-26) mmol/L ABG Base Excess (-2.0-2.0) mmol/ L Evans Test Hematocrit (37-47) % O2 Delivery Device O2 Liters/Min % FiO2 % Security And Compliance Project Manager ID Sodium (136-145) mmol/L Potassium (3.5-5.1) mmol/L Chloride (98-107) mmol/L Carbon Dioxide (22-29) mmol/L Anion Gap (5-19) BUN (6-20) mg/dL Creatinine (0.5-0.9) mg/dL GFR Calculation (90-130) mL/min Glucose (65-115) mg/dL Calculated Osmolal ity (285-295) mOsm/k g Lactic Acid (0.5-2.2) mmol/L Calcium (8.5-10.5) mg/dL Magnesium (1.7-2.3) mg/dL Ferritin (15-150) ng/mL Total Bilirubin (0.15-1.2) mg/dL AST (0-32) U/L ALT (0-33) U/L Alkaline Phosphata se (35-105) IU/L Lactate Dehydrogen ase (135-214) U/L C-Reactive Protein (0.0-4.9) mg/L Total Protein (6.6-8.7) g/dL Albumin (3.5-5.2) g/dL Globulin (1.3-4.6) g/dL Procalcitonin (0-0.5) ng/mL Urine Color Yellow (Yellow) Urine Appearance Sl cloudy A (CLEAR) Urine pH 6 (5-7) Ur Specific Gravit y 1.015 (1.005-1.030) Urine Protein Neg (Negative) Urine Glucose (UA) Trace H (Normal) Urine Ketones 1+ H (Negative) Urine Blood 2+ H (Negative) Urine Nitrate Positive H (Negative) Urine Bilirubin Neg (NEGATIVE) Urine Urobilinogen Norm (Negative) mg/dL Ur Leukocyte Stephanie ase 2+ H (Negative) Urine RBC 15-25 H (0-2) /hpf Urine WBC Too numerous to c nt H (0-5) /hpf Ur Squamous Epith Cells >100 H (0-5) Amorphous Sediment Not Reportable Urine Bacteria 4+ H (NONE) Urine Mucus 1+ Ethyl Alcohol (0-10) mg/dL SARS-CoV-2 Ag (Rap id) (Negative) Imaging Data^: CXR: Attestation: I personally reviewed and interpreted this imaging study as follows: Radiologist's impression: [address] [address] XRay Report Signed Patient: MooAugust Unit #: [id number] : 1980 Age/Sex: 39 / F ADM Date: 12/27/19 Loc: ER Room/Bed: Attending Dr: Ordering Provider/Ordering MD: Lamont Whitley DO Date of Service: 12/27/19 Procedure(s): XR chest 1V portable [id number] Accession Number(s): [id number] Report Number: [id number] PROCEDURE INFORMATION: Exam: XR Chest, 1 View Exam date and time: 12/27/2019 4:20 PM Age: 39 years old Clinical indication: Dyspnea; Patient HX: Covid precautions; Additional info: Dyspnea/covid TECHNIQUE: Imaging protocol: XR of the chest Views: 1 view. COMPARISON: CR XR chest 1V portable [id number] 09/18/2019 7:58 PM FINDINGS: Lungs: Unremarkable. No consolidation. Low lung volumes are present Pleural space: Unremarkable. No pleural effusion. No pneumothorax. Heart/Mediastinum: Unremarkable. No cardiomegaly. Bones/joints: Unremarkable. There has been no interval change compared to prior examination. XR/XR chest 1V portable [id number] IMPRESSION: No acute findings. CT Chest: Radiologist's impression: [address] [place] [address] CT Scan Report Signed Patient: MooAugust Unit #: [id number] : 1980 Age/Sex: 39 / F ADM Date: 12/27/19 Loc: ER Room/Bed: Attending Dr: Ordering Provider/Ordering MD: Agnieszka Jalloh MD Date of Service: 12/27/19 Procedure(s): CT angio chest w abd pel w con Accession Number(s): [id number] Report Number: [id number] PROCEDURE INFORMATION: Exam: CT Angiography Chest With Contrast Exam date and time: 12/27/2019 6:00 PM Age: 39 years old Clinical indication: Cough and fever and shortness of breath; Cough with hemorrhage; Prior surgery; Surgery date: 6+ months; Surgery type: C-sect, gb; Patient HX: Resp distress, coughing up blood, b flank pain; Additional info: SOB TECHNIQUE: Imaging protocol: Computed tomographic angiography of the chest with intravenous contrast. 3D rendering: MIP and/or 3D reconstructed images were created by the technologist. Radiation optimization: All CT scans at this facility use at least one of these dose optimization techniques: automated exposure control; mA and/or kV adjustment per patient size (includes targeted exams where dose is matched to clinical indication); or iterative reconstruction. Contrast material: OMNI 350; Contrast volume: 150 ml; Contrast route: INTRAVENOUS (IV); COMPARISON: CT angio chest PE protcl [id number] 05/29/2019 11:40 AM RADIATION DOSE METRICS: Total DLP (mGy-cm): 2971.25 FINDINGS: Pulmonary arteries: There is no evidence of filling defects within the pulmonary arterial circulation to suggest pulmonary embolism. Aorta: Unremarkable. No aortic aneurysm. No aortic dissection. Lungs: There are mild changes of centrilobular emphysema with apical predominance. There is some minimal dependent atelectasis at the lung bases. Pleural space: Unremarkable. No pneumothorax. No pleural effusion. Heart: Unremarkable. No cardiomegaly. No pericardial effusion. Lymph nodes: Unremarkable. No enlarged lymph nodes. Bones/joints: Unremarkable. No acute fracture. Soft tissues: Unremarkable. IMPRESSION: 1. Mild emphysema 2. No acute infiltrate 3. No evidence of pulmonary embolism. PROCEDURE INFORMATION: Exam: CT Abdomen And Pelvis With Contrast Exam date and time: 12/27/2019 6:00 PM Age: 39 years old Clinical indication: Cough and fever and shortness of breath; Cough with hemorrhage; Prior surgery; Surgery date: 6+ months; Surgery type: C-sect, gb; Patient HX: Resp distress, coughing up blood, b flank pain; Additional info: SOB TECHNIQUE: Imaging protocol: Computed tomography of the abdomen and pelvis with intravenous contrast. Radiation optimization: All CT scans at this facility use at least one of these dose optimization techniques: automated exposure control; mA and/or kV adjustment per patient size (includes targeted exams where dose is matched to clinical indication); or iterative reconstruction. Contrast material: OMNI 350; Contrast volume: 150 ml; Contrast route: INTRAVENOUS (IV); COMPARISON: 1. CT angio chest PE protcl [id number] 05/29/2019 11:[address] abdomen pelvis w con* [id number] 10/07/2019 5:38:33 PM RADIATION DOSE METRICS: Total DLP (mGy-cm): 2971.25 FINDINGS: Liver: There is a diffuse decrease in hepatic parenchymal density, consistent with moderate fatty infiltration. There is moderate enlargement of the liver. Gallbladder and bile ducts: There has been a cholecystectomy. Pancreas: The pancreas is normal. Spleen: The spleen is normal. Adrenals: The adrenal glands are normal. Kidneys and ureters: The right kidney is normal. 6 mm simple cyst in the upper pole and 15 mm simple cyst in the lower pole of the left kidney not significantly changed. There is no evidence of hydronephrosis. There is mild mucosal enhancement in the renal collecting system and upper ureters on both sides suggesting bilateral may tract infection or pyelonephritis. Stomach and bowel: There is no evidence of colitis/diverticulitis. There is mild thickening of the entire colon wall which may represent colitis, but is more likely due to nondistention. This is not significantly changed from 10/07/2019. Appendix: A normal appendix is identified. Intraperitoneal space: Unremarkable. No free air. No significant fluid collection. Vasculature: Unremarkable. No abdominal aortic aneurysm. Lymph nodes: Unremarkable. No enlarged lymph nodes. Bladder: There is mild thickening of the urinary bladder wall which could represent urinary tract infection, however this is significantly less than on 10/07/2019. Reproductive: Uterine prolapse is again identified not significantly changed from 10/07/2019. Bones/joints: Unremarkable. No acute fracture. Soft tissues: There is small umbilical hernia containing fat. CT/CT angio chest w abd pel w con IMPRESSION: 1. Urothelial enhancement in the proximal ureters and collecting systems on both sides suggesting urinary tract infection or pyelonephritis. 2. Fatty liver hepatomegaly 3. Question of nonspecific thickening of the colon not significantly changed from previous. 4. Uterine prolapse. 5. Hepatomegaly and fatty liver. 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
[2019-12-27 16:13] LABS: Blood Gas Operator Identificat AMH; Blood Gas Sample Type Arterial
[2019-12-27 16:44] LABS: ABG PCO2 34.1 mmHg (35-45); ABG PH Result 7.39 (7.35-7.45); Arterial Blood Gas Hematocrit 48.4 % (37-47); Base Excess ABG -3.2 mmol/L (-2.0-2.0); Blood Gas Sample Site Brachial, right; HCO3 ABG 20.8 mmol/L (22-26); Oxygen Device ROOM AIR; PO2 ABG 70.6 mmHg (80.0-100.0)
[2019-12-27 16:51] LABS: Basophils % 0.2 %; Eosinophils % 0.2 %; Hematocrit 45.9 % (37.0-47.0); Hemoglobin 15.1 g/dL (11.5-15.3); Lymphocytes # 2.3 10^3/uL (0.8-4.8); Lymphocytes % 16.7 %; Mean Corpuscular HGB Conc 32.9 g/dL (30.0-36.0); Mean Corpuscular Hemoglobin 29.8 pg (28.0-34.0); Mean Corpuscular Volume 90.7 fL (81-99); Mean Platelet Volume 9.4 fL (7.4-10.4); Monocytes # 0.7 10^3/uL (0.2-0.9); Monocytes % 4.7 %; Neutrophils % 77.8 %; Nucleated Red Blood Cells % 0 %; Platelet Count 377 10^3/cmm (130-400); Red Blood Count 5.06 10^6/uL (4.1-5.3); Red Cell Distribution Width 14.4 % (12.1-15.1)
[2019-12-27 17:06] LABS: Fibrinogen 370 mg/dL (174-498)
[2019-12-27 17:09] LABS: D Dimer 0.78 ug/mIFEU (0-0.59)
[2019-12-27 17:22] LABS: Lactic Sepsis W/Reflex 3.7 mmol/L (0.5-2.2)
[2019-12-27 17:23] LABS: Procalcitonin 0.09 ng/mL (0-0.5)
[2019-12-27 17:34] LABS: Alanine Aminotransferase 78 U/L (0-33); Albumin Level 3.4 g/dL (3.5-5.2); Alcohol Level 21 mg/dL (0-10); Alkaline Phosphatase 109 IU/L (35-105); Anion Gap 18.8 (5-19); Aspartate Amino Transferase 78 U/L (0-32); Blood Urea Nitrogen 9 mg/dL (6-20); C Reactive Protein 23.1 mg/L (0.0-4.9); Calcium 7.8 mg/dL (8.5-10.5); Carbon Dioxide 19 mmol/L (22-29); Chloride 104 mmol/L (98-107); Ferritin 215 ng/mL (15-150); Globulin 3.5 g/dL (1.3-4.6); Glomerular Filtration Rate 92.2 mL/min (90-130); Glucose 132 mg/dL (65-115); Lactate Dehydrogenase 230 U/L (135-214); Magnesium 1.8 mg/dL (1.7-2.3); Osmolality Calculated 284 mOsm/kg (285-295); Potassium 3.8 mmol/L (3.5-5.1); Sodium 138 mmol/L (136-145); Total Bilirubin 0.4 mg/dL (0.15-1.2); Total Protein 6.9 g/dL (6.6-8.7)
[2019-12-27 17:38] LABS: SARS Covid-2 Antigen Negative (Negative)
--- NOTE | 2019-12-27 17:42 | CTR_ITS ---
PROCEDURE INFORMATION: Exam: CT Angiography Chest With Contrast Exam date and time: 12/27/2019 6:00 PM Age: 39 years old Clinical indication: Cough and fever and shortness of breath; Cough with hemorrhage; Prior surgery; Surgery date: 6+ months; Surgery type: C-sect, gb; Patient HX: Resp distress, coughing up blood, b flank pain; Additional info: SOB TECHNIQUE: Imaging protocol: Computed tomographic angiography of the chest with intravenous contrast. 3D rendering: MIP and/or 3D reconstructed images were created by the technologist. Radiation optimization: All CT scans at this facility use at least one of these dose optimization techniques: automated exposure control; mA and/or kV adjustment per patient size (includes targeted exams where dose is matched to clinical indication); or iterative reconstruction. Contrast material: OMNI 350; Contrast volume: 150 ml; Contrast route: INTRAVENOUS (IV); COMPARISON: CT angio chest PE protcl [id number] 05/29/2019 11:40 AM RADIATION DOSE METRICS: Total DLP (mGy-cm): 2971.25 FINDINGS: Pulmonary arteries: There is no evidence of filling defects within the pulmonary arterial circulation to suggest pulmonary embolism. Aorta: Unremarkable. No aortic aneurysm. No aortic dissection. Lungs: There are mild changes of centrilobular emphysema with apical predominance. There is some minimal dependent atelectasis at the lung bases. Pleural space: Unremarkable. No pneumothorax. No pleural effusion. Heart: Unremarkable. No cardiomegaly. No pericardial effusion. Lymph nodes: Unremarkable. No enlarged lymph nodes. Bones/joints: Unremarkable. No acute fracture. Soft tissues: Unremarkable. IMPRESSION: 1. Mild emphysema 2. No acute infiltrate 3. No evidence of pulmonary embolism. PROCEDURE INFORMATION: Exam: CT Abdomen And Pelvis With Contrast Exam date and time: 12/27/2019 6:00 PM Age: 39 years old Clinical indication: Cough and fever and shortness of breath; Cough with hemorrhage; Prior surgery; Surgery date: 6+ months; Surgery type: C-sect, gb; Patient HX: Resp distress, coughing up blood, b flank pain; Additional info: SOB TECHNIQUE: Imaging protocol: Computed tomography of the abdomen and pelvis with intravenous contrast. Radiation optimization: All CT scans at this facility use at least one of these dose optimization techniques: automated exposure control; mA and/or kV adjustment per patient size (includes targeted exams where dose is matched to clinical indication); or iterative reconstruction. Contrast material: OMNI 350; Contrast volume: 150 ml; Contrast route: INTRAVENOUS (IV); COMPARISON: 1. CT angio chest PE protcl [id number] 05/29/2019 11:[address] abdomen pelvis w con* [id number] 10/07/2019 5:38:33 PM RADIATION DOSE METRICS: Total DLP (mGy-cm): 2971.25 FINDINGS: Liver: There is a diffuse decrease in hepatic parenchymal density, consistent with moderate fatty infiltration. There is moderate enlargement of the liver. Gallbladder and bile ducts: There has been a cholecystectomy. Pancreas: The pancreas is normal. Spleen: The spleen is normal. Adrenals: The adrenal glands are normal. Kidneys and ureters: The right kidney is normal. 6 mm simple cyst in the upper pole and 15 mm simple cyst in the lower pole of the left kidney not significantly changed. There is no evidence of hydronephrosis. There is mild mucosal enhancement in the renal collecting system and upper ureters on both sides suggesting bilateral may tract infection or pyelonephritis. Stomach and bowel: There is no evidence of colitis/diverticulitis. There is mild thickening of the entire colon wall which may represent colitis, but is more likely due to nondistention. This is not significantly changed from 10/07/2019. Appendix: A normal appendix is identified. Intraperitoneal space: Unremarkable. No free air. No significant fluid collection. Vasculature: Unremarkable. No abdominal aortic aneurysm. Lymph nodes: Unremarkable. No enlarged lymph nodes. Bladder: There is mild thickening of the urinary bladder wall which could represent urinary tract infection, however this is significantly less than on 10/07/2019. Reproductive: Uterine prolapse is again identified not significantly changed from 10/07/2019. Bones/joints: Unremarkable. No acute fracture. Soft tissues: There is small umbilical hernia containing fat. CT/CT angio chest w abd pel w con IMPRESSION: 1. Urothelial enhancement in the proximal ureters and collecting systems on both sides suggesting urinary tract infection or pyelonephritis. 2. Fatty liver hepatomegaly 3. Question of nonspecific thickening of the colon not significantly changed from previous. 4. Uterine prolapse. 5. Hepatomegaly and fatty liver. Radiation Dose CTDIVOL = (mGy): DLP = 2971.25~2971.25 (mGy-cm)
[2019-12-27] MEDS: sodium chloride 0.9% 1,000 ML 999 ML IV ×2 (17:52→20:48)
--- NOTE | 2019-12-27 18:17 | ECG_ITS ---
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 Measurements Intervals [place] Rate: 104 P: 51 MT: 134 QRS: 47 QRSD: 77 T: 49 QT: 321 QTc: 424 Interpretive Statements SINUS TACHYCARDIA WITH OCCASIONAL SUPRAVENTRICULAR PREMATURE COMPLEXES ABNORMAL RHYTHM ECG Compared to ECG 11/08/2019 15:57:59 Sinus rhythm no longer present Electronically Signed On 12-27-2019 18:31:05 CDT by Mina Macias M.D. [id number]
[2019-12-27] MEDS: ipratropium-albuterol 3 mL Neb INHALATION (18:18)
[2019-12-27 18:33] LABS: Reflex Lactate Order REFLEX LACTIC ORDERD
[2019-12-27] MEDS: iohexol 350 mg/mL 100 mL Btl IV (20:00)
--- NOTE | 2019-12-27 21:01 | P.HP_ITS ---
Providers/Chief Complaint Primary Care Provider: Dawson Murguia Chief Complaint: Respiratory distress History of Present Illness August Moo is a 39 year old female who presents to the emergency department with complaints of low back pain, difficulty urinating, dysuria for at least the last 4 to 5 days. She reports she is sure she has a UTI. She states symptomatology is similar from previous episodes. No fever at home. Some skye sea. Some decreased p.o. intake. She also gives some history of shortness of breath, occasional cough. States several weeks ago she coughed up a little blood. No blood in her stool. Some loose stool but no diarrhea. Does have history of alcohol withdrawal, last alcohol intake 1 to 2 days ago. She states she does not drink heavily anymore after going to rehabilitation following her August stay. Left ear has been uncomfortable as well. No history of exposure COVID. Does comment as well that she has had some right- sided chest discomfort but not currently. Review of Systems General: Reports: 10 or more systems reviewed and unremarkable except in HPI and below Const: Reports: chills and body aches; Denies: fever(s) Eyes: Denies: change in vision ENMT: Denies: throat pain Card: Denies: chest pain Resp: Reports: dyspnea and non-productive cough GI: Reports: nausea; Denies: abdominal pain or vomiting : Reports: flank pain Musc: Denies: neck pain Skin/Breast: Denies: rash Neuro: Denies: headache(s) Psych: Reports: anxiety Endo: Denies: polyuria Ajron/Lymph: Denies: easy bruising All/Imm: Denies: urticaria Medications/Allergies Home Medications Medication Instructions Recorded Confirmed Last Taken Type Thera 1 tab PO DAILY #0 tab 05/29/19 12/27/19 Unknown Rx folic acid 1 mg PO DAILY #0 tab 05/29/19 12/27/19 Unknown Rx amlodipine 10 mg PO DAILY 09/18/19 12/27/19 Unknown History benzonatate 100 mg PO TID 09/18/19 12/27/19 Unknown History hydrochlorothiazide 25 mg PO DAILY PRN 09/18/19 12/27/19 Unknown History hydroxyzine HCl 50 mg PO TID PRN 09/18/19 12/27/19 Unknown History metoprolol tartrate 25 mg PO BID 09/18/19 12/27/19 Unknown History nicotine 1 patch TRANSDERMAL DAILY #30 ea 09/25/19 12/27/19 Unknown Rx pantoprazole 40 mg PO DAILY #30 tab 09/25/19 12/27/19 Unknown Rx thiamine mononitrate (vit B1) 100 mg PO DAILY #30 tab 09/25/19 12/27/19 Unknown Rx [Vitamin B-1 (mononitrate)] albuterol sulfate [ProAir HFA] 1 puff INHALATION QID PRN 10/07/19 12/27/19 10/07/19 History aripiprazole 20 mg PO DAILY 30 Days #30 tab 10/15/19 12/27/19 Unknown Rx duloxetine 60 mg PO DAILY 30 Days #60 cap 10/15/19 12/27/19 Unknown Rx trazodone 150 mg PO BEDTIME PRN 30 Days #30 10/15/19 12/27/19 12/26/19 Rx tab furosemide [Lasix] 20 mg PO DAILY #3 tab 11/08/19 12/27/19 Unknown Rx metronidazole 500 mg tablet 500 mg PO BID 5 Days #10 tab 11/13/19 12/27/19 Unknown Rx Allergies Allergy/AdvReac Type Severity Reaction Status Date / Time risperidone [From Risperdal] Allergy Intermediate Visual Verified 12/27/19 16:04 changes Penicillins Allergy ADR-Itching Verified 12/27/19 16:04 PFSH Acute PFSH: Medical History (Updated 12/27/19 @ 21:54 by Jim Judd MD) Alcohol abuse Bipolar disorder History of hydronephrosis Peptic ulcer disease Polysubstance abuse Prolapse of bladder Suicidal ideation Tobacco dependency Surgical History H/O shoulder surgery History of delivery History of tubal ligation Hx laparoscopic cholecystectomy Hx of neck surgery Hx of tonsillectomy Family History Grandfather Cancer Paternal grandfather Diabetes Maternal grandfather Father Diabetes Grandmother Diabetes Paternal grandmother Brother Hepatitis C Sister Alcohol abuse Denies family history of Psychiatric illness Social History Smoking and tobacco status: current every day smoker cigarettes Packs smoked per day: 3 Years cigarettes smoked: 31 Quit status (tobacco): not considering quitting Smoking risk assessment/counseling performed?: Yes (Patient reports that she rolls 70-80 cigs a day to smoke) Alcohol intake: current Other details last alcohol use: Reports is in alcohol treatment program. [place] been drinking 1 gallon of vodka daily. Current gender identity: Female Female Reproductive History: Date of last menstrual period: 11/06/19 Vitals/I&O/Wt Last Vital Signs Temp 98.9 F 12/27/19 15:52 Pulse 88 12/27/19 20:22 Resp 18 12/27/19 18:32 BP 159/102 12/27/19 20:22 Pulse Ox 93 12/27/19 20:22 Weight last 48 hrs Weight 127.006 kg Physical Exam Narrative: EXAM NARRATIVE: General exam no apparent distress, although complaining of pain HEENT: Pupils equally round. Oropharynx clear. Neck is supple no lymphadenopathy or thyromegaly Cardiovascular regular rate and rhythm without murmur, no S3 or S4 Lungs clear, no wheezing or crackles Abdomen is soft with positive bowel sounds, obese. No obvious organomegaly. Some flank pain is noted. was deferred Extremities no cyanosis clubbing or edema Skin without rash Neuro no obvious focal deficits. Data : 12/27/19 16:42 12/27/19 16:42 Micro: Microbiology 12/27/19 17:08 Blood Culture - Preliminary Blood SPECIMEN COLLECTED 12/27/19 16:42 Blood Culture - Preliminary Blood SPECIMEN COLLECTED Other data: D-dimer elevated at 0.7 ABG with pH of 7.39, 34, 70.6 on 2 L Lactic acid 3.7 LDH slightly elevated Transaminitis noted Troponin not obtained Procalcitonin 0.09 Urinalysis with too numerous to count whites with difficult to interpret is greater than 100 squamous CTA of chest and abdomen, pelvis demonstrated probable pyelonephritis, COPD, no evidence of pulmonary embolism or pneumonia, fatty liver, uterine prolapse Chest x-ray negative EKG demonstrated some sinus tachycardia over 104, normal axis, no acute changes. COVID rapid testing negative A&P Assessment and plan (1) UTI (urinary tract infection): Symptomatology certainly consistent with UTI. Initial urine suggestive of UTI with too numerous to count white blood cells and positive nitrates and bacteria, however this appears grossly contaminated as well with greater than 100 squamous. Will repeat. Urine culture Rocephin 1 g IV every 12 hours. Previous culture demonstrated Citrobacter when there was concern of bilateral hydronephrosis. Subsequent cultures group B strep. Both of these would be sensitive to Rocephin. CT abdomen and pelvis this ER visit demonstrates no evidence of obstruction. Hydrocodone, morphine for pain control Needs full admit secondary to UTI with leukocytosis, pyelonephritis, significant risk for decompensation. Hydration Status: Acute (2) Pyelonephritis: See notations above Status: Acute (3) Leukocytosis: Secondary to UTI, IV antibiotics as noted Status: Acute (4) Elevated d-dimer: Etiology unknown. As some unclear history of chest discomfort recently check troponin. Note that CTA of chest was negative for pulmonary embolism, or infiltrate COVID testing was negative Status: Acute (5) Alcohol use disorder: History of withdrawal in the past. Monitor closely for withdrawal Thiamine p.o. Consider CIWA protocol if any withdrawal Status: Acute Additional A&P Information Mild dehydration. Hydrate. Hold Lasix, hydrochlorothiazide currently. History of episode of hemoptysis around 1 week ago. No evidence of infiltrate, pulmonary embolism. Observe Ill-defined chest discomfort with no evidence of ischemia on EKG. Check troponin x1, consider series if elevated Tobacco dependency. Encourage cessation COPD. No evidence of wheezing currently. No evidence of exacerbation. Bipolar disorder, continue home medications History of peptic ulcer disease. Continue Prilosec Full code Lovenox for DVT prophylaxis Further orders to follow as clinically appropriate. Attestations Medical Necessity Statement*: Will need greater than 2 midnight stay for evaluation and treatment of UTI and pyelonephritis. 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
[2019-12-27] MEDS: cefTRIAXone 1,000 MG in sodium chloride 0.9% (plus) 50 ML 100 MG IV (21:34)
[2019-12-27 22:02] LABS: Lactic Sepsis W/Reflex 1.8 mmol/L (0.5-2.2)
[2019-12-27 22:04] LABS: Troponin T (5th) Once 6 ng/L (0-10)
--- NOTE | 2019-12-27 22:22 | PC.NURSE ---
ADMIT NOTE Received to room from ER at 2200. Says she has been feeling bad for several days and not getting any better. Reports has had pain in lower back, chest and left ear. Not sure if has had a fever or not but has had some chills & sweats. Reports burning with urination and some diarrhea as well. Has c/o SOB luis with exertion and occ cough which she says occ sputum is bloody Tenderness across bilat sides of lower back. Instructed on need to monitor I&O and obtain UA. To bathroom shortly after to room and obtained the CC UA specimen. Has had nausea with vomiting last couple of days but says none today and is now requesting a sandwich. Wants pain med as soon as order gets in from pharmacy. Starting IV fluids and placing quality assurance monitor. RN completing admission assessment
[2019-12-27] MEDS: enoxaparin 40 mg/0.4 mL Syringe SUBCUT (22:37)
[2019-12-27] MEDS: sodium chloride 0.9% 1,000 ML 75 ML IV (22:37)
[2019-12-27] MEDS: trazodone 150 mg Tablet PO (22:37)
[2019-12-27] MEDS: morphine 4 mg/mL SDV 1 mL 2 MG IVP (22:38)
[2019-12-27] MEDS: ciprofloxacin-dexameth Otic Susp 7.5 mL Btl 4 DROP EAR-LEFT (23:24)
[2019-12-28] VITALS (13 sets, daily range): BP systolic 114–144; BP diastolic 72–89; PULSE 70–102; RESP 16–20; TEMP 36.4–36.9; O2SAT 92–96
[2019-12-28 02:59] LABS: Bilirubin Urine Neg (NEGATIVE); Blood Urine Neg (Negative); Glucose Urine UA Trace (Normal); Ketones Urine Negative (Negative); Leukocyte Esterase Urine Negative (Negative); Nitrate Urine Positive (Negative); Protein Urine Neg (Negative); Urine Color Yellow (Yellow); Urobilinogen Urine Norm (Negative); pH Urine 7 (5-7)
[2019-12-28 03:03] LABS: Add Urine Culture? No; Amorphous Sediment Urine TRACE; Bacteria Urine 2+; Mucus Urine TRACE; RBC Urine 0-4 /hpf (0-2)
[2019-12-28 03:05] LABS: WBC Urine 25-40 /hpf (0-5)
[2019-12-28] MEDS: morphine 4 mg/mL SDV 1 mL 2 MG IVP ×4 (04:54→19:55)
[2019-12-28 04:58] LABS: Basophils % 0.1 %; Hematocrit 41.7 % (37.0-47.0); Hemoglobin 13.7 g/dL (11.5-15.3); Lymphocytes # 1.8 10^3/uL (0.8-4.8); Lymphocytes % 15.7 %; Mean Corpuscular HGB Conc 32.9 g/dL (30.0-36.0); Mean Corpuscular Hemoglobin 30.4 pg (28.0-34.0); Mean Corpuscular Volume 92.7 fL (81-99); Mean Platelet Volume 9.7 fL (7.4-10.4); Monocytes # 0.6 10^3/uL (0.2-0.9); Monocytes % 5.2 %; Neutrophils # 9.01 10^3/uL (1.8-7.7); Neutrophils % 78.7 %; Nucleated Red Blood Cells % 0 %; Platelet Count 329 10^3/cmm (130-400); Red Cell Distribution Width 14.3 % (12.1-15.1); White Blood Count 11.4 10^3/uL (4.0-10.0)
[2019-12-28 05:19] LABS: Alanine Aminotransferase 55 U/L (0-33); Albumin Level 3.2 g/dL (3.5-5.2); Alkaline Phosphatase 114 IU/L (35-105); Anion Gap 12.1 (5-19); Aspartate Amino Transferase 51 U/L (0-32); Blood Urea Nitrogen 11 mg/dL (6-20); Calcium 8.1 mg/dL (8.5-10.5); Carbon Dioxide 23 mmol/L (22-29); Chloride 105 mmol/L (98-107); Creatinine Clr Calc Pharmacy 126.1993; Globulin 2.8 g/dL (1.3-4.6); Glucose 137 mg/dL (65-115); Osmolality Calculated 280 mOsm/kg (285-295); Potassium 4.1 mmol/L (3.5-5.1); Sodium 136 mmol/L (136-145); Total Bilirubin 0.6 mg/dL (0.15-1.2)
[2019-12-28] MEDS: duloxetine 30 mg Capsule 60 MG PO (08:20)
[2019-12-28] MEDS: cefTRIAXone 1,000 MG in sodium chloride 0.9% (plus) 50 ML 100 MG IV ×2 (08:20→20:42)
[2019-12-28] MEDS: ARIPiprazole 10 mg Tablet 20 MG PO (08:21)
[2019-12-28] MEDS: metoprolol tartrate 25 mg Tablet PO ×2 (08:21→16:46)
[2019-12-28] MEDS: thiamine 100 mg Tablet PO (08:21)
[2019-12-28] MEDS: amlodipine 10 mg Tablet PO (08:21)
[2019-12-28] MEDS: ciprofloxacin-dexameth Otic Susp 7.5 mL Btl 4 DROP EAR-LEFT ×2 (08:21→16:46)
[2019-12-28] MEDS: pantoprazole DR 40 mg Tablet PO (08:21)
[2019-12-28] MEDS: HYDROcodone-acetaminophen 5-325 mg Tablet 1 TAB PO ×4 (08:27→21:06)
[2019-12-28] MEDS: sodium chloride 0.9% 1,000 ML 75 ML IV (10:05)
--- NOTE | 2019-12-28 17:11 | PC.NURSE ---
RECORD REQUEST RECORD REQUEST FAXED TO DR. WRIGHT'S OFFICE TODAY.
--- NOTE | 2019-12-28 17:32 | PM.PN ---
Subjective Subjective: Interval history: improving, no new complaints. Medications: Reviewed: Yes Vitals/I&O/Wt Last Vital Signs Temp 97.9 F 12/29/19 15:29 Pulse 71 12/29/19 15:29 Resp 18 12/29/19 15:29 BP 134/90 12/29/19 15:29 Pulse Ox 91 12/29/19 15:29 12/29/19 12/29/19 12/29/19 06:59 14:59 22:59 Intake Total 1600 / 4000 1885 / 1885 Output Total 1300 / 3000 500 / 500 500 / 1000 Balance 300 / 1000 1385 / 1385 -500 / 885 Physical Exam Narrative: EXAM NARRATIVE: GEN: Awake, alert and oriented, no acute distress CVS: S1S2 N RS: CTA B/L Abd: Soft, nt/nd , bs+ STRATEGY EXECUTION CONSULTANT: no focal neuro deficits Data : 12/29/19 05:05 12/29/19 05:05 Micro: Microbiology 12/27/19 22:10 Urine Culture - Preliminary Urine,Clean Catch Gram Negative Rods 12/27/19 17:08 Blood Culture - Preliminary Blood NEGATIVE TO DATE 12/27/19 16:42 Blood Culture - Preliminary Blood NEGATIVE TO DATE A&P Assessment and plan (1) UTI (urinary tract infection): Symptomatology certainly consistent with UTI. Initial urine suggestive of UTI with too numerous to count white blood cells and positive nitrates and bacteria Urine culture Rocephin 1 g IV every 12 hours. Previous culture demonstrated Citrobacter when there was concern of bilateral hydronephrosis. Subsequent cultures group B strep. Both of these would be sensitive to Rocephin. CT abdomen and pelvis this ER visit demonstrates no evidence of obstruction. Hydrocodone, morphine for pain control Needs full admit secondary to UTI with leukocytosis, pyelonephritis, significant risk for decompensation. Hydration Status: Acute (2) Pyelonephritis: See notations above Status: Acute (3) Leukocytosis: Secondary to UTI, IV antibiotics as noted Status: Acute (4) Elevated d-dimer: Etiology unknown. As some unclear history of chest discomfort recently check troponin. Note that CTA of chest was negative for pulmonary embolism, or infiltrate COVID testing was negative Status: Acute (5) Alcohol use disorder: History of withdrawal in the past. Monitor closely for withdrawal Thiamine p.o. Consider CIWA protocol if any withdrawal Status: Acute Additional A&P Information Mild dehydration. Hydrate. Hold Lasix, hydrochlorothiazide currently. History of episode of hemoptysis around 1 week ago. No evidence of infiltrate, pulmonary embolism. Observe Ill-defined chest discomfort with no evidence of ischemia on EKG. Check troponin x1, consider series if elevated Tobacco dependency. Encourage cessation COPD. No evidence of wheezing currently. No evidence of exacerbation. Bipolar disorder, continue home medications History of peptic ulcer disease. Continue Prilosec Full code Lovenox for DVT prophylaxis Further orders to follow as clinically appropriate. 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
[2019-12-28] MEDS: nicotine 14 mg Patch 1 PATCH TRANSDERMA (17:55)
[2019-12-28] MEDS: trazodone 150 mg Tablet PO (20:41)
[2019-12-28] MEDS: enoxaparin 40 mg/0.4 mL Syringe SUBCUT (20:41)
[2019-12-29] VITALS (9 sets, daily range): BP systolic 123–156; BP diastolic 78–96; PULSE 63–72; RESP 18–22; TEMP 36.5–36.6; O2SAT 91–95
[2019-12-29] MEDS: sodium chloride 0.9% 1,000 ML 75 ML IV ×2 (00:10→13:30)
[2019-12-29] MEDS: morphine 4 mg/mL SDV 1 mL 2 MG IVP ×2 (00:55→07:27)
[2019-12-29] MEDS: HYDROcodone-acetaminophen 5-325 mg Tablet 1 TAB PO ×4 (04:57→20:55)
--- NOTE | 2019-12-29 05:30 | PC.NURSE ---
SHIFT SUMMARY Continues to have numerous c/o pain and discomfort. Says hurts across lower abdomen, both right and left sides of lower back, left ear, and headache. c/o pain & burning with urination. Urine is slightly cloudy but voids good amts with each urination. SOB with exertion and occ prod cough. No nausea this shift and has eaten 2 sandwiches. Takig po fluids well. Says didn't get enough food on meal trays yesterday. IV infusing without difficulty. PIID in left upper arm removed this am. Was tender and firm at site. No blood return obtained with attempt to flush.
[2019-12-29 05:49] LABS: Basophils % 0.1 %; Eosinophils % 0.2 %; Hematocrit 43.9 % (37.0-47.0); Hemoglobin 13.4 g/dL (11.5-15.3); Lymphocytes # 3.5 10^3/uL (0.8-4.8); Lymphocytes % 35.6 %; Mean Corpuscular HGB Conc 30.5 g/dL (30.0-36.0); Mean Corpuscular Hemoglobin 29.4 pg (28.0-34.0); Mean Corpuscular Volume 96.3 fL (81-99); Mean Platelet Volume 10.9 fL (7.4-10.4); Monocytes # 0.5 10^3/uL (0.2-0.9); Monocytes % 5.2 %; Neutrophils # 5.68 10^3/uL (1.8-7.7); Neutrophils % 58.7 %; Nucleated Red Blood Cells % 0 %; Red Blood Count 4.56 10^6/uL (4.1-5.3); Red Cell Distribution Width 14.4 % (12.1-15.1); White Blood Count 9.7 10^3/uL (4.0-10.0)
[2019-12-29 06:09] LABS: Alanine Aminotransferase 44 U/L (0-33); Albumin Level 3.1 g/dL (3.5-5.2); Alkaline Phosphatase 105 IU/L (35-105); Anion Gap 12.9 (5-19); Aspartate Amino Transferase 26 U/L (0-32); Blood Urea Nitrogen 15 mg/dL (6-20); Calcium 8.1 mg/dL (8.5-10.5); Carbon Dioxide 23 mmol/L (22-29); Chloride 107 mmol/L (98-107); Globulin 3.5 g/dL (1.3-4.6); Glomerular Filtration Rate 92.2 mL/min (90-130); Glucose 169 mg/dL (65-115); Magnesium 1.9 mg/dL (1.7-2.3); Osmolality Calculated 288 mOsm/kg (285-295); Potassium 3.9 mmol/L (3.5-5.1); Sodium 139 mmol/L (136-145); Total Bilirubin 0.2 mg/dL (0.15-1.2); Total Protein 6.6 g/dL (6.6-8.7)
[2019-12-29 06:37] LABS: Platelet Count 279 10^3/cmm (130-400); Slide Review Slide Review Perform
[2019-12-29] MEDS: ARIPiprazole 10 mg Tablet 20 MG PO (07:26)
[2019-12-29] MEDS: duloxetine 30 mg Capsule 60 MG PO (07:26)
[2019-12-29] MEDS: thiamine 100 mg Tablet PO (07:26)
[2019-12-29] MEDS: amlodipine 10 mg Tablet PO (07:27)
[2019-12-29] MEDS: nicotine 14 mg Patch 1 PATCH TRANSDERMA (07:27)
[2019-12-29] MEDS: metoprolol tartrate 25 mg Tablet PO ×2 (07:27→20:55)
[2019-12-29] MEDS: ciprofloxacin-dexameth Otic Susp 7.5 mL Btl 4 DROP EAR-LEFT ×2 (07:27→16:24)
[2019-12-29] MEDS: pantoprazole DR 40 mg Tablet PO (07:27)
[2019-12-29] MEDS: cefTRIAXone 1,000 MG in sodium chloride 0.9% (plus) 50 ML 100 MG IV ×2 (07:28→20:56)
--- NOTE | 2019-12-29 17:16 | PM.DCS ---
Discharge Providers Date of Admission: 12/27/19 21:04 Date of Discharge: December 29, 2019 Attending Provider at Admission: Jim Judd MD Attending Provider at Discharge: Cristina Chu MD Primary Care Provider: Dawson Murguia Diagnoses at Discharge Discharge Diagnosis (1) UTI (urinary tract infection): Status: Acute (2) Pyelonephritis: Status: Acute (3) Leukocytosis: Status: Acute (4) Elevated d-dimer: Status: Acute (5) Alcohol use disorder: Status: Acute Reason for Visit Reason for Visit: Respiratory distress Hospital Course Discharge Summary: Mary Jo Cortés is a 39 year old female who presents to the emergency department with complaints of low back pain, difficulty urinating, dysuria for at least the last 4 to 5 days. No fever at home. Some nausea. Some decreased p.o. intake. Symptomatology certainly consistent with UTI. Initial urine suggestive of UTI with too numerous to count white blood cells and positive nitrates and bacteria. Urine cx premin with GNR, pending identification. She was treated empirically with Rocephin 1 g IV every 12 hours. Previous culture demonstrated Citrobacter when there was also a concern of bilateral hydronephrosis. On the last admission this bilateral hydronephrosis had been extensively worked up and attributed to unknown uterine prolapse which was dragging the ureters along with it. No other external compression or stones were identified. She was supposed to have followed up with COMMUNITY CULTURAL DEVELOPMENT OFFICER in October 25, 2019 however she did not keep this appointment citing multiple reasons including difficulty at home. She states she will now follow-up as instructed. At this present time the prolapse was not noted to be outside the introitus. She is encouraged to follow-up with COMMUNITY CULTURAL DEVELOPMENT OFFICER within 7 to 10 days after discharge to address her prolapse as barring this her recurrent UTI and hydronephrosis is unlikely to improve. She is being discharged today on empiric treatment with levofloxacin for total 10 days of treatment. Thereafter she can go back to her Macrobid suppression until her prolapse can be addressed. She is afebrile at the time of exam. She has remained otherwise hemodynamically stable. She is being discharged in stable condition. Physical Exam Narrative: EXAM NARRATIVE: GEN: Awake, alert and oriented, no acute distress CVS: S1S2 N RS: CTA B/L Abd: Soft, nt/nd , bs+ MEDICAL EQUIPMENT TECHNICIAN: no focal neuro deficits Discharge Data Data Completed and Pending: Completed Studies During Hospitalization Category Date Time Status CT angio chest w abd pel w con Urge nt Cat Scan 12/27/19 17:42 Completed XR chest 1V kajal ble [id number] Stat Exams 12/27/19 15:52 Completed Pending at discharge Category Date Time Status Blood Culture Sta t Lab 12/27/19 17:08 Results Complete Blood Co unt w/Auto AM LABS Lab 12/30/19 04:00 Ordered Comprehensive Met abolic Panel AM LA BS Lab 12/30/19 04:00 Ordered Magnesium AM LABS Lab 12/30/19 04:00 Ordered Sputum Culture an d Gram Stain Stat Lab 12/27/19 15:52 Uncollected Urine Culture Sta t Lab 12/27/19 22:10 Results Labs from last 24 hours 12/29/19 12/29/19 05:05 05:05 WBC 9.7 RBC 4.56 Hgb 13.4 Hct 43.9 MCV 96.3 MCH 29.4 MCHC 30.5 RDW 14.4 Plt Count 279 MPV 10.9 H Neut % (Auto) 58.7 Lymph % (Auto) 35.6 [place] % (Auto) 5.2 Eos % (Auto) 0.2 Baso % (Auto) 0.1 Neut # (Auto) 5.68 Lymph # (Auto) 3.5 [place] # (Auto) 0.5 Eos # (Auto) 0.0 Baso # (Auto) 0.0 Nucleated RBC % (a uto) 0 Nucleated RBCs # 0.0 Sodium 139 Potassium 3.9 Chloride 107 Carbon Dioxide 23 Anion Gap 12.9 BUN 15 Creatinine 0.7 GFR Calculation 92.2 Glucose 169 H Calculated Osmolal ity 288 Calcium 8.1 L Magnesium 1.9 Total Bilirubin 0.2 AST 26 ALT 44 H Alkaline Phosphata se 105 Total Protein 6.6 Albumin 3.1 L Globulin 3.5 Vitals: Last Vital Signs Temp 97.9 F 12/29/19 15:29 Pulse 71 12/29/19 15:29 Resp 18 12/29/19 15:29 BP 134/90 12/29/19 15:29 Pulse Ox 91 12/29/19 15:29 Discharge Plan Discharge Patient Disposition: Home Condition: Stable Prescriptions: New Ciprodex 0.3-0.1 % Drops,Suspension 4 drp ear (left) BID 30 Days Qty: 1 RF: 0 nitrofurantoin monohyd/m-cryst [Macrobid] 100 mg capsule 100 mg PO BID 10 Days Qty: 20 RF: 0 levofloxacin 750 mg tablet 750 mg PO DAILY 7 Days Qty: 7 RF: 0 Continued folic acid 1 mg Tablet 1 mg PO DAILY Qty: 0 RF: 0 Thera 400 mcg Tablet 1 tab PO DAILY Qty: 0 RF: 0 furosemide [Lasix] 20 mg tablet 20 mg PO DAILY Qty: 3 RF: 0 hydroxyzine HCl 50 mg tablet 50 mg PO TID PRN (Reason: unknown) RF: 0 amlodipine 10 mg tablet 10 mg PO DAILY RF: 0 benzonatate 100 mg capsule 100 mg PO TID RF: 0 hydrochlorothiazide 25 mg tablet 25 mg PO DAILY PRN (Reason: unknown) RF: 0 metoprolol tartrate 25 mg tablet 25 mg PO BID RF: 0 nicotine 21 mg/24 hr Patch 24 Hour 1 patch transdermal DAILY Qty: 30 RF: 0 thiamine mononitrate (vit B1) [Vitamin B-1 (mononitrate)] 100 mg Tablet 100 mg PO DAILY Qty: 30 RF: 0 pantoprazole 40 mg tablet,delayed release (DR/EC) 40 mg PO DAILY Qty: 30 RF: 0 albuterol sulfate [ProAir HFA] 90 mcg/actuation Hfa Aerosol Inhaler 1 puff INHALATION QID PRN (Reason: Shortness Of Breath) RF: 0 aripiprazole 20 mg tablet 20 mg PO DAILY 30 Days Qty: 30 RF: 1 trazodone 150 mg Tablet 150 mg PO BEDTIME PRN (Reason: Insomnia) 30 Days Qty: 30 RF: 1 duloxetine 30 mg capsule,delayed release(DR/EC) 60 mg PO DAILY 30 Days Qty: 60 RF: 1 Discontinued metronidazole 500 mg tablet 500 mg PO BID 5 Days Qty: 10 RF: 0 Discharge Orders: Discharge Order (Routine); Ordered 12/29/19 Ordered By: Cristina Chu Referrals: Dawson Murguia [Primary Care Provider] - Mode Martinez MD [Physician] - 7-10 days Discharge Diet: Cardiac Discharge Activity: Resume usual activity Discharge Attestations Time Spent in Discharge Care*: greater than 30 min Quality Metrics Clinical Quality Measures During this hospital stay, did patient experience: None Coding Level of Care Code Acute Psychologist [employer] for [facility] Fwd Diagnoses UTI (urinary tract infection) N39.0 Pyelonephritis N12 Leukocytosis D72.829 Elevated d-dimer R79.89 Alcohol use disorder
--- NOTE | 2019-12-29 17:39 | PC.NURSE ---
SHIFT SUMMARY PATIENT'S URINE IS MUCH MORE CLEAR TODAY. GOOD URINE OUTPUT. GOOD PO INTAKE. PATIENT HAS ASKED FOR PAIN MEDICATION ALL DAY. THIS NURSE HAS ROUNDED ON PATIENT FREQUENTLY TODAY AND PATIENT HAS BEEN RESTING UPON ENTERING THE ROOM EVERY TIME. PATIENT'S HEART WENT BRADYCARDIC THIS AM AFTER ONE ADMINISTRATION OF MORPHINE 2MG. THIS NURSE LET DR. SIU KNOW. THIS NURSE EXPLAINED TO THE PATIENT THAT SHE IS BEING DISCHARGED TOMORROW ( OF THIS TIME) AND ORAL PAIN MEDICATION NEEDS TO BE USED. PATIENT STATED SHE UNDERSTOOD AND WAS OKAY WITH THE DECISION.
[2019-12-29] MEDS: enoxaparin 40 mg/0.4 mL Syringe SUBCUT (20:56)
[2019-12-29] MEDS: trazodone 150 mg Tablet PO (20:59)
[2019-12-30] VITALS (10 sets, daily range): BP systolic 125–170; BP diastolic 84–102; PULSE 58–73; RESP 16–20; TEMP 36.4–37.1; O2SAT 93–94
[2019-12-30] MEDS: HYDROcodone-acetaminophen 5-325 mg Tablet 1 TAB PO ×3 (02:35→10:37)
[2019-12-30] MEDS: sodium chloride 0.9% 1,000 ML 75 ML IV (03:38)
--- NOTE | 2019-12-30 05:47 | PC.NURSE ---
SHIFT SUMMARY Has slept for long intervals. Continues to c/o many sites of pain & discomfort and says just generally does not feel well. Only medicated with po Hydrocodone for pain tonight. SOB with exertion. c/o hearing being decreased in left ear and says it still hurts. Urinates large amts at a time and urine is clear tonight. Takes po fluids well
[2019-12-30 07:27] LABS: Basophils % 0.2 %; Eosinophils # 0.2 10^3/uL (0.0-0.8); Hemoglobin 14.8 g/dL (11.5-15.3); Lymphocytes # 3.4 10^3/uL (0.8-4.8); Lymphocytes % 38.3 %; Mean Corpuscular HGB Conc 32.9 g/dL (30.0-36.0); Mean Corpuscular Hemoglobin 30.2 pg (28.0-34.0); Mean Corpuscular Volume 91.8 fL (81-99); Mean Platelet Volume 9.9 fL (7.4-10.4); Monocytes # 0.5 10^3/uL (0.2-0.9); Neutrophils # 4.81 10^3/uL (1.8-7.7); Neutrophils % 53.9 %; Nucleated Red Blood Cells % 0 %; Platelet Count 296 10^3/cmm (130-400); Red Cell Distribution Width 14.1 % (12.1-15.1); White Blood Count 8.9 10^3/uL (4.0-10.0)
[2019-12-30] MEDS: amlodipine 10 mg Tablet PO (08:17)
[2019-12-30] MEDS: thiamine 100 mg Tablet PO (08:17)
[2019-12-30] MEDS: nicotine 14 mg Patch 1 PATCH TRANSDERMA (08:17)
[2019-12-30] MEDS: metoprolol tartrate 25 mg Tablet PO (08:17)
[2019-12-30] MEDS: duloxetine 30 mg Capsule 60 MG PO (08:17)
[2019-12-30] MEDS: ARIPiprazole 10 mg Tablet 20 MG PO (08:17)
[2019-12-30] MEDS: ciprofloxacin-dexameth Otic Susp 7.5 mL Btl 4 DROP EAR-LEFT (08:17)
[2019-12-30] MEDS: pantoprazole DR 40 mg Tablet PO (08:17)
[2019-12-30] MEDS: cefTRIAXone 1,000 MG in sodium chloride 0.9% (plus) 50 ML 100 MG IV (08:18)
[2019-12-30] MEDS: albuterol 8 gm MDI 1 PUFF INHALATION (09:19)
--- NOTE | 2019-12-30 09:52 | P.PN_ITS ---
Subjective Subjective: Interval history: She had an unrestful night and feels tired. Reports aches, but does not specify a particular area. Has been so for the past several days. Has been having an ear ache. No discharge or bleeding. Has muffled hearing out of the left ear. Has been receiving ear drops for this started day before yesterday. Vitals/I&O/Wt Last Vital Signs Temp 98.1 F 12/30/19 07:52 Pulse 63 12/30/19 09:21 Resp 18 12/30/19 09:21 BP 145/90 12/30/19 09:40 Pulse Ox 94 12/30/19 09:21 12/29/19 12/30/19 12/30/19 22:59 06:59 14:59 Intake Total 530 / 2465 1490 / 3955 Output Total 1300 / 1800 2350 / 4150 500 / 500 Balance -770 / 665 -860 / -195 -500 / -500 Physical Exam Const: COMMON NORMALS: no acute distress and patient oriented x3 HENMT: COMMON NORMALS: external ears normal and oropharynx normal EXTERNAL EAR: Yes external ears normal; no mastoid abnormal TYMPANIC MEMBRANE: TM abnormal TM laterality: right (some opacification of TM. EAM appears normal, perhaps mild erythema. ) and left (Some opacification of the TM, without fluid or bleeding) and other (Some inflammation noted in L EAM. Mild swelling. ) Neck/C-Spine: COMMON NORMALS: no JVD Resp: COMMON NORMALS: normal respiratory effort and clear to auscultation bilaterally AUSCULTATION: clear to auscultation bilaterally Cardio: COMMON NORMALS: no JVD, regular rhythm, S1 normal heart sound present, S2 normal heart sound present and No murmurs present (Cardio) RHYTHM: regular rhythm HEART SOUNDS: S1 normal heart sound present and S2 normal heart sound present GI: COMMON NORMALS: Normal to inspection, nondistended, normoactive bowel sounds present, Soft to palpation and non-tender PALPATION: Yes Soft to palpation Extremity: COMMON NORMALS: no joint enlargement and no pedal edema Neuro: COMMON NORMALS: patient oriented x3 and moves all extremities Skin: COMMON NORMALS: no rashes or lesions noted GENERAL SKIN EXAM: no rashes or lesions noted Data : 12/30/19 07:16 08/09/20 05:05 Micro: Microbiology 12/27/19 22:10 Urine Culture - Final Urine,Clean Catch Citrobacter Freundii Complex A&P Assessment and plan (1) Otitis externa: Reports has been having earache for several days. Has been receiving Ciprodex in left ear. Complains of muffled hearing, although also does have a small wad of cotton in the ear. There is some inflammation in the EAM visualized, very mild redness, some swelling. She denies using Q-tips or inserting anything in the ear. TM is somewhat opacified, but did not see a fluid level. No exudate. No bleeding. No signs of sepsis. At this time continue Ciprodex. She is also on Levaquin for urinary tract infection. As she does report some persistent malaise, earache, will assess with CT temporal bone. Discussed with her as with opacification of the tympanic membrane, will refer her for additional assessment with ENT. Status: Acute (2) UTI (urinary tract infection): Complete course of antibiotic as prescribed on discharge with Levaquin. She states that has been making plans with gynecology with regards to surgery for prolapsed uterus. Encouraged her to continue follow-up so she may get a surgery to prevent recurrent urinary tract infections, kidney infection which may become life-threatening. At this time she is still having some malaise, although despite some poorly localized aches, any signs of sepsis had resolved with current treatment, with n ormalization of white blood cell count, and has remained afebrile. It appears she has been consistently asking for pain medication, although again no specific location for pain. Concern for excessive use of pain medication has also been discussed with her as it appears she has been sleeping much more after receiving the pain medicine, and heart rates have been becoming slow. COVID-19 testing had been negative on 12/26. Some of her symptoms may be secondary to possibly another self-limited viral illness as discussed with her. She understands to utilize droplet precautions if staying with another family until she starts feeling better. She understands to return to the hospital promptly in case there is any red flag symptom happening at home, including high fever, severe pain, inability to u rinate, inability to take in food or drink/vomiting, or any other concerning symptoms. Status: Acute (3) Pyelonephritis: See notations above. Needs to follow-up with gynecology, which she understands is so that prolapsed uterus may be repaired to prevent further episodes of hydronephrosis and future recurrence of possibly life-threatening urinary tract infections. Citrobacter sensitive to quinolones. Status: Acute (4) Leukocytosis: Resolved. Status: Acute (5) Elevated d-dimer: Etiology unknown. Note that CTA of chest was negative for pulmonary embolism, or infiltrate. Troponin not elevated. EKG without signs of ischemia. COVID testing was negative Status: Acute (6) Alcohol use disorder: History of withdrawal in the past. Monitor closely for withdrawal Thiamine p.o. Consider [place] protocol if any withdrawal Status: Acute Additional A&P Information HTN: Better after morning medications. Continue to monitor. Discontinue IV fluid. Continue medications on discharge. Mild dehydration. Rehydrated. History of episode of hemoptysis around 1 week ago. No evidence of infiltrate, pulmonary embolism. Observe. Currently no recurrence. Ill-defined chest discomfort with no evidence of ischemia on EKG. Normal troponin Tobacco dependency. Encourage cessation COPD. No wheezing. No evidence of exacerbation. Bipolar disorder, continue home medications History of peptic ulcer disease. Continue Prilosec Appreciate older adult social work specialist assistance with arranging a ride for her. Attestations Medical Necessity Statement*: Continue arrangements for discharge. Coding Level of Care Code Acute Special Education Resource Room Teacher for [facility] Fwd Exam Comprehensive Diagnoses Otitis externa H60.90 UTI (urinary tract infection) N39.0 Pyelonephritis N12 Leukocytosis D72.829 Elevated d-dimer R79.89 Alcohol use disorder
--- NOTE | 2019-12-30 10:02 | CT_ITS ---
WS: [id number] CT TEMPORAL BONES TECHNIQUE: Noncontrast CT of the temporal bones with coronal and sagittal reformatted images. CLINICAL INFORMATION: ear pain COMPARISON: None. DLP: 820.[address] scans at [facility] use at least one of these dose optimization techniques: automat ed exposure control; mA and/or kV adjustment per patient size (includes targeted exams where dose is matched to clinical indication); or iterative reconstruction. FINDINGS: Right mastoid air cells are well aerated. Partial opacification of the left mastoid air diane ls and middle ear. Chronic appearing opacification left mastoid air cells. Mucosal thickening with pa rtial opacification left maxillary sinus and left greater than right sphenoid sinuses. Opacification left sphenoid sinus ostia. Partial opacification ethmoid air cells. RIGHT: Mastoid air cells are well aerated. Normal external auditory canal. Ossicles are normal in appearance . Middle ear is well aerated. Normal tegmen tympani. Semicircular canals and cochlea are normal in ap pearance. Prussak's space is normal. Normal inner ear structures. Normal vestibular aqueduct. Facial nerve recess is normal. LEFT: Chronic appearing partial opacification left mastoid air cells. Partial opacification of the middle e ar. Normal external auditory canal. Ossicles are normal in appearance. Normal tegmen tympani. Semici rcular canals and cochlea are normal in appearance. Normal inner ear structures. Normal vestibular aq ueduct. Facial nerve recess is normal. Visualized intracranial contents and posterior fossa are normal. CT/CT temporal bone wo con* [id number] IMPRESSION: 1. Chronic appearing partial opacification left mastoid air cells. Partial opa cification of the left middle ear. 2. Left ear structures are normal in appearance. Normal ossicles. 3. Right mastoid air cells and middle ear are well aerated. Normal right middl e ear structures. 4. Inflammatory changes with mild to moderate mucosal thickening partially vis ualized paranasal sinuses.
--- NOTE | 2020-01-01 12:16 | PC.RESP ---
Smoking Cessation information sent to patient.
== END 2019-12-30 17:19 | disposition home or self-care (01) | DRG 690 ==
LOC: ER 20:40 → MEDSURG 21:29
PROVIDERS: Emergency Medicine; Family Medicine; Admitting Provider Internal Medicine; PCP Physician Assistant Medical; Visit Provider Internal Medicine
DX: N39.0 Urinary tract infection, site not specified (principal); H60.92 Unspecified otitis externa, left ear; F10.20 Alcohol dependence, uncomplicated; F31.9 Bipolar disorder, unspecified; Z87.11 Personal history of peptic ulcer disease; F17.210 Nicotine dependence, cigarettes, uncomplicated; N10 Acute pyelonephritis; E86.0 Dehydration; J44.9 Chronic obstructive pulmonary disease, unspecified; N81.4 Uterovaginal prolapse, unspecified; B96.89 Other specified bacterial agents as the cause of diseases classified elsewhere; N13.30 Unspecified hydronephrosis; I10 Essential (primary) hypertension
CPT/HCPCS: 12345; 36415; 36600; 70480; 71045; 71275; 74177; 80053; 80307; 81001; 82728; 82803; 83605; 83615; 83735; 84145; 84484; 85025; 85378; 85384; 86140; 87040; 87077; 87086; 87186; 87426; 93005; 93010; 94640; 96365; 96366; 96372; 96375; 99284; 99285; J0696; J1650; J2270; J3535; J7030; Q9967

== ENCOUNTER 2020-01-18 11:51 | Emergency (ER) | payer MEDICAID, SELFPAY ==
--- NOTE | 2020-01-18 11:55 | ED_ITS ---
HPI - Abdominal Pain General: Chief Complaint: Abdominal Pain Stated Complaint: FLANK PAIN Time Seen by Provider: 01/18/20 11:52 History of Present Illness: HPI narrative: 39-year-old female presents emergency room has been drinking heavily. She is complaining of left-sided flank pain for last 2 weeks. According to EMS reports she drank heavily last night and drank another half a gallon of vodka this morning she appears acutely intoxicated. Is a history of hypertension and chronic alcohol abuse. She has been having acholic stools and stated she threw up some pink-tinged vomit that she thought looked like blood she has no known history of esophageal varices per her report however uncertain the veracity of her history giving. MD elicited complaint: flank pain Pertinent past history: other (Chronic alcohol abuse) Onset (ago): week(s) Pain Consistency: intermittent Location: LUQ and L flank Severity: severe Quality: cramping Radiation: none Migration to: epigastric Exacerbating factors: nothing Relieving factors: nothing Context: other (Excessive alcohol intake) Associated Symptoms: Reports anorexia, change in stool character, GI cramping, dyspepsia, heartburn, hematemesis, nausea, poor appetite and vomiting; Denies coffee ground emesis, constipation, diarrhea, dysuria, fever(s), hematochezia, hematuria, loose stools, melena and syncope Related Data: Date of Last Menstrual Period: 11/06/19 Review of Systems Const: Denies: fever(s) ENMT: Denies: throat pain, ear or mastoid pain, nasal discharge or nasal congestion Card: Denies: syncope Resp: Denies: dyspnea, productive cough or non-productive cough GI: Reports: nausea, vomiting, hematemesis, heartburn, GI cramping and change in stool character; Denies: coffee ground emesis, diarrhea, constipation, hematochezia or melena : Denies: dysuria or hematuria Skin/Breast: Denies: rash or pruritus PFSH ED PFSH: Medical History Alcohol abuse Bipolar disorder History of hydronephrosis Peptic ulcer disease Polysubstance abuse Prolapse of bladder Suicidal ideation Tobacco dependency Surgical History H/O shoulder surgery History of delivery History of tubal ligation Hx laparoscopic cholecystectomy Hx of neck surgery Hx of tonsillectomy Family History Grandfather Cancer Paternal grandfather Diabetes Maternal grandfather Father Diabetes Grandmother Diabetes Paternal grandmother Brother Hepatitis C Sister Alcohol abuse Denies family history of Psychiatric illness Social History Smoking and tobacco status: current every day smoker cigarettes Packs smoked per day: 3 Years cigarettes smoked: 31 Quit status (tobacco): not considering quitting Smoking risk assessment/counseling performed?: Yes (Patient reports that she rolls 70-80 cigs a day to smoke) Alcohol intake: current Other details last alcohol use: Reports is in alcohol treatment program. [place] been drinking 1 gallon of vodka daily. Current gender identity: Female Female Reproductive History: Date of last menstrual period: 11/06/19 Physical Exam Const: GENERAL APPEARANCE: cooperative NUTRITIONAL APPEARANCE: obese OTHER: Acutely intoxicated HENMT: COMMON NORMALS: normocephalic, atraumatic and hearing grossly normal bilaterally HEAD & SCALP: normocephalic and atraumatic Eye: COMMON NORMALS: Equal, round and reactive pupils present, EOMs intact bilaterally, conjunctivae normal and no scleral icterus CONJUNCTIVA: Yes conjunctivae normal PUPIL: Yes Equal, round and reactive pupils present Neck/C-Spine: COMMON NORMALS: no JVD Resp: COMMON NORMALS: normal respiratory effort, No retractions, No use of accessory muscles and clear to auscultation bilaterally AUSCULTATION: clear to auscultation bilaterally Cardio: COMMON NORMALS: no JVD, regular rate, regular rhythm and No murmurs present (Cardio) RATE: regular rate RHYTHM: regular rhythm GI: COMMON NORMALS: Soft to palpation and No hepatosplenomegaly present AUSCULTATION: Yes normoactive bowel sounds PALPATION: Yes Soft to palpation, Yes Tenderness to palpation present (GI) (Diffuse nonspecific and not reproducible), No Guarding due to palpation present (GI) and Yes No hepatosplenomegaly present Extremity: COMMON NORMALS: normal to inspection, capillary refill normal, no clubbing, cyanosis or edema, no calf tenderness and no pedal edema Skin: COMMON NORMALS: no rashes or lesions noted GENERAL SKIN EXAM: no rashes or lesions noted Course Vital Signs: Vital signs: Vital Signs Temperature 97.7 F 01/18/20 11:58 Pulse Rate 89 01/18/20 15:19 Respiratory Rate 18 01/18/20 15:19 Blood Pressure 176/105 01/18/20 15:19 Pulse Oximetry 95 01/18/20 15:19 MDM - Abdominal Pain MDM Narrative: Medical decision making narrative: Reviewed findings with the patient. Her epigastric discomfort has improved we will treat her for cystitis started on pantoprazole change it to twice daily have her follow-up with her primary care doctor return if has worsening symptoms also recommend that she abstain from alcohol Lab Data: Labs: Lab Results 01/18/20 01/18/20 01/18/20 Range/Units 12:45 12:45 12:46 WBC 8.5 (4.0-10.0) 10^3/ uL RBC 5.49 H (4.1-5.3) 10^6/u L Hgb 15.9 H (11.5-15.3) g/dL Hct 50.2 H (37.0-47.0) % MCV 91.4 (81-99) fL MCH 29.0 (28.0-34.0) pg MCHC 31.7 (30.0-36.0) g/dL RDW 14.3 (12.1-15.1) % Plt Count 436 H (130-400) 10^3/c mm MPV 9.9 (7.4-10.4) fL Neut % (Auto) 50.7 % Lymph % (Auto) 42.2 % [place] % (Auto) 5.5 % Eos % (Auto) 0.9 % Baso % (Auto) 0.5 % Neut # (Auto) 4.32 (1.8-7.7) 10^3/u L Lymph # (Auto) 3.6 (0.8-4.8) 10^3/u L [place] # (Auto) 0.5 (0.2-0.9) 10^3/u L Eos # (Auto) 0.1 (0.0-0.8) 10^3/u L Baso # (Auto) 0.0 (0.0-0.1) 10^3/u L Nucleated RBC % (a uto) 0 % Nucleated RBCs # 0.0 /100WBC Sodium 143 (136-145) mmol/L Potassium 4.3 (3.5-5.1) mmol/L Chloride 106 (98-107) mmol/L Carbon Dioxide 26 (22-29) mmol/L Anion Gap 15.3 (5-19) BUN 15 (6-20) mg/dL Creatinine 0.7 (0.5-0.9) mg/dL GFR Calculation 92.2 (90-130) mL/min Glucose 145 H (65-115) mg/dL Calculated Osmolal ity 295 (285-295) mOsm/k g Calcium 8.3 L (8.5-10.5) mg/dL Total Bilirubin 0.3 (0.15-1.2) mg/dL AST 64 H (0-32) U/L ALT 74 H (0-33) U/L Alkaline Phosphata se 104 (35-105) IU/L Total Protein 7.5 (6.6-8.7) g/dL Albumin 3.9 (3.5-5.2) g/dL Globulin 3.6 (1.3-4.6) g/dL Urine Color Yellow (Yellow) Urine Appearance Hazy A (CLEAR) Urine pH 5 (5-7) Ur Specific Gravit y 1.020 (1.005-1.030) Urine Protein 2+ H (Negative) Urine Glucose (UA) Norm (Normal) Urine Ketones Negative (Negative) Urine Blood 2+ H (Negative) Urine Nitrate Negative (Negative) Urine Bilirubin Neg (NEGATIVE) Urine Urobilinogen Norm (Negative) mg/dL Ur Leukocyte Stephanie ase 1+ H (Negative) Urine RBC 10-15 H (0-2) /hpf Urine WBC 25-40 H (0-5) /hpf Ur Squamous Epith Cells 5-10 H (0-5) Amorphous Sediment Not Reportable Urine Bacteria 4+ H (NONE) Urine Mucus 1+ Ethyl Alcohol 191 H (0-10) mg/dL Discharge Plan Discharge Patient Disposition: Home Clinical Impression: Cystitis, Alcohol use disorder, Acute alcoholic gastritis Condition: Stable Prescriptions: New Cipro 500 mg tablet 500 mg PO BID 5 Days Qty: 10 RF: 0 Changed pantoprazole 40 mg tablet,delayed release (DR/EC) 40 mg PO BID Qty: 30 RF: 0 No Action folic acid 1 mg Tablet 1 mg PO DAILY Qty: 0 RF: 0 Thera 400 mcg Tablet 1 tab PO DAILY Qty: 0 RF: 0 furosemide [Lasix] 20 mg tablet 20 mg PO DAILY Qty: 3 RF: 0 Ciprodex 0.3-0.1 % Drops,Suspension 4 drp ear (left) BID 30 Days Qty: 1 RF: 0 hydroxyzine HCl 50 mg tablet 50 mg PO TID PRN (Reason: unknown) RF: 0 amlodipine 10 mg tablet 10 mg PO DAILY RF: 0 benzonatate 100 mg capsule 100 mg PO TID RF: 0 hydrochlorothiazide 25 mg tablet 25 mg PO DAILY PRN (Reason: unknown) RF: 0 metoprolol tartrate 25 mg tablet 25 mg PO BID RF: 0 nicotine 21 mg/24 hr Patch 24 Hour 1 patch transdermal DAILY Qty: 30 RF: 0 thiamine mononitrate (vit B1) [Vitamin B-1 (mononitrate)] 100 mg Tablet 100 mg PO DAILY Qty: 30 RF: 0 albuterol sulfate [ProAir HFA] 90 mcg/actuation Hfa Aerosol Inhaler 1 puff INHALATION QID PRN (Reason: Shortness Of Breath) RF: 0 aripiprazole 20 mg tablet 20 mg PO DAILY 30 Days Qty: 30 RF: 1 trazodone 150 mg Tablet 150 mg PO BEDTIME PRN (Reason: Insomnia) 30 Days Qty: 30 RF: 1 duloxetine 30 mg capsule,delayed release(DR/EC) 60 mg PO DAILY 30 Days Qty: 60 RF: 1 Discharge Orders: Discharge Order (Routine); Ordered 01/18/20 Ordered By: Lamont Whitley Referrals: Dawson Murguia [Primary Care Provider] - Discharge Diet: Usual diet Discharge Activity: Increase activity as tolerated Discharge Date/Time: 01/18/20 15:21 Coding Level of Care Code ED Voice Writing Reporter for Chg Fwd Exam Comprehensive
[2020-01-18 11:58] VITALS: BP 184/141; PULSE 94; RESP 16; TEMP 36.5; O2SAT 95; BMI 45.3
[2020-01-18] MEDS: pantoprazole 40 mg SDV IVP (12:39)
[2020-01-18] MEDS: ondansetron 2 mg/ML SDV 2 mL 4 MG IVP (12:40)
--- NOTE | 2020-01-18 12:41 | USR_ITS ---
PROCEDURE INFORMATION: Exam: US Abdomen, Limited; Right Upper Quadrant Exam date and time: 01/18/2020 1:40 PM Age: 39 years old Clinical indication: Abdominal pain; Prior surgery; Surgery type: Cholecystectomy; Additional info: Abd pain TECHNIQUE: Imaging protocol: US abdomen. Real time ultrasound with image documentation. Limited exam focused on the right upper quadrant. COMPARISON: US soft tissue/extremity [id number] 09/22/2019 3:32 PM FINDINGS: Liver: Liver measures 20 cm long. Echod[place] liver parenchyma suggesting fatty infiltration. Gallbladder: Prior cholecystectomy. Common bile duct: Common bile duct measures 3.5 mm. Pancreas: Visualized pancreas is unremarkable. Right kidney: Right kidney measures 12.3 cm long. Prominent right renal pelvis measuring 3.7 cm. Possible right-sided hydronephrosis. US/US gall bladder [id number] IMPRESSION: 1.) Possible mild hepatic steatosis. 2.) Prior cholecystectomy. 3.) Mild right-sided hydronephrosis.
[2020-01-18 12:53] LABS: Basophils % 0.5 %; Eosinophils # 0.1 10^3/uL (0.0-0.8); Eosinophils % 0.9 %; Hematocrit 50.2 % (37.0-47.0); Hemoglobin 15.9 g/dL (11.5-15.3); Lymphocytes # 3.6 10^3/uL (0.8-4.8); Lymphocytes % 42.2 %; Mean Corpuscular HGB Conc 31.7 g/dL (30.0-36.0); Mean Corpuscular Volume 91.4 fL (81-99); Mean Platelet Volume 9.9 fL (7.4-10.4); Monocytes # 0.5 10^3/uL (0.2-0.9); Monocytes % 5.5 %; Neutrophils # 4.32 10^3/uL (1.8-7.7); Neutrophils % 50.7 %; Nucleated Red Blood Cells % 0 %; Platelet Count 436 10^3/cmm (130-400); Red Blood Count 5.49 10^6/uL (4.1-5.3); Red Cell Distribution Width 14.3 % (12.1-15.1); White Blood Count 8.5 10^3/uL (4.0-10.0)
[2020-01-18 13:26] LABS: Alanine Aminotransferase 74 U/L (0-33); Albumin Level 3.9 g/dL (3.5-5.2); Alcohol Level 191 mg/dL (0-10); Alkaline Phosphatase 104 IU/L (35-105); Anion Gap 15.3 (5-19); Aspartate Amino Transferase 64 U/L (0-32); Blood Urea Nitrogen 15 mg/dL (6-20); Calcium 8.3 mg/dL (8.5-10.5); Carbon Dioxide 26 mmol/L (22-29); Chloride 106 mmol/L (98-107); Globulin 3.6 g/dL (1.3-4.6); Glomerular Filtration Rate 92.2 mL/min (90-130); Glucose 145 mg/dL (65-115); Osmolality Calculated 295 mOsm/kg (285-295); Potassium 4.3 mmol/L (3.5-5.1); Sodium 143 mmol/L (136-145); Total Bilirubin 0.3 mg/dL (0.15-1.2); Total Protein 7.5 g/dL (6.6-8.7)
[2020-01-18 13:54] LABS: Glucose Urine UA Norm (Normal); Ketones Urine Negative (Negative); Protein Urine 2+ (Negative); Urine Appearance Hazy (CLEAR); Urine Color Yellow (Yellow); pH Urine 5 (5-7)
[2020-01-18 13:55] LABS: Add Urine Microscopic? YES; Bilirubin Urine Neg (NEGATIVE); Blood Urine 2+ (Negative); Leukocyte Esterase Urine 1+ (Negative); Nitrate Urine Negative (Negative); Urobilinogen Urine Norm (Negative)
[2020-01-18 14:00] LABS: Add Urine Culture? Yes; Bacteria Urine 4+; Mucus Urine 1+; WBC Urine 25-40 /hpf (0-5)
[2020-01-18] MEDS: cefTRIAXone 1,000 MG in sodium chloride 0.9% (plus) 50 ML 100 MG IV (14:21)
[2020-01-18 15:19] VITALS: BP 176/105; PULSE 89; RESP 18; O2SAT 95
--- NOTE | 2020-01-18 15:19 | PC.NURSE ---
1 liter fo fluid per ems
== END 2020-01-18 15:21 | disposition home or self-care (01) ==
PROVIDERS: Emergency Provider Family Medicine; PCP Physician Assistant Medical
DX: N30.90 Cystitis, unspecified without hematuria (principal); K29.20 Alcoholic gastritis without bleeding; Z72.89 Other problems related to lifestyle; F17.210 Nicotine dependence, cigarettes, uncomplicated
CPT/HCPCS: 12345; 36415; 76705; 80053; 80307; 81001; 85025; 87077; 87086; 87186; 96365; 96375; 99283; 99284; C9113; J0696; J2405

== ENCOUNTER 2020-01-24 17:43 | Emergency (ER) | payer MEDICAID, SELFPAY ==
[2020-01-24 17:46] VITALS: BP 139/91; PULSE 104; RESP 20; TEMP 36.8; O2SAT 95; BMI 45.4
--- NOTE | 2020-01-24 19:06 | PC.NURSE ---
UA collected and sent to lab. Pt sitting in waiting room, labs drawn.
[2020-01-24 19:22] LABS: Add Urine Microscopic? YES; Bilirubin Urine Neg (NEGATIVE); Blood Urine Trace (Negative); Glucose Urine UA 1+ (Normal); Ketones Urine Negative (Negative); Leukocyte Esterase Urine Negative (Negative); Nitrate Urine Negative (Negative); Protein Urine Neg (Negative); Urine Appearance SL Hazy (CLEAR); Urine Color Yellow (Yellow); Urobilinogen Urine Neg (Negative); pH Urine 7 (5-7)
[2020-01-24 19:30] LABS: Amphetamines Screen Urine Negative (Negative); Barbiturates Screen Urine Negative (Negative); Benzodiazepines Screen Urine Negative (Negative); Cocaine Screen Urine Negative (Negative); Opiate Screen Urine Negative (Negative); PCP Screen Urine Negative (Negative); THC Screen Urine Negative (Negative)
[2020-01-24 19:35] LABS: RBC Urine 0-4 /hpf (0-2); WBC Urine 0-4 /hpf (0-5)
[2020-01-24 19:36] LABS: Add Urine Culture? No; Bacteria Urine 1+; Squamous Epithelial Cell Urine 15-25 (0-5)
[2020-01-24 20:05] LABS: Alanine Aminotransferase 59 U/L (0-33); Albumin Level 3.5 g/dL (3.5-5.2); Alkaline Phosphatase 113 IU/L (35-105); Anion Gap 13.3 (5-19); Aspartate Amino Transferase 55 U/L (0-32); Blood Urea Nitrogen 16 mg/dL (6-20); Calcium 8.5 mg/dL (8.5-10.5); Carbon Dioxide 25 mmol/L (22-29); Chloride 103 mmol/L (98-107); Globulin 3.4 g/dL (1.3-4.6); Glucose 110 mg/dL (65-115); Lipase 31 U/L (13-60); Osmolality Calculated 281 mOsm/kg (285-295); Potassium 4.3 mmol/L (3.5-5.1); Sodium 137 mmol/L (136-145); Total Bilirubin 0.4 mg/dL (0.15-1.2); Total Protein 6.9 g/dL (6.6-8.7)
[2020-01-24 20:06] LABS: Alcohol Level < 10 mg/dL (0-10)
[2020-01-24 20:55] VITALS: BP 158/103; PULSE 78; RESP 20; O2SAT 94
[2020-01-24 20:57] LABS: Basophils % 0.3 %; Eosinophils # 0.2 10^3/uL (0.0-0.8); Hematocrit 44.6 % (37.0-47.0); Hemoglobin 14.4 g/dL (11.5-15.3); Lymphocytes # 3.9 10^3/uL (0.8-4.8); Lymphocytes % 40.5 %; Mean Corpuscular HGB Conc 32.3 g/dL (30.0-36.0); Mean Corpuscular Hemoglobin 29.8 pg (28.0-34.0); Mean Corpuscular Volume 92.1 fL (81-99); Mean Platelet Volume 10.1 fL (7.4-10.4); Monocytes # 0.5 10^3/uL (0.2-0.9); Monocytes % 4.8 %; Neutrophils # 5.03 10^3/uL (1.8-7.7); Neutrophils % 52.1 %; Nucleated Red Blood Cells % 0 %; Platelet Count 286 10^3/cmm (130-400); Red Blood Count 4.84 10^6/uL (4.1-5.3); Red Cell Distribution Width 14.6 % (12.1-15.1); White Blood Count 9.6 10^3/uL (4.0-10.0)
--- NOTE | 2020-01-24 21:22 | XRR_ITS ---
PROCEDURE INFORMATION: Exam: XR Abdomen, 2 Views Exam date and time: 01/24/2020 9:46 PM Age: 39 years old Clinical indication: Abdominal pain; Additional info: Left side abd pain TECHNIQUE: Imaging protocol: XR of the abdomen. Views: 2 Views. COMPARISON: CT abdomen pelvis w con* [id number] 10/07/2019 5:38 PM FINDINGS: Lungs: Bibasilar atelectasis versus minimal infiltrate. Gastrointestinal tract: Normal. No bowel dilation. Intraperitoneal space: Normal. No free air. Bones/joints: Unremarkable for age. XR/XR acute abdomen series [id number] IMPRESSION: 1. Negative for bowel dilation or air-fluid levels to indicate obstruction 2. Bibasilar atelectasis versus minimal infiltrate.
[2020-01-24 22:24] VITALS: RESP 16; O2SAT 94
[2020-01-24] MEDS: oxyCODONE-APAP 5-325 mg Tablet 2 TAB PO (22:24)
[2020-01-24 22:50] VITALS: BP 182/128; PULSE 91; RESP 16; O2SAT 91
--- NOTE | 2020-01-24 22:50 | PC.NURSE ---
informed dr. pike of bp of 182/128 verbalized understanding vo with readback to take bp medication at home and continue with dc.
--- NOTE | 2020-01-24 23:31 | ED_ITS ---
HPI - Abdominal Pain General: Chief Complaint: Abdominal Pain Stated Complaint: ABDOMINAL PAIN Time Seen by Provider: 01/24/20 19:27 History of Present Illness: HPI narrative: 39-year-old female well-known to the emergency department. She presents with left upper quadrant pain, radiating to her groin. No hematuria. No vomiting she has googled it , and believes it is coming from her spleen. There is no history of trauma. No vomiting MD elicited complaint: abdominal pain and flank pain Onset (ago): day(s) Pain Consistency: constant Location: [facility] Severity: moderate Quality: cramping and stabbing Radiation: suprapubic and L flank Migration to: no migration Exacerbating factors: movement Associated Symptoms: Denies diarrhea, dysuria, fever(s), hematuria, hematemesis and vomiting Related Data: Date of Last Menstrual Period: 11/06/19 Review of Systems Const: Denies: fever(s) Eyes: Denies: change in vision or blurry vision ENMT: Denies: swelling of lips/tongue, post nasal drip or sinus pain Card: Denies: chest pain, palpitations, irregular heart rhythm or edema Resp: Denies: dyspnea, productive cough, non-productive cough or wheezing GI: Denies: vomiting, hematemesis or diarrhea : Denies: dysuria, urinary frequency or hematuria Musc: Reports: back pain; Denies: neck pain or joint warmth Skin/Breast: Denies: rash, pruritus or erythema Neuro: Denies: headache(s), dizziness, vertigo or confusion Psych: Denies: anxiety PFSH ED PFSH: Medical History (Updated 01/24/20 @ 22:12 by Carl Mars DO) Alcohol abuse Bipolar disorder History of hydronephrosis Peptic ulcer disease Polysubstance abuse Prolapse of bladder Suicidal ideation Tobacco dependency Surgical History H/O shoulder surgery History of delivery History of tubal ligation Hx laparoscopic cholecystectomy Hx of neck surgery Hx of tonsillectomy Family History Grandfather Cancer Paternal grandfather Diabetes Maternal grandfather Father Diabetes Grandmother Diabetes Paternal grandmother Brother Hepatitis C Sister Alcohol abuse Denies family history of Psychiatric illness Social History Smoking and tobacco status: current every day smoker cigarettes Packs smoked per day: 3 Years cigarettes smoked: 31 Quit status (tobacco): not considering quitting Smoking risk assessment/counseling performed?: Yes (Patient reports that she rolls 70-80 cigs a day to smoke) Alcohol intake: current Other details last alcohol use: Reports is in alcohol treatment program. [place] been drinking 1 gallon of vodka daily. Current gender identity: Female Female Reproductive History: Date of last menstrual period: 11/06/19 Physical Exam Const: GENERAL APPEARANCE: well developed ORIENTATION/CONSCIOUSNESS: Yes oriented to person, Yes oriented to place and Yes oriented to time HENMT: COMMON NORMALS: normocephalic, external ears normal and Normal external nose present HEAD & SCALP: normocephalic FACE & SINUS: normal facial exam NOSE: Normal external nose present EXTERNAL EAR: Yes external ears normal MOUTH: tongue normal TEETH & GINGIVA: no abnormal tooth and associated gingiva THROAT: posterior oropharynx normal; no peritonsillar mass Eye: COMMON NORMALS: Equal, round and reactive pupils present, EOMs intact bilaterally and conjunctivae normal EYELID: eyelids normal CONJUNCTIVA: Yes conjunctivae normal PUPIL: Yes Equal, round and reactive pupils present Neck/C-Spine: GENERAL: No tracheal deviation Chest: COMMONS NORMALS: normal inspection of the chest CHEST: No tenderness Resp: COMMON NORMALS: clear to auscultation bilaterally EFFORT & INSPECTION: No tachypneic, No respiratory distress, No retractions, No uses accessory muscles and No tracheal deviation AUSCULTATION: clear to auscultation bilaterally, no rhonchi, no wheezes and lung sounds not diminished Cardio: COMMON NORMALS: regular rate and regular rhythm RATE: regular rate RHYTHM: regular rhythm HEART SOUNDS: no murmurs PERIPHERAL PULSES: radial pulses present GI: INSPECTION: No abdominal distension AUSCULTATION: No Hyperactive bowel sounds present and No Hypoactive bowel sounds present PALPATION: No Guarding due to palpation present (GI) and No Rigid due to palpation PERCUSSION: no dullness to percussion and no tympanic to percussion Neuro: SENSORIUM/ORIENTATION: Yes oriented to person, Yes oriented to place and Yes oriented to time Psych: COMMON NORMALS: mental status grossly normal Skin: COMMON NORMALS: no rashes or lesions noted GENERAL SKIN EXAM: no rashes or lesions noted Course Vital Signs: Vital signs: Vital Signs Temperature 98.3 F 01/24/20 17:46 Pulse Rate 91 01/24/20 22:50 Respiratory Rate 16 01/24/20 22:50 Blood Pressure 182/128 01/24/20 22:50 Pulse Oximetry 91 01/24/20 22:50 MDM - Abdominal Pain MDM Narrative: Medical decision making narrative: 39-year-old female with left-sided belly pain. Sensation is not indicative of bowel, stone, etc. There is no rash over the skin. Her acute abdomen series is negative. Her white count is 9.6. Her labs are benign otherwise. Urinalysis shows no evidence of infection hematuria or infection. Lab Data: Labs: Lab Results 01/24/20 01/24/20 01/24/20 Range/Units 19:04 19:04 19:35 WBC (4.0-10.0) 10^3/ uL RBC (4.1-5.3) 10^6/u L Hgb (11.5-15.3) g/dL Hct (37.0-47.0) % MCV (81-99) fL MCH (28.0-34.0) pg MCHC (30.0-36.0) g/dL RDW (12.1-15.1) % Plt Count (130-400) 10^3/c mm MPV (7.4-10.4) fL Neut % (Auto) % Lymph % (Auto) % Kleberg % (Auto) % Eos % (Auto) % Baso % (Auto) % Neut # (Auto) (1.8-7.7) 10^3/u L Lymph # (Auto) (0.8-4.8) 10^3/u L Kleberg # (Auto) (0.2-0.9) 10^3/u L Eos # (Auto) (0.0-0.8) 10^3/u L Baso # (Auto) (0.0-0.1) 10^3/u L Nucleated RBC % (a uto) % Nucleated RBCs # /100WBC Sodium 137 (136-145) mmol/L Potassium 4.3 (3.5-5.1) mmol/L Chloride 103 (98-107) mmol/L Carbon Dioxide 25 (22-29) mmol/L Anion Gap 13.3 (5-19) BUN 16 (6-20) mg/dL Creatinine 0.8 (0.5-0.9) mg/dL GFR Calculation 79.0 L (90-130) mL/min Glucose 110 (65-115) mg/dL Calculated Osmolal ity 281 L (285-295) mOsm/k g Calcium 8.5 (8.5-10.5) mg/dL Total Bilirubin 0.4 (0.15-1.2) mg/dL AST 55 H (0-32) U/L ALT 59 H (0-33) U/L Alkaline Phosphata se 113 H (35-105) IU/L Total Protein 6.9 (6.6-8.7) g/dL Albumin 3.5 (3.5-5.2) g/dL Globulin 3.4 (1.3-4.6) g/dL Lipase 31 (13-60) U/L Urine Color Yellow (Yellow) Urine Appearance Sl hazy (CLEAR) Urine pH 7 (5-7) Ur Specific Gravit y 1.010 (1.005-1.030) Urine Protein Neg (Negative) Urine Glucose (UA) 1+ (Normal) Urine Ketones Negative (Negative) Urine Blood Trace H (Negative) Urine Nitrate Negative (Negative) Urine Bilirubin Neg (NEGATIVE) Urine Urobilinogen Neg (Negative) mg/dL Ur Leukocyte Stephanie ase Negative (Negative) Urine RBC 0-4 H (0-2) /hpf Urine WBC 0-4 H (0-5) /hpf Ur Squamous Epith Cells 15-25 H (0-5) Amorphous Sediment Not Reportable Urine Bacteria 1+ H (NONE) Urine Opiates Scre en Negative (Negative) ng/mL Ur Barbiturates Sc reen Negative (Negative) ng/mL Ur Phencyclidine S crn Negative (Negative) ng/mL Ur Amphetamines Sc reen Negative (Negative) ng/mL U Benzodiazepines Scrn Negative (Negative) ng/mL Urine Cocaine Scre en Negative (Negative) ng/mL U Marijuana (THC) Screen Negative (Negative) ng/mL Ethyl Alcohol < 10 (0-10) mg/dL 01/24/20 Range/Units 20:48 WBC 9.6 (4.0-10.0) 10^3/ uL RBC 4.84 (4.1-5.3) 10^6/u L Hgb 14.4 (11.5-15.3) g/dL Hct 44.6 (37.0-47.0) % MCV 92.1 (81-99) fL MCH 29.8 (28.0-34.0) pg MCHC 32.3 (30.0-36.0) g/dL RDW 14.6 (12.1-15.1) % Plt Count 286 (130-400) 10^3/c mm MPV 10.1 (7.4-10.4) fL Neut % (Auto) 52.1 % Lymph % (Auto) 40.5 % Kleberg % (Auto) 4.8 % Eos % (Auto) 2.0 % Baso % (Auto) 0.3 % Neut # (Auto) 5.03 (1.8-7.7) 10^3/u L Lymph # (Auto) 3.9 (0.8-4.8) 10^3/u L Kleberg # (Auto) 0.5 (0.2-0.9) 10^3/u L Eos # (Auto) 0.2 (0.0-0.8) 10^3/u L Baso # (Auto) 0.0 (0.0-0.1) 10^3/u L Nucleated RBC % (a uto) 0 % Nucleated RBCs # 0.0 /100WBC Sodium (136-145) mmol/L Potassium (3.5-5.1) mmol/L Chloride (98-107) mmol/L Carbon Dioxide (22-29) mmol/L Anion Gap (5-19) BUN (6-20) mg/dL Creatinine (0.5-0.9) mg/dL GFR Calculation (90-130) mL/min Glucose (65-115) mg/dL Calculated Osmolal ity (285-295) mOsm/k g Calcium (8.5-10.5) mg/dL Total Bilirubin (0.15-1.2) mg/dL AST (0-32) U/L ALT (0-33) U/L Alkaline Phosphata se (35-105) IU/L Total Protein (6.6-8.7) g/dL Albumin (3.5-5.2) g/dL Globulin (1.3-4.6) g/dL Lipase (13-60) U/L Urine Color (Yellow) Urine Appearance (CLEAR) Urine pH (5-7) Ur Specific Gravit y (1.005-1.030) Urine Protein (Negative) Urine Glucose (UA) (Normal) Urine Ketones (Negative) Urine Blood (Negative) Urine Nitrate (Negative) Urine Bilirubin (NEGATIVE) Urine Urobilinogen (Negative) mg/dL Ur Leukocyte Stephanie ase (Negative) Urine RBC (0-2) /hpf Urine WBC (0-5) /hpf Ur Squamous Epith Cells (0-5) Amorphous Sediment Urine Bacteria (NONE) Urine Opiates Scre en (Negative) ng/mL Ur Barbiturates Sc reen (Negative) ng/mL Ur Phencyclidine S crn (Negative) ng/mL Ur Amphetamines Sc reen (Negative) ng/mL U Benzodiazepines Scrn (Negative) ng/mL Urine Cocaine Scre en (Negative) ng/mL U Marijuana (THC) Screen (Negative) ng/mL Ethyl Alcohol (0-10) mg/dL Discharge Plan Discharge Patient Disposition: Home Clinical Impression: Acute left flank pain Condition: Stable Prescriptions: New ketorolac 10 mg tablet 10 mg PO TID PRN (Reason: pain) Qty: 10 RF: 0 ondansetron 4 mg film 4 mg PO DAILY PRN (Reason: nausea and vomiting) Qty: 10 RF: 0 No Action folic acid 1 mg Tablet 1 mg PO DAILY Qty: 0 RF: 0 Thera 400 mcg Tablet 1 tab PO DAILY Qty: 0 RF: 0 furosemide [Lasix] 20 mg tablet 20 mg PO DAILY Qty: 3 RF: 0 Ciprodex 0.3-0.1 % Drops,Suspension 4 drp ear (left) BID 30 Days Qty: 1 RF: 0 pantoprazole 40 mg tablet,delayed release (DR/EC) 40 mg PO BID Qty: 30 RF: 0 hydroxyzine HCl 50 mg tablet 50 mg PO TID PRN (Reason: unknown) RF: 0 amlodipine 10 mg tablet 10 mg PO DAILY RF: 0 benzonatate 100 mg capsule 100 mg PO TID RF: 0 hydrochlorothiazide 25 mg tablet 25 mg PO DAILY PRN (Reason: unknown) RF: 0 metoprolol tartrate 25 mg tablet 25 mg PO BID RF: 0 nicotine 21 mg/24 hr Patch 24 Hour 1 patch transdermal DAILY Qty: 30 RF: 0 thiamine mononitrate (vit B1) [Vitamin B-1 (mononitrate)] 100 mg Tablet 100 mg PO DAILY Qty: 30 RF: 0 albuterol sulfate [ProAir HFA] 90 mcg/actuation Hfa Aerosol Inhaler 1 puff INHALATION QID PRN (Reason: Shortness Of Breath) RF: 0 aripiprazole 20 mg tablet 20 mg PO DAILY 30 Days Qty: 30 RF: 1 trazodone 150 mg Tablet 150 mg PO BEDTIME PRN (Reason: Insomnia) 30 Days Qty: 30 RF: 1 duloxetine 30 mg capsule,delayed release(DR/EC) 60 mg PO DAILY 30 Days Qty: 60 RF: 1 Discharge Orders: Discharge Order (Routine); Ordered 01/24/20 Ordered By: Carl Mars Referrals: Dawson Murguia [Primary Care Provider] - Discharge Diet: Advance as tolerated Discharge Activity: Increase activity as tolerated Patient Instructions: Abdominal Pain (ED) Activity Restrictions/Additional Instructions: Return for fever greater than 100, worsening pain despite treatment, blood in the stool, vomiting liquids or medications, other concerning symptoms Discharge Date/Time: 01/24/20 23:00 Coding Level of Care Code ED Residential [employer]ycle [employer] for Samreen Lubin
== END 2020-01-24 23:00 | disposition home or self-care (01) ==
PROVIDERS: Family Medicine; Emergency Provider Emergency Medicine; PCP Physician Assistant Medical
DX: R10.9 Unspecified abdominal pain (principal); F17.210 Nicotine dependence, cigarettes, uncomplicated
CPT/HCPCS: 12345; 36415; 74022; 80053; 80306; 80307; 81001; 83690; 85025; 99283

== ENCOUNTER 2020-02-12 21:35 | Emergency (ER) | payer MEDICAID, SELFPAY ==
[2020-02-12 21:38] VITALS: BP 190/113; PULSE 89; RESP 22; TEMP 36.6; O2SAT 98; BMI 46.1
--- NOTE | 2020-02-12 21:43 | XR_ITS ---
WS: [id number] Portable AP upright chest, 02/12/2020 Clinical Data: Chest discomfort Comparison: Portable chest, 12/27/2019. Findings: No nodules, masses or effusions are seen. The heart is normal. The pulmonary vascularity is not increased. No pneumonia or pneumothorax is seen. XR/XR chest 1V portable [id number] Impression: Negative chest.
--- NOTE | 2020-02-12 21:45 | W.ED.GENADLT ---
Documented by User: Charlee Tang 02/13/20 01:04 HPI - General Adult General: Chief complaint: General Medical Stated complaint: KIDNEY PAIN Time Seen by Provider: 02/12/20 21:39 Source: patient Mode of arrival: ambulatory Limitations: no limitations History of Present Illness: HPI narrative: Mary Jo is a 39-year-old female who comes in with multiple complaints. Her greatest complaint is an abscess to her left breast. Is been draining for the past 2 to 3 days. She denies any fevers or chills. She denies any nausea or vomiting. She also complains of bilateral flank pain consistent with what she says is caused by her kidneys. She denies any burning or pain when she urinates. She denies any blood in her urine. She states the this does cause discomfort but what causes most of her pain is coming from her breast. She denies any other complaints or concerns. Associated symptoms: Reports nausea; Deny chest pain, confusion, diaphoresis, dyspnea, headache(s), malaise, rash, palpitations, syncope or vomiting Review of Systems Const: Reports: fever(s); Denies: chills, body aches, fatigue, malaise or diaphoresis Eyes: Denies: change in vision, blurry vision, photophobia, eye discomfort, eye discharge, eye redness or yellow eyes ENMT: Denies: throat pain, odynophagia, hoarseness, swelling of lips/tongue, ear or mastoid pain, ear discharge, change in hearing or nasal discharge Card: Denies: chest pain, palpitations, irregular heart rhythm, edema, lightheadedness, syncope, pre-syncope, dyspnea on exertion or orthopnea Resp: Denies: dyspnea, productive cough, non-productive cough, wheezing, hemoptysis or chest congestion GI: Reports: nausea; Denies: abdominal pain, vomiting, hematemesis, coffee ground emesis, heartburn, diarrhea, constipation, GI cramping, hematochezia or melena : Reports: flank pain; Denies: dysuria, urinary frequency, urinary urgency or hematuria Musc: Denies: neck pain, back pain, extremity pain, extremity swelling, joint pain, joint swelling, joint redness, joint warmth or joint stiffness Skin/Breast: Reports: erythema and skin tenderness; Denies: rash, pruritus or skin pain Neuro: Denies: headache(s), numbness in extremities, weakness in extremities, sensory changes, lack of coordination, difficulty walking, dizziness, vertigo, confusion, Slurred speech present or seizure-like activity Jaron/Lymph: Denies: easy bruising, easy bleeding, petechiae, purpura or enlarged lymph nodes All/Imm: Denies: urticaria, throat swelling, tongue swelling, facial swelling or acute wheezing PFSH ED PFSH: Medical History Alcohol abuse Bipolar disorder History of hydronephrosis Peptic ulcer disease Polysubstance abuse Prolapse of bladder Suicidal ideation Tobacco dependency Surgical History H/O shoulder surgery History of delivery History of tubal ligation Hx laparoscopic cholecystectomy Hx of neck surgery Hx of tonsillectomy Family History Grandfather Cancer Paternal grandfather Diabetes Maternal grandfather Father Diabetes Grandmother Diabetes Paternal grandmother Brother Hepatitis C Sister Alcohol abuse Denies family history of Psychiatric illness Social History Smoking and tobacco status: current every day smoker cigarettes Packs smoked per day: 3 Years cigarettes smoked: 31 Quit status (tobacco): not considering quitting Smoking risk assessment/counseling performed?: Yes (Patient reports that she rolls 70-80 cigs a day to smoke) Alcohol intake: current Other details last alcohol use: Reports is in alcohol treatment program. [place] been drinking 1 gallon of vodka daily. Current gender identity: Female Female Reproductive History: Date of last menstrual period: 11/06/19 Course Vital Signs: Vital signs: Vital Signs Temperature 97.9 F 02/12/20 21:38 Pulse Rate 88 02/12/20 23:46 Respiratory Rate 18 02/12/20 23:46 Blood Pressure 109/83 02/12/20 23:46 Pulse Oximetry 95 02/12/20 23:46 MDM - General Adult MDM Narrative: Medical decision making narrative: 99 is a nice 39-year-old female who comes in with very complaints. The first being an abscess to her breast which was drained here by my midlevel. Large amount of purulent drainage was expressed. Patient was loaded with IV antibiotics will be discharged on p.o. antibiotics. She does not demonstrate any signs or symptoms of sepsis at this time. They complains that of bilateral flank pain which appears to be chronic upon further history. There is no sign of kidney stones or infection at this time. The patient had a contaminated urine. The patient is feeling better at this time is ready to be discharged. She does agree to return should her symptoms change or worsen but at this time she is feeling better and would like to be discharged. Lab Data: Labs: Lab Results 02/12/20 02/12/20 02/12/20 Range/Units 22:50 23:12 23:12 WBC 9.9 (4.0-10.0) 10^3/ uL RBC 4.85 (4.1-5.3) 10^6/u L Hgb 14.5 (11.5-15.3) g/dL Hct 44.0 (37.0-47.0) % MCV 90.7 (81-99) fL MCH 29.9 (28.0-34.0) pg MCHC 33.0 (30.0-36.0) g/dL RDW 15.9 H (12.1-15.1) % Plt Count 348 (130-400) 10^3/c mm MPV 10.3 (7.4-10.4) fL Neut % (Auto) 54.0 % Lymph % (Auto) 35.6 % [place] % (Auto) 7.6 % Eos % (Auto) 2.1 % Baso % (Auto) 0.3 % Neut # (Auto) 5.34 (1.8-7.7) 10^3/u L Lymph # (Auto) 3.5 (0.8-4.8) 10^3/u L [place] # (Auto) 0.8 (0.2-0.9) 10^3/u L Eos # (Auto) 0.2 (0.0-0.8) 10^3/u L Baso # (Auto) 0.0 (0.0-0.1) 10^3/u L Nucleated RBC % (a uto) 0 % Nucleated RBCs # 0.0 /100WBC Sodium 136 (136-145) mmol/L Potassium 4.6 (3.5-5.1) mmol/L Chloride 104 (98-107) mmol/L Carbon Dioxide 20 L (22-29) mmol/L Anion Gap 16.6 (5-19) BUN 12 (6-20) mg/dL Creatinine 0.7 (0.5-0.9) mg/dL GFR Calculation 92.2 (90-130) mL/min Glucose 106 (65-115) mg/dL Calculated Osmolal ity 282 L (285-295) mOsm/k g Lactic Acid 1.5 (0.5-2.2) mmol/L Calcium 9.0 (8.5-10.5) mg/dL Total Bilirubin 0.4 (0.15-1.2) mg/dL AST 65 H (0-32) U/L ALT 68 H (0-33) U/L Alkaline Phosphata se 112 H (35-105) IU/L Total Protein 7.0 (6.6-8.7) g/dL Albumin 3.8 (3.5-5.2) g/dL Globulin 3.2 (1.3-4.6) g/dL Lipase 20 (13-60) U/L Urine Color (Yellow) Urine Appearance (CLEAR) Urine pH (5-7) Ur Specific Gravit y (1.005-1.030) Urine Protein (Negative) Urine Glucose (UA) (Normal) Urine Ketones (Negative) Urine Blood (Negative) Urine Nitrate (Negative) Urine Bilirubin (Negative) Urine Urobilinogen (Negative) mg/dL Ur Leukocyte Stephanie ase (Negative) Urine RBC (0-2) /hpf Urine WBC (0-5) /hpf Ur Squamous Epith Cells (0-5) /hpf Amorphous Sediment Urine Bacteria (NONE) /hpf Ethyl Alcohol (0-10) mg/dL 02/12/20 02/13/20 Range/Units 23:12 00:07 WBC (4.0-10.0) 10^3/ uL RBC (4.1-5.3) 10^6/u L Hgb (11.5-15.3) g/dL Hct (37.0-47.0) % MCV (81-99) fL MCH (28.0-34.0) pg MCHC (30.0-36.0) g/dL RDW (12.1-15.1) % Plt Count (130-400) 10^3/c mm MPV (7.4-10.4) fL Neut % (Auto) % Lymph % (Auto) % [place] % (Auto) % Eos % (Auto) % Baso % (Auto) % Neut # (Auto) (1.8-7.7) 10^3/u L Lymph # (Auto) (0.8-4.8) 10^3/u L [place] # (Auto) (0.2-0.9) 10^3/u L Eos # (Auto) (0.0-0.8) 10^3/u L Baso # (Auto) (0.0-0.1) 10^3/u L Nucleated RBC % (a uto) % Nucleated RBCs # /100WBC Sodium (136-145) mmol/L Potassium (3.5-5.1) mmol/L Chloride (98-107) mmol/L Carbon Dioxide (22-29) mmol/L Anion Gap (5-19) BUN (6-20) mg/dL Creatinine (0.5-0.9) mg/dL GFR Calculation (90-130) mL/min Glucose (65-115) mg/dL Calculated Osmolal ity (285-295) mOsm/k g Lactic Acid (0.5-2.2) mmol/L Calcium (8.5-10.5) mg/dL Total Bilirubin (0.15-1.2) mg/dL AST (0-32) U/L ALT (0-33) U/L Alkaline Phosphata se (35-105) IU/L Total Protein (6.6-8.7) g/dL Albumin (3.5-5.2) g/dL Globulin (1.3-4.6) g/dL Lipase (13-60) U/L Urine Color Yellow (Yellow) Urine Appearance Cloudy (CLEAR) Urine pH 5 (5-7) Ur Specific Gravit y 1.025 (1.005-1.030) Urine Protein Neg (Negative) Urine Glucose (UA) 1+ (Normal) Urine Ketones Negative (Negative) Urine Blood 2+ H (Negative) Urine Nitrate Positive H (Negative) Urine Bilirubin Neg (Negative) Urine Urobilinogen Norm (Negative) mg/dL Ur Leukocyte Stephanie ase Negative (Negative) Urine RBC 5-10 H (0-2) /hpf Urine WBC 5-10 H (0-5) /hpf Ur Squamous Epith Cells 10-15 H (0-5) /hpf Amorphous Sediment Not Reportable Urine Bacteria 4+ H (NONE) /hpf Ethyl Alcohol < 10 (0-10) mg/dL Imaging Data^: CXR: Attestation: I personally reviewed and interpreted this imaging study as follows: My impression: No acute cardiopulmonary findings. CT Abd/Pel: Radiologist's impression: [address] [address] [address] Scan Report Signed Patient: MooAugust Unit #: [id number] : 1980 Age/Sex: 39 / F ADM Date: 02/12/20 Loc: ER Room/Bed: Attending Dr: Ordering Provider/Ordering MD: Charlee Tang DO Date of Service: 02/12/20 Procedure(s): CT kidney stone 10489 Accession Number(s): [id number] Report Number: [id number] PROCEDURE INFORMATION: Exam: CT Abdomen And Pelvis Without Contrast Exam date and time: 02/12/2020 10:44 PM Age: 39 years old Clinical indication: Abdominal pain; Flank; Other: Bilateral; Prior surgery; Surgery type: Cholecystectomy, ; Additional info: Flank/abdominal pain TECHNIQUE: Imaging protocol: Computed tomography of the abdomen and pelvis without contrast. Radiation optimization: All CT scans at this facility use at least one of these dose optimization techniques: automated exposure control; mA and/or kV adjustment per patient size (includes targeted exams where dose is matched to clinical indication); or iterative reconstruction. COMPARISON: CT abdomen pelvis w con* [id number] 10/07/2019 5:38 PM RADIATION DOSE METRICS: Total DLP (mGy-cm): 2148.24 FINDINGS: Lungs: The lung bases appear essentially clear. Liver: There is fatty infiltration of the liver. The liver appears somewhat enlarged, with right lobe length of about 22 cm. No definite/significant focal hepatic abnormality. Gallbladder and bile ducts: Prior cholecystectomy, no significant biliary tree dilation. Pancreas: Unremarkable. Spleen: Unremarkable. Adrenals: Unremarkable. Kidneys and ureters: No hydronephrosis of either kidney. No visible renal or ureteral calculus. No perinephric fluid. Stomach and bowel: There are no CT findings to strongly suggest diverticulitis. Appendix: The appendix is visualized and appears normal. Intraperitoneal space: No free air, ascites, or bowel distention. Vasculature: No evidence for abdominal aortic aneurysm. Lymph nodes: No retroperitoneal adenopathy. Urinary bladder: Unremarkable as visualized. Reproductive: The right ovary contains a 12 mm dominant follicle versus very small cyst. Significance unlikely due to small size. No cul-de-sac fluid. Bones/joints: No significant acute finding. Soft tissues: Small umbilical hernia, containing only fat. CT/CT kidney stone 81011 IMPRESSION: 1. No hydronephrosis of either kidney. No visible renal or ureteral calculus. 2. Normal appendix. 3. No free air or bowel distention. 4. Other findings discussed above. Radiation Dose CTDIVOL = (mGy): DLP = 2148.24 (mGy-cm) Dictated By: Segundo Ramirez MD Signed By: Segundo Ramirez MD Signed Date/Time: 02/12/202357 DD/ 56 Discharge Plan Discharge Patient Disposition: Home Clinical Impression: Abscess, Bilateral flank pain UTI (urinary tract infection) Qualifiers: Urinary tract infection type: site unspecified Hematuria presence: with hematuria Qualified Code(s): N39.0 - Urinary tract infection, site not specified Condition: Stable Prescriptions: New Cleocin HCl 150 mg capsule 300 mg PO Q6H 10 Days Qty: 80 RF: 0 sulfamethoxazole-trimethoprim [Bactrim DS] 800-160 mg tablet 1 tab PO BID 10 Days Qty: 20 RF: 0 No Action folic acid 1 mg Tablet 1 mg PO DAILY Qty: 0 RF: 0 Thera 400 mcg Tablet 1 tab PO DAILY Qty: 0 RF: 0 furosemide [Lasix] 20 mg tablet 20 mg PO DAILY Qty: 3 RF: 0 pantoprazole 40 mg tablet,delayed release (DR/EC) 40 mg PO BID Qty: 30 RF: 0 ketorolac 10 mg tablet 10 mg PO TID PRN (Reason: pain) Qty: 10 RF: 0 ondansetron 4 mg film 4 mg PO DAILY PRN (Reason: nausea and vomiting) Qty: 10 RF: 0 hydroxyzine HCl 50 mg tablet 50 mg PO TID PRN (Reason: unknown) RF: 0 amlodipine 10 mg tablet 10 mg PO DAILY RF: 0 benzonatate 100 mg capsule 100 mg PO TID RF: 0 hydrochlorothiazide 25 mg tablet 25 mg PO DAILY PRN (Reason: unknown) RF: 0 metoprolol tartrate 25 mg tablet 25 mg PO BID RF: 0 nicotine 21 mg/24 hr Patch 24 Hour 1 patch transdermal DAILY Qty: 30 RF: 0 thiamine mononitrate (vit B1) [Vitamin B-1 (mononitrate)] 100 mg Tablet 100 mg PO DAILY Qty: 30 RF: 0 albuterol sulfate [ProAir HFA] 90 mcg/actuation Hfa Aerosol Inhaler 1 puff INHALATION QID PRN (Reason: Shortness Of Breath) RF: 0 aripiprazole 20 mg tablet 20 mg PO DAILY 30 Days Qty: 30 RF: 1 trazodone 150 mg Tablet 150 mg PO BEDTIME PRN (Reason: Insomnia) 30 Days Qty: 30 RF: 1 duloxetine 30 mg capsule,delayed release(DR/EC) 60 mg PO DAILY 30 Days Qty: 60 RF: 1 Discharge Orders: Discharge Order (Routine); Ordered 02/13/20 Ordered By: Charlee Tang Referrals: Dawson Murguia [Primary Care Provider] - 1-3 days Discharge Diet: Advance as tolerated Discharge Activity: Increase activity as tolerated Patient Instructions: Abscess Incision and Drainage (ED), Abdominal Pain (ED) Activity Restrictions/Additional Instructions: Please return to the ER immediately for any of the signs or symptoms listed on your discharge instruction sheets, worsening/changing of your symptoms, you are not getting better as quickly as expected, or for ANY other cause or concerns. Be certain to follow-up with Mr. Bird in 2 days for wound recheck. If for any reason you cannot be seen by him return here to the ER for recheck. Return to the ER for increased redness to your breast, fever, vomiting, or for any other cause for concern. Coding Level of Care Code ED Customer Marketing Manager for [facility] Fwd Exam Problem Focused Documented by User: KATHLEEN Mckeon 02/12/20 23:00 HPI - General Adult General: Chief complaint: General Medical Stated complaint: KIDNEY PAIN Time Seen by Provider: 02/12/20 21:39 PFSH ED PFSH: Medical History Alcohol abuse Bipolar disorder History of hydronephrosis Peptic ulcer disease Polysubstance abuse Prolapse of bladder Suicidal ideation Tobacco dependency Surgical History H/O shoulder surgery History of delivery History of tubal ligation Hx laparoscopic cholecystectomy Hx of neck surgery Hx of tonsillectomy Family History Grandfather Cancer Paternal grandfather Diabetes Maternal grandfather Father Diabetes Grandmother Diabetes Paternal grandmother Brother Hepatitis C Sister Alcohol abuse Denies family history of Psychiatric illness Social History Smoking and tobacco status: current every day smoker cigarettes Packs smoked per day: 3 Years cigarettes smoked: 31 Quit status (tobacco): not considering quitting Smoking risk assessment/counseling performed?: Yes (Patient reports that she rolls 70-80 cigs a day to smoke) Alcohol intake: current Other details last alcohol use: Reports is in alcohol treatment program. [place] been drinking 1 gallon of vodka daily. Current gender identity: Female Physical Exam Chest: BREAST/AXILLA PALPATION: Yes abnormal palpation of the breast left lower inner Breast palpation abnormal details: tenderness and mass (Patient had an abscess with minimal purulent drainage. There is erythema, warmth and tenderness. Mass was fluctuant.) Details: tender and fluctuant Procedures Abscess I/D Site: chest (left breast) Side (if applicable): left Local Anesthetic: lidocaine 2% Amount of anesthesia used (mL): 10 Technique: incised with #11 blade Amount of fluid expressed (mL): 5 (Malodorous, purulent drainage) Irrigation: Yes Packing used?: none Complications: pain (Patient did have some pain when I was putting pressure on abscess to help increase drainage.) Course Vital Signs: Vital signs: Vital Signs Temperature 97.9 F 02/12/20 21:38 Pulse Rate 88 02/12/20 23:46 Respiratory Rate 18 02/12/20 23:46 Blood Pressure 109/83 02/12/20 23:46 Pulse Oximetry 95 02/12/20 23:46 MDM - General Adult MDM Narrative: Medical decision making narrative: Dr. Tang asked me to perform the abscess I&D for this patient. I was not involved in any other patient care or decision making for patient. I performed an abscess I&D with an 11 blade and I used local lidocaine 2% to help with pain. I collected and sent drainage to lab for culture. Approximately 5 mL's of malodorous purulent drainage from abscess. I irrigated abscess with normal saline. Lab Data: Labs: Lab Results 02/12/20 02/12/20 02/12/20 Range/Units 22:50 23:12 23:12 WBC 9.9 (4.0-10.0) 10^3/ uL RBC 4.85 (4.1-5.3) 10^6/u L Hgb 14.5 (11.5-15.3) g/dL Hct 44.0 (37.0-47.0) % MCV 90.7 (81-99) fL MCH 29.9 (28.0-34.0) pg MCHC 33.0 (30.0-36.0) g/dL RDW 15.9 H (12.1-15.1) % Plt Count 348 (130-400) 10^3/c mm MPV 10.3 (7.4-10.4) fL Neut % (Auto) 54.0 % Lymph % (Auto) 35.6 % [place] % (Auto) 7.6 % Eos % (Auto) 2.1 % Baso % (Auto) 0.3 % Neut # (Auto) 5.34 (1.8-7.7) 10^3/u L Lymph # (Auto) 3.5 (0.8-4.8) 10^3/u L [place] # (Auto) 0.8 (0.2-0.9) 10^3/u L Eos # (Auto) 0.2 (0.0-0.8) 10^3/u L Baso # (Auto) 0.0 (0.0-0.1) 10^3/u L Nucleated RBC % (a uto) 0 % Nucleated RBCs # 0.0 /100WBC Sodium 136 (136-145) mmol/L Potassium 4.6 (3.5-5.1) mmol/L Chloride 104 (98-107) mmol/L Carbon Dioxide 20 L (22-29) mmol/L Anion Gap 16.6 (5-19) BUN 12 (6-20) mg/dL Creatinine 0.7 (0.5-0.9) mg/dL GFR Calculation 92.2 (90-130) mL/min Glucose 106 (65-115) mg/dL Calculated Osmolal ity 282 L (285-295) mOsm/k g Lactic Acid 1.5 (0.5-2.2) mmol/L Calcium 9.0 (8.5-10.5) mg/dL Total Bilirubin 0.4 (0.15-1.2) mg/dL AST 65 H (0-32) U/L ALT 68 H (0-33) U/L Alkaline Phosphata se 112 H (35-105) IU/L Total Protein 7.0 (6.6-8.7) g/dL Albumin 3.8 (3.5-5.2) g/dL Globulin 3.2 (1.3-4.6) g/dL Lipase 20 (13-60) U/L Urine Color (Yellow) Urine Appearance (CLEAR) Urine pH (5-7) Ur Specific Gravit y (1.005-1.030) Urine Protein (Negative) Urine Glucose (UA) (Normal) Urine Ketones (Negative) Urine Blood (Negative) Urine Nitrate (Negative) Urine Bilirubin (Negative) Urine Urobilinogen (Negative) mg/dL Ur Leukocyte Stephanie ase (Negative) Urine RBC (0-2) /hpf Urine WBC (0-5) /hpf Ur Squamous Epith Cells (0-5) /hpf Amorphous Sediment Urine Bacteria (NONE) /hpf Ethyl Alcohol (0-10) mg/dL 02/12/20 02/13/20 Range/Units 23:12 00:07 WBC (4.0-10.0) 10^3/ uL RBC (4.1-5.3) 10^6/u L Hgb (11.5-15.3) g/dL Hct (37.0-47.0) % MCV (81-99) fL MCH (28.0-34.0) pg MCHC (30.0-36.0) g/dL RDW (12.1-15.1) % Plt Count (130-400) 10^3/c mm MPV (7.4-10.4) fL Neut % (Auto) % Lymph % (Auto) % [place] % (Auto) % Eos % (Auto) % Baso % (Auto) % Neut # (Auto) (1.8-7.7) 10^3/u L Lymph # (Auto) (0.8-4.8) 10^3/u L [place] # (Auto) (0.2-0.9) 10^3/u L Eos # (Auto) (0.0-0.8) 10^3/u L Baso # (Auto) (0.0-0.1) 10^3/u L Nucleated RBC % (a uto) % Nucleated RBCs # /100WBC Sodium (136-145) mmol/L Potassium (3.5-5.1) mmol/L Chloride (98-107) mmol/L Carbon Dioxide (22-29) mmol/L Anion Gap (5-19) BUN (6-20) mg/dL Creatinine (0.5-0.9) mg/dL GFR Calculation (90-130) mL/min Glucose (65-115) mg/dL Calculated Osmolal ity (285-295) mOsm/k g Lactic Acid (0.5-2.2) mmol/L Calcium (8.5-10.5) mg/dL Total Bilirubin (0.15-1.2) mg/dL AST (0-32) U/L ALT (0-33) U/L Alkaline Phosphata se (35-105) IU/L Total Protein (6.6-8.7) g/dL Albumin (3.5-5.2) g/dL Globulin (1.3-4.6) g/dL Lipase (13-60) U/L Urine Color Yellow (Yellow) Urine Appearance Cloudy (CLEAR) Urine pH 5 (5-7) Ur Specific Gravit y 1.025 (1.005-1.030) Urine Protein Neg (Negative) Urine Glucose (UA) 1+ (Normal) Urine Ketones Negative (Negative) Urine Blood 2+ H (Negative) Urine Nitrate Positive H (Negative) Urine Bilirubin Neg (Negative) Urine Urobilinogen Norm (Negative) mg/dL Ur Leukocyte Stephanie ase Negative (Negative) Urine RBC 5-10 H (0-2) /hpf Urine WBC 5-10 H (0-5) /hpf Ur Squamous Epith Cells 10-15 H (0-5) /hpf Amorphous Sediment Not Reportable Urine Bacteria 4+ H (NONE) /hpf Ethyl Alcohol < 10 (0-10) mg/dL Discharge Plan Discharge Patient Disposition: Home Clinical Impression: Abscess, Bilateral flank pain UTI (urinary tract infection) Qualifiers: Urinary tract infection type: site unspecified Hematuria presence: with hematuria Qualified Code(s): N39.0 - Urinary tract infection, site not specified Condition: Stable Prescriptions: New Cleocin HCl 150 mg capsule 300 mg PO Q6H 10 Days Qty: 80 RF: 0 sulfamethoxazole-trimethoprim [Bactrim DS] 800-160 mg tablet 1 tab PO BID 10 Days Qty: 20 RF: 0 No Action folic acid 1 mg Tablet 1 mg PO DAILY Qty: 0 RF: 0 Thera 400 mcg Tablet 1 tab PO DAILY Qty: 0 RF: 0 furosemide [Lasix] 20 mg tablet 20 mg PO DAILY Qty: 3 RF: 0 pantoprazole 40 mg tablet,delayed release (DR/EC) 40 mg PO BID Qty: 30 RF: 0 ketorolac 10 mg tablet 10 mg PO TID PRN (Reason: pain) Qty: 10 RF: 0 ondansetron 4 mg film 4 mg PO DAILY PRN (Reason: nausea and vomiting) Qty: 10 RF: 0 hydroxyzine HCl 50 mg tablet 50 mg PO TID PRN (Reason: unknown) RF: 0 amlodipine 10 mg tablet 10 mg PO DAILY RF: 0 benzonatate 100 mg capsule 100 mg PO TID RF: 0 hydrochlorothiazide 25 mg tablet 25 mg PO DAILY PRN (Reason: unknown) RF: 0 metoprolol tartrate 25 mg tablet 25 mg PO BID RF: 0 nicotine 21 mg/24 hr Patch 24 Hour 1 patch transdermal DAILY Qty: 30 RF: 0 thiamine mononitrate (vit B1) [Vitamin B-1 (mononitrate)] 100 mg Tablet 100 mg PO DAILY Qty: 30 RF: 0 albuterol sulfate [ProAir HFA] 90 mcg/actuation Hfa Aerosol Inhaler 1 puff INHALATION QID PRN (Reason: Shortness Of Breath) RF: 0 aripiprazole 20 mg tablet 20 mg PO DAILY 30 Days Qty: 30 RF: 1 trazodone 150 mg Tablet 150 mg PO BEDTIME PRN (Reason: Insomnia) 30 Days Qty: 30 RF: 1 duloxetine 30 mg capsule,delayed release(DR/EC) 60 mg PO DAILY 30 Days Qty: 60 RF: 1 Discharge Orders: Discharge Order (Routine); Ordered 02/13/20 Ordered By: Charlee Tang Referrals: Dawson Murguia [Primary Care Provider] - 1-3 days Discharge Diet: Advance as tolerated Discharge Activity: Increase activity as tolerated Patient Instructions: Abscess Incision and Drainage (ED), Abdominal Pain (ED) Activity Restrictions/Additional Instructions: Please return to the ER immediately for any of the signs or symptoms listed on your discharge instruction sheets, worsening/changing of your symptoms, you are not getting better as quickly as expected, or for ANY other cause or concerns. Be certain to follow-up with Mr. Bird in 2 days for wound recheck. If for any reason you cannot be seen by him return here to the ER for recheck. Return to the ER for increased redness to your breast, fever, vomiting, or for any other cause for concern. Coding Level of Care Code ED Customer Marketing Manager for Ana [facility]ag Fwd Exam Problem Focused
--- NOTE | 2020-02-12 22:15 | CTR_ITS ---
PROCEDURE INFORMATION: Exam: CT Abdomen And Pelvis Without Contrast Exam date and time: 02/12/2020 10:44 PM Age: 39 years old Clinical indication: Abdominal pain; Flank; Other: Bilateral; Prior surgery; Surgery type: Cholecystectomy, ; Additional info: Flank/abdominal pain TECHNIQUE: Imaging protocol: Computed tomography of the abdomen and pelvis without contrast. Radiation optimization: All CT scans at this facility use at least one of these dose optimization techniques: automated exposure control; mA and/or kV adjustment per patient size (includes targeted exams where dose is matched to clinical indication); or iterative reconstruction. COMPARISON: CT abdomen pelvis w con* [id number] 10/07/2019 5:38 PM RADIATION DOSE METRICS: Total DLP (mGy-cm): 2148.24 FINDINGS: Lungs: The lung bases appear essentially clear. Liver: There is fatty infiltration of the liver. The liver appears somewhat enlarged, with right lobe length of about 22 cm. No definite/significant focal hepatic abnormality. Gallbladder and bile ducts: Prior cholecystectomy, no significant biliary tree dilation. Pancreas: Unremarkable. Spleen: Unremarkable. Adrenals: Unremarkable. Kidneys and ureters: No hydronephrosis of either kidney. No visible renal or ureteral calculus. No perinephric fluid. Stomach and bowel: There are no CT findings to strongly suggest diverticulitis. Appendix: The appendix is visualized and appears normal. Intraperitoneal space: No free air, ascites, or bowel distention. Vasculature: No evidence for abdominal aortic aneurysm. Lymph nodes: No retroperitoneal adenopathy. Urinary bladder: Unremarkable as visualized. Reproductive: The right ovary contains a 12 mm dominant follicle versus very small cyst. Significance unlikely due to small size. No cul-de-sac fluid. Bones/joints: No significant acute finding. Soft tissues: Small umbilical hernia, containing only fat. CT/CT kidney stone [id number] IMPRESSION: 1. No hydronephrosis of either kidney. No visible renal or ureteral calculus. 2. Normal appendix. 3. No free air or bowel distention. 4. Other findings discussed above. Radiation Dose CTDIVOL = (mGy): DLP = 2148.24 (mGy-cm)
[2020-02-12 22:39] VITALS: RESP 22
[2020-02-12] MEDS: HYDROmorphone 1 mg/mL INJ 1 mL 0.5 MG IVP ×2 (22:39→23:30)
[2020-02-12] MEDS: ondansetron 2 mg/ML SDV 2 mL 4 MG IVP (22:40)
[2020-02-12] MEDS: sodium chloride 0.9% 1,000 ML 999 ML IV (22:40)
[2020-02-12] MEDS: lidocaine 2% INJ 20 mL INJECTION (23:00)
[2020-02-12 23:30] VITALS: RESP 20
[2020-02-12] MEDS: clindamycin 900 MG/50 ML PREMIX 100 MG IV (23:30)
[2020-02-12 23:35] LABS: Basophils % 0.3 %; Eosinophils # 0.2 10^3/uL (0.0-0.8); Eosinophils % 2.1 %; Hemoglobin 14.5 g/dL (11.5-15.3); Lymphocytes # 3.5 10^3/uL (0.8-4.8); Lymphocytes % 35.6 %; Mean Corpuscular Hemoglobin 29.9 pg (28.0-34.0); Mean Corpuscular Volume 90.7 fL (81-99); Mean Platelet Volume 10.3 fL (7.4-10.4); Monocytes # 0.8 10^3/uL (0.2-0.9); Monocytes % 7.6 %; Neutrophils # 5.34 10^3/uL (1.8-7.7); Nucleated Red Blood Cells % 0 %; Platelet Count 348 10^3/cmm (130-400); Red Blood Count 4.85 10^6/uL (4.1-5.3); Red Cell Distribution Width 15.9 % (12.1-15.1); White Blood Count 9.9 10^3/uL (4.0-10.0)
[2020-02-12 23:36] LABS: Alanine Aminotransferase 68 U/L (0-33); Albumin Level 3.8 g/dL (3.5-5.2); Alkaline Phosphatase 112 IU/L (35-105); Blood Urea Nitrogen 12 mg/dL (6-20); Carbon Dioxide 20 mmol/L (22-29); Chloride 104 mmol/L (98-107); Globulin 3.2 g/dL (1.3-4.6); Glomerular Filtration Rate 92.2 mL/min (90-130); Glucose 106 mg/dL (65-115); Lipase 20 U/L (13-60); Osmolality Calculated 282 mOsm/kg (285-295); Sodium 136 mmol/L (136-145); Total Bilirubin 0.4 mg/dL (0.15-1.2)
[2020-02-12 23:38] LABS: Anion Gap 16.6 (5-19); Aspartate Amino Transferase 65 U/L (0-32); Potassium 4.6 mmol/L (3.5-5.1)
[2020-02-12 23:44] LABS: Lactic Sepsis W/Reflex 1.5 mmol/L (0.5-2.2)
[2020-02-12 23:46] VITALS: BP 109/83; PULSE 88; RESP 18; O2SAT 95
[2020-02-13 00:29] LABS: Alcohol Level < 10 mg/dL (0-10)
[2020-02-13 00:42] LABS: Add Urine Microscopic? YES; Bilirubin Urine Neg (Negative); Blood Urine 2+ (Negative); Glucose Urine UA 1+ (Normal); Ketones Urine Negative (Negative); Leukocyte Esterase Urine Negative (Negative); Nitrate Urine Positive (Negative); Protein Urine Neg (Negative); Specific Gravity, Urine 1.025 (1.005-1.030); Urine Appearance Cloudy (CLEAR); Urine Color Yellow (Yellow); Urobilinogen Urine Norm (Negative); pH Urine 5 (5-7)
[2020-02-13 00:43] LABS: Add Urine Culture? Yes; Bacteria Urine 4+ /hpf
--- NOTE | 2020-02-13 02:00 | PC.NURSE ---
Pt discharged but unable to get into family home until morning. Will let her stay until 0600 if volumes allow
[2020-02-13 03:26] VITALS: BP 132/84; PULSE 68; RESP 16; O2SAT 98
== END 2020-02-13 05:00 | disposition home or self-care (01) ==
PROVIDERS: Emergency Provider Emergency Medicine; PCP Physician Assistant Medical
DX: N61.1 Abscess of the breast and nipple (principal); F17.210 Nicotine dependence, cigarettes, uncomplicated; N39.0 Urinary tract infection, site not specified; R31.9 Hematuria, unspecified
CPT/HCPCS: 10060; 12345; 36415; 71045; 74176; 80053; 80307; 81001; 83605; 83690; 85025; 87040; 87070; 87077; 87086; 87186; 96365; 96375; 99283; 99284; J1170; J2405; J3490; J7030

== ENCOUNTER 2020-04-03 11:16 | Emergency (ER) | payer MEDICAID, SELFPAY ==
[2020-04-03 11:26] VITALS: BP 172/119; PULSE 69; RESP 16; TEMP 36.4; O2SAT 96; BMI 42.5
--- NOTE | 2020-04-03 12:48 | W.ED.FEMALGU ---
HPI - Female Genitourinary General: Chief complaint: Urogenital-Female Stated complaint: ABDOMINAL PAIN Time Seen by Provider: 04/03/20 12:19 Source: patient and EMS Mode of arrival: EMS Limitations: no limitations History of Present Illness: HPI Narrative: 39-year-old female who states she has chronic abdominal pain from a prolapsed uterus. She states she been having pain for years. She states she has had increased pain over the last 5 to 6 days. Denies any vomiting or diarrhea. States her pain is sharp in nature and rates today 4 out of 10. Associated symptoms: Reports abdominal pain; Deny headache(s) Date of Last Menstrual Period: 11/06/19 Review of Systems Const: Denies: fever(s), chills, body aches or change in appetite Eyes: Denies: blurry vision or eye discomfort ENMT: Denies: throat pain or dental pain Card: Denies: chest pain Resp: Denies: dyspnea GI: Reports: abdominal pain : Denies: dysuria Musc: Denies: neck pain or back pain Skin/Breast: Denies: rash Neuro: Denies: headache(s) Psych: Denies: depression Jaron/Lymph: Denies: easy bruising All/Imm: Denies: urticaria PFSH ED PFSH: Medical History (Updated 04/03/20 @ 14:45 by Agnieszka Jalloh MD) Alcohol abuse Bipolar disorder History of hydronephrosis Peptic ulcer disease Polysubstance abuse Prolapse of bladder Suicidal ideation Tobacco dependency Surgical History H/O shoulder surgery History of delivery History of tubal ligation Hx laparoscopic cholecystectomy Hx of neck surgery Hx of tonsillectomy Family History Grandfather Cancer Paternal grandfather Diabetes Maternal grandfather Father Diabetes Grandmother Diabetes Paternal grandmother Brother Hepatitis C Sister Alcohol abuse Denies family history of Psychiatric illness Social History Smoking and tobacco status: current every day smoker cigarettes Packs smoked per day: 3 Years cigarettes smoked: 31 Quit status (tobacco): not considering quitting Smoking risk assessment/counseling performed?: Yes (Patient reports that she rolls 70-80 cigs a day to smoke) Alcohol intake: current Other details last alcohol use: Reports is in alcohol treatment program. [place] been drinking 1 gallon of vodka daily. Current gender identity: Female Female Reproductive History: Date of last menstrual period: 11/06/19 Physical Exam Const: COMMON NORMALS: no acute distress, patient oriented x3 and healthy appearing HENMT: COMMON NORMALS: normocephalic and atraumatic HEAD & SCALP: normocephalic and atraumatic Eye: COMMON NORMALS: Equal, round and reactive pupils present and EOMs intact bilaterally PUPIL: Yes Equal, round and reactive pupils present Neck/C-Spine: COMMON NORMALS: full ROM and supple Chest: COMMONS NORMALS: normal inspection of the chest and normal palpation of entire chest wall Resp: COMMON NORMALS: normal respiratory effort, No retractions, No use of accessory muscles and clear to auscultation bilaterally AUSCULTATION: clear to auscultation bilaterally Cardio: COMMON NORMALS: regular rate, regular rhythm and No murmurs present (Cardio) RATE: regular rate RHYTHM: regular rhythm GI: COMMON NORMALS: Normal to inspection, nondistended, normoactive bowel sounds present, Soft to palpation, non-tender and no masses PALPATION: Yes Soft to palpation Extremity: COMMON NORMALS: normal to inspection and full ROM Neuro: COMMON NORMALS: patient oriented x3, moves all extremities and no focal motor deficits Psych: COMMON NORMALS: mental status grossly normal, Normal thought process present and cooperative THOUGHT PROCESS: Normal thought process present Skin: COMMON NORMALS: no rashes or lesions noted and no wounds GENERAL SKIN EXAM: no rashes or lesions noted Course Vital Signs: Vital signs: Vital Signs Temperature 97.5 F L 04/03/20 11:26 Pulse Rate 69 04/03/20 11:26 Respiratory Rate 16 04/03/20 11:26 Blood Pressure 172/119 04/03/20 11:26 Pulse Oximetry 96 04/03/20 11:26 MDM - Female MDM Narrative: Medical decision making narrative: Mary Jo presents here with abdominal pain that is chronic in nature. Patient's blood work here is normal and she is well-appearing here. Patient is stable for discharge and exam at discharge is benign. She is to follow-up with PCP in 3 to 5 days and return if worsening. Lab Data: Labs: Lab Results 04/03/20 04/03/20 Range/Units 13:52 13:52 WBC 6.9 (4.0-10.0) 10^3/ uL RBC 5.06 (4.1-5.3) 10^6/u L Hgb 15.8 H (11.5-15.3) g/dL Hct 48.9 H (37.0-47.0) % MCV 96.6 (81-99) fL MCH 31.2 (28.0-34.0) pg MCHC 32.3 (30.0-36.0) g/dL RDW 15.4 H (12.1-15.1) % Plt Count 290 (130-400) 10^3/c mm MPV 10.2 (7.4-10.4) fL Neut % (Auto) 47.7 % Lymph % (Auto) 43.5 % [place] % (Auto) 6.1 % Eos % (Auto) 2.2 % Baso % (Auto) 0.4 % Neut # (Auto) 3.28 (1.8-7.7) 10^3/u L Lymph # (Auto) 3.0 (0.8-4.8) 10^3/u L [place] # (Auto) 0.4 (0.2-0.9) 10^3/u L Eos # (Auto) 0.2 (0.0-0.8) 10^3/u L Baso # (Auto) 0.0 (0.0-0.1) 10^3/u L Nucleated RBC % (a uto) 0 % Nucleated RBCs # 0.0 /100WBC Sodium 138 (136-145) mmol/L Potassium 3.4 L (3.5-5.1) mmol/L Chloride 103 (98-107) mmol/L Carbon Dioxide 25 (22-29) mmol/L Anion Gap 13.4 (5-19) BUN 9 (6-20) mg/dL Creatinine 0.6 (0.5-0.9) mg/dL GFR Calculation 110.2 (90-130) mL/min Glucose 101 (65-115) mg/dL Calculated Osmolal ity 285 (285-295) mOsm/k g Calcium 8.9 (8.5-10.5) mg/dL Total Bilirubin 0.5 (0.15-1.2) mg/dL AST 69 H (0-32) U/L ALT 54 H (0-33) U/L Alkaline Phosphata se 102 (35-105) IU/L Total Protein 6.7 (6.6-8.7) g/dL Albumin 3.8 (3.5-5.2) g/dL Globulin 2.9 (1.3-4.6) g/dL Lipase 20 (13-60) U/L Discharge Plan Discharge Patient Disposition: Home Clinical Impression: Abdominal pain Condition: Stable Prescriptions: No Action folic acid 1 mg Tablet 1 mg PO DAILY Qty: 0 RF: 0 Thera 400 mcg Tablet 1 tab PO DAILY Qty: 0 RF: 0 furosemide [Lasix] 20 mg tablet 20 mg PO DAILY Qty: 3 RF: 0 pantoprazole 40 mg tablet,delayed release (DR/EC) 40 mg PO BID Qty: 30 RF: 0 ketorolac 10 mg tablet 10 mg PO TID PRN (Reason: pain) Qty: 10 RF: 0 ondansetron 4 mg film 4 mg PO DAILY PRN (Reason: nausea and vomiting) Qty: 10 RF: 0 hydroxyzine HCl 50 mg tablet 50 mg PO TID PRN (Reason: unknown) RF: 0 amlodipine 10 mg tablet 10 mg PO DAILY RF: 0 benzonatate 100 mg capsule 100 mg PO TID RF: 0 hydrochlorothiazide 25 mg tablet 25 mg PO DAILY PRN (Reason: unknown) RF: 0 metoprolol tartrate 25 mg tablet 25 mg PO BID RF: 0 nicotine 21 mg/24 hr Patch 24 Hour 1 patch transdermal DAILY Qty: 30 RF: 0 thiamine mononitrate (vit B1) [Vitamin B-1 (mononitrate)] 100 mg Tablet 100 mg PO DAILY Qty: 30 RF: 0 albuterol sulfate [ProAir HFA] 90 mcg/actuation Hfa Aerosol Inhaler 1 puff INHALATION QID PRN (Reason: Shortness Of Breath) RF: 0 aripiprazole 20 mg tablet 20 mg PO DAILY 30 Days Qty: 30 RF: 1 trazodone 150 mg Tablet 150 mg PO BEDTIME PRN (Reason: Insomnia) 30 Days Qty: 30 RF: 1 duloxetine 30 mg capsule,delayed release(DR/EC) 60 mg PO DAILY 30 Days Qty: 60 RF: 1 Discharge Orders: Discharge Order (Routine); Ordered 04/03/20 Ordered By: Agnieszka Jalloh Referrals: Dawson Murguia [Primary Care Provider] - Discharge Diet: Advance as tolerated Discharge Activity: Resume usual activity Patient Instructions: Abdominal Pain (ED) Coding Level of Care Code ED Freight And Passenger Agent for Chg Fwd Exam Comprehensive
[2020-04-03] MEDS: metoclopramide 5 mg/mL SDV 2 mL 10 MG IM (13:20)
[2020-04-03] MEDS: diphenhydrAMINE 50 mg/mL SDV 1mL IM (13:20)
[2020-04-03 14:08] LABS: Basophils % 0.4 %; Eosinophils # 0.2 10^3/uL (0.0-0.8); Eosinophils % 2.2 %; Hematocrit 48.9 % (37.0-47.0); Hemoglobin 15.8 g/dL (11.5-15.3); Lymphocytes % 43.5 %; Mean Corpuscular HGB Conc 32.3 g/dL (30.0-36.0); Mean Corpuscular Hemoglobin 31.2 pg (28.0-34.0); Mean Corpuscular Volume 96.6 fL (81-99); Mean Platelet Volume 10.2 fL (7.4-10.4); Monocytes # 0.4 10^3/uL (0.2-0.9); Monocytes % 6.1 %; Neutrophils # 3.28 10^3/uL (1.8-7.7); Neutrophils % 47.7 %; Nucleated Red Blood Cells % 0 %; Platelet Count 290 10^3/cmm (130-400); Red Blood Count 5.06 10^6/uL (4.1-5.3); Red Cell Distribution Width 15.4 % (12.1-15.1); White Blood Count 6.9 10^3/uL (4.0-10.0)
[2020-04-03 14:28] LABS: Alanine Aminotransferase 54 U/L (0-33); Albumin Level 3.8 g/dL (3.5-5.2); Alkaline Phosphatase 102 IU/L (35-105); Anion Gap 13.4 (5-19); Aspartate Amino Transferase 69 U/L (0-32); Blood Urea Nitrogen 9 mg/dL (6-20); Calcium 8.9 mg/dL (8.5-10.5); Carbon Dioxide 25 mmol/L (22-29); Chloride 103 mmol/L (98-107); Globulin 2.9 g/dL (1.3-4.6); Glomerular Filtration Rate 110.2 mL/min (90-130); Glucose 101 mg/dL (65-115); Lipase 20 U/L (13-60); Osmolality Calculated 285 mOsm/kg (285-295); Potassium 3.4 mmol/L (3.5-5.1); Sodium 138 mmol/L (136-145); Total Bilirubin 0.5 mg/dL (0.15-1.2); Total Protein 6.7 g/dL (6.6-8.7)
== END 2020-04-03 15:32 | disposition home or self-care (01) ==
PROVIDERS: Emergency Provider Emergency Medicine; PCP Physician Assistant Medical
DX: R10.9 Unspecified abdominal pain (principal); Z87.11 Personal history of peptic ulcer disease; F17.210 Nicotine dependence, cigarettes, uncomplicated
CPT/HCPCS: 12345; 36415; 80053; 83690; 85025; 96372; 99281; 99283; J1200; J2765

== ENCOUNTER 2020-04-24 13:13 | Emergency (ER) | payer MEDICAID, SELFPAY ==
[2020-04-24] VITALS (9 sets, daily range): BP systolic 107–147; BP diastolic 83–108; PULSE 98–116; RESP 16–30; TEMP 37.5; O2SAT 87–97; BMI 42.4
--- NOTE | 2020-04-24 13:27 | XR_ITS ---
WS: [id number] Portable AP upright chest, 04/24/2020 Clinical Data: dyspnea/cough Comparison: Portable chest, 02/12/2020 Findings: No nodules, masses or effusions are seen. The heart is normal. The pulmonary vascularity is not increased. No pneumonia or pneumothorax is seen. There are monitor leads on the chest wall. XR/XR chest 1V portable [id number] Impression: Negative chest.
--- NOTE | 2020-04-24 13:28 | CT_ITS ---
WS: [id number] CT ABDOMEN PELVIS TECHNIQUE: Contrast-enhanced CT of the abdomen and pelvis with coronal and sagittal reformatted image s. CLINICAL INFORMATION: abd pain COMPARISON: February 12, 2020. DLP: 1860.[address] scans at [facility] use at least one of these dose optimization techniques: automat ed exposure control; mA and/or kV adjustment per patient size (includes targeted exams where dose is matched to clinical indication); or iterative reconstruction. FINDINGS: Hepatomegaly. Diffuse fatty infiltration. Cholecystectomy clips. Portal vein and splenic vein are pat ent. Normal pancreas. Normal GE junction. Lung bases are well aerated. Normal spleen. Adrenal glands are normal. A few shoddy periaortic and retroperitoneal lymph nodes unchanged from previous. Normal r enal parenchymal enhancement. No hydronephrosis. No obstructing renal or ureteral calculi. Left renal cyst measuring 14 mm. Normal caliber abdominal aorta. Sigmoid diverticulosis. No evidence of acute diverticulitis. A few fl uid-filled dilated loops of small bowel in the midabdomen with air-fluid levels measuring up tp 3.1 C M. No evidence of high-grade obstruction. Fat-containing umbilical hernia. No pelvic or inguinal lymp hadenopathy. CT/CT abdomen pelvis w con* [id number] IMPRESSION: 1. Diffuse fatty infiltration of the liver. Prior cholecystectomy. 2. No obstructing renal or ureteral calculi. No hydronephrosis. 3. A few dilated loops of small bowel in the midabdomen with air-fluid levels. No evidence of high-grade obstruction. Recommend correlation for small bowel e nteritis or developing small bowel obstruction. 4. Incidental fat-containing inguinal hernia. 5. Shotty retroperitoneal and periaortic lymph nodes. Notified Lamont Whitley DO at 04/24/2020 2:42 PM.
[2020-04-24] MEDS: sodium chloride 0.9% 1,000 ML 999 ML IV (13:56)
[2020-04-24] MEDS: ondansetron 2 mg/ML SDV 2 mL 4 MG IVP (13:57)
[2020-04-24] MEDS: morphine 4 mg/mL SDV 1 mL 2 MG IVP (13:57)
[2020-04-24] MEDS: ketorolac 30 mg/mL INJ IVP (13:57)
[2020-04-24 14:05] LABS: ABG PCO2 33.4 mmHg (35-45); Alveolar-Arterial Oxygen Gradi 5.9 mmHg (5-10); Arterial Blood Gas Hematocrit 45.8 % (37-47); Base Excess ABG 9.2 mmol/L (-2.0-2.0); Blood Gas Allen Test Pos; Blood Gas Sample Site Brachial, right; Blood Gas Sample Type Arterial; Carboxyhemoglobin 3.3 %THgb (0.4-20.1); HCO3 ABG 31.2 mmol/L (22-26); HGB O2 Sat 90.7 % (95-100); Ionized Calcium Level - ABG 1.2 mmol/L (1.1-1.4); Methemoglobin 0.7 % (0.4-1.5); Oxygen Saturation ABG 94.4; PO2 ABG 62.8 mmHg (80.0-100.0); Total Hemoglobin 14.9 g/dL (12-16)
[2020-04-24 14:06] LABS: Basophils # 0.1 10^3/uL (0.0-0.1); Basophils % 0.5 %; Eosinophils # 0.1 10^3/uL (0.0-0.8); Eosinophils % 0.8 %; Hematocrit 42.9 % (37.0-47.0); Hemoglobin 14.7 g/dL (11.5-15.3); Lymphocytes # 2.2 10^3/uL (0.8-4.8); Mean Corpuscular HGB Conc 34.3 g/dL (30.0-36.0); Mean Corpuscular Hemoglobin 31.3 pg (28.0-34.0); Mean Corpuscular Volume 91.5 fL (81-99); Mean Platelet Volume 10.7 fL (7.4-10.4); Monocytes # 1.2 10^3/uL (0.2-0.9); Monocytes % 10.4 %; Neutrophils # 7.99 10^3/uL (1.8-7.7); Neutrophils % 68.5 %; Nucleated Red Blood Cells % 0 %; Platelet Count 353 10^3/cmm (130-400); Red Blood Count 4.69 10^6/uL (4.1-5.3); Red Cell Distribution Width 14.7 % (12.1-15.1); White Blood Count 11.7 10^3/uL (4.0-10.0)
[2020-04-24 14:11] LABS: Alanine Aminotransferase 25 U/L (0-33); Albumin Level 2.9 g/dL (3.5-5.2); Alkaline Phosphatase 112 IU/L (35-105); Aspartate Amino Transferase 33 U/L (0-32); Blood Urea Nitrogen 18 mg/dL (6-20); Calcium 9.5 mg/dL (8.5-10.5); Carbon Dioxide 27 mmol/L (22-29); Chloride 91 mmol/L (98-107); Globulin 3.9 g/dL (1.3-4.6); Glucose 172 mg/dL (65-115); Lipase 14 U/L (13-60); Magnesium 1.6 mg/dL (1.7-2.3); Osmolality Calculated 276 mOsm/kg (285-295); Sodium 130 mmol/L (136-145); Total Bilirubin 0.7 mg/dL (0.15-1.2); Total Protein 6.8 g/dL (6.6-8.7)
[2020-04-24] MEDS: iohexol 300 mg/mL 100 mL Btl IV (14:18)
[2020-04-24 14:22] LABS: Anion Gap 15.3 (5-19); Potassium 3.3 mmol/L (3.5-5.1)
--- NOTE | 2020-04-24 14:35 | ED_ITS ---
HPI - Abdominal Pain General: Chief Complaint: Abdominal Pain Stated Complaint: SICK FOR 2 WEEKS/ N/V Time Seen by Provider: 04/24/20 13:14 History of Present Illness: HPI narrative: Mary Jo Moo comes in complaining of right flank pain rating down into the right groin she has been able to urinate for the last 2 days. She states she has not urinated for last 2 days she denies fever sweats chills nausea vomiting or diarrhea she has had some left-sided chest discomfort and cough it is been nonproductive she does get short of breath she is not had any nausea vomiting diarrhea she has had a few loose stools. Has had not had any productive cough some left-sided chest pain that is been intermittent for the last several days. MD elicited complaint: abdominal pain Pertinent past history: past UTI Onset (ago): day(s) Pain Consistency: constant Location: Diffuse (abdomen) Severity: moderate Quality: cramping Radiation: other (L groin) Exacerbating factors: movement Relieving factors: rest Associated Symptoms: Reports anorexia, GI cramping, nausea and poor appetite; Denies belching, bloating, change in bowel habits, change in stool character, chills, coffee ground emesis, constipation, diarrhea, dyspepsia, dysuria, excessive flatus, fever(s), heartburn, hematochezia, hematuria, hematemesis, fe vivienne incontinence, loose stools, melena, syncope and vomiting Related Data: Date of Last Menstrual Period: 11/06/19 Review of Systems Const: Denies: fever(s) or chills ENMT: Denies: throat pain, ear or mastoid pain, nasal discharge or nasal congestion Card: Denies: syncope Resp: Reports: dyspnea and non-productive cough; Denies: productive cough GI: Reports: nausea and GI cramping; Denies: vomiting, hematemesis, coffee ground emesis, heartburn, diarrhea, constipation, bloating, belching, excessive flatus, fecal incontinence, change in bowel habits, change in stool character, hematochezia or melena : Denies: dysuria or hematuria Skin/Breast: Denies: rash or pruritus PFSH ED PFSH: Medical History (Updated 04/25/20 @ 09:04 by Lamont Whitley DO) Alcohol abuse Bipolar disorder History of hydronephrosis Peptic ulcer disease Polysubstance abuse Prolapse of bladder Suicidal ideation Tobacco dependency Surgical History H/O shoulder surgery History of delivery History of tubal ligation Hx laparoscopic cholecystectomy Hx of neck surgery Hx of tonsillectomy Family History Grandfather Cancer Paternal grandfather Diabetes Maternal grandfather Father Diabetes Grandmother Diabetes Paternal grandmother Brother Hepatitis C Sister Alcohol abuse Denies family history of Psychiatric illness Social History Smoking and tobacco status: current every day smoker cigarettes Packs smoked per day: 3 Years cigarettes smoked: 31 Quit status (tobacco): not considering quitting Smoking risk assessment/counseling performed?: Yes (Patient reports that she rolls 70-80 cigs a day to smoke) Alcohol intake: current Other details last alcohol use: Reports is in alcohol treatment program. [place] been drinking 1 gallon of vodka daily. Current gender identity: Female Female Reproductive History: Date of last menstrual period: 11/06/19 Physical Exam HENMT: COMMON NORMALS: normocephalic, atraumatic and hearing grossly normal bilaterally HEAD & SCALP: normocephalic and atraumatic Neck/C-Spine: COMMON NORMALS: no JVD Resp: COMMON NORMALS: normal respiratory effort, No retractions, No use of accessory muscles and clear to auscultation bilaterally AUSCULTATION: clear to auscultation bilaterally Cardio: COMMON NORMALS: no JVD, regular rate, regular rhythm and No murmurs present (Cardio) RATE: regular rate RHYTHM: regular rhythm GI: COMMON NORMALS: Soft to palpation and No hepatosplenomegaly present AUSCULTATION: Yes normoactive bowel sounds PALPATION: Yes Soft to palpation, No Tenderness to palpation present (GI), No Guarding due to palpation present (GI) and Yes No hepatosplenomegaly present Extremity: COMMON NORMALS: normal to inspection, capillary refill normal, no clubbing, cyanosis or edema, no calf tenderness and no pedal edema Skin: COMMON NORMALS: no rashes or lesions noted GENERAL SKIN EXAM: no rashes or lesions noted Course Vital Signs: Vital signs: Vital Signs Temperature 99.5 F 04/24/20 13:18 Pulse Rate 100 12/04/20 17:28 Respiratory Rate 16 04/24/20 17:28 Blood Pressure 147/108 04/24/20 17:28 Pulse Oximetry 93 04/24/20 17:28 MDM - Abdominal Pain MDM Narrative: Medical decision making narrative: Patient has cystitis. CT reviewed no pyelonephritis's question of small bowel obstruction with a few small air-fluid filled loops of bowel. Patient has been able to keep p.o. liquids down and has good bowel sounds on exam does have a small amount of tympany. At this point I do not think she requires hospitalization we will start on oral antibiotics and follow-up early next week return if has problems. Lab Data: Labs: Lab Results 04/24/20 04/24/20 04/24/20 Range/Units 13:35 13:35 13:35 WBC 11.7 H (4.0-10.0) 10^3/ uL RBC 4.69 (4.1-5.3) 10^6/u L Hgb 14.7 (11.5-15.3) g/dL Hct 42.9 (37.0-47.0) % MCV 91.5 (81-99) fL MCH 31.3 (28.0-34.0) pg MCHC 34.3 (30.0-36.0) g/dL RDW 14.7 (12.1-15.1) % Plt Count 353 (130-400) 10^3/c mm MPV 10.7 H (7.4-10.4) fL Neut % (Auto) 68.5 % Lymph % (Auto) 19.0 % [place] % (Auto) 10.4 % Eos % (Auto) 0.8 % Baso % (Auto) 0.5 % Neut # (Auto) 7.99 H (1.8-7.7) 10^3/u L Lymph # (Auto) 2.2 (0.8-4.8) 10^3/u L [place] # (Auto) 1.2 H (0.2-0.9) 10^3/u L Eos # (Auto) 0.1 (0.0-0.8) 10^3/u L Baso # (Auto) 0.1 (0.0-0.1) 10^3/u L Nucleated RBC % (a uto) 0 % Nucleated RBCs # 0.0 /100WBC Specimen Type Sample Site ABG pH (7.35-7.45) ABG pCO2 (35-45) mmHg ABG pO2 (80.0-100.0) mmH g ABG HCO3 (22-26) mmol/L ABG O2 Saturation ABG Base Excess (-2.0-2.0) mmol/ L Evans Test A-a O2 Gradient (5-10) mmHg Hematocrit (37-47) % Hgb O2 Saturation (95-100) % Carboxyhemoglobin (0.4-20.1) %THgb Methemoglobin (0.4-1.5) % Total Hemoglobin (12-16) g/dL Ionized Calcium (1.1-1.4) mmol/L O2 Delivery Device O2 Liters/Min % Aligning Inspector ID Sodium 130 L (136-145) mmol/L Potassium 3.3 L (3.5-5.1) mmol/L Chloride 91 L (98-107) mmol/L Carbon Dioxide 27 (22-29) mmol/L Anion Gap 15.3 (5-19) BUN 18 (6-20) mg/dL Creatinine 0.9 (0.5-0.9) mg/dL GFR Calculation 69.0 L (90-130) mL/min Glucose 172 H (65-115) mg/dL Calculated Osmolal ity 276 L (285-295) mOsm/k g Calcium 9.5 (8.5-10.5) mg/dL Magnesium 1.6 L (1.7-2.3) mg/dL Total Bilirubin 0.7 (0.15-1.2) mg/dL AST 33 H (0-32) U/L ALT 25 (0-33) U/L Alkaline Phosphata se 112 H (35-105) IU/L Total Protein 6.8 (6.6-8.7) g/dL Albumin 2.9 L (3.5-5.2) g/dL Globulin 3.9 (1.3-4.6) g/dL Lipase 14 (13-60) U/L Urine Color (Yellow) Urine Appearance (CLEAR) Urine pH (5-7) Ur Specific Gravit y (1.005-1.030) Urine Protein (Negative) Urine Glucose (UA) (Normal) Urine Ketones (Negative) Urine Blood (Negative) Urine Nitrate (Negative) Urine Bilirubin (Negative) Urine Urobilinogen (Negative) mg/dL Ur Leukocyte Stephanie ase (Negative) Urine RBC (0-2) /hpf Urine WBC (0-5) /hpf Ur Squamous Epith Cells (0-5) /hpf Amorphous Sediment Urine Bacteria (NONE) /hpf Ethyl Alcohol < 10 (0-10) mg/dL SARS-CoV-2 Ag (Rap id) (Negative) 04/24/20 04/24/20 04/24/20 Range/Units 13:50 14:55 16:00 WBC (4.0-10.0) 10^3/ uL RBC (4.1-5.3) 10^6/u L Hgb (11.5-15.3) g/dL Hct (37.0-47.0) % MCV (81-99) fL MCH (28.0-34.0) pg MCHC (30.0-36.0) g/dL RDW (12.1-15.1) % Plt Count (130-400) 10^3/c mm MPV (7.4-10.4) fL Neut % (Auto) % Lymph % (Auto) % [place] % (Auto) % Eos % (Auto) % Baso % (Auto) % Neut # (Auto) (1.8-7.7) 10^3/u L Lymph # (Auto) (0.8-4.8) 10^3/u L [place] # (Auto) (0.2-0.9) 10^3/u L Eos # (Auto) (0.0-0.8) 10^3/u L Baso # (Auto) (0.0-0.1) 10^3/u L Nucleated RBC % (a uto) % Nucleated RBCs # /100WBC Specimen Type Arterial Sample Site Brachial, right ABG pH 7.58 H* (7.35-7.45) ABG pCO2 33.4 L (35-45) mmHg ABG pO2 62.8 L (80.0-100.0) mmH g ABG HCO3 31.2 H (22-26) mmol/L ABG O2 Saturation 94.4 ABG Base Excess 9.2 H (-2.0-2.0) mmol/ L Evans Test Pos A-a O2 Gradient 5.9 (5-10) mmHg Hematocrit 45.8 (37-47) % Hgb O2 Saturation 90.7 L (95-100) % Carboxyhemoglobin 3.3 (0.4-20.1) %THgb Methemoglobin 0.7 (0.4-1.5) % Total Hemoglobin 14.9 (12-16) g/dL Ionized Calcium 1.2 (1.1-1.4) mmol/L O2 Delivery Device Nc O2 Liters/Min % Aligning Inspector ID Jlg Sodium 133.0 (136-145) mmol/L Potassium 3.0 L (3.5-5.1) mmol/L Chloride (98-107) mmol/L Carbon Dioxide (22-29) mmol/L Anion Gap (5-19) BUN (6-20) mg/dL Creatinine (0.5-0.9) mg/dL GFR Calculation (90-130) mL/min Glucose 157.0 H (65-115) mg/dL Calculated Osmolal ity (285-295) mOsm/k g Calcium (8.5-10.5) mg/dL Magnesium (1.7-2.3) mg/dL Total Bilirubin (0.15-1.2) mg/dL AST (0-32) U/L ALT (0-33) U/L Alkaline Phosphata se (35-105) IU/L Total Protein (6.6-8.7) g/dL Albumin (3.5-5.2) g/dL Globulin (1.3-4.6) g/dL Lipase (13-60) U/L Urine Color Yellow (Yellow) Urine Appearance Sl hazy (CLEAR) Urine pH 7 (5-7) Ur Specific Gravit y 1.000 L (1.005-1.030) Urine Protein Neg (Negative) Urine Glucose (UA) Norm (Normal) Urine Ketones Negative (Negative) Urine Blood Neg (Negative) Urine Nitrate Positive H (Negative) Urine Bilirubin Neg (Negative) Urine Urobilinogen Norm (Negative) mg/dL Ur Leukocyte Stephanie ase 1+ H (Negative) Urine RBC None (0-2) /hpf Urine WBC 25-40 H (0-5) /hpf Ur Squamous Epith Cells 5-10 H (0-5) /hpf Amorphous Sediment Not Reportable Urine Bacteria 4+ H (NONE) /hpf Ethyl Alcohol (0-10) mg/dL SARS-CoV-2 Ag (Rap id) Negative (Negative) Discharge Plan Discharge Patient Disposition: Home Clinical Impression: UTI (urinary tract infection), Uterovaginal prolapse, Acute hypokalemia Condition: Stable Prescriptions: New Cipro 500 mg tablet 500 mg PO BID 7 Days Qty: 14 RF: 0 Zofran 4 mg tablet 4 mg PO Q6H PRN (Reason: nausea and vomiting) Qty: 20 RF: 0 No Action folic acid 1 mg Tablet 1 mg PO DAILY Qty: 0 RF: 0 Thera 400 mcg Tablet 1 tab PO DAILY Qty: 0 RF: 0 furosemide [Lasix] 20 mg tablet 20 mg PO DAILY Qty: 3 RF: 0 pantoprazole 40 mg tablet,delayed release (DR/EC) 40 mg PO BID Qty: 30 RF: 0 ketorolac 10 mg tablet 10 mg PO TID PRN (Reason: pain) Qty: 10 RF: 0 ondansetron 4 mg film 4 mg PO DAILY PRN (Reason: nausea and vomiting) Qty: 10 RF: 0 hydroxyzine HCl 50 mg tablet 50 mg PO TID PRN (Reason: unknown) RF: 0 amlodipine 10 mg tablet 10 mg PO DAILY RF: 0 benzonatate 100 mg capsule 100 mg PO TID RF: 0 hydrochlorothiazide 25 mg tablet 25 mg PO DAILY PRN (Reason: unknown) RF: 0 metoprolol tartrate 25 mg tablet 25 mg PO BID RF: 0 nicotine 21 mg/24 hr Patch 24 Hour 1 patch transdermal DAILY Qty: 30 RF: 0 thiamine mononitrate (vit B1) [Vitamin B-1 (mononitrate)] 100 mg Tablet 100 mg PO DAILY Qty: 30 RF: 0 albuterol sulfate [ProAir HFA] 90 mcg/actuation Hfa Aerosol Inhaler 1 puff INHALATION QID PRN (Reason: Shortness Of Breath) RF: 0 aripiprazole 20 mg tablet 20 mg PO DAILY 30 Days Qty: 30 RF: 1 trazodone 150 mg Tablet 150 mg PO BEDTIME PRN (Reason: Insomnia) 30 Days Qty: 30 RF: 1 duloxetine 30 mg capsule,delayed release(DR/EC) 60 mg PO DAILY 30 Days Qty: 60 RF: 1 Discharge Orders: Discharge ED (Routine); Ordered 04/24/20 Ordered By: Lamont Whitley Referrals: Dawson Murguia [Primary Care Provider] - Activity Restrictions/Additional Instructions: Follow-up with your primary care if not improving Coding Level of Care Code ED Loading And Unloading Supervisor for Chg Fwd Exam Detailed
[2020-04-24 15:23] LABS: Alcohol Level < 10 mg/dL (0-10)
[2020-04-24] MEDS: potassium chloride oral liq 20 mEq/15 mL UDC 40 MEQ PO (15:46)
[2020-04-24 15:59] LABS: SARS Covid-2 Antigen Negative (Negative)
[2020-04-24 16:27] LABS: Add Urine Microscopic? YES; Bilirubin Urine Neg (Negative); Blood Urine Neg (Negative); Glucose Urine UA Norm (Normal); Ketones Urine Negative (Negative); Leukocyte Esterase Urine 1+ (Negative); Nitrate Urine Positive (Negative); Protein Urine Neg (Negative); Urine Appearance SL Hazy (CLEAR); Urine Color Yellow (Yellow); Urobilinogen Urine Norm (Negative); pH Urine 7 (5-7)
[2020-04-24 16:39] LABS: Add Urine Culture? Yes; Bacteria Urine 4+ /hpf; WBC Urine 25-40 /hpf (0-5)
[2020-04-24 18:44] LABS: ABG PH Result 7.58 (7.35-7.45); Oxygen Device NC
== END 2020-04-24 17:38 | disposition home or self-care (01) ==
PROVIDERS: Emergency Provider Family Medicine; PCP Physician Assistant Medical
DX: N39.0 Urinary tract infection, site not specified (principal); N81.4 Uterovaginal prolapse, unspecified; E87.6 Hypokalemia; F17.210 Nicotine dependence, cigarettes, uncomplicated
CPT/HCPCS: 12345; 36600; 51701; 71045; 74177; 80051; 80053; 80307; 81001; 82330; 82805; 83605; 83690; 83735; 85025; 87040; 87077; 87086; 87186; 87426; 96365; 96375; 99282; 99284; J1885; J2270; J2405; J3475; J7030; Q9967